=== PATIENT | male | born 1935 | race Caucasian/White ===

== ENCOUNTER 2016-06-01 15:58 | Emergency (ER) | payer OTHER ==
[2016-06-01 16:25] VITALS: BMI 34.2
--- NOTE | 2016-06-01 16:49 | PDOC ---
History of Present Illness - History of Present Illness Initial Comments: 06/01/16 19:16 Patient is a 80 year old male with significant medical hx of CHF, CAD s/p CABG, renal insufficiency, HLD, and diabetes who is presenting to the ED with sudden left leg weakness from today. Today the patient was walking across the street when he had a sudden onset of severe weakness to his left leg and collapsed on the ground. The patient was picked back up by bystanders. He reports that he was able to regain some strength and was able to drive home. The patient states that hes afraid to bear weight on his leg because he feels that he will fall over. The patient denies chest pain, nausea, shortness of breath, or numbness prior to the onset of his symptoms. The patient denies head trauma and loss of consciousness. The patient reports receiving a vascular procedure this summer but is unable to recall what was performed. Procedure done by Dr. Joseph Wagner. Office Number: [phone] PCP: Camilo Sheth MD <Nhi Malcolm - Last Filed: 06/01/16 21:32> <Kelly Partida - Last Filed: 06/01/16 22:31> - General Chief Complaint: Weakness Stated Complaint: LEG WEAKNESS, UNABLE TO WALK Time Seen by Provider: 06/01/16 16:41 Past History <Nhi Malcolm - Last Filed: 06/01/16 21:32> - Past Medical History Anemia: No Asthma: No Cancer: No Cardiac Disorders: Yes (CAD,ASHD) CVA: No COPD: No CHF: Yes Dementia: No Diabetes: Yes GI Disorders: Yes (DIVERTICULOSIS) Disorders: Yes (RENAL INSUFFICIENCY) HTN: Yes Hypercholesterolemia: Yes Liver Disease: No Seizures: No Thyroid Disease: No - Surgical History Abdominal Surgery: No Appendectomy: No Cardiac Surgery: Yes (CABG, ANGIOGRAM,STENTS) Cholecystectomy: No Lung Surgery: No Neurologic Surgery: No Orthopedic Surgery: No - Psycho/Social/Smoking Cessation Hx Anxiety: No Suicidal Ideation: No Smoking Status: No Smoking History: Never smoked Have you smoked in the past 12 months: No Number of Cigarettes Smoked Daily: 0 Hx Alcohol Use: No Drug/Substance Use Hx: No Substance Use Type: None Hx Substance Use Treatment: No <Kelly Partida - Last Filed: 06/01/16 22:31> - Past Medical History Allergies/Adverse Reactions: Allergies Allergy/AdvReac Type Severity Reaction Status Date / Time No Known Allergies Allergy Verified 06/01/16 16:19 Home Medications: Ambulatory Orders Metformin HCl [Glucophage -] 500 mg PO BIDAC #0 tablet 10/18/14 Metoprolol Succinate [Toprol XL -] 50 mg PO DAILY #0 tab.sr.24h 10/18/14 Sitagliptin Phosphate [Januvia -] 100 mg PO DAILY@0700 #0 ud 10/18/14 Allopurinol [Zyloprim -] 300 mg PO DAILY 06/01/16 Clotrimazole/Betamethasone Dip [Clotrimazole-Betamethasone Lot] 30 ml TP DAILY 06/01/16 Furosemide [Lasix] 40 mg PO DAILY 06/01/16 Glipizide [Glucotrol Xl] 2.5 mg PO DAILY 06/01/16 Ibuprofen 800 mg PO QID 06/01/16 Simvastatin 40 mg PO HS 06/01/16 Review of Systems - Review of Systems Comments:: 06/01/16 19:18 CONSTITUTIONAL: Absent: fever, chills, diaphoresis, generalized weakness, malaise, loss of appetite HEENT: Absent: rhinorrhea, nasal congestion, throat pain, throat swelling, difficulty swallowing, mouth swelling, ear pain, eye pain, visual changes CARDIOVASCULAR: Absent: chest pain, syncope, palpitations, irregular heart rate, lightheadedness , peripheral edema RESPIRATORY: Absent: cough, shortness of breath, dyspnea with exertion, orthopnea, wheezing, stridor, hemoptysis GASTROINTESTINAL: Absent: abdominal pain, abdominal distension, nausea, vomiting, diarrhea, constipation, melena, hematochezia GENITOURINARY: Absent: dysuria, frequency, urgency, hesitancy, hematuria, flank pain, genital pain MUSCULOSKELETAL: Absent: myalgia, arthralgia, joint swelling SKIN: Absent: rash, itching, pallor HEMATOLOGIC/IMMUNOLOGIC: Absent: easy bleeding, easy bruising, lymphadenopathy, frequent infections ENDOCRINE: Absent: unexplained weight gain, unexplained weight loss, heat intolerance, cold intolerance NEUROLOGIC: Present: sudden left lower extremity weakness Absent: headache, dizziness, seizure, mental status changes, bladder or bowel incontinence. PSYCHIATRIC: Absent: anxiety, depression, suicidal or homicidal ideation, hallucinations <Yun,Nhi - Last Filed: 06/01/16 21:32> *Physical Exam - Vital Signs Last Vital Signs Temp Pulse Resp BP Pulse Ox 97.6 F 81 17 141/66 95 06/01/16 16:19 06/01/16 16:19 06/01/16 16:19 06/01/16 16:19 06/01/16 16:19 - Physical Exam Comments: 06/01/16 19:18 GENERAL: Well developed, well nourished. Awake and alert. No acute distress. HEENT: Normocephalic, atraumatic. PERRLA, EOMI. No conjunctival pallor. Sclera are non- icteric. Moist mucous membranes. Oropharynx is clear. NECK: Supple. Full ROM. No JVD. Carotid pulses 2+ and symmetric, without bruits. No thyromegaly. No lymphadenopathy. CARDIOVASCULAR: Regular rate and rhythm. No murmurs, rubs, or gallops. Distal pulses are 2+ and symmetric. PULMONARY: No evidence of respiratory distress. Lungs clear to auscultation bilaterally. No wheezing, rales or rhonchi. ABDOMINAL: Protuberant. Soft. Non-tender. Non-distended. No rebound or guarding. No organomegaly. Normoactive bowel sounds. MUSCULOSKELETAL: 4 cm ecchymosis to the left hip. Normal range of motion at all joints. No bony deformities or tenderness. No CVA tenderness. EXTREMITIES: Chronic venous stasis with chronic erythema, several fluid filled lesions and some ulcerations, one 6 cm fluid filled blister that broke open. No cellulitis. +1 lower extremity edema. No obvious deformity. SKIN: Warm and dry. Normal capillary refill. No rashes. No jaundice. NEUROLOGICAL: Awake, alert, fully oriented x 3. Cranial nerves 2-12 intact. Able to lift both legs independently off bed and with gravity. Normal speech. PSYCHIATRIC: Cooperative. Good eye contact. Appropriate mood and affect. <Nhi Malcolm - Last Filed: 06/01/16 21:32> - Vital Signs Last Vital Signs Temp Pulse Resp BP Pulse Ox 97.6 F 81 17 141/66 95 06/01/16 16:19 06/01/16 16:19 06/01/16 16:19 06/01/16 16:19 06/01/16 16:19 <Kelly Partida - Last Filed: 06/01/16 22:31> Heart Score/ECG Review #1 06/01/16 20:33 Sinus rhythm at 85 bpm with 1st AV block with premature atrial complexes Inferior infarct, age undetermined Cannot rule out Anterior infarct, age undetermined Abnormal ECG <Nhi Malcolm - Last Filed: 06/01/16 21:32> ED Treatment Course - LABORATORY CBC & Chemistry Diagram: 06/01/16 19:00 06/01/16 19:00 - ADDITIONAL ORDERS Additional order review: 06/01/16 19:00 RBC 4.93 D MCV 93.7 MCHC 32.5 RDW 16.0 H MPV 8.7 D Neutrophils % 79.6 Lymphocytes % 7.8 L D Monocytes % 9.9 Eosinophils % 1.8 Basophils % 0.9 - RADIOLOGY Radiograph Interpretation: 06/01/16 21:[address] Impression: No significant interval change or acute intracranial pathology is identified. 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 However, osteopenia limits this examination. Reported By: Melina Carlos MD <Nhi Malcolm - Last Filed: 06/01/16 21:32> - LABORATORY CBC & Chemistry Diagram: 06/01/16 19:00 06/01/16 19:00 <Kelly Partida - Last Filed: 06/01/16 22:31> *DC/Admit/Observation/Transfer - Attestations Scribe Attestion: 06/01/16 19:24 Documentation prepared by Nhi Malcolm, acting as medical videographer for Kelly Partida MD. <Nhi Malcolm - Last Filed: 06/01/16 21:32> <Kelly Partida - Last Filed: 06/01/16 22:31> Diagnosis at time of Disposition: Gait difficulty, Renal insufficiency Fall Qualifiers: Encounter type: initial encounter Qualified Code(s): W19.XXXA - Unspecified fall, initial encounter - Discharge Dispostion Disposition: HOME Condition at time of disposition: Stable - Referrals Referrals: Camilo Campo MD [Primary Care Provider] - - Patient Instructions Printed Discharge Instructions: How to Prevent Falls, DI for Leg Pain, DI for Edema Due to Venous Stasis Additional Instructions: please use your cane or walker to prevent falls please follow up with Dr Campo
[2016-06-01 19:12] LABS: BASOPHIL 0.9 % (0-2.0); EOSINOPHIL 1.8 % (0-4.5); MCH 30.4 pg (25.7-33.7); MCHC 32.5 g/dl (32.0-35.9); MEAN CELL VOLUME 93.7 fl (80-96); MEAN PLT VOLUME 8.7 fl (7.5-11.1); NEUTROPHILS 79.6 % (42.8-82.8); PLATELET COUNT 195 K/MM3 (134-434); WHITE BLOOD COUNT 10.8 K/mm3 (4.0-10.0)
[2016-06-01 19:34] LABS: ALBUMIN 3.2 g/dl (3.4-5.0); CALCIUM 9.4 mg/dL (8.5-10.1); CREATININE 1.8 mg/dL (0.7-1.3)
[2016-06-01 19:36] LABS: BILIRUBIN,TOTAL 0.3 mg/dL (0.2-1.0); TOT PROT 6.9 g/dl (6.4-8.2); TROPONIN I < 0.02 ng/ml (0.00-0.05)
[2016-06-01] MEDS ORDERED: ACETAMINOPHEN 325 MG TABLET (FP) PO ONE (19:46)
[2016-06-01] MEDS ORDERED: SODIUM CHLORIDE 500 ML IV STA (19:47)
[2016-06-01] MEDS ORDERED: ACETAMINOPHEN 325 MG TABLET (FP) ONE (20:05)
[2016-06-01] MEDS ORDERED: CYCLOBENZAPRINE HCL 10 MG TABLET (FP) ONE (20:08)
[2016-06-01 21:27] LABS: URINE APPEARANCE CLEAR; URINE BILIRUBIN NEGATIVE (NEGATIVE); URINE BLOOD NEGATIVE (NEGATIVE); URINE COLOR STRAW; URINE GLUCOSE (UA) NEGATIVE (NEGATIVE); URINE KETONE NEGATIVE (NEGATIVE); URINE LEUK ESTERASE NEGATIVE (NEGATIVE); URINE NITRITE NEGATIVE (NEGATIVE); URINE PROTEIN NEGATIVE (NEGATIVE); URINE UROBILINOGEN NEGATIVE E.U./dl (0.2-1.0)
[2016-06-01 23:12] VITALS: BP 138/68; PULSE 80; TEMP 97.7
--- NOTE | 2016-06-02 23:23 | EKG ---
Test Reason : Blood Pressure : / mmHG Vent. Rate : 085 BPM Atrial Rate : 085 BPM P-R Int : 240 ms QRS Dur : 112 ms QT Int : 384 ms P-R-T Axes : 021 025 -08 degrees QTc Int : 456 ms SINUS RHYTHM WITH 1ST DEGREE A-V BLOCK WITH PREMATURE ATRIAL COMPLEXES INFERIOR INFARCT (CITED ON OR BEFORE 23-OCT-2006) CANNOT RULE OUT ANTERIOR INFARCT (CITED ON OR BEFORE 23-OCT-2006) ABNORMAL ECG WHEN COMPARED WITH ECG OF 14-OCT-2014 15:42, PREMATURE ATRIAL COMPLEXES ARE NOW PRESENT Confirmed by MARISSA HINDS MD ([id number]) on 06/02/2016 11:22:48 PM Referred By: Confirmed By:MARISSA HINDS MD
--- NOTE | 2016-06-09 17:51 | EKG ---
Test Reason : Blood Pressure : / mmHG Vent. Rate : 091 BPM Atrial Rate : 087 BPM P-R Int : 244 ms QRS Dur : 082 ms QT Int : 398 ms P-R-T Axes : 073 019 -09 degrees QTc Int : 489 ms PROBABLE SINUS RHYTHM WITH BASELINE ARTIFACTS AND PREMATURE ATRIAL COMPLEXES INFERIOR INFARCT (CITED ON OR BEFORE 23-OCT-2006) POSSIBLE ANTERIOR INFARCT (CITED ON OR BEFORE 23-OCT-2006) ABNORMAL ECG WHEN COMPARED WITH ECG OF 01-JUN-2016 18:10, LIKELY NO SIGNIFICANT CHANGES Confirmed by MARISSA HINDS MD ([id number]) on 06/09/2016 5:51:08 PM Referred By: Confirmed By:MARISSA HINDS MD
== END 2016-06-01 23:10 | disposition home or self-care (01) ==
LOC: JER 15:58
PROC: 3E0337Z Introduction of Electrolytic and Water Balance Substance into Peripheral Vein, Percutaneous Approach (ICD-10-PCS; principal; 2016-06-01)
DX: M62.81 Muscle weakness (generalized) (principal); N28.9 Disorder of kidney and ureter, unspecified; I25.10 Atherosclerotic heart disease of native coronary artery without angina pectoris; I13.0 Hypertensive heart and chronic kidney disease with heart failure and stage 1 through stage 4 chronic kidney disease, or unspecified chronic kidney disease; N18.9 Chronic kidney disease, unspecified; I50.9 Heart failure, unspecified; Z95.1 Presence of aortocoronary bypass graft; Z95.5 Presence of coronary angioplasty implant and graft; E11.9 Type 2 diabetes mellitus without complications; Z79.84 Long term (current) use of oral hypoglycemic drugs; I10 Essential (primary) hypertension
CPT/HCPCS: 36415; 70450-TC; 73523-TC; 80053; 81003; 82550; 84484; 85025; 93005; 93010; 96360; 99283-25

== ENCOUNTER 2017-05-09 14:43 | Inpatient (IN) | payer OTHER ==
--- NOTE | 2017-05-09 15:57 | PDOC ---
Attending Attestation - HPI HPI: 05/09/17 16:42 The patient is a 81 year old male with a past medical history of non insulin dependent diabetes, coronary artery disease s/p coronary bypass graft, congestive heart failure, hypertension, hyperlipidemia, renal insufficiency and diverticulosis who presents to the emergency department complaining of 2 months of progressively worsening bilateral lower extremity weakness. He reports chronic wounds on bilateral lower extremities. He denies any urinary symptoms but his clothes are stained with urine. Denies chest pain, back pain. - Physicial Exam PE: 05/09/17 16:50 Vitals: Triage Vital signs reviewed General Appearance: no acute distress, well nourished well developed, Head: Atraumatic, normocephalic Eyes: Pupils equal reactive round, extraocular movement intact Ears: TM's normal bilaterally; Nose: Nares patent bilaterally;no nasal congestion Throat: Posterior oropharynx without erythema, mucous membranes moist, Neck: Supple;No Nuchal rigidity Chest Wall: Nontender Cardiac: Regular rate and rhythm, no murmurs, no rubs, no gallops, Lungs: Clear to auscultation bilateral, good air movement bilaterally, Abdomen: Soft, nondistended, normal bowel sounds, nontender to palpation Rectal: Exam deferred Extremities:marked bilateral lower extremity swelling and edema. Skin: Bilateral lower extremity Stasis dermatitis from ankle to knee with various wounds with small amount of drainage. Foul swelling. Neuro: AOX3; Cranial Nerves 2-12 grossly c intact, Strength intact to all extremities, Sensation intact to all extremities. Psych: normal mood, normal affect - Medical Decision Making 05/09/17 16:41 Documentation prepared by Tiki Lau, acting as medical record assistant for López Mar MD. <Tiki Lau - Last Filed: 05/09/17 16:59> - Resident Resident Name: Jaquan Patel - ED Attending Attestation I have performed the following: I have examined & evaluated the patient, The case was reviewed & discussed with the resident, I agree w/resident's findings & plan, Exceptions are as noted - Medical Decision Making 81 year old male with a past medical history of non insulin dependent diabetes, coronary artery disease s/p coronary bypass graft, congestive heart failure, hypertension, hyperlipidemia, renal insufficiency and diverticulosis, to the emergency department with greater than one month history of bilateral lower extremity swelling generalized weakness difficulty ambulating. On examination patient with markedly swollen bilateral lower extremity superinfected. Given diabetes we'll cover with pharynx Zosyn. We'll workup for CHF exacerbation, perform Dopplers of lower extremities, and abx for cellultis. Pt. will need to be admitted to medicine for further management Dr. Partida to follow-up results and disposition. <López Mar - Last Filed: 05/09/17 17:05>
--- NOTE | 2017-05-09 16:35 | PDOC ---
History of Present Illness - General Chief Complaint: Weakness Stated Complaint: UNABLE TO AMBULATE Time Seen by Provider: 05/09/17 15:27 History Source: Patient - History of Present Illness Initial Comments: 05/09/17 16:24 Patient is a 81M with history of NIDDM, CAD s/p CABG, CHF, HTN, HLD, renal insufficiency and diverticulosis here today complaining of 2 months of leg weakness. Patient is a poor historian who is unsure of many details of his care. He states that he's been feeling more and more weak lately with associated shortness of breath. He says he's had chronic wounds on his legs, but is unsure of what he's doing for them now. He denies any issues with urination, but his clothes are stained with urine. Denies chest pain, back pain. He is also complaining of pain in his right hand, which has been swollen for over a week. Denies trauma to the hand. He states that he was told it was due to his arthritis. Past History - Past Medical History Allergies/Adverse Reactions: Allergies Allergy/AdvReac Type Severity Reaction Status Date / Time No Known Allergies Allergy Verified 05/09/17 17:28 Home Medications: Ambulatory Orders Furosemide [Lasix -] 40 mg PO ASDIR 05/09/17 Glipizide [Glipizide ER] 5 mg PO ASDIR 05/09/17 Ibuprofen 800 mg PO ASDIR 05/09/17 Metoprolol Succinate [Toprol Xl -] 50 mg PO ASDIR 05/09/17 Simvastatin [Zocor -] 40 mg PO ASDIR 05/09/17 Sitagliptin Phos/Metformin HCl [Janumet 50-500 mg Tablet] 1 each PO ASDIR Triamcinolone 0.1% Lotion [Kenalog 0.1% Top Lotion] 60 ml TP ASDIR 05/09/17 Anemia: No Asthma: No Cancer: No Cardiac Disorders: Yes (CAD,ASHD) CVA: No COPD: No CHF: Yes Dementia: No Diabetes: Yes GI Disorders: Yes (DIVERTICULOSIS) Disorders: Yes (RENAL INSUFFICIENCY) HTN: Yes Hypercholesterolemia: Yes Liver Disease: No Seizures: No Thyroid Disease: No - Surgical History Abdominal Surgery: No Appendectomy: No Cardiac Surgery: Yes (CABG, ANGIOGRAM,STENTS) Cholecystectomy: No Lung Surgery: No Neurologic Surgery: No Orthopedic Surgery: No - Suicide/Smoking/Psychosocial Hx Smoking Status: No Smoking History: Never smoked Have you smoked in the past 12 months: No Number of Cigarettes Smoked Daily: 0 Hx Alcohol Use: No Drug/Substance Use Hx: No Substance Use Type: None Hx Substance Use Treatment: No Review of Systems - Review of Systems Comments:: 05/09/17 16:36 GENERAL/CONSTITUTIONAL: No fever or chills. Positive for weakness. HEAD, EYES, EARS, NOSE AND THROAT: No change in vision. No sore throat. CARDIOVASCULAR: No chest pain. Positive for shortness of breath. RESPIRATORY: No cough, wheezing, or hemoptysis. GASTROINTESTINAL: No nausea, vomiting, diarrhea or constipation. GENITOURINARY: No dysuria. Positive for urinary frequency. MUSCULOSKELETAL: Positive for right wrist pain. No neck or back pain. SKIN: No rash NEUROLOGIC: No headache, vertigo, loss of consciousness, or change in strength/ sensation. ALLERGIC/IMMUNOLOGIC: No hives or skin allergy. *Physical Exam - Physical Exam Comments: 05/09/17 16:37 GENERAL: Awake, alert, and fully oriented, smells of urine with staining HEAD: No signs of trauma, normocephalic, atraumatic EYES: PERRLA, EOMI, sclera anicteric, conjunctiva clear ENT: Auricles normal inspection, hearing grossly normal, nares patent, oropharynx clear without exudates. Moist mucosa NECK: Normal ROM, supple, no lymphadenopathy, JVD, or masses LUNGS: No distress, crackles in lower lung bhatia bilaterally HEART: Regular rate and rhythm, normal S1 and S2, no murmurs, rubs or gallops, peripheral pulses normal and equal bilaterally. ABDOMEN: Soft, nontender, normoactive bowel sounds. No guarding, no rebound. No masses EXTREMITIES: Bilateral chronic wounds to lower extremities. Pitting edema to above knee. No clubbing or cyanosis. NEUROLOGICAL: Cranial nerves II through XII grossly intact. Normal speech, no focal sensorimotor deficits SKIN: Stasis dermatitis from ankles to knees with many ulcers in various stages of healing with moderate amount of discharge ED Treatment Course - LABORATORY CBC & Chemistry Diagram: 05/09/17 16:45 05/09/17 16:45 - RADIOLOGY Radiology Studies Ordered: Category Date Time Status CHEST X-RAY PORTABLE* [RAD] Stat Radiology 05/09/17 15:56 Ordered Medical Decision Making - Medical Decision Making 05/09/17 16:38 81M with history of DM, CAD s/p cabg, arthritis, CHF, HTN, HLD, renal insufficiency, and diverticulosis here with weakness. Patient protecting airway. Patient was hypoxic to 83% during my evaluation, placed on 4L of O2. HR 93, BP stable. Moving all extremities, able to move up in bed. Patient completely disrobed, no wounds other than described in PE on legs. Right hand swollen, tender. Patient's spo2 maame to 92% on oxygen. Differential diagnosis includes, but is not limited to: chf exacerbation, uti, pneumonia, cellulitis. Patient lives alone, and is unable to take care of himself. Will treat with vanc /zosyn after cultures obtained. 05/09/17 17:30 EKG shows sinus rhythm with 1st degree av block. Q waves prominent in III and aVF, consistent with EKG done in 05/19. No st elevations/depressions. Uneven baseline makes t-wave analysis difficult, no significant t-wave abnormalities appreciated. 05/09/17 17:44 Laboratory Tests 06/01/16 05/09/17 05/09/17 19:00 16:45 16:45 WBC 13.7 H Hgb 13.4 D Hct 40.4 Plt Count 220 POC VBG pCO2 58.5 H POC VBG pO2 24.3 L BUN Creatinine 1.8 H D Troponin I B-Natriuretic Peptide 05/09/17 16:45 WBC Hgb Hct Plt Count POC VBG pCO2 POC VBG pO2 BUN 28 H D Creatinine 1.5 H Troponin I < 0.02 B-Natriuretic Peptide 1961.08 H CBC shows leukocytosis. VBG shows increased pCO2. Cr below prior baseline. BNP 1. Glucose 43, given amp of d50. 05/09/17 17:49 Patient has been unable to provide urine sample, antibiotics started before UC collected. 05/09/17 19:43 Dr Patterson accepted admission to [facility] inpatient. Given lasix. *DC/Admit/Observation/Transfer Diagnosis at time of Disposition: CHF exacerbation, Cellulitis - Discharge Dispostion Condition at time of disposition: Stable Admit: Yes - Referrals Referrals: Camilo Campo MD [Primary Care Provider] - - Patient Instructions - Post Discharge Activity
[2017-05-09 17:02] LABS: BASO % 0.6 % (0-2.0); EOS % 0.1 % (0-4.5); HEMATOCRIT 40.4 % (35.4-49); HEMOGLOBIN 13.4 GM/dL (11.7-16.9); LYMPH % 4.3 % (8-40); MCH 30.5 pg (25.7-33.7); MCHC 33.2 g/dl (32.0-35.9); MEAN CELL VOLUME 92.1 fl (80-96); MEAN PLT VOLUME 8.3 fl (7.5-11.1); MONO % 11.7 % (3.8-10.2); NEUT % 83.3 % (42.8-82.8); PLATELET COUNT 220 K/MM3 (134-434); RBC 4.39 M/mm3 (4.00-5.60); RDW 13.6 % (11.9-15.9); WHITE BLOOD COUNT 13.7 K/mm3 (4.0-10.0)
[2017-05-09] MEDS ORDERED: PIPERACILLIN/TAZOB 4.5 GM/100 ML PRE-DOCKED IVPB ONE (17:02)
[2017-05-09] MEDS ORDERED: VANCOMYCIN 1,000 MG in DEXTROSE 5%-WATER - 250 ML IVPB ONE (17:02)
[2017-05-09 17:06] LABS: VENOUS PC02 58.5 mmHg (38-52); VENOUS PH 7.38 (7.32-7.42); VENOUS PO2 24.3 mmHg (28-48)
[2017-05-09 17:16] LABS: INR 1.39 (0.82-1.09); PROTHROMBIN TIME (PATIENT) 15.7 SEC (9.98-11.88)
[2017-05-09] MEDS ORDERED: VANCOMYCIN 1 GRAM (PRE-DOCKED) 1,000 MG/250 ML BAG IVPB ONE (17:17)
[2017-05-09] MEDS ORDERED: PIPERACILLIN/TAZOB 4.5 GM 4.5 GM/100 ML BAG IVPB ONE (17:17)
[2017-05-09 17:19] LABS: ACTIVATED PTT 30.9 SECONDS (26.9-34.4)
[2017-05-09 17:30] LABS: ALBUMIN 2.9 g/dl (3.4-5.0); ANION GAP 10 (8-16); BLOOD UREA NITROGEN 28 mg/dL (7-18); CALCIUM 8.5 mg/dL (8.5-10.1); CHLORIDE 101 mmol/L (98-107); CO2 34 mmol/L (21-32); SODIUM 145 mmol/L (136-145)
[2017-05-09 17:36] LABS: ALK PHOS 123 U/L (45-117); CREATININE 1.5 mg/dL (0.7-1.3); N-TERMINAL BNP 1961.08 pg/ml (5-450); SGPT/ALT 11 U/L (12-78); TOT PROT 6.5 g/dl (6.4-8.2)
[2017-05-09 17:40] LABS: POTASSIUM 3.4 mmol/L (3.5-5.1); SGOT/AST 15 U/L (15-37)
[2017-05-09 17:41] LABS: GLUCOSE,RANDOM 43 mg/dL (74-106)
[2017-05-09] MEDS ORDERED: DEXTROSE 50%-WATER - 25 GM/50 ML VIAL IVPUSH ONE (17:41)
[2017-05-09] MEDS ORDERED: DEXTROSE 50%-WATER 25 GM/50 ML DISP.SYRIN ONE (17:45)
[2017-05-09] MEDS ORDERED: FUROSEMIDE 40 MG/4 ML INJECTABLE VIAL IVPUSH ONE (19:43)
--- NOTE | 2017-05-09 19:51 | HP ---
CHIEF COMPLAINT:B?l lower ext weakness and swelling with cellulites PCP:Dr.Shoen steen HISTORY OF PRESENT ILLNESS: 81 year old male with PMHX of NIDDM, CHF, CAD s/p bypass, HTN, HLD, renal insufficiency,diverticulosis who presented to ED with 2 days history of LE weakness, swelling and erythema was found to have sepsis secondary to cellulites and was admitted to [facility] for further evaluation foe the past months patient complained of leg weakness. Patient is a poor historian who is unsure of many details of his care. He states that he's been feeling more and more weak lately with associated shortness of breath. He says he's had chronic wounds on his legs, but is unsure of what he's doing for them now. He denies any issues with urination, but his clothes are stained with urine. Denies chest pain, back pain. He is also complaining of pain in his right hand, which has been swollen for over a week. Denies trauma to the hand. He states that he was told it was due to his arthritis. ROS : Constipation, SOB, vertigo ER course was notable for: (1)CBC 13.7, K 3.4 , BUN/Cr 28/1.5. GLU 43 (2) CXR right side opacity (my reading) (3) Zosyn/vanco Recent Travel:Denies PAST MEDICAL HISTORY: NIDDM, CHF, CAD s/p bypass, HTN, HLD, renal insufficiency,diverticulosis PAST SURGICAL HISTORY: Bypass 1994 Social History: Smoking:denies Alcohol:denies Drugs: denies Family History: Father deid at 59 with heart disease Mother @ 72 she had DM Allergies No Known Allergies Allergy (Verified 05/09/17 17:28) HOME MEDICATIONS: Home Medications Medication Instructions Recorded Furosemide [Lasix -] 40 mg PO ASDIR 05/09/17 Glipizide [Glipizide ER] 5 mg PO ASDIR 05/09/17 Ibuprofen 800 mg PO ASDIR 05/09/17 Metoprolol Succinate [Toprol Xl -] 50 mg PO ASDIR 05/09/17 Simvastatin [Zocor -] 40 mg PO ASDIR 05/09/17 Sitagliptin Phos/Metformin HCl 1 each PO ASDIR 05/09/17 [Janumet 50-500 mg Tablet] Triamcinolone 0.1% Lotion [Kenalog 60 ml TP ASDIR 05/09/17 0.1% Top Lotion] REVIEW OF SYSTEMS CONSTITUTIONAL: Absent: fever, chills, diaphoresis, generalized weakness, malaise, loss of appetite, weight change HEENT: Absent: rhinorrhea, nasal congestion, throat pain, throat swelling, difficulty swallowing, mouth swelling, ear pain, eye pain, visual changes CARDIOVASCULAR: Absent: chest pain, syncope, palpitations, irregular heart rate, lightheadedness , peripheral edema RESPIRATORY: Absent: cough, shortness of breath, dyspnea with exertion, orthopnea, wheezing, stridor, hemoptysis GASTROINTESTINAL: Absent: abdominal pain, abdominal distension, nausea, vomiting, diarrhea, constipation, melena, hematochezia GENITOURINARY: Absent: dysuria, frequency, urgency, hesitancy, hematuria, flank pain, genital pain MUSCULOSKELETAL: Absent: myalgia, arthralgia, joint swelling, back pain, neck pain SKIN: Absent: rash, itching, pallor HEMATOLOGIC/IMMUNOLOGIC: Absent: easy bleeding, easy bruising, lymphadenopathy, frequent infections ENDOCRINE: Absent: unexplained weight gain, unexplained weight loss, heat intolerance, cold intolerance NEUROLOGIC: Absent: headache, focal weakness or paresthesias, dizziness, unsteady gait, seizure, mental status changes, bladder or bowel incontinence PSYCHIATRIC: Absent: anxiety, depression, suicidal or homicidal ideation, hallucinations. PHYSICAL EXAMINATION Vital Signs - 24 hr 05/09/17 05/09/17 15:40 19:36 Temperature 99.3 F Pulse Rate 94 H Respiratory 16 Rate Blood Pressure 117/53 O2 Sat by Pulse 95 98 Oximetry (%) GENERAL: Awake, alert, and fully oriented, in no acute distress. HEAD: Normal with no signs of trauma. EYES:sclera anicteric, conjunctiva clear. EARS, NOSE, THROAT: Moist mucous membranes. NECK: Normal range of motion, supple LUNGS: Breath sounds equal, clear to auscultation bilaterally. No wheezes, and no crackles. No accessory muscle use. HEART: Regular rate and rhythm, normal S1 and S2 without murmur, rub or gallop. ABDOMEN: Soft, nontender, not distended, normoactive bowel sounds, no guarding, no rebound, MUSCULOSKELETAL: Normal range of motion at all joints. No bony deformities or tenderness. No CVA tenderness. UPPER EXTREMITIES: 2+ pulses, warm, well-perfused. No cyanosis. No clubbing. right hand edema. LOWER EXTREMITIES: 2+ pulses, warm, well-perfused. No calf tenderness. +2 peripheral edema. erythema, chronic stasis, warm R>L NEUROLOGICAL: No focal deficit Normal speech. PSYCHIATRIC: Cooperative. Good eye contact. Appropriate mood and affect. SKIN: Warm, dry, no rashes or lesions noted, Laboratory Results - last 24 hr 05/09/17 05/09/17 05/09/17 16:45 16:45 16:45 WBC 13.7 H RBC 4.39 Hgb 13.4 D Hct 40.4 MCV 92.1 MCH 30.5 MCHC 33.2 RDW 13.6 D Plt Count 220 MPV 8.3 Neutrophils % 83.3 H Lymphocytes % 4.3 L D Monocytes % 11.7 H Eosinophils % 0.1 D Basophils % 0.6 PT with INR 15.70 H INR 1.39 H D PTT (Actin FS) 30.9 VBG pH 7.38 POC VBG pCO2 58.5 H POC VBG pO2 24.3 L Mixed VBG HCO3 34.0 H Sodium Potassium Chloride Carbon Dioxide Anion Gap BUN Creatinine Creat Clearance w eGFR Random Glucose Lactic Acid Calcium Total Bilirubin AST ALT Alkaline Phosphatase Creatine Kinase Troponin I B-Natriuretic Peptide Total Protein Albumin Blood Type Antibody Screen 05/09/17 05/09/17 05/09/17 16:45 16:45 16:45 WBC RBC Hgb Hct MCV MCH MCHC RDW Plt Count MPV Neutrophils % Lymphocytes % Monocytes % Eosinophils % Basophils % PT with INR INR PTT (Actin FS) VBG pH POC VBG pCO2 POC VBG pO2 Mixed VBG HCO3 Sodium 145 Potassium 3.4 L Chloride 101 Carbon Dioxide 34 H Anion Gap 10 BUN 28 H D Creatinine 1.5 H Creat Clearance w eGFR 45.14 Random Glucose 43 L* D Lactic Acid 1.5 Calcium 8.5 Total Bilirubin 1.0 D AST 15 D ALT 11 L D Alkaline Phosphatase 123 H Creatine Kinase 69 Troponin I < 0.02 B-Natriuretic Peptide 1961.08 H Total Protein 6.5 Albumin 2.9 L Blood Type B POSITIVE Antibody Screen Negative 05/09/17 16:45 WBC RBC Hgb Hct MCV MCH MCHC RDW Plt Count MPV Neutrophils % Lymphocytes % Monocytes % Eosinophils % Basophils % PT with INR INR PTT (Actin FS) VBG pH POC VBG pCO2 POC VBG pO2 Mixed VBG HCO3 Sodium Potassium Chloride Carbon Dioxide Anion Gap BUN Creatinine Creat Clearance w eGFR Random Glucose Lactic Acid Calcium Total Bilirubin AST ALT Alkaline Phosphatase Creatine Kinase Troponin I B-Natriuretic Peptide Cancelled Total Protein Albumin Blood Type Antibody Screen CBC, BMP 05/09/17 16:45 05/09/17 16:45 ASSESSMENT/PLAN: 81 year old male with PMHX of NIDDM, CHF, CAD s/p bypass, HTN, HLD, renal insufficiency,diverticulosis who presented to ED with 2 days history of LE weakness, swelling and erythema was found to have sepsis secondary to cellulites and was admitted to tele for further evaluation #Sepsis 2/2 Cellulites * WBC 13.7/ tachy cardic , afebrile , source of infection * Start ABx vanco/zosyn in ED * hay cx (urine, blood) * CXR * LE Douplex negative for DVT * hand xray shows chronic osteoarthritis * ID consult * continue with zosyn renal dose 2.25 Q 8hr * Repeat LA * repeat CBC, CMP * ESR, CRP # Hypoglycemia /NIDDM * Glu 43 on admission * 1 amb dextrose * hold home meds * ISS * BGM ACHS * diabetic diet * HgbA1c 6.3 # Hypokalemia * KCL 3.4 * replenich KCL 40 IV * monitor #Acute on chronic diastolic CHF * continue home meds * IV lasix 40 in ED * ECHO in AM * Strict I& O * daily weight # CKD * Cr on base line 1.4 dueing last year * Monitor * Avoid nephrotoxic agenets ' * urine lytes , urine Urea * Adjust abx for renal doses * # HTN * controlled * continue home meds * monitor # HLD * continue home meds simvastatin 40 mg PO daily # CAD S/P bypass graft * continue home meds * # Obesity * BMI 34.8 * counselled about modified diet, losing weight and change life style. * # FEN * F: on no fluids * E: Hypokalemia , monitor * N: Low sodium, diabetic diet # Proph * DVT Hep 5000 Q8hr * GI : No need # Dispo * Admit to tele * day team please verify home meds Visit type - Emergency Visit Emergency Visit: Yes ED Registration Date: 05/09/17 Care time: The patient presented to the Emergency Department on the above date and was hospitalized for further evaluation of their emergent condition. - New Patient This patient is new to me today: Yes Date on this admission: 05/10/17 - Critical Care Critical Care patient: No
[2017-05-09] MEDS ORDERED: FUROSEMIDE 40 MG/4 ML INJECTABLE VIAL ONE (19:55)
--- NOTE | 2017-05-09 20:37 | PN ---
Teaching Attending Note Name of Resident: Deandre Smith ATTENDING PHYSICIAN STATEMENT I saw and evaluated the patient. I reviewed the resident's note and discussed the case with the resident. I agree with the resident's findings and plan as documented. SUBJECTIVE: 81 M with pmhx of NIDDM, CAD s/p CABG, CHF, HTN, HLD, CKD, and diverticulosis who presents with bilateral LE weakness with wounds on bilateral LE. Pt. states his LE wounds have been there for the past 15 years and he has increasing edema and erythema, denies any chest pain or pressure, but does note he has shortness of breath. No fevers or chills. No Nausea, vomiting or diarrhea OBJECTIVE: Physical: VS: Vital Signs Period Temp Pulse Resp BP Sys/Eckert Pulse Ox Last 24 Hr 99.3 F 94 16 117/53 95-98 GEN: NAD, resting in bed, able to speak full sentences HEENT: NCAT, PERRL, throat without erythema or exudates CARD: RRR S1, S2 RESP: Decreased BS at bases ABD: BSX4, ntd to palpation EXT: LE excoriations, with bilateral erythema and edema and warmth. CBCD WBC 13.7 K/mm3 (4.0-10.0) H 05/09/17 16:45 RBC 4.39 M/mm3 (4.00-5.60) 05/09/17 16:45 Hgb 13.4 GM/dL (11.7-16.9) D 05/09/17 16:45 Hct 40.4 % (35.4-49) 05/09/17 16:45 MCV 92.1 fl (80-96) 05/09/17 16:45 MCHC 33.2 g/dl (32.0-35.9) 05/09/17 16:45 RDW 13.6 % (11.9-15.9) D 05/09/17 16:45 Plt Count 220 K/MM3 (134-434) 05/09/17 16:45 MPV 8.3 fl (7.5-11.1) 05/09/17 16:45 CMP Sodium 145 mmol/L (136-145) 05/09/17 16:45 Potassium 3.4 mmol/L (3.5-5.1) L 05/09/17 16:45 Chloride 101 mmol/L (98-107) 05/09/17 16:45 Carbon Dioxide 34 mmol/L (21-32) H 05/09/17 16:45 Anion Gap 10 (8-16) 05/09/17 16:45 BUN 28 mg/dL (7-18) H D 05/09/17 16:45 Creatinine 1.5 mg/dL (0.7-1.3) H 05/09/17 16:45 Creat Clearance w eGFR 45.14 (>60) 05/09/17 16:45 Random Glucose 43 mg/dL (74-106) L* D 05/09/17 16:45 Calcium 8.5 mg/dL (8.5-10.1) 05/09/17 16:45 Total Bilirubin 1.0 mg/dL (0.2-1.0) D 05/09/17 16:45 AST 15 U/L (15-37) D 05/09/17 16:45 ALT 11 U/L (12-78) L D 05/09/17 16:45 Alkaline Phosphatase 123 U/L (45-117) H 05/09/17 16:45 Total Protein 6.5 g/dl (6.4-8.2) 05/09/17 16:45 Albumin 2.9 g/dl (3.4-5.0) L 05/09/17 16:45 CARDIAC ENZYMES Creatine Kinase 69 IU/L (39-308) 05/09/17 16:45 Troponin I < 0.02 ng/ml (0.00-0.05) 05/09/17 16:45 EKG: NSR with 1st deg. AV blockm q waves in III/AVF. NO BOWEN/Depressions CXR- Vasxcular congestion ECHO: 10/15- EF 59.2%, Mild , RVSP Ambulatory Orders Furosemide [Lasix -] 40 mg PO ASDIR 05/09/17 Glipizide [Glipizide ER] 5 mg PO ASDIR 05/09/17 Ibuprofen 800 mg PO ASDIR 05/09/17 Metoprolol Succinate [Toprol Xl -] 50 mg PO ASDIR 05/09/17 Simvastatin [Zocor -] 40 mg PO ASDIR 05/09/17 Sitagliptin Phos/Metformin HCl [Janumet 50-500 mg Tablet] 1 each PO ASDIR Triamcinolone 0.1% Lotion [Kenalog 0.1% Top Lotion] 60 ml TP ASDIR 05/09/17 ASSESSMENT AND PLAN: 81 M with pmhx of NIDDM, CAD s/p CABG, CHF, HTN, HLD, CKD, and diverticulosis who presents with bilateral LE weakness with wounds on bilateral LE, being admitted for sepsis due to cellulitis and chf exacerbation 1.) Sepsis due to Cellulitis - Bilateral LE - Vanco/Zosyn given in ED - ID consult - Can continue - [place] Cx- Chk UA - Repeat LA 2.) Acute on Chronic Diastolic HF - Recheck Echo - Trend Trop/Ekg - NA/Fluid restict - Daily weights - Strict I/O - Lasix 40 IV 3.) Hypoglycemia/NIDDM - D50 given - Hold PO meds, including Glipizine - FS - RIASS 3.) CAD S/P CABG - ASA - Pt. needs John/ARB, when renal function stabilizes 4.) DAVID on CKD -Base Cr 1.4 - U lytes - Trend Cr - HOLD Janumet- Would D/C Metformin for home 5.) HLD - C/W Statin 6.) DVt Ppx - Heparin [address] in Med- Tele
[2017-05-09] MEDS ORDERED: POTASSIUM CHLORIDE ORAL LIQUID 20 MEQ/15 ML PO ONE (21:24)
[2017-05-09 21:36] LABS: URINE APPEARANCE CLEAR; URINE BILIRUBIN NEGATIVE (NEGATIVE); URINE BLOOD NEGATIVE (NEGATIVE); URINE COLOR LTYELLOW; URINE GLUCOSE (UA) NEGATIVE (NEGATIVE); URINE KETONE NEGATIVE (NEGATIVE); URINE LEUK ESTERASE NEGATIVE (NEGATIVE); URINE NITRITE NEGATIVE (NEGATIVE); URINE PROTEIN NEGATIVE (NEGATIVE); URINE UROBILINOGEN NEGATIVE mg/dL (0.2-1.0)
[2017-05-09] MEDS ORDERED: IBUPROFEN 400 MG TABLET (FP) PO PRN (21:45)
[2017-05-09] MEDS ORDERED: IBUPROFEN 400 MG TABLET (FP) PO ONE (21:52)
[2017-05-09] MEDS: POTASSIUM CHLORIDE 20 MEQ PREMIX IVPB 100 ML IVPB ONE ×2 (22:00→23:17)
[2017-05-09] MEDS ORDERED: PIPERACILLIN/TAZOBACTAM 2.25 GM VIAL IVPB ONE (22:32)
[2017-05-09] MEDS: INSULIN SLIDING SCALE (NOVOLOG) 1 VIAL SQ SCH (23:16)
[2017-05-09] MEDS ORDERED: PIPERACILLIN/TAZOB 2.25 GM/50 ML PREMIX BAG IVPB ONE (23:55)
[2017-05-10 00:19] LABS: ARTERIAL BLD GAS O2 SATURATION 95.2 % (90-98.9); ARTERIAL BLOOD GAS BASE EXCESS 6.2 meq/l (-2-2); ARTERIAL BLOOD GAS PCO2 45.5 mmHg (35-45); ARTERIAL BLOOD GAS PO2 76.8 mmHg (70-100); ARTERIAL BLOOD GAS pH 7.45 (7.35-7.45)
[2017-05-10 01:22] VITALS: BMI 34.2
[2017-05-10] MEDS: HEPARIN NA (PORCINE) 5,000 UNITS/ML 1ML VIAL SQ SCH ×3 (06:27→21:34)
[2017-05-10] MEDS: INSULIN SLIDING SCALE (NOVOLOG) 1 VIAL SQ SCH ×4 (06:28→22:03)
[2017-05-10 07:01] LABS: BASO % 0.2 % (0-2.0); HEMATOCRIT 39.5 % (35.4-49); HEMOGLOBIN 12.6 GM/dL (11.7-16.9); LYMPH % 3.5 % (8-40); MCH 29.7 pg (25.7-33.7); MCHC 31.9 g/dl (32.0-35.9); MEAN CELL VOLUME 92.9 fl (80-96); MEAN PLT VOLUME 9.1 fl (7.5-11.1); MONO % 9.2 % (3.8-10.2); NEUT % 87.1 % (42.8-82.8); PLATELET COUNT 191 K/MM3 (134-434); RBC 4.25 M/mm3 (4.00-5.60); RDW 13.6 % (11.9-15.9); WHITE BLOOD COUNT 14.4 K/mm3 (4.0-10.0)
[2017-05-10 07:12] LABS: ALBUMIN 2.4 g/dl (3.4-5.0); ANION GAP 9 (8-16); BILIRUBIN,TOTAL 0.7 mg/dL (0.2-1.0); BLOOD UREA NITROGEN 29 mg/dL (7-18); CHLORIDE 104 mmol/L (98-107); CO2 31 mmol/L (21-32); CREATININE 1.6 mg/dL (0.7-1.3); GLUCOSE,RANDOM 166 mg/dL (74-106); SGOT/AST 10 U/L (15-37); SGPT/ALT 11 U/L (12-78); SODIUM 144 mmol/L (136-145); TOT PROT 5.6 g/dl (6.4-8.2)
[2017-05-10 07:13] LABS: ALK PHOS 114 U/L (45-117)
[2017-05-10 07:18] LABS: MAGNESIUM 1.3 mg/dL (1.8-2.4); PHOSPHOROUS 2.8 mg/dL (2.5-4.9)
[2017-05-10 07:20] LABS: ACTIVATED PTT 29.4 SECONDS (26.9-34.4)
[2017-05-10 07:22] LABS: INR 1.42 (0.82-1.09)
[2017-05-10] MEDS ORDERED: POTASSIUM CHLORIDE TABS 20 MEQ TABLET.ER (FP) PO ONE ×2 (07:52→12:00)
[2017-05-10] MEDS ORDERED: MAGNESIUM OXIDE 400 MG TABLET (FP) PO ONE (07:53)
[2017-05-10] MEDS ORDERED: KCL 10 MEQ IVPB 10 MEQ/100 ML INFUS.BAG IVPB SCH (08:00)
[2017-05-10] MEDS ORDERED: POTASSIUM CHLORIDE 20 MEQ PREMIX IVPB 100 ML IVPB ONE (08:57)
[2017-05-10] MEDS: ASPIRIN COATED 81 MG TABLET.EC PO SCH (09:03)
[2017-05-10] MEDS: METOPROLOL SUCCINATE 50 MG TAB.SR.24H (FP) PO SCH (09:04)
[2017-05-10] MEDS ORDERED: FUROSEMIDE 40 MG TABLET (FP) PO SCH (10:00)
[2017-05-10] MEDS ORDERED: TRIAMCINOLONE ACET 0.1% 60 ML LOTION TP PRN (10:00)
--- NOTE | 2017-05-10 12:37 | EKG ---
Test Reason : Blood Pressure : / mmHG Vent. Rate : 094 BPM Atrial Rate : 094 BPM P-R Int : 232 ms QRS Dur : 100 ms QT Int : 356 ms P-R-T Axes : 013 009 -22 degrees QTc Int : 445 ms SINUS RHYTHM WITH 1ST DEGREE A-V BLOCK POSSIBLE LEFT ATRIAL ENLARGEMENT ABNORMAL ECG WHEN COMPARED WITH ECG OF 01-JUN-2016 21:14, PREMATURE ATRIAL COMPLEX IS NO LONGER SEEN Confirmed by GUZMAN BERNSTEIN, MARISSA ([id number]) on 05/10/2017 12:36:48 PM Referred By: Confirmed By:MARISSA HINDS MD
--- NOTE | 2017-05-10 14:01 | PN ---
Progress Note, Physician - Current Medication List Current Medications: Active Medications Aspirin (Ecotrin -) 81 mg PO DAILY [facility] Last Admin: 05/10/17 09:03 Dose: 81 mg Atorvastatin Calcium (Lipitor -) 20 mg PO HS DOMINIK Furosemide (Lasix -) 40 mg PO DAILY [facility] Last Admin: 05/10/17 09:04 Dose: 40 mg Heparin Sodium (Porcine) (Heparin -) 5,000 unit SQ TID [facility] Last Admin: 05/10/17 13:06 Dose: 5,000 unit Insulin Aspart (Novolog Vial Sliding Scale -) 1 vial SQ ACHS [facility] PRN Reason: Protocol Last Admin: 05/10/17 12:41 Dose: Not Given Metoprolol Succinate (Toprol Xl -) 50 mg PO DAILY [facility] Last Admin: 05/10/17 09:04 Dose: 50 mg Tramadol HCl (Ultram -) 25 mg PO BID [facility] Triamcinolone Acetonide (Aristocort 0.1% Lotion -) 1 applic TP BID PRN PRN Reason: FOR ITCHING/RASH - Objective Vital Signs: Vital Signs Temperature 98.2 F 05/10/17 06:00 Pulse Rate 115 H 05/10/17 06:00 Respiratory Rate 20 05/10/17 06:00 Blood Pressure 113/50 05/10/17 06:00 O2 Sat by Pulse Oximetry (%) 96 05/10/17 01:27 Labs: CBC, BMP 05/10/17 05:10 05/10/17 05:10 INR, PTT INR 1.42 (0.82-1.09) H 05/10/17 05:10
[2017-05-10] MEDS ORDERED: traMADol HCL 50 MG TABLET PO ONE (15:43)
--- NOTE | 2017-05-10 16:01 | PN ---
Physical Exam: SUBJECTIVE: Patient seen and examined. Pt denies LE pain, but endorses right hand pain. He denies SOB, cough, and chest pain. He has no other subjective complaints. OBJECTIVE: Vital Signs Period Temp Pulse Resp BP Sys/Eckert Pulse Ox Last 24 Hr 97.5 F-98.8 F 94-115 18-20 104-135/50-64 96-98 GENERAL: The patient is awake, alert, and fully oriented, in no acute distress. HEENT: NC, AT, EOMI NECK: Trachea midline, full range of motion, supple. LUNGS: decreased breath sounds, scattered rales HEART: Regular rate and rhythm, S1, S2 without murmur, rub or gallop. ABDOMEN: obese, soft, nontender, nondistended, normoactive bowel sounds, no guarding, no rebound, no hepatosplenomegaly, no masses. 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 Normal speech, gait not observed. Laboratory Results - last 24 hr 05/09/17 05/09/17 05/09/17 16:45 16:45 16:45 WBC 13.7 H RBC 4.39 Hgb 13.4 D Hct 40.4 MCV 92.1 MCH 30.5 MCHC 33.2 RDW 13.6 D Plt Count 220 MPV 8.3 Neutrophils % 83.3 H Lymphocytes % 4.3 L D Monocytes % 11.7 H Eosinophils % 0.1 D Basophils % 0.6 ESR PT with INR 15.70 H INR 1.39 H D PTT (Actin FS) 30.9 Puncture Site ABG pH ABG pCO2 at Pt Temp ABG pO2 at Pt Temp ABG HCO3 ABG O2 Sat (Measured) ABG O2 Content ABG Base Excess Dax Test VBG pH 7.38 POC VBG pCO2 58.5 H POC VBG pO2 24.3 L Mixed VBG HCO3 34.0 H O2 Delivery Device Oxygen Flow Rate Sodium Potassium Chloride Carbon Dioxide Anion Gap BUN Creatinine Creat Clearance w eGFR POC Glucometer Random Glucose Hemoglobin A1c % Lactic Acid Calcium Phosphorus Magnesium Total Bilirubin AST ALT Alkaline Phosphatase Creatine Kinase Troponin I C-Reactive Protein B-Natriuretic Peptide Total Protein Albumin Urine Color Urine Appearance Urine pH Ur Specific [place] Urine Protein Urine Glucose (UA) Urine Ketones Urine Blood Urine Nitrite Urine Bilirubin Urine Urobilinogen Ur Leukocyte Esterase Blood Type Antibody Screen 05/09/17 05/09/17 05/09/17 16:45 16:45 16:45 WBC RBC Hgb Hct MCV MCH MCHC RDW Plt Count MPV Neutrophils % Lymphocytes % Monocytes % Eosinophils % Basophils % ESR PT with INR INR PTT (Actin FS) Puncture Site ABG pH ABG pCO2 at Pt Temp ABG pO2 at Pt Temp ABG HCO3 ABG O2 Sat (Measured) ABG O2 Content ABG Base Excess Dax Test VBG pH POC VBG pCO2 POC VBG pO2 Mixed VBG HCO3 O2 Delivery Device Oxygen Flow Rate Sodium 145 Potassium 3.4 L Chloride 101 Carbon Dioxide 34 H Anion Gap 10 BUN 28 H D Creatinine 1.5 H Creat Clearance w eGFR 45.14 POC Glucometer Random Glucose 43 L* D Hemoglobin A1c % Lactic Acid 1.5 Calcium 8.5 Phosphorus Magnesium Total Bilirubin 1.0 D AST 15 D ALT 11 L D Alkaline Phosphatase 123 H Creatine Kinase 69 Troponin I < 0.02 C-Reactive Protein B-Natriuretic Peptide 1961.08 H Total Protein 6.5 Albumin 2.9 L Urine Color Urine Appearance Urine pH Ur Specific [place] Urine Protein Urine Glucose (UA) Urine Ketones Urine Blood Urine Nitrite Urine Bilirubin Urine Urobilinogen Ur Leukocyte Esterase Blood Type B POSITIVE Antibody Screen Negative 05/09/17 05/09/17 05/09/17 16:45 19:30 20:40 WBC RBC Hgb Hct MCV MCH MCHC RDW Plt Count MPV Neutrophils % Lymphocytes % Monocytes % Eosinophils % Basophils % ESR PT with INR INR PTT (Actin FS) Puncture Site ABG pH ABG pCO2 at Pt Temp ABG pO2 at Pt Temp ABG HCO3 ABG O2 Sat (Measured) ABG O2 Content ABG Base Excess Dax Test VBG pH POC VBG pCO2 POC VBG pO2 Mixed VBG HCO3 O2 Delivery Device Oxygen Flow Rate Sodium Potassium Chloride Carbon Dioxide Anion Gap BUN Creatinine Creat Clearance w eGFR POC Glucometer [phone] Random Glucose Hemoglobin A1c % Lactic Acid Calcium Phosphorus Magnesium Total Bilirubin AST ALT Alkaline Phosphatase Creatine Kinase Troponin I C-Reactive Protein B-Natriuretic Peptide Cancelled Total Protein Albumin Urine Color Ltyellow Urine Appearance Clear Urine pH 5.0 Ur Specific [place] 1.009 Urine Protein Negative Urine Glucose (UA) Negative Urine Ketones Negative Urine Blood Negative Urine Nitrite Negative Urine Bilirubin Negative Urine Urobilinogen Negative Ur Leukocyte Esterase Negative Blood Type Antibody Screen 05/09/17 05/09/17 05/09/17 21:30 21:30 21:30 WBC RBC Hgb Hct MCV MCH MCHC RDW Plt Count MPV Neutrophils % Lymphocytes % Monocytes % Eosinophils % Basophils % ESR PT with INR INR PTT (Actin FS) Puncture Site ABG pH ABG pCO2 at Pt Temp ABG pO2 at Pt Temp ABG HCO3 ABG O2 Sat (Measured) ABG O2 Content ABG Base Excess Dax Test VBG pH POC VBG pCO2 POC VBG pO2 Mixed VBG HCO3 O2 Delivery Device Oxygen Flow Rate Sodium Potassium Chloride Carbon Dioxide Anion Gap BUN Creatinine Creat Clearance w eGFR POC Glucometer Random Glucose Hemoglobin A1c % Lactic Acid 1.7 Calcium Phosphorus Magnesium Total Bilirubin AST ALT Alkaline Phosphatase Creatine Kinase Troponin I < 0.02 C-Reactive Protein 23.8 H B-Natriuretic Peptide Total Protein Albumin Urine Color Urine Appearance Urine pH Ur Specific [place] Urine Protein Urine Glucose (UA) Urine Ketones Urine Blood Urine Nitrite Urine Bilirubin Urine Urobilinogen Ur Leukocyte Esterase Blood Type Antibody Screen 05/09/17 05/09/17 05/10/17 21:30 22:56 00:01 WBC RBC Hgb Hct MCV MCH MCHC RDW Plt Count MPV Neutrophils % Lymphocytes % Monocytes % Eosinophils % Basophils % ESR PT with INR INR PTT (Actin FS) Puncture Site Right radial ABG pH 7.45 ABG pCO2 at Pt Temp 45.5 H D ABG pO2 at Pt Temp 76.8 ABG HCO3 30.8 H ABG O2 Sat (Measured) 95.2 ABG O2 Content 18.6 ABG Base Excess 6.2 H Dax Test No Result Required. VBG pH POC VBG pCO2 POC VBG pO2 Mixed VBG HCO3 O2 Delivery Device Nasal o2 Oxygen Flow Rate No Result Required. Sodium Potassium Chloride Carbon Dioxide Anion Gap BUN Creatinine Creat Clearance w eGFR POC Glucometer 176.78487 Random Glucose Hemoglobin A1c % 6.3 H D Lactic Acid Calcium Phosphorus Magnesium Total Bilirubin AST ALT Alkaline Phosphatase Creatine Kinase Troponin I C-Reactive Protein B-Natriuretic Peptide Total Protein Albumin Urine Color Urine Appearance Urine pH Ur Specific [place] Urine Protein Urine Glucose (UA) Urine Ketones Urine Blood Urine Nitrite Urine Bilirubin Urine Urobilinogen Ur Leukocyte Esterase Blood Type Antibody Screen 05/10/17 05/10/17 05/10/17 05:10 05:10 05:10 WBC RBC Hgb Hct MCV MCH MCHC RDW Plt Count MPV Neutrophils % Lymphocytes % Monocytes % Eosinophils % Basophils % ESR 75 H PT with INR 16.00 H INR 1.42 H PTT (Actin FS) 29.4 Puncture Site ABG pH ABG pCO2 at Pt Temp ABG pO2 at Pt Temp ABG HCO3 ABG O2 Sat (Measured) ABG O2 Content ABG Base Excess Dax Test VBG pH POC VBG pCO2 POC VBG pO2 Mixed VBG HCO3 O2 Delivery Device Oxygen Flow Rate Sodium Potassium Chloride Carbon Dioxide Anion Gap BUN Creatinine Creat Clearance w eGFR POC Glucometer Random Glucose Hemoglobin A1c % Lactic Acid Calcium Phosphorus 2.8 Magnesium 1.3 L Total Bilirubin AST ALT Alkaline Phosphatase Creatine Kinase Troponin I C-Reactive Protein B-Natriuretic Peptide Total Protein Albumin Urine Color Urine Appearance Urine pH Ur Specific [place] Urine Protein Urine Glucose (UA) Urine Ketones Urine Blood Urine Nitrite Urine Bilirubin Urine Urobilinogen Ur Leukocyte Esterase Blood Type Antibody Screen 05/10/17 05/10/17 05/10/17 05:10 05:10 05:10 WBC 14.4 H RBC 4.25 Hgb 12.6 Hct 39.5 MCV 92.9 MCH 29.7 MCHC 31.9 L RDW 13.6 Plt Count 191 MPV 9.1 Neutrophils % 87.1 H Lymphocytes % 3.5 L Monocytes % 9.2 Eosinophils % 0.0 D Basophils % 0.2 ESR PT with INR INR PTT (Actin FS) Puncture Site ABG pH ABG pCO2 at Pt Temp ABG pO2 at Pt Temp ABG HCO3 ABG O2 Sat (Measured) ABG O2 Content ABG Base Excess Dax Test VBG pH POC VBG pCO2 POC VBG pO2 Mixed VBG HCO3 O2 Delivery Device Oxygen Flow Rate Sodium 144 Potassium 3.0 L Chloride 104 Carbon Dioxide 31 Anion Gap 9 BUN 29 H Creatinine 1.6 H Creat Clearance w eGFR 41.90 POC Glucometer Random Glucose 166 H D Hemoglobin A1c % Lactic Acid Calcium 8.0 L Phosphorus Magnesium Total Bilirubin 0.7 D AST 10 L D ALT 11 L Alkaline Phosphatase 114 Creatine Kinase Troponin I < 0.02 C-Reactive Protein B-Natriuretic Peptide Total Protein 5.6 L Albumin 2.4 L Urine Color Urine Appearance Urine pH Ur Specific [place] Urine Protein Urine Glucose (UA) Urine Ketones Urine Blood Urine Nitrite Urine Bilirubin Urine Urobilinogen Ur Leukocyte Esterase Blood Type Antibody Screen Active Medications Generic Name Dose Route Start Last Admin Trade Name Freq PRN Reason Stop Dose Admin Aspirin 81 mg 05/10/17 10:00 05/10/17 09:03 Ecotrin - PO 81 mg DAILY [facility] Administration Atorvastatin Calcium 20 mg 05/10/17 22:00 Lipitor - PO HS DOMINIK Docusate Sodium 100 mg 05/11/17 10:00 Colace - PO DAILY DOMINIK Furosemide 40 mg 05/10/17 10:00 05/10/17 09:04 Lasix - PO 40 mg DAILY DOMINIK Administration Heparin Sodium (Porcine) 5,000 unit 05/10/17 06:00 05/10/17 13:06 Heparin - SQ 5,000 unit TID DOMINIK Administration Piperacillin/Tazobactam/Dextrose 2.25 gm in 50 mls @ 100 mls/hr 05/10/17 18: 00 Zosyn 2.25gm Ivpb (Premix) IVPB Q8H-IV [facility] Protocol Insulin Aspart 1 vial 05/09/17 22:00 05/10/17 12:41 Novolog Vial Sliding Scale - SQ Not Given ACHS [facility] Protocol Metoprolol Succinate 50 mg 05/10/17 10:00 05/10/17 09:04 Toprol Xl - PO 50 mg DAILY DOMINIK Administration Tramadol HCl 25 mg 05/10/17 22:00 Ultram - PO BID [facility] Triamcinolone Acetonide 1 applic 05/10/17 10:00 Aristocort 0.1% Lotion - TP BID PRN FOR ITCHING/RASH ASSESSMENT/PLAN: 81M w/ hx of NIDDM, CHF, CAD s/p bypass, HTN, HLD, renal insufficiency, and diverticulosis who presented with acute LE weakness, swelling and erythema, was found to have sepsis, admitted for sepsis 2/2 cellulits. #Sepsis: possibly 2/2 cellulitis * leukocytosis and tachycardia * abx per ID, Dr. Reed * f/u Bcx * f/u Ucx * CXR: congestive changes * LE Duplex: negative for DVT #fractures * transverse fracture of scaphoid and fracture of triquetrum * ortho on board, f/u recs * pain control with tramadol 25mg BID # Hypoglycemia/pre-diabetes * ISS * BGM ACHS * diabetic diet * HgbA1c 6.3 #Acute on chronic diastolic CHF * continue lasix and toprol * ECHO: new cor pulmonale * Strict I&O * daily weight #Elevated INR * INR of 1.42 * possibly 2/2 liver injury from right sided HF * monitor for now # CKD * Cr at base line 1.4 * Monitor * Avoid nephrotoxic agents. motrin D/C'd * Adjust abx for renal doses # HTN * controlled * continue lasix and toprol * monitor # HLD * continue home simvastatin # CAD S/P bypass graft * continue ASA # Obesity * BMI 34.8 * counselled about modified diet, losing weight and change life style. # FEN/ppx * F: po fluids * E: replete K and Mg * N: Low sodium, diabetic diet * DVT: Hep 5000 Q8hr * GI : No need Case discussed with attending, Dr. Wray. -Elver العلي MD PGY1 Visit type - Emergency Visit Emergency Visit: Yes ED Registration Date: 05/09/17 Care time: The patient presented to the Emergency Department on the above date and was hospitalized for further evaluation of their emergent condition. - New Patient This patient is new to me today: Yes Date on this admission: 05/10/17 - Critical Care Critical Care patient: No
[2017-05-10] MEDS: PIPERACILLIN/TAZOB 2.25 GM 2.25 GM/50 ML BAG IVPB SCH (17:31)
[2017-05-10] MEDS ORDERED: morphine CARPU-JECT 10 MG/1 ML DISP.SYRIN IVPUSH ONE (17:45)
[2017-05-10] MEDS ORDERED: morphine CARPU-JECT 2 MG/1 ML DISP.SYRIN IVPUSH ONE (17:50)
[2017-05-10] MEDS ORDERED: FUROSEMIDE 40 MG/4 ML INJECTABLE VIAL IVPUSH ONE (18:00)
--- NOTE | 2017-05-10 18:19 | PN ---
Teaching Attending Note Name of Resident: Elver العلي ATTENDING PHYSICIAN STATEMENT I saw and evaluated the patient. I reviewed the resident's note and discussed the case with the resident. I agree with the resident's findings and plan as documented. SUBJECTIVE: Patient is on Bipap on Telemetry unit. No fever or chills. OBJECTIVE: Vital Signs Temperature 98.8 F 05/10/17 14:00 Pulse Rate 95 H 05/10/17 14:00 Respiratory Rate 20 05/10/17 14:00 Blood Pressure 109/64 05/10/17 14:00 O2 Sat by Pulse Oximetry (%) 97 05/10/17 09:00 CBCD WBC 14.4 K/mm3 (4.0-10.0) H 05/10/17 05:10 RBC 4.25 M/mm3 (4.00-5.60) 05/10/17 05:10 Hgb 12.6 GM/dL (11.7-16.9) 05/10/17 05:10 Hct 39.5 % (35.4-49) 05/10/17 05:10 MCV 92.9 fl (80-96) 05/10/17 05:10 MCHC 31.9 g/dl (32.0-35.9) L 05/10/17 05:10 RDW 13.6 % (11.9-15.9) 05/10/17 05:10 Plt Count 191 K/MM3 (134-434) 05/10/17 05:10 MPV 9.1 fl (7.5-11.1) 05/10/17 05:10 CMP Sodium 144 mmol/L (136-145) 05/10/17 05:10 Potassium 3.0 mmol/L (3.5-5.1) L 05/10/17 05:10 Chloride 104 mmol/L (98-107) 05/10/17 05:10 Carbon Dioxide 31 mmol/L (21-32) 05/10/17 05:10 Anion Gap 9 (8-16) 05/10/17 05:10 BUN 29 mg/dL (7-18) H 05/10/17 05:10 Creatinine 1.6 mg/dL (0.7-1.3) H 05/10/17 05:10 Creat Clearance w eGFR 41.90 (>60) 01/08/18 05:10 Random Glucose 166 mg/dL (74-106) H D 05/10/17 05:10 Calcium 8.0 mg/dL (8.5-10.1) L 05/10/17 05:10 Total Bilirubin 0.7 mg/dL (0.2-1.0) D 05/10/17 05:10 AST 10 U/L (15-37) L D 05/10/17 05:10 ALT 11 U/L (12-78) L 05/10/17 05:10 Alkaline Phosphatase 114 U/L (45-117) 05/10/17 05:10 Total Protein 5.6 g/dl (6.4-8.2) L 05/10/17 05:10 Albumin 2.4 g/dl (3.4-5.0) L 05/10/17 05:10 CARDIAC ENZYMES Creatine Kinase 69 IU/L (39-308) 05/09/17 16:45 Troponin I < 0.02 ng/ml (0.00-0.05) 05/10/17 05:10 Current Medications Generic Name Dose Route Start Last Admin Trade Name Qasimq PRN Reason Stop Dose Admin Aspirin 81 mg 05/10/17 10:00 05/10/17 09:03 Ecotrin - PO 81 mg DAILY DOMINIK Administration Atorvastatin Calcium 20 mg 05/10/17 22:00 Lipitor - PO HS DOMINIK Docusate Sodium 100 mg 05/11/17 10:00 Colace - PO DAILY DOMINIK Furosemide 40 mg 05/10/17 10:00 05/10/17 09:04 Lasix - PO 40 mg DAILY [facility] Administration Heparin Sodium (Porcine) 5,000 unit 05/10/17 06:00 05/10/17 13:06 Heparin - SQ 5,000 unit TID DOMINIK Administration Piperacillin/Tazobactam/Dextrose 2.25 gm in 50 mls @ 100 mls/hr 05/10/17 18: 00 05/10/17 17:31 Zosyn 2.25gm Ivpb (Premix) IVPB 100 mls/hr Q8H-IV [facility] Administration Protocol Insulin Aspart 1 vial 05/09/17 22:00 05/10/17 17:34 Novolog Vial Sliding Scale - SQ 2 units ACHS DOMINIK Administration Protocol Magnesium Sulfate 2 gm 05/10/17 18:18 Magnesium Sulfate IVPB 05/10/17 18:19 ONCE ONE Metoprolol Succinate 50 mg 05/10/17 10:00 05/10/17 09:04 Toprol Xl - PO 50 mg DAILY [facility] Administration Tramadol HCl 25 mg 05/10/17 22:00 Ultram - PO BID DOMINIK Triamcinolone Acetonide 1 applic 05/10/17 10:00 Aristocort 0.1% Lotion - TP BID PRN FOR ITCHING/RASH Home Medications Medication Instructions Recorded Furosemide [Lasix -] 40 mg PO BID 05/09/17 Glipizide [Glipizide ER] 5 mg PO BID 05/09/17 Ibuprofen 800 mg PO PRN 05/09/17 Metoprolol Succinate [Toprol Xl -] 50 mg PO DAILY 05/09/17 Simvastatin [Zocor -] 40 mg PO DAILY 05/09/17 Sitagliptin Phos/Metformin HCl 1 each PO BID 05/09/17 [Janumet 50-500 mg Tablet] Triamcinolone 0.1% Lotion [Kenalog 60 ml TP PRN 05/09/17 0.1% Top Lotion] Docusate Sodium [Colace] 100 mg PO DAILY 05/10/17 PE: per resident's note patient is on Bipap CXR: decreased air entry bl. Extremities: Bl lower extremity lymphedema, fouly smell bl, wheeping lower extremities with open lesions. rest of PE per resident's note ASSESSMENT AND PLAN: 81M w/ hx of NIDDM, CHF, CAD s/p bypass, HTN, HLD, renal insufficiency, and diverticulosis who presented with acute LE weakness, swelling and erythema, was found to have sepsis, admitted for sepsis 2/2 cellulits. #Acute Sepsis:due to bl celluitis on IV antibiotic ;LE Duplex: negative for DVT # Acute Cellulitis of LE BL on IV antibx Zosyn continue , ID is on the case. # Acute diastolic CHF exacerbation on IV lasix 60mg bid, will place the patient on bipap, lisinopril ; Strict I&O ;daily weight, cardio consult #Hand fx: Transverse fracture of scaphoid and fracture of triquetrum ; ortho on board, f/u recs; pain control with tramadol 25mg BID # Hypoglycemia/pre-diabetes; ISS; diabetic diet ;HgbA1c 6.3 # Acute on chronic CKD baseline 1.4 will monitor # HTN controlled on IV lasix, toprol and added lisinopril # HLD continue home simvastatin ; lipitor is formulary in the hospital # CAD s/p bypass graft continue ASA , on lipitor , lipid panel is pending # Obesity BMI 34.8 ; counselled about modified diet, losing weight and change life style. dvt px: Heparin
[2017-05-10] MEDS ORDERED: MAGNESIUM SULF 50% (8.12 MEQ/2 ML-1 GM VIAL) IVPB ONE (18:30)
--- NOTE | 2017-05-10 18:56 | CON.CARD ---
Consult Consult Specialty:: Cardiology Referred by:: Hospitalist Medicine Reason for Consultation:: Cor pulmonale - History of Present Illness Chief Complaint: Abd distension, dyspnea, lower extremity edema History of Present Illness: The patient is a 81 year old man with a past medical history of CHF, CAD s/p CABG, hypertension, hypercholesterolemia, type 2 DM, pulmonary hypertension and diverticulosis presented to the emergency department with bilateral LE weakness with wounds on bilateral LE. Pt. states his LE wounds are chronic yet has increasing edema and erythema, denies any chest pain or pressure, but does note he has increased shortness of breath. Patient of Dr. Sesar Arnold. - History Source History Provided By: Medical Record Limitations to Obtaining History: Clinical Condition - Past Medical History CUPOL[place] MAN: Yes: Vertigo Cardio/Vascular: Yes: CAD, HTN, Hyperlipdemia - Alcohol/Substance Use Hx Alcohol Use: No - Smoking History Smoking history: Never smoked Have you smoked in the past 12 months: No Aproximately how many cigarettes per day: 0 Home Medications - Allergies Allergies/Adverse Reactions: Allergies Allergy/AdvReac Type Severity Reaction Status Date / Time No Known Allergies Allergy Verified 05/09/17 17:28 - Home Medications Home Medications: Ambulatory Orders Furosemide [Lasix -] 40 mg PO BID 05/09/17 Glipizide [Glipizide ER] 5 mg PO BID 05/09/17 Ibuprofen 800 mg PO PRN 05/09/17 Metoprolol Succinate [Toprol Xl -] 50 mg PO DAILY 05/09/17 Simvastatin [Zocor -] 40 mg PO DAILY 05/09/17 Sitagliptin Phos/Metformin HCl [Janumet 50-500 mg Tablet] 1 each PO BID Triamcinolone 0.1% Lotion [Kenalog 0.1% Top Lotion] 60 ml TP PRN 05/09/17 Docusate Sodium [Colace] 100 mg PO DAILY 05/10/17 Vital Signs: Vital Signs Temperature 98.8 F 05/10/17 14:00 Pulse Rate 95 H 05/10/17 14:00 Respiratory Rate 20 05/10/17 14:00 Blood Pressure 109/64 05/10/17 14:00 O2 Sat by Pulse Oximetry (%) 97 05/10/17 09:00 Constitutional: Yes: No Distress, Calm Neck: Yes: Supple Respiratory: Yes: Regular, Diminished Gastrointestinal: Yes: Soft, Abdomen, Obese, Distention, Hypoactive Bowel Sounds Cardiovascular: Yes: Regular Rate and Rhythm JVD: No Carotid Bruit: No Heart Sounds: Yes: S1, S2 Edema: Yes Edema: LLE: 2+, RLE: 2+ Integumentary: Yes: Erythema, Venous Stasis Changes - Other Data Labs, Other Data: CBC, BMP 05/10/17 05:10 05/10/17 05:10 INR, PTT INR 1.42 (0.82-1.09) H 05/10/17 05:10 Troponin, BNP 05/09/17 05/10/17 21:30 05:10 Troponin I < 0.02 < 0.02 Troponin, BNP 05/09/17 05/10/17 21:30 05:10 Troponin I < 0.02 < 0.02 NSR @ 94 LAE 1st deg AVB Echo: Report Reviewed Ejection Fraction %: LVEF > or = 40 % Problem List - Problems (1) Cor pulmonale (chronic) Code(s): I27.81 - COR PULMONALE (CHRONIC) (2) S/P CABG (coronary artery bypass graft) Code(s): Z95.1 - PRESENCE OF AORTOCORONARY BYPASS GRAFT (3) Coronary artery disease Code(s): I25.10 - ATHSCL HEART DISEASE OF [place] CORONARY ARTERY W/O ANG PCTRS Qualifiers: Coronary Disease-Associated Artery/Lesion type: [place] artery [place] vs. transplanted heart: [place] heart Associated angina: without angina Qualified Code(s): I25.10 - Atherosclerotic heart disease of [place] coronary artery without angina pectoris (4) Hyperlipidemia associated with type 2 diabetes mellitus Code(s): E11.69 - TYPE 2 DIABETES MELLITUS WITH OTHER SPECIFIED COMPLICATION; E78.5 - HYPERLIPIDEMIA, UNSPECIFIED (5) Chronic kidney disease Code(s): N18.9 - CHRONIC KIDNEY DISEASE, UNSPECIFIED Qualifiers: Chronic kidney disease stage: stage 2 (mild) Qualified Code(s): N18.2 - Chronic kidney disease, stage 2 (mild) (6) Diastolic dysfunction with chronic heart failure Code(s): I50.32 - CHRONIC DIASTOLIC (CONGESTIVE) HEART FAILURE (7) Cellulitis Code(s): L03.90 - CELLULITIS, UNSPECIFIED Qualifiers: Site of cellulitis of extremity: lower extremity (8) Type 2 diabetes mellitus Code(s): E11.9 - TYPE 2 DIABETES MELLITUS WITHOUT COMPLICATIONS Qualifiers: Diabetes mellitus complication status: without complication Diabetes mellitus alf insulin use: without ferry terminal agent use Qualified Code(s): E11.9 - Type 2 diabetes mellitus without complications (9) Hypertensive cardiomegaly with heart failure Code(s): I11.0 - HYPERTENSIVE HEART DISEASE WITH HEART FAILURE (10) Hypokalemia Code(s): E87.6 - HYPOKALEMIA Assessment/Plan Echo: 05/10/2017 D-shaped, hyperdynamic LV with cor pulmonale w/o sig valve abnl 1. Cor pulmonale, pulmonary hypertension 2. CAD s/p CABG, angina pectoris 3. HTN/HCVD 4. NIDDM 5. Diastolic dysfunction 6. Hyperlipidemia 7. Type 2 DM 8. LE cellulitis PLAN: 1. IV diuresis and add Aldactone 25 qd with monitor diuretic response, renal function and electrolytes, avoid NSAIDs, replete K 2. Bipap as tolerated to facilitate diuresis 3. Abx course per ID and C&S 4. ASA 81 qd, Toprol XL 50 qd, Lipitor 20 qd and lisinopril 5 qd 5. DVT prophylaxis 6. Outpatient w/u of pulmonary hypertension 7. Thank you for consultative opportunity
[2017-05-10] MEDS: SPIRONOLACTONE 25 MG TABLET (FP) PO SCH (20:00)
[2017-05-10] MEDS: ATORVASTATIN CA 20 MG TABLET (FP) PO SCH (21:37)
[2017-05-10] MEDS: traMADol HCL 50 MG TABLET PO SCH (21:37)
[2017-05-11] MEDS: PIPERACILLIN/TAZOB 2.25 GM 2.25 GM/50 ML BAG IVPB SCH ×3 (02:30→17:19)
[2017-05-11] MEDS: HEPARIN NA (PORCINE) 5,000 UNITS/ML 1ML VIAL SQ SCH ×3 (05:20→22:09)
[2017-05-11] MEDS ORDERED: FUROSEMIDE 100 MG/10 ML INJECTABLE VIAL IVPB SCH ×2 (06:00→08:54)
[2017-05-11] MEDS: INSULIN SLIDING SCALE (NOVOLOG) 1 VIAL SQ SCH ×4 (06:17→22:19)
[2017-05-11 06:46] LABS: BASO % 0.2 % (0-2.0); EOS % 0.3 % (0-4.5); HEMATOCRIT 41.3 % (35.4-49); HEMOGLOBIN 13.4 GM/dL (11.7-16.9); LYMPH % 7.5 % (8-40); MCH 30.6 pg (25.7-33.7); MCHC 32.5 g/dl (32.0-35.9); MEAN CELL VOLUME 94.1 fl (80-96); MEAN PLT VOLUME 9.3 fl (7.5-11.1); PLATELET COUNT 220 K/MM3 (134-434); RBC 4.39 M/mm3 (4.00-5.60); RDW 13.9 % (11.9-15.9); WHITE BLOOD COUNT 15.2 K/mm3 (4.0-10.0)
[2017-05-11 07:05] LABS: ALBUMIN 2.5 g/dl (3.4-5.0); ALK PHOS 127 U/L (45-117); ANION GAP 12 (8-16); BILIRUBIN,TOTAL 0.6 mg/dL (0.2-1.0); BLOOD UREA NITROGEN 41 mg/dL (7-18); CHLORIDE 103 mmol/L (98-107); CO2 30 mmol/L (21-32); GLUCOSE,RANDOM 129 mg/dL (74-106); POTASSIUM 4.2 mmol/L (3.5-5.1); SGOT/AST 19 U/L (15-37); SGPT/ALT 12 U/L (12-78); SODIUM 145 mmol/L (136-145); TOT PROT 6.5 g/dl (6.4-8.2)
--- NOTE | 2017-05-11 07:26 | PN ---
Progress Note (short form) - Note Progress Note: Chief Complaint: Events noted, notes reviewed, denies any chest pain, dyspnea persists, peripheral edema with chronic venous ulcers noted History of Present Illness: Seen and examined on telemetry. Events noted, notes reviewed, denies any chest pain, dyspnea persists, peripheral edema with chronic venous ulcers noted Echocardiography revealed normal LV size, hyperdynamic LV, AV sclerosis, RV dilated and hypokinetic, bi-atrial dilatation, trace MR and TR with no RVSP measurement Medications: Current Medications Aspirin (Ecotrin -) 81 mg PO DAILY [facility] Last Admin: 05/10/17 09:03 Dose: 81 mg Atorvastatin Calcium (Lipitor -) 20 mg PO HS [facility] Last Admin: 05/10/17 21:37 Dose: 20 mg Docusate Sodium (Colace -) 100 mg PO DAILY [facility] Furosemide (Lasix Injection -) 60 mg IVPB BID@0600,1400 [facility] Last Admin: 05/11/17 05:20 Dose: 60 mg Heparin Sodium (Porcine) (Heparin -) 5,000 unit SQ TID [facility] Last Admin: 05/11/17 05:20 Dose: 5,000 unit Piperacillin/Tazobactam/Dextrose (Zosyn 2.25gm Ivpb (Premix)) 2.25 gm in 50 mls @ 100 mls/hr IVPB Q8H-IV [facility] PRN Reason: Protocol Last Admin: 05/11/17 02:30 Dose: 100 mls/hr Insulin Aspart (Novolog Vial Sliding Scale -) 1 vial SQ ACHS [facility] PRN Reason: Protocol Last Admin: 05/11/17 06:17 Dose: Not Given Lisinopril (Prinivil) 5 mg PO DAILY [facility] Metoprolol Succinate (Toprol Xl -) 50 mg PO DAILY [facility] Last Admin: 05/10/17 09:04 Dose: 50 mg Spironolactone (Aldactone -) 25 mg PO DAILY [facility] Last Admin: 05/10/17 20:00 Dose: 25 mg Tramadol HCl (Ultram -) 25 mg PO BID [facility] Last Admin: 05/10/17 21:37 Dose: 25 mg Triamcinolone Acetonide (Aristocort 0.1% Lotion -) 1 applic TP BID PRN PRN Reason: FOR ITCHING/RASH Review of Systems Constitutional: Denies: Chills or Fever Cardiovascular: As noted above Respiratory: denies: Cough or Sputum Production Gastrointestinal: Denies: Nausea, Vomiting, Diarrhea, Constipation or Abdominal Pain Genitourinary: No symptoms reported Neurology: No seizures or syncope Vital Signs: Last Vital Signs Temp Pulse Resp BP Pulse Ox 98.9 F 105 H 25 H 140/70 96 05/11/17 06:00 05/11/17 06:00 05/11/17 06:00 05/11/17 06:00 05/10/17 20:53 Intake & Output 05/08/17 05/09/17 05/10/17 05/11/17 23:59 23:59 23:59 23:59 Intake Total 1540 450 Output Total 1000 500 Balance 540 -50 Weight 250 lb 245 lb 9 oz 247 lb 1 oz Constitutional: No Distress, Calm Neck: Supple Respiratory: Diminished Breath Sounds at the Bases Cardiovascular: S1 S2 Regular Rate and Rhythm Gastrointestinal: Soft Benign Normal Bowel Sounds Ext: 2+ Bilateral Edema with Venous Stasis Changes and Ulcers Labs: CBC, BMP 05/11/17 05:10 05/11/17 05:10 Assessment/Plan ASSESSMENT: 1. Cor pulmonale, pulmonary hypertension (No RVSP measurement on the above noted echocardiography) 2. CAD post CABG, angina pectoris 3. Diastolic LV dysfunction with chronic class 0-I NYHA classification LV failure 4. HTN/HCVD 5. NIDDM 6. Hyperlipidemia 7. Lower extremity cellulitis PLAN: 1. Continue Lasix and Aldactone with caution and close monitoring of renal function 2. Continue Toprol XL 3. Continue Lisinopril 4. Continue ASA 5. Continue Lipitor 6. Bipap as tolerated 7. Antibiotics as per the primary team 8. Outpatient evaluation of pulmonary hypertension Venus Soares MD
[2017-05-11] MEDS: DOCUSATE SODIUM 100 MG CAPSULE (FP) PO SCH (10:41)
--- NOTE | 2017-05-11 10:50 | PN ---
Teaching Attending Note Name of Resident: Elver العلي ATTENDING PHYSICIAN STATEMENT I saw and evaluated the patient. I reviewed the resident's note and discussed the case with the resident. I agree with the resident's findings and plan as documented. SUBJECTIVE: Diony coley was called since patient was having difficulty with his speech and was not able to find the words. OBJECTIVE: Vital Signs Temperature 98.9 F 05/11/17 06:00 Pulse Rate 105 H 05/11/17 06:00 Respiratory Rate 25 H 05/11/17 06:00 Blood Pressure 140/70 05/11/17 06:00 O2 Sat by Pulse Oximetry (%) 96 05/10/17 20:53 CBCD WBC 15.2 K/mm3 (4.0-10.0) H 05/11/17 05:10 RBC 4.39 M/mm3 (4.00-5.60) 05/11/17 05:10 Hgb 13.4 GM/dL (11.7-16.9) 05/11/17 05:10 Hct 41.3 % (35.4-49) 05/11/17 05:10 MCV 94.1 fl (80-96) 05/11/17 05:10 MCHC 32.5 g/dl (32.0-35.9) 05/11/17 05:10 RDW 13.9 % (11.9-15.9) 05/11/17 05:10 Plt Count 220 K/MM3 (134-434) 05/11/17 05:10 MPV 9.3 fl (7.5-11.1) 05/11/17 05:10 CMP Sodium 145 mmol/L (136-145) 05/11/17 05:10 Potassium 4.2 mmol/L (3.5-5.1) D 05/11/17 05:10 Chloride 103 mmol/L (98-107) 05/11/17 05:10 Carbon Dioxide 30 mmol/L (21-32) 05/11/17 05:10 Anion Gap 12 (8-16) 05/11/17 05:10 BUN 41 mg/dL (7-18) H D 05/11/17 05:10 Creatinine 2.0 mg/dL (0.7-1.3) H D 05/11/17 05:10 Creat Clearance w eGFR 32.39 (>60) 05/11/17 05:10 Random Glucose 129 mg/dL (74-106) H D 05/11/17 05:10 Calcium 9.0 mg/dL (8.5-10.1) 05/11/17 05:10 Total Bilirubin 0.6 mg/dL (0.2-1.0) 05/11/17 05:10 AST 19 U/L (15-37) D 05/11/17 05:10 ALT 12 U/L (12-78) 05/11/17 05:10 Alkaline Phosphatase 127 U/L (45-117) H 05/11/17 05:10 Total Protein 6.5 g/dl (6.4-8.2) 05/11/17 05:10 Albumin 2.5 g/dl (3.4-5.0) L 05/11/17 05:10 CARDIAC ENZYMES Creatine Kinase 69 IU/L (39-308) 05/09/17 16:45 Troponin I < 0.02 ng/ml (0.00-0.05) 05/10/17 05:10 Current Medications Generic Name Dose Route Start Last Admin Trade Name Bashir PRN Reason Stop Dose Admin Aspirin 81 mg 05/10/17 10:00 05/10/17 09:03 Ecotrin - PO 81 mg DAILY DOMINIK Administration Atorvastatin Calcium 20 mg 05/10/17 22:00 05/10/17 21:37 Lipitor - PO 20 mg HS DOMINIK Administration Docusate Sodium 100 mg 05/11/17 10:00 Colace - PO DAILY [facility] Furosemide 40 mg 05/11/17 10:00 Lasix Injection - IVPB DAILY [facility] Heparin Sodium (Porcine) 5,000 unit 05/10/17 06:00 05/11/17 05:20 Heparin - SQ 5,000 unit TID DOMINIK Administration Piperacillin/Tazobactam/Dextrose 2.25 gm in 50 mls @ 100 mls/hr 05/10/17 18: 00 05/11/17 02:30 Zosyn 2.25gm Ivpb (Premix) IVPB 100 mls/hr Q8H-IV [facility]INIK Administration Protocol Insulin Aspart 1 vial 05/09/17 22:00 05/11/17 06:17 Novolog Vial Sliding Scale - SQ Not Given ACHS [facility] Protocol Lisinopril 5 mg 05/11/17 10:00 Prinivil PO DAILY DOMINIK Metoprolol Succinate 50 mg 05/10/17 10:00 05/10/17 09:04 Toprol Xl - PO 50 mg DAILY [facility] Administration Spironolactone 25 mg 05/10/17 19:15 05/10/17 20:00 Aldactone - PO 25 mg DAILY [facility] Administration Tramadol HCl 25 mg 05/10/17 22:00 05/10/17 21:37 Ultram - PO 25 mg BID [facility]IN[facility] Administration Triamcinolone Acetonide 1 applic 05/10/17 10:00 Aristocort 0.1% Lotion - TP BID PRN FOR ITCHING/RASH Home Medications Medication Instructions Recorded Furosemide [Lasix -] 40 mg PO BID 05/09/17 Glipizide [Glipizide ER] 5 mg PO BID 05/09/17 Ibuprofen 800 mg PO PRN 05/09/17 Metoprolol Succinate [Toprol Xl -] 50 mg PO DAILY 05/09/17 Simvastatin [Zocor -] 40 mg PO DAILY 05/09/17 Sitagliptin Phos/Metformin HCl 1 each PO BID 05/09/17 [Janumet 50-500 mg Tablet] Triamcinolone 0.1% Lotion [Kenalog 60 ml TP PRN 05/09/17 0.1% Top Lotion] Docusate Sodium [Colace] 100 mg PO DAILY 05/10/17 PE: HEENT : mouth was completely dry. receiving Lasix and was on Bipap ASSESSMENT AND PLAN: 81M w/ hx of NIDDM, CHF, CAD s/p bypass, HTN, HLD, renal insufficiency, and diverticulosis who presented with acute LE weakness, swelling and erythema, was found to have sepsis, admitted for sepsis 2/2 cellulitis. 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 #Acute Sepsis: On IV zosyn continue ;LE Duplex: negative for DVT # Acute Cellulitis of LE BL continue IV Zosyn # Acute diastolic CHF exacerbation on IV lasix 40mg IV daily , will place the patient on bipap, lisinopril ; Strict I&O ;daily weight #fractures; transverse fracture of scaphoid and fracture of triquetrum ; ortho on board, f/u recs; pain control with tramadol 25mg BID # Hypoglycemia/pre-diabetes; ISS; diabetic diet ;HgbA1c 6.3 # Acute on chronic CKD baseline 1.4 # HTN controlled on IV lasix, toprol and added lisinopril # HLD continue home simvastatin # CAD S/P bypass graft continue ASA , on lipitor , pending # Obesity BMI 34.8 ; counselled about modified diet, losing weight and change life style. dvt px: Heparin
--- NOTE | 2017-05-11 10:53 | RAPID ---
Physical Examination Vital Signs: Vital Signs Temperature 98.9 F 05/11/17 06:00 Pulse Rate 105 H 05/11/17 06:00 Respiratory Rate 25 H 05/11/17 06:00 Blood Pressure 140/70 05/11/17 06:00 O2 Sat by Pulse Oximetry (%) 96 05/10/17 20:53 Labs: CBC, BMP 05/11/17 05:10 05/11/17 05:10 Suspected CVA - Suspected CVA MD Exam Time (Code Chavez Time): 08:33 CT Stroke ordered: Yes Stat "Code Chavez" Consult to Neurology called: Yes Last Known Well (Date): 05/10/17 Last Known Well (Time): 19:00 Symptom Discovery (Date): 05/11/17 Symptom Discovery (Time): 08:35 NIH Stroke Scale - Last Known Well Date/Time & Onset Date Last Known Well: 05/10/17 Time Last Known Well: 19:00 - Initial Evaluation Level of consciousness: Alert Ask patient the month and their age: Answers both correctly Ask patient to open & close eyes; make fist and let go: Obeys both correctly Best gaze (horizontal eye movement): Normal Visual field testing: No visual field loss Facial paresis (Show teeth/raise eyebrows/close eyes tight): Normal symmetrical movement Motor Function: Left Arm: Normal Motor Function: Right Arm: Untestable (Joint fused or limb amputated), explain : (fracture hand was not able to test) Motor Function: Left Leg: Normal (extends leg 30 degrees for 5 seconds without drift) Motor Function: Right Leg: Normal (extends leg 30 degrees for 5 seconds without drift) Limb Ataxia: Untestable (Joint fused or limb amputated), explain: (b/l lower extremity infection with lymphedema that was not able to test) Sensory(Use pinprick test arms,legs,trunk,face/side to side): Normal Best language (Describe picture, name items, read sentences): No Aphasia Dysarthria (read several words): Intubated or other physical barrierr, explain: (severe dehydration with very dry mouth s/p Bipap over night, felt his tongue like a cotton wall) Extinction and Inattention: No abnormality - Total Score NIH Stroke Scale Score: 0
[2017-05-11] MEDS: SPIRONOLACTONE 25 MG TABLET (FP) PO SCH (10:57)
[2017-05-11] MEDS: LISINOPRIL 5 MG TABLET (FP) PO SCH (10:58)
[2017-05-11] MEDS: traMADol HCL 50 MG TABLET PO SCH ×2 (10:58→22:10)
[2017-05-11] MEDS: ASPIRIN COATED 81 MG TABLET.EC PO SCH (10:58)
[2017-05-11 11:02] LABS: ARTERIAL BLD GAS O2 SATURATION 92.3 % (90-98.9); ARTERIAL BLOOD GAS PCO2 55.1 mmHg (35-45); ARTERIAL BLOOD GAS PO2 68.1 mmHg (70-100); ARTERIAL BLOOD GAS pH 7.35 (7.35-7.45)
[2017-05-11 11:06] LABS: ALLENS TEST POSITIVE
[2017-05-11] MEDS: METOPROLOL SUCCINATE 50 MG TAB.SR.24H (FP) PO SCH (11:06)
[2017-05-11] MEDS: FUROSEMIDE 40 MG/4 ML INJECTABLE VIAL IVPB SCH (11:06)
--- NOTE | 2017-05-11 12:56 | PN ---
Physical Exam: SUBJECTIVE: Patient seen and examined Rapid response called for change in behavior in pt. Pt found with very dry mucous membranes, with difficulty completing sentences. He denies SOB, chest pain, abdominal pain, n/v/d/c, and dysuria. OBJECTIVE: Vital Signs Period Temp Pulse Resp BP Sys/Eckert Pulse Ox Last 24 Hr 98.5 F-99.6 F 79-105 18-25 103-140/51-70 90-96 GENERAL: The patient is awake, alert, and fully oriented, in no acute distress. HEENT: dry mucous membranes NECK: Trachea midline, full range of motion, supple. LUNGS: decreased breath sounds, scattered rales HEART: Regular rate and rhythm, S1, S2 without murmur, rub or gallop. ABDOMEN: obese, soft, nontender, nondistended, normoactive bowel sounds, no guarding, no rebound, no hepatosplenomegaly, no masses. 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 sensory function is intact b/l, strength in b/l LEs is 2/5, and 3/5 in both UEs. Pt able to follow simple commands, demonstrated difficulty repeating sentences. AAOx1 (name) Laboratory Results - last 24 hr 05/10/17 05/10/17 05/11/17 04:18 12:40 05:10 WBC 15.2 H RBC 4.39 Hgb 13.4 Hct 41.3 MCV 94.1 MCH 30.6 MCHC 32.5 RDW 13.9 Plt Count 220 MPV 9.3 Neutrophils % 81.0 Lymphocytes % 7.5 L D Monocytes % 11.0 H Eosinophils % 0.3 D Basophils % 0.2 Puncture Site ABG pH ABG pCO2 at Pt Temp ABG pO2 at Pt Temp ABG HCO3 ABG O2 Sat (Measured) ABG O2 Content ABG Base Excess Dax Test O2 Delivery Device Oxygen Flow Rate Mechanical Rate PEEP Sodium Potassium Chloride Carbon Dioxide Anion Gap BUN Creatinine Creat Clearance w eGFR POC Glucometer 205.90607 145.61010 Random Glucose Calcium Total Bilirubin AST ALT Alkaline Phosphatase Total Protein Albumin Ur Random Urea Nitrogn 05/11/17 05/11/17 05/11/17 05:10 06:00 10:20 WBC RBC Hgb Hct MCV MCH MCHC RDW Plt Count MPV Neutrophils % Lymphocytes % Monocytes % Eosinophils % Basophils % Puncture Site Right radial ABG pH 7.35 ABG pCO2 at Pt Temp 55.1 H D ABG pO2 at Pt Temp 68.1 L ABG HCO3 29.3 H ABG O2 Sat (Measured) 92.3 ABG O2 Content 15.6 ABG Base Excess 3.0 H Dax Test Positive O2 Delivery Device Venti mask Oxygen Flow Rate 40 Mechanical Rate Yes PEEP 0.0 Sodium 145 Potassium 4.2 D Chloride 103 Carbon Dioxide 30 Anion Gap 12 BUN 41 H D Creatinine 2.0 H D Creat Clearance w eGFR 32.39 POC Glucometer Random Glucose 129 H D Calcium 9.0 Total Bilirubin 0.6 AST 19 D ALT 12 Alkaline Phosphatase 127 H Total Protein 6.5 Albumin 2.5 L Ur Random Urea Nitrogn 406 Active Medications Generic Name Dose Route Start Last Admin Trade Name Freq PRN Reason Stop Dose Admin Aspirin 81 mg 05/10/17 10:00 05/11/17 10:58 Ecotrin - PO 81 mg DAILY DOMINIK Administration Atorvastatin Calcium 20 mg 05/10/17 22:00 05/10/17 21:37 Lipitor - PO 20 mg HS [facility]INIK Administration Docusate Sodium 100 mg 05/11/17 10:00 05/11/17 10:41 Colace - PO 100 mg DAILY [facility] Administration Furosemide 40 mg 05/11/17 10:00 05/11/17 11:06 Lasix Injection - IVPB 40 mg DAILY [facility] Administration Heparin Sodium (Porcine) 5,000 unit 05/10/17 06:00 05/11/17 05:20 Heparin - SQ 5,000 unit TID [facility] Administration Piperacillin/Tazobactam/Dextrose 2.25 gm in 50 mls @ 100 mls/hr 05/10/17 18: 00 05/11/17 11:06 Zosyn 2.25gm Ivpb (Premix) IVPB 100 mls/hr Q8H-IV [facility] Administration Protocol Insulin Aspart 1 vial 05/09/17 22:00 05/11/17 12:41 Novolog Vial Sliding Scale - SQ 2 units ACHS DOMINIK Administration Protocol Lisinopril 5 mg 05/11/17 10:00 05/11/17 10:58 Prinivil PO 5 mg DAILY [facility] Administration Metoprolol Succinate 50 mg 05/10/17 10:00 05/11/17 11:06 Toprol Xl - PO 50 mg DAILY [facility] Administration Spironolactone 25 mg 05/10/17 19:15 05/11/17 10:57 Aldactone - PO 25 mg DAILY [facility] Administration Tramadol HCl 25 mg 05/10/17 22:00 05/11/17 10:58 Ultram - PO 25 mg BID [facility] Administration Triamcinolone Acetonide 1 applic 05/10/17 10:00 Aristocort 0.1% Lotion - TP BID PRN FOR ITCHING/RASH CT Head: no acute pathology ASSESSMENT/PLAN: 81M w/ hx of NIDDM, CHF, CAD s/p bypass, HTN, HLD, renal insufficiency, and diverticulosis who presented with acute LE weakness, swelling and erythema, was found to have sepsis, admitted for sepsis 2/2 cellulitis. #Sepsis: possibly 2/2 cellulitis * leukocytosis: 13.7 --> 14.4--> 15.2 * HR of 80-105 * continue zosyn as per ID, Dr. Reed * Bcx: nothing to date x 24 hours * Ucx: negative-final * CXR: congestive changes * LE Duplex: negative for DVT #AMS * possibly 2/2 morphine given yesterday for pain * Head CT negative for acute pathology * pt already on ASA, lipitor, toprol, lisinopril * serial neuro exams #fractures * transverse fracture of scaphoid and fracture of triquetrum * ortho on board, f/u recs * pain control with tramadol 25mg BID * do not give opiates as it possibly caused AMS # Hypoglycemia/pre-diabetes * ISS * BGM ACHS * diabetic diet * HgbA1c 6.3 #Acute on chronic diastolic CHF- pt appears dry today * lasix decreased from IV 60mg BID to IV 40mg BID * continue toprol * ECHO: new cor pulmonale * per cards, pt to get outpt workup for pulmonary HTN * Strict I&O, currently not being accurately recorded * daily weight, currently not being accurately recorded #Elevated INR * INR of 1.42 * possibly 2/2 liver injury from right sided HF * monitor for now # CKD * Cr bumped to 2 possibly 2/2 overdiuresis, baseline of 1.4 * Monitor * Avoid nephrotoxic agents * Adjust abx for renal doses # HTN * controlled * continue lasix and toprol * monitor # HLD * continue home simvastatin # CAD S/P bypass graft * continue ASA # Obesity * BMI 34.8 * counselled about modified diet, losing weight and change life style. # FEN/ppx * F: po fluids * E: wnl * N: Low sodium, diabetic diet * DVT: Hep 5000 Q8hr * GI : No need Case discussed with attending, Dr. Wray. -Elver العلي MD PGY1 Visit type - Emergency Visit Emergency Visit: Yes ED Registration Date: 05/09/17 Care time: The patient presented to the Emergency Department on the above date and was hospitalized for further evaluation of their emergent condition. - New Patient This patient is new to me today: No - Critical Care Critical Care patient: No
--- NOTE | 2017-05-11 14:50 | RAPID ---
Physical Examination Vital Signs: Vital Signs Temperature 98.9 F 05/11/17 06:00 Pulse Rate 105 H 05/11/17 06:00 Respiratory Rate 25 H 05/11/17 06:00 Blood Pressure 140/70 05/11/17 06:00 O2 Sat by Pulse Oximetry (%) 90 L 05/11/17 10:30 Labs: CBC, BMP 05/11/17 05:10 05/11/17 05:10 Rapid Response - Rapid Response Assessment: Rapid response called for pt by nurse because pt was found to have altered mental status. MD went to see pt. Pt demonstrating difficulty completing sentences, but denies any pain or other subjective complaints. Vitals: Temperature 98.9 F 05/11/17 06:00 Pulse Rate 105 H 05/11/17 06:00 Respiratory Rate 25 H 05/11/17 06:00 Blood Pressure 140/70 05/11/17 06:00 O2 Sat by Pulse Oximetry (%) 90 L 05/11/17 10:30 GENERAL: The patient is awake, alert, and fully oriented, in no acute distress. HEENT: dry mucous membranes NECK: Trachea midline, full range of motion, supple. LUNGS: decreased breath sounds, scattered rales HEART: Regular rate and rhythm, S1, S2 without murmur, rub or gallop. ABDOMEN: obese, soft, nontender, nondistended, normoactive bowel sounds, no guarding, no rebound, no hepatosplenomegaly, no masses. 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 sensory function is intact b/l, strength in b/l LEs is 2/5, and 3/5 in both UEs. Pt able to follow simple commands, demonstrated difficulty repeating sentences. AAOx1 (name) BGM: wnl A&P: AMS likely 2/2 side effect of morphine given last night for pain, r/o acute stroke. -CT head -lasix decreased -ABG -bipap -neuro consult CT head was negative for any acute pathology. Suspected CVA - Suspected CVA MD Exam Time (Code Chavez Time): 10:30 CT Stroke ordered: Yes Stat "Code Chavez" Consult to Neurology called: Yes Last Known Well (Date): 05/10/17 Last Known Well (Time): 22:00 Symptom Discovery (Date): 05/11/17 Symptom Discovery (Time): 10:00
--- NOTE | 2017-05-11 15:19 | CON.ID ---
Consult Consult Specialty:: infectiosu diseases Reason for Consultation:: bilateral leg cellulitits and non healing wound of the legs - History of Present Illness Chief Complaint: pain and swelling of both lower legs History of Present Illness: 81 year old male with a past medical history of non insulin dependent diabetes, coronary artery disease s/p coronary bypass graft, congestive heart failure, hypertension, hyperlipidemia, renal insufficiency and diverticulosis wadmitted because of 2 months of progressively worsening bilateral lower extremity weakness. He reports chronic wounds on bilateral lower extremities. according to the patient the wound hae not been healing well and also started having pain in the legs currently he feels comfortable patient was given vanco and zosyn - History Source History Provided By: Patient - Past Medical History CHUTE MAN: Yes: Vertigo Cardio/Vascular: Yes: CAD, HTN, Hyperlipdemia - Alcohol/Substance Use Hx Alcohol Use: No - Smoking History Smoking history: Never smoked Have you smoked in the past 12 months: No Aproximately how many cigarettes per day: 0 Home Medications - Allergies Allergies/Adverse Reactions: Allergies Allergy/AdvReac Type Severity Reaction Status Date / Time No Known Allergies Allergy Verified 05/09/17 17:28 - Home Medications Home Medications: Ambulatory Orders Furosemide [Lasix -] 40 mg PO BID 05/09/17 Glipizide [Glipizide ER] 5 mg PO BID 05/09/17 Ibuprofen 800 mg PO PRN 05/09/17 Metoprolol Succinate [Toprol Xl -] 50 mg PO DAILY 05/09/17 Simvastatin [Zocor -] 40 mg PO DAILY 05/09/17 Sitagliptin Phos/Metformin HCl [Janumet 50-500 mg Tablet] 1 each PO BID Triamcinolone 0.1% Lotion [Kenalog 0.1% Top Lotion] 60 ml TP PRN 05/09/17 Docusate Sodium [Colace] 100 mg PO DAILY 05/10/17 Review of Systems - Review of Systems Constitutional: reports: No Symptoms Eyes: reports: No Symptoms HENT: reports: No Symptoms Neck: reports: No Symptoms Cardiovascular: reports: No Symptoms Respiratory: reports: No Symptoms Gastrointestinal: reports: No Symptoms Genitourinary: reports: No Symptoms Musculoskeletal: reports: Other Integumentary: reports: Erythema, Lesions Neurological: reports: No Symptoms Endocrine: reports: No Symptoms Hematology/Lymphatic: reports: No Symptoms Psychiatric: reports: No Symptoms Physical Exam Vital Signs: Vital Signs Temperature 98.9 F 05/11/17 06:00 Pulse Rate 105 H 05/11/17 06:00 Respiratory Rate 25 H 05/11/17 06:00 Blood Pressure 140/70 05/11/17 06:00 O2 Sat by Pulse Oximetry (%) 90 L 05/11/17 10:30 Constitutional: Yes: Well Nourished, Obese Eyes: Yes: Conjunctiva Clear Neck: Yes: Supple, Trachea Midline Cardiovascular: Yes: Regular Rate and Rhythm, S1, S2 Respiratory: Yes: Regular, On Nasal O2, Other (pooer entry at bases) Gastrointestinal: Yes: Normal Bowel Sounds, Soft Musculoskeletal: Yes: Other Extremities: Yes: Other (bilateral venous stasis ulcer,erythema of the legs, cellulitis) Integumentary: Yes: Erythema, Other Wound/Incision: Yes: Draining, Other Neurological: Yes: Alert, Oriented Psychiatric: Yes: Alert, Oriented Labs: CBC, BMP 05/11/17 05:10 05/11/17 05:10 Imaging - Results Chest X-ray: Report Reviewed, Image Reviewed X-ray: Report Reviewed, Image Reviewed Assessment/Plan Cor pulmonale, pulmonary hypertension . CAD p . HTN NIDDM Hyperlipidemia Lower extremity cellulitis plan will stop vanco continue zosyn cx send wound cx elevation of legs wound care rest as per primary team
--- NOTE | 2017-05-11 18:43 | CON.NEURO ---
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 Cardio/Vascular: Yes: CAD, HTN, Hyperlipdemia - Alcohol/Substance Use Hx Alcohol Use: No - Smoking History Smoking history: Never smoked Have you smoked in the past 12 months: No Aproximately how many cigarettes per day: 0 Home Medications - Allergies Allergies/Adverse Reactions: Allergies Allergy/AdvReac Type Severity Reaction Status Date / Time No Known Allergies Allergy Verified 05/09/17 17:28 - Home Medications Home Medications: Ambulatory Orders Furosemide [Lasix -] 40 mg PO BID 05/09/17 Glipizide [Glipizide ER] 5 mg PO BID 05/09/17 Ibuprofen 800 mg PO PRN 05/09/17 Metoprolol Succinate [Toprol Xl -] 50 mg PO DAILY 05/09/17 Simvastatin [Zocor -] 40 mg PO DAILY 05/09/17 Sitagliptin Phos/Metformin HCl [Janumet 50-500 mg Tablet] 1 each PO BID Triamcinolone 0.1% Lotion [Kenalog 0.1% Top Lotion] 60 ml TP PRN 05/09/17 Docusate Sodium [Colace] 100 mg PO DAILY 05/10/17 Physical Exam-Neuro Vital Signs: Vital Signs Temperature 98.9 F 05/11/17 18:00 Pulse Rate 102 H 05/11/17 18:00 Respiratory Rate 20 05/11/17 18:00 Blood Pressure 118/44 05/11/17 18:00 O2 Sat by Pulse Oximetry (%) 90 L 05/11/17 10:30 Labs: CBC, BMP 05/11/17 05:10 05/11/17 05:10 INR, PTT INR 1.42 (0.82-1.09) H 05/10/17 05:10 Assessment/Plan cc Patient became confused and suspected to have stroke HPI 81 year old male history of DM, CHF, CAD, HTN, HLD, admitted for sepsis and patient had cellulitis. Patinet became confused and had word findings difficulty and not moving right uppere extremity, though it is not clear if it is new . Patient had ct scan done and it was normal. He also complaining of right upper extremity pain and dififuclty moving, it is not clear if there is added weakness. Past Medical History as above HISTORY OF CABG. SH, ROS, FH reviewed in chart HOME MEDICATIONS: Home Medications Medication Instructions Recorded Furosemide [Lasix -] 40 mg PO ASDIR 05/09/17 Glipizide [Glipizide ER] 5 mg PO ASDIR 05/09/17 Ibuprofen 800 mg PO ASDIR 05/09/17 Metoprolol Succinate [Toprol Xl -] 50 mg PO ASDIR 05/09/17 Simvastatin [Zocor -] 40 mg PO ASDIR 05/09/17 Sitagliptin Phos/Metformin HCl 1 each PO ASDIR 05/09/17 [Janumet 50-500 mg Tablet] Triamcinolone 0.1% Lotion [Kenalog 60 ml TP ASDIR 05/09/17 0.1% Top Lotion] Neurological Examination Alert able to follow command, oriented x 1, speech is normal, able to swallow EOMI, and no face asymmetry there is pain in right arm on passive movement and there is weakness and he is not able to lift righ tarm left arm he is able to lift lower extremity able to move but that is his baseline sensation is normal detail neuro exam is not possible due to mental condition ct head is normal Assessment- Given that his speech has word fidnings difficulty and ? right arm weakness, possibility of stroke cant be rule out. CT scan was normal, his right arm weakness could be secondary to arthritis and old pain, Most likley confusion could have been due to morphine he got last night but as per nursing he is not back to baseline. Plan-- suggest to do mri of brain once stable. continue statin and anithypertensive medication and statin for now - once stroke is confirmed further testing can be done, Thank you so much Shahid Kang MD
[2017-05-11] MEDS: ATORVASTATIN CA 20 MG TABLET (FP) PO SCH (22:09)
--- NOTE | 2017-05-11 22:52 | CONSULT ---
Consult Consult Specialty:: orthopedics Reason for Consultation:: right wrist - History of Present Illness History of Present Illness: 81y/o male c/o right wrist pain for approximately one week. Pt denies any trauma. Pt has a hx of NIDDM, CHF, CAD, HTN, HLD, renal insufficiency, diverticulosis. Currently admitted for sepsis and on bipap. 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 Cardio/Vascular: Yes: CAD, HTN, Hyperlipdemia - Alcohol/Substance Use Hx Alcohol Use: No - Smoking History Smoking history: Never smoked Have you smoked in the past 12 months: No Aproximately how many cigarettes per day: 0 Home Medications - Allergies Allergies/Adverse Reactions: Allergies Allergy/AdvReac Type Severity Reaction Status Date / Time No Known Allergies Allergy Verified 05/09/17 17:28 - Home Medications Home Medications: Ambulatory Orders Furosemide [Lasix -] 40 mg PO BID 05/09/17 Glipizide [Glipizide ER] 5 mg PO BID 05/09/17 Ibuprofen 800 mg PO PRN 05/09/17 Metoprolol Succinate [Toprol Xl -] 50 mg PO DAILY 05/09/17 Simvastatin [Zocor -] 40 mg PO DAILY 05/09/17 Sitagliptin Phos/Metformin HCl [Janumet 50-500 mg Tablet] 1 each PO BID Triamcinolone 0.1% Lotion [Kenalog 0.1% Top Lotion] 60 ml TP PRN 05/09/17 Docusate Sodium [Colace] 100 mg PO DAILY 05/10/17 Review of Systems - Review of Systems Constitutional: reports: No Symptoms Eyes: reports: No Symptoms HENT: reports: No Symptoms Neck: reports: No Symptoms Cardiovascular: reports: No Symptoms Respiratory: reports: No Symptoms Gastrointestinal: reports: No Symptoms Genitourinary: reports: No Symptoms Breasts: reports: No Symptoms Reported Musculoskeletal: reports: Extremity Pain Integumentary: reports: Wound Neurological: reports: No Symptoms, Weakness Endocrine: reports: No Symptoms Hematology/Lymphatic: reports: No Symptoms Psychiatric: reports: No Symptoms Physical Exam Vital Signs: Vital Signs Temperature 98.6 F 05/11/17 20:45 Pulse Rate 98 H 05/11/17 20:45 Respiratory Rate 20 05/11/17 20:45 Blood Pressure 122/62 05/11/17 20:45 O2 Sat by Pulse Oximetry (%) 94 L 05/11/17 20:45 HENT: Yes: Atraumatic, Normocephalic Musculoskeletal: Yes: Other (Right wrist: mild ecchymosis of the hand. Mild edema of the wrist. There is diffuse tenderness over the radiocarpal joint and index and long finger MCP joints. Pain with ROM of the wrist. he is only able to move his fingers approx 30% of full. Sensation intact, well perfused.) Labs: CBC, BMP 05/11/17 05:10 05/11/17 05:10 Imaging - Results X-ray: Report Reviewed, Image Reviewed (Osteoarthritis of the wrist and hand. Possible acute scaphoid waist fracture and triquetrum fracture) Assessment/Plan #1 Right wrist scaphoid fracture and triquetrum fracture -Recommend wrist splint manager clinical services -pain control -F/u as outpatient -Please reconsult if needed
[2017-05-12] MEDS: PIPERACILLIN/TAZOB 2.25 GM 2.25 GM/50 ML BAG IVPB SCH ×3 (01:27→17:49)
[2017-05-12] MEDS: HEPARIN NA (PORCINE) 5,000 UNITS/ML 1ML VIAL SQ SCH ×3 (06:32→21:57)
[2017-05-12] MEDS: INSULIN SLIDING SCALE (NOVOLOG) 1 VIAL SQ SCH ×4 (06:32→22:01)
[2017-05-12 06:45] LABS: BASO % 0.3 % (0-2.0); HEMATOCRIT 37.7 % (35.4-49); LYMPH % 4.2 % (8-40); MCH 29.9 pg (25.7-33.7); MCHC 31.8 g/dl (32.0-35.9); MEAN PLT VOLUME 9.5 fl (7.5-11.1); MONO % 10.3 % (3.8-10.2); NEUT % 84.2 % (42.8-82.8); PLATELET COUNT 201 K/MM3 (134-434); RBC 4.01 M/mm3 (4.00-5.60); RDW 14.2 % (11.9-15.9); WHITE BLOOD COUNT 14.7 K/mm3 (4.0-10.0)
[2017-05-12 07:24] LABS: ANION GAP 10 (8-16); BLOOD UREA NITROGEN 50 mg/dL (7-18); CALCIUM 8.6 mg/dL (8.5-10.1); CHLORIDE 102 mmol/L (98-107); CO2 29 mmol/L (21-32); CREATININE 2.4 mg/dL (0.7-1.3); GLUCOSE,RANDOM 153 mg/dL (74-106); POTASSIUM 3.8 mmol/L (3.5-5.1); SGOT/AST 11 U/L (15-37); SGPT/ALT 13 U/L (12-78); SODIUM 141 mmol/L (136-145)
[2017-05-12 07:26] LABS: ALK PHOS 127 U/L (45-117); BILIRUBIN,TOTAL 0.4 mg/dL (0.2-1.0); TOT PROT 5.5 g/dl (6.4-8.2)
[2017-05-12] MEDS: SPIRONOLACTONE 25 MG TABLET (FP) PO SCH (09:20)
[2017-05-12] MEDS: traMADol HCL 50 MG TABLET PO SCH ×3 (09:21→22:03)
[2017-05-12] MEDS: ASPIRIN COATED 81 MG TABLET.EC PO SCH (09:21)
[2017-05-12] MEDS: DOCUSATE SODIUM 100 MG CAPSULE (FP) PO SCH (09:21)
[2017-05-12] MEDS: METOPROLOL SUCCINATE 50 MG TAB.SR.24H (FP) PO SCH (09:21)
[2017-05-12] MEDS: LISINOPRIL 5 MG TABLET (FP) PO SCH (09:22)
[2017-05-12] MEDS: FUROSEMIDE 40 MG/4 ML INJECTABLE VIAL IVPB SCH (09:22)
--- NOTE | 2017-05-12 10:27 | PN ---
Progress Note (short form) - Note Progress Note: Vascular Surgery - Adolfo Lowe Called to evaluate 81yo male with PMHx CAD, HTN, Hyperlipdemia, chronic LE wounds admitted with SOB now on BiPAP, sepsis. Last Vital Signs Temp Pulse Resp BP Pulse Ox 97.8 F 84 26 H 103/49 98 05/12/17 08:50 05/12/17 09:51 05/12/17 08:50 05/12/17 08:50 05/12/17 09:51 CBC, BMP 05/12/17 06:25 05/12/17 06:25 INR, PTT INR 1.42 (0.82-1.09) H 05/10/17 05:10 Gen: nad LE: + edema, hard to assess pulses due to body habitus. Both extremities are warm. Chronic skin changes from mid-shins bilat extending distally to toes. Erythema. Not weeping. Problem List - Problems (1) Cellulitis Assessment/Plan: Wash lower extremities with warm soapy water daily. Dry, wrap with kerlix and light fiorella compression. No surgical intervention. Cont medical management Above discussed with Dr. Lowe and agrees On behalf of Dr. Lowe, thank you for the opportunity to participate in your patient's care. Code(s): L03.90 - CELLULITIS, UNSPECIFIED Qualifiers: Site of cellulitis of extremity: lower extremity
[2017-05-12] MEDS ORDERED: SODIUM CHLORIDE 1,000 ML IV SCH (10:45)
--- NOTE | 2017-05-12 10:48 | CONSULT ---
Admitting History and Physical - Primary Care Physician PCP: Argelia Montoya - Admission History of Present Illness: 81M w/ hx of NIDDM, CHF, CAD s/p bypass, HTN, HLD, renal insufficiency, and diverticulosis who presented with acute LE weakness, swelling and erythema, was found to have sepsis, admitted for sepsis 2/2 cellulits. Rapid response called for change in behavior and with difficulty completing sentences. CT head (-). 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 Difficulty to assess right ue strength but moving a little. Grimaces with UE elevation and squeezing hand.) Head/Neck Control: WFL - Hearing Hearing: Functional Hearing Aide: No With Patient: No Speech Evaluation - Communication Primary Language: TUNISIAN Communication: Yes: Aphasia Oral Expression Ability: Yes: Moderate Impairment, Severe Impairment - Speech Production Apraxia: Yes Able to Make Needs Known: Yes: Moderately Impaired, Severely Impaired Intelligibility: Yes: WNL - Speech Characteristics Voice Loudness: Normal Voice Pitch: Yes: Normal Voice Phonatory-based Quality: Yes: Normal Speech Pattern: Impaired Speech Clarity: < 100% Nasal Resonance: Normal Articulation: Yes: Precise - Language/Auditory Comprehension Follows: Yes: 1 Stage Simple Commands Observation: Able to respond to yes/no queries: Yes (consistently accurate), Yes /No Confusion: No, Comprehends Conversational Speech: Yes (simple, may be difficult if speaking faster and with complex lang), Benefits from Slow Speech: Yes, Benefits from Repetiton: Yes, Benefits from Increased Volume of Speech: Yes - Language/Verbal Expression Aphasia: Yes: Nonfluent, Anomia, Impaired Repetition, Apraxia, Sound Errors Able to Respond to Simple Queries: Yes: Moderately Impaired, Severely Impaired Able to Communicate Wants and Needs: Yes: Moderately Impaired, Severely Impaired Functional Communication Status: Yes: Moderately Impaired, Severely Impaired Aware of Errors: Yes Attempts to Correct Errors: Yes Attention: Yes: Intact - 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/Perception computer terminal 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 Memory: Yes: WNL Short Term Memory: Yes: WNL Hemaniopsia: Yes: Right (suspected) - Swallow Evaluation/Bedside Assessment Current Nutritional Intake: Regular, Thin Liquids Oral Secretions: Yes: WFL Dentition: Yes: Missing Teeth Facial Symmetry at Rest: Symmetrical Facial Symmetry on Retraction: Symmetrical Facial Movement: Controlled Against Resistance Opening: Normal Against Resistance Closing: Normal Pucker Lips: Normal Smile: Normal Lingual Movement: Normal, Symmetric Lingual Speed of Movement: Normal Lingual Movement Strgth Against Opposition: Normal Lingual Movement Characteristics: Normal Velopharyngeal Movement: Normal Laryngeal Elevation: WFL Laryngeal Movement: Able to Palpate Rate of Intake: WFL Labial Seal: WFL Chewing: WFL Oral Prep Time: WFL A-P Transit: WFL Pocketing: None Timing of Swallow: WFL Coughing/Throat Clear: No Change in Voice: No Recommendations - Speech Evaluation, Impression/Plan Impression: 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 No Dysarthria. Occasional fluent phrases produced eg "I know it" "I cant say it" "Why cant I..." Fully oriented and aware with frustration. Communication board given but suspected left neglect and difficult to point due to painful UES's bilaterally. Fair (-) ability to use. Yes/No responses are accurate and best way to facilitate communication at this time and determine pt's wants and needs. - Disposition [facility] to: [facility] - Dysphagia Impressions/Plan Swallowing Skills: WFL Dysphagia Impressions: No Impairment *Silent aspiration: cannot be R/O at bedside Recommendations: Neuro Consult (f/u.) - Recommendations Diet Consistency: Regular, Other (feed pt.) Medication Administration: Whole with water Liquids: Thin Liquids
--- NOTE | 2017-05-12 12:31 | PN ---
Progress Note, Physician History of Present Illness: Altered sensorium, remains on bipap. - Current Medication List Current Medications: Active Medications Aspirin (Ecotrin -) 81 mg PO DAILY [facility] Last Admin: 05/12/17 09:21 Dose: 81 mg Atorvastatin Calcium (Lipitor -) 20 mg PO HS [facility] Last Admin: 05/11/17 22:09 Dose: 20 mg Docusate Sodium (Colace -) 100 mg PO DAILY [facility] Last Admin: 05/12/17 09:21 Dose: 100 mg Heparin Sodium (Porcine) (Heparin -) 5,000 unit SQ TID [facility] Last Admin: 05/12/17 06:32 Dose: 5,000 unit Piperacillin/Tazobactam/Dextrose (Zosyn 2.25gm Ivpb (Premix)) 2.25 gm in 50 mls @ 100 mls/hr IVPB Q8H-IV [facility] PRN Reason: Protocol Last Admin: 05/12/17 09:23 Dose: 100 mls/hr Sodium Chloride (Normal Saline -) 1,000 mls @ 50 mls/hr IV ASDIR [facility] Stop: 05/13/17 10:32 Last Admin: 05/12/17 10:55 Dose: 50 mls/hr Insulin Aspart (Novolog Vial Sliding Scale -) 1 vial SQ ACHS [facility] PRN Reason: Protocol Last Admin: 05/12/17 06:32 Dose: 2 units Metoprolol Succinate (Toprol Xl -) 50 mg PO DAILY [facility] Last Admin: 05/12/17 09:21 Dose: 50 mg Spironolactone (Aldactone -) 25 mg PO DAILY [facility] Last Admin: 05/12/17 09:20 Dose: 25 mg Tramadol HCl (Ultram -) 25 mg PO BID [facility] Last Admin: 05/12/17 09:21 Dose: 25 mg Triamcinolone Acetonide (Aristocort 0.1% Lotion -) 1 applic TP BID PRN PRN Reason: FOR ITCHING/RASH - Objective Vital Signs: Vital Signs Temperature 97.8 F 05/12/17 08:50 Pulse Rate 84 05/12/17 09:51 Respiratory Rate 26 H 05/12/17 08:50 Blood Pressure 103/49 05/12/17 08:50 O2 Sat by Pulse Oximetry (%) 96 05/12/17 12:23 Constitutional: Yes: No Distress, Calm Neck: Yes: Supple Cardiovascular: Yes: Regular Rate and Rhythm Respiratory: Yes: Regular, Diminished, On BiPap Gastrointestinal: Yes: Normal Bowel Sounds, Soft, Abdomen, Obese Edema: Yes Edema: LLE: Trace, RLE: Trace Integumentary: Yes: Venous Stasis Changes Labs: CBC, BMP 05/12/17 06:25 05/12/17 06:25 INR, PTT INR 1.42 (0.82-1.09) H 05/10/17 05:10 - ....Imaging Chest X-ray: Report Reviewed (NAD, stable) Cat Scan: Report Reviewed (HCT: Old stroke) EKG: Report Reviewed (Tele: NSR) Problem List - Problems (1) Cor pulmonale (chronic) Code(s): I27.81 - COR PULMONALE (CHRONIC) (2) S/P CABG (coronary artery bypass graft) Code(s): Z95.1 - PRESENCE OF AORTOCORONARY BYPASS GRAFT (3) Coronary artery disease Code(s): I25.10 - ATHSCL HEART DISEASE OF [place] CORONARY ARTERY W/O ANG PCTRS Qualifiers: Coronary Disease-Associated Artery/Lesion type: habematolel artery [place] vs. transplanted heart: habematolel heart Associated angina: without angina Qualified Code(s): I25.10 - Atherosclerotic heart disease of [place] coronary artery without angina pectoris (4) Hyperlipidemia associated with type 2 diabetes mellitus Code(s): E11.69 - TYPE 2 DIABETES MELLITUS WITH OTHER SPECIFIED COMPLICATION; E78.5 - HYPERLIPIDEMIA, UNSPECIFIED (5) Diastolic dysfunction with chronic heart failure Code(s): I50.32 - CHRONIC DIASTOLIC (CONGESTIVE) HEART FAILURE (6) Cellulitis Code(s): L03.90 - CELLULITIS, UNSPECIFIED Qualifiers: Site of cellulitis of extremity: lower extremity (7) Type 2 diabetes mellitus Code(s): E11.9 - TYPE 2 DIABETES MELLITUS WITHOUT COMPLICATIONS Qualifiers: Diabetes mellitus complication status: without complication Diabetes mellitus manager terminal insulin use: without senior living use Qualified Code(s): E11.9 - Type 2 diabetes mellitus without complications (8) Hypertensive cardiomegaly with heart failure Code(s): I11.0 - HYPERTENSIVE HEART DISEASE WITH HEART FAILURE (9) Bgdjg-zm-uhhnlde kidney injury Code(s): N17.9 - ACUTE KIDNEY FAILURE, UNSPECIFIED; N18.9 - CHRONIC KIDNEY DISEASE, UNSPECIFIED Qualifiers: Chronic kidney disease stage: stage 2 (mild) (10) Cerebrovascular disease Code(s): I67.9 - CEREBROVASCULAR DISEASE, UNSPECIFIED Assessment/Plan 1. Cor pulmonale, pulmonary hypertension (No RVSP measurement on the above noted echocardiography) 2. CAD post CABG, angina pectoris 3. Diastolic LV dysfunction with chronic class 0-I NYHA classification LV failure 4. HTN/HCVD 5. NIDDM 6. Hyperlipidemia 7. Lower extremity cellulitis 8. Right wrist scaphoid fracture and triquetrum fracture 9. Acute on CKD 10. 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 Monitor renal recovery with judicious hydration and off diuretics and NIYAH-I 2. Continue Toprol XL 50 qd 4. Continue ASA 81 qd 5. Continue Lipitor 20 qhs 6. Bipap as tolerated 7. Complete antibiotic course as per the primary team 8. Outpatient evaluation of pulmonary hypertension 9. Plan for brain MRI when possible 10. DVT prophylaxis
--- NOTE | 2017-05-12 17:41 | PN ---
Physical Exam: SUBJECTIVE: Patient seen and examined No acute events overnight. Pt still with difficulty formulating sentences. Denies pain anywhere. OBJECTIVE: Vital Signs Period Temp Pulse Resp BP Sys/Eckert Pulse Ox Last 24 Hr 97.6 F-99.0 F 78-102 20-26 103-143/44-64 93-99 GENERAL: The patient is AAOx0 in mild distress HEENT: slightly dry mucous membranes NECK: Trachea midline, full range of motion, supple. LUNGS: CTAB HEART: Regular rate and rhythm, S1, S2 without murmur, rub or gallop. ABDOMEN: obese, soft, nontender, nondistended, normoactive bowel sounds, no guarding, no rebound, no hepatosplenomegaly, no masses. EXTREMITIES: chronic venous statis dermatitis in LE, foul-smelling, decreased weeping, decreased erythema, 2+ edema NEUROLOGICAL: no facial droop, EOMI, tongue at mid line and uvula at mid line. absent facial sensation to light touch in R face and R sided body. Strength minimal cooperation; R shoulder abduction 1/5 , biceps and triceps 1-2 /5 . L shoulder abduction 3/5. L biceps and triceps 4/5 . R hip flexion 1/5 , knee flexion 2/5 , L hip flexion 3/5 , Knee flexion 3/5 . L ankle dorsiflexion and plantar flexion 4/5 Laboratory Results - last 24 hr 05/12/17 05/12/17 06:25 06:25 WBC 14.7 H RBC 4.01 Hgb 12.0 D Hct 37.7 MCV 94.0 MCH 29.9 MCHC 31.8 L RDW 14.2 Plt Count 201 MPV 9.5 Neutrophils % 84.2 H Lymphocytes % 4.2 L D Monocytes % 10.3 H Eosinophils % 1.0 D Basophils % 0.3 Sodium 141 Potassium 3.8 Chloride 102 Carbon Dioxide 29 Anion Gap 10 BUN 50 H D Creatinine 2.4 H Creat Clearance w eGFR 26.25 Random Glucose 153 H Calcium 8.6 Total Bilirubin 0.4 D AST 11 L D ALT 13 Alkaline Phosphatase 127 H Total Protein 5.5 L Albumin 2.0 L Active Medications Generic Name Dose Route Start Last Admin Trade Name Freq PRN Reason Stop Dose Admin Aspirin 81 mg 05/10/17 10:00 05/12/17 09:21 Ecotrin - PO 81 mg DAILY DOMINIK Administration Atorvastatin Calcium 20 mg 05/10/17 22:00 05/11/17 22:09 Lipitor - PO 20 mg HS DOMINIK Administration Docusate Sodium 100 mg 05/11/17 10:00 05/12/17 09:21 Colace - PO 100 mg DAILY DOMINIK Administration Heparin Sodium (Porcine) 5,000 unit 05/10/17 06:00 05/12/17 13:01 Heparin - SQ 5,000 unit TID DOMINIK Administration Piperacillin/Tazobactam/Dextrose 2.25 gm in 50 mls @ 100 mls/hr 05/10/17 18: 00 05/12/17 09:23 Zosyn 2.25gm Ivpb (Premix) IVPB 100 mls/hr Q8H-IV DOMINIK Administration Protocol Sodium Chloride 1,000 mls @ 50 mls/hr 05/12/17 10:45 05/12/17 10:55 Normal Saline - IV 05/13/17 10:32 50 mls/hr ASDIR DOMINIK Administration Insulin Aspart 1 vial 05/09/17 22:00 05/12/17 13:00 Novolog Vial Sliding Scale - SQ 2 units ACHS DOMINIK Administration Protocol Metoprolol Succinate 50 mg 05/10/17 10:00 05/12/17 09:21 Toprol Xl - PO 50 mg DAILY DOMINIK Administration Tramadol HCl 25 mg 05/10/17 22:00 05/12/17 09:21 Ultram - PO 25 mg BID DOMINIK Administration Triamcinolone Acetonide 1 applic 05/10/17 10:00 Aristocort 0.1% Lotion - TP BID PRN FOR ITCHING/RASH ASSESSMENT/PLAN: 81M w/ hx of NIDDM, CHF, CAD s/p bypass, HTN, HLD, renal insufficiency, and diverticulosis who presented with acute LE weakness, swelling and erythema, was found to have sepsis, admitted for sepsis 2/2 cellulitis. #Sepsis: possibly 2/2 cellulitis * leukocytosis: 13.7 --> 14.4--> 15.2 --> 14.7 * HR of 80-100 * continue zosyn as per COLBY, Dr. Reed * Bcx: nothing to date x 48 hours * Ucx: negative-final * CXR: no interval changes #AMS/aphasia/right-sided weakness and decreased sensory function * likely 2/2 acute stroke * Head CT negative for acute pathology * f/u brain MRI * neuro on board, recs appreciated * pt already on ASA, lipitor, toprol, lisinopril * serial neuro exams * permissive HTN * S&S * PT * f/u urine lytes * renal US: small L kidney, b/l renal simple cysts, no hydro or stones #fractures * transverse fracture of scaphoid and fracture of triquetrum * ortho on board, recs appreciated. wrist splint multimedia producer, pain control, f/u outpt * pain control with tramadol 25mg BID * do not give opiates as it possibly caused AMS #LE chronic changes of venous stasis -vascular consulted, recs appreciated: dry wrap w/ kerlix and light NIYAH compression, no surgical intervention indicated # Hypoglycemia/pre-diabetes * ISS * BGM ACHS * diabetic diet * HgbA1c 6.3 #Acute on chronic diastolic CHF- pt appears dry * creatinine increased from 2 to 2.4, lasix and aldactone stopped * lisinopril discontinued * ECHO: new cor pulmonale * per cards, pt to get outpt workup for pulmonary HTN * Strict I&O, currently not being accurately recorded * daily weight, currently not being accurately recorded #Elevated INR * last INR of 1.42 * possibly 2/2 liver injury from right sided HF * monitor for now # CKD * Cr 1.5 (baseline) --> 2 --> 2.4 * possibly due to overdiuresis, NS @ 50cc/hr started * lasix and aldactone discontinued, lisinopril discontinued * Avoid nephrotoxic agents * Adjust abx for renal doses * monitor creatinine # HTN * permissive HTN for now * monitor # HLD * continue home simvastatin # CAD S/P bypass graft * continue ASA # Obesity * BMI 34.8 * counselled about modified diet, losing weight and change life style. # FEN/ppx * F: NS @ 50 * E: wnl * N: Low sodium, diabetic diet * DVT: Hep 5000 Q8hr * GI : No need Case discussed with attending, Dr. Montoya. -Elver العلي MD PGY1 Visit type - Emergency Visit Emergency Visit: Yes ED Registration Date: 05/09/17 Care time: The patient presented to the Emergency Department on the above date and was hospitalized for further evaluation of their emergent condition. - New Patient This patient is new to me today: No - Critical Care Critical Care patient: No
--- NOTE | 2017-05-12 18:26 | PN ---
Progress Note, Physician History of Present Illness: events noted from yesterday currently patient comfortable on face mask patient with rt sided weakness,aphasic - Current Medication List Current Medications: Active Medications Aspirin (Ecotrin -) 81 mg PO DAILY [facility] Last Admin: 05/12/17 09:21 Dose: 81 mg Atorvastatin Calcium (Lipitor -) 20 mg PO HS [facility] Last Admin: 05/11/17 22:09 Dose: 20 mg Docusate Sodium (Colace -) 100 mg PO DAILY [facility] Last Admin: 05/12/17 09:21 Dose: 100 mg Heparin Sodium (Porcine) (Heparin -) 5,000 unit SQ TID [facility] Last Admin: 05/12/17 13:01 Dose: 5,000 unit Piperacillin/Tazobactam/Dextrose (Zosyn 2.25gm Ivpb (Premix)) 2.25 gm in 50 mls @ 100 mls/hr IVPB Q8H-IV [facility] PRN Reason: Protocol Last Admin: 05/12/17 17:49 Dose: 100 mls/hr Sodium Chloride (Normal Saline -) 1,000 mls @ 50 mls/hr IV ASDIR [facility] Stop: 05/13/17 10:32 Last Admin: 05/12/17 10:55 Dose: 50 mls/hr Insulin Aspart (Novolog Vial Sliding Scale -) 1 vial SQ ACHS [facility] PRN Reason: Protocol Last Admin: 05/12/17 17:49 Dose: 6 units Metoprolol Succinate (Toprol Xl -) 50 mg PO DAILY [facility] Last Admin: 05/12/17 09:21 Dose: 50 mg Tramadol HCl (Ultram -) 25 mg PO BID [facility] Last Admin: 05/12/17 09:21 Dose: 25 mg Triamcinolone Acetonide (Aristocort 0.1% Lotion -) 1 applic TP BID PRN PRN Reason: FOR ITCHING/RASH - Objective Vital Signs: Vital Signs Temperature 97.8 F 05/12/17 08:50 Pulse Rate 84 05/12/17 09:51 Respiratory Rate 23 05/12/17 09:00 Blood Pressure 103/49 05/12/17 08:50 O2 Sat by Pulse Oximetry (%) 97 05/12/17 18:21 Constitutional: Yes: Calm Cardiovascular: Yes: Regular Rate and Rhythm Respiratory: Yes: Regular, CTA Bilaterally Extremities: Yes: Other Edema: LLE: 1+, RLE: 1+ Wound/Incision: Yes: Other Neurological: Yes: Alert, Weakness, Other (aphasia) Labs: CBC, BMP 05/12/17 06:25 05/12/17 06:25 INR, PTT INR 1.42 (0.82-1.09) H 05/10/17 05:10 - ....Imaging Cat Scan: Report Reviewed, Image Reviewed Assessment/Plan Cor pulmonale, pulmonary hypertension . CAD p . HTN NIDDM Hyperlipidemia Lower extremity cellulitis cva plan continue zosyn' pls get wound/vascular to see the patient elevation of the legs further workup as required
--- NOTE | 2017-05-12 19:34 | PN ---
Teaching Attending Note Name of Resident: Elver العلي ATTENDING PHYSICIAN STATEMENT I saw and evaluated the patient. I reviewed the resident's note and discussed the case with the resident. I agree with the resident's findings and plan as documented. SUBJECTIVE: unable to talk, denies any pain. events noted for code reeves yesterday OBJECTIVE: NAD , Awake , aphasic , difficulty finding words. dry MM CV: RRR, NO JVD Lungs : CTAB Ext: LE edems , erythema , and serosanguinus discharge with few bullae Neuro : no facial droop, EOMI, tongue at mid line and uvula at mid line . absent facial sensation to light touch in R face and R sided body . Strength minimal cooperation . R shoulder abduction 1/5 , biceps and triceps 1-2 /5 . L shoulder abduction 3/ 5. L biceps and triceps 4/5 . R hip flexion 1/5 , knee flexion 2/5 , L hip flexion 3/5 , Knee flexion 3/5 . L ankle dorsiflexion and plantar flexion 4/5 ASSESSMENT AND PLAN: 81 y/o man with h/o HTN, CAD, DM , diastolic Dysfunction , core pulmonale , and other medical problems who presented with LE edema and erythema and was found to have cellulitis , hospital course was complicated by aphasia and R sided weakness 1- Acute aphasia, and R sided weakness: likley due to acute CVA - MRI of brain can't be done as pt has a venous umbrella , will check with vascular about that - cardiac stent are MRI compatible , d/w Dr. Wesley . - already received his HTN meds. monitor and avoid hypotension - speech and PT - asa and statin - check Lipid panel - tele 2- DAVID: likely prerenal due to volume depletion, worse with diuresis - hold diuresis - hold ARB - Fe Urea - start gentle hydration 3- Acute D CHF : s/p diuresis . Now volume depleted - hold diuresis as abov e 4- cellulitis of LE : cont zosyn 5- DVT PX
[2017-05-12] MEDS: ATORVASTATIN CA 20 MG TABLET (FP) PO SCH (21:57)
[2017-05-13] MEDS: PIPERACILLIN/TAZOB 2.25 GM 2.25 GM/50 ML BAG IVPB SCH ×3 (01:10→17:29)
[2017-05-13] MEDS: INSULIN SLIDING SCALE (NOVOLOG) 1 VIAL SQ SCH ×4 (06:14→22:50)
[2017-05-13] MEDS: HEPARIN NA (PORCINE) 5,000 UNITS/ML 1ML VIAL SQ SCH ×3 (06:14→22:49)
[2017-05-13 06:21] LABS: BASO % 0.3 % (0-2.0); EOS % 0.7 % (0-4.5); HEMATOCRIT 36.1 % (35.4-49); HEMOGLOBIN 11.8 GM/dL (11.7-16.9); LYMPH % 4.9 % (8-40); MCH 30.3 pg (25.7-33.7); MCHC 32.5 g/dl (32.0-35.9); MEAN CELL VOLUME 93.2 fl (80-96); MEAN PLT VOLUME 9.3 fl (7.5-11.1); MONO % 12.6 % (3.8-10.2); NEUT % 81.5 % (42.8-82.8); PLATELET COUNT 214 K/MM3 (134-434); RBC 3.88 M/mm3 (4.00-5.60); RDW 13.7 % (11.9-15.9); WHITE BLOOD COUNT 11.9 K/mm3 (4.0-10.0)
[2017-05-13 06:45] LABS: CHOLESTEROL 101 mg/dL (50-200); TRIGLYCERIDES 103 mg/dL (35-160)
[2017-05-13 06:46] LABS: HDL CHOLESTEROL 22 mg/dL (40-60); LDL CHOLESTEROL (ONLY SJRH) 66 mg/dL (5-100)
[2017-05-13 06:47] LABS: ALBUMIN 1.8 g/dl (3.4-5.0); ANION GAP 8 (8-16); BLOOD UREA NITROGEN 72 mg/dL (7-18); CHLORIDE 102 mmol/L (98-107); CO2 29 mmol/L (21-32); GLUCOSE,RANDOM 180 mg/dL (74-106); SODIUM 139 mmol/L (136-145)
[2017-05-13 06:50] LABS: ALK PHOS 138 U/L (45-117); BILIRUBIN,TOTAL 0.6 mg/dL (0.2-1.0); CREATININE 2.5 mg/dL (0.7-1.3); SGOT/AST 11 U/L (15-37); SGPT/ALT 12 U/L (12-78); TOT PROT 5.3 g/dl (6.4-8.2)
[2017-05-13] MEDS ORDERED: SODIUM CHLORIDE 1,000 ML IV SCH (09:51)
[2017-05-13] MEDS: traMADol HCL 50 MG TABLET PO SCH ×2 (10:14→22:47)
[2017-05-13] MEDS: DOCUSATE SODIUM 100 MG CAPSULE (FP) PO SCH (10:14)
[2017-05-13] MEDS: METOPROLOL SUCCINATE 50 MG TAB.SR.24H (FP) PO SCH (10:24)
[2017-05-13] MEDS: ASPIRIN COATED 81 MG TABLET.EC PO SCH (10:24)
--- NOTE | 2017-05-13 10:59 | PN ---
Progress Note, WATCH DIAL MAKER - Note Progress Note: O2 to 84% while eating with Nasal o2. O2 increased by nursing and [employer] encouraged to feed pt slowly to allow improved oxygenation. Mildly improved spontaneous speech production "I know it but I can't say it." Still unable to respond to simple questions eg name, confrontation naming and unable to repeat, unable to read aloud. Apraxia. Expressive Aphasia. Pt communicates best when asked yes/no questions. This should be used to help pt compesate, enale him to communicate wants and needs and minimize frustration as pt's spontaneous speech improves. Pt is cognitively intact. Overtly tolerating PO diet. Pt will need continued speech tx here and upon d/c (Acute rehab vs STR)
--- NOTE | 2017-05-13 13:49 | PN ---
Progress Note, Physician History of Present Illness: events noted patient on bipap,aphasic rt sided weakness awaiting mri - Current Medication List Current Medications: Active Medications Aspirin (Ecotrin -) 81 mg PO DAILY [facility] Last Admin: 05/13/17 10:24 Dose: 81 mg Atorvastatin Calcium (Lipitor -) 20 mg PO HS [facility] Last Admin: 05/12/17 21:57 Dose: 20 mg Docusate Sodium (Colace -) 100 mg PO DAILY [facility] Last Admin: 05/13/17 10:14 Dose: 100 mg Heparin Sodium (Porcine) (Heparin -) 5,000 unit SQ TID [facility] Last Admin: 05/13/17 06:14 Dose: 5,000 unit Piperacillin/Tazobactam/Dextrose (Zosyn 2.25gm Ivpb (Premix)) 2.25 gm in 50 mls @ 100 mls/hr IVPB Q8H-IV [facility] PRN Reason: Protocol Last Admin: 05/13/17 10:13 Dose: 100 mls/hr Insulin Aspart (Novolog Vial Sliding Scale -) 1 vial SQ ACHS [facility] PRN Reason: Protocol Last Admin: 05/13/17 11:34 Dose: Not Given Metoprolol Succinate (Toprol Xl -) 50 mg PO DAILY [facility] Last Admin: 05/13/17 10:24 Dose: 50 mg Tramadol HCl (Ultram -) 25 mg PO BID [facility] Last Admin: 05/13/17 10:14 Dose: 50 mg Triamcinolone Acetonide (Aristocort 0.1% Lotion -) 1 applic TP BID PRN PRN Reason: FOR ITCHING/RASH - Objective Vital Signs: Vital Signs Temperature 97.9 F 05/13/17 10:00 Pulse Rate 101 H 05/13/17 10:00 Respiratory Rate 18 05/13/17 10:00 Blood Pressure 124/92 05/13/17 10:00 O2 Sat by Pulse Oximetry (%) 97 05/13/17 11:30 Constitutional: Yes: No Distress, Calm HENT: Yes: Atraumatic Cardiovascular: Yes: Regular Rate and Rhythm Respiratory: Yes: On BiPap, Poor Air Entry Gastrointestinal: Yes: Normal Bowel Sounds, Soft Musculoskeletal: Yes: Other (cellulittis,venous stasis changes) Extremities: Yes: Other (cellulitis,venous stasis changes) Integumentary: Yes: Erythema Neurological: Yes: Other Labs: CBC, BMP 05/13/17 05:15 05/13/17 05:15 INR, PTT INR 1.42 (0.82-1.09) H 05/10/17 05:10 Assessment/Plan Cor pulmonale, pulmonary hypertension . CAD p . HTN NIDDM Hyperlipidemia Lower extremity cellulitis cva aphasia plan awaiting mri continue abx elevation of the legs rest as per primary team
--- NOTE | 2017-05-13 15:48 | HOSP ---
Subjective - Review of Symptoms Events since last encounter: This note is to confirm that as per Dr. Lowe(Vascular Surgeon) Mr. Hawkins IVC filter is MRI compatible. Physical Examination Vital Signs: Vital Signs Temperature 98.0 F 05/13/17 14:00 Pulse Rate 72 05/13/17 14:00 Respiratory Rate 18 05/13/17 14:00 Blood Pressure 103/55 05/13/17 14:00 O2 Sat by Pulse Oximetry (%) 99 05/13/17 13:47 Constitutional: Yes: No Distress Eyes: Yes: WNL HENT: Yes: Atraumatic Neck: Yes: Supple Cardiovascular: Yes: Regular Rate and Rhythm Respiratory: Yes: CTA Bilaterally Gastrointestinal: Yes: Normal Bowel Sounds Neurological: Yes: Alert, Aphasia, Weakness Labs: CBC, BMP 05/13/17 05:15 05/13/17 05:15 Hospitalist Encounter Assessment: It is ok to proceed with MRI of brain to r/o acute CVA. Visit type - Emergency Visit Emergency Visit: Yes ED Registration Date: 05/09/17 Care time: The patient presented to the Emergency Department on the above date and was hospitalized for further evaluation of their emergent condition. - New Patient This patient is new to me today: Yes Date on this admission: 05/13/17 - Critical Care Critical Care patient: Yes Total Critical Care Time (in minutes): 20
--- NOTE | 2017-05-13 17:20 | PN ---
Progress Note, Physician History of Present Illness: Remains on bipap, aphasic and R sided weakness, await brain MRI. - Current Medication List Current Medications: Active Medications Aspirin (Ecotrin -) 81 mg PO DAILY [facility] Last Admin: 05/13/17 10:24 Dose: 81 mg Atorvastatin Calcium (Lipitor -) 20 mg PO HS [facility] Last Admin: 05/12/17 21:57 Dose: 20 mg Docusate Sodium (Colace -) 100 mg PO DAILY [facility] Last Admin: 05/13/17 10:14 Dose: 100 mg Heparin Sodium (Porcine) (Heparin -) 5,000 unit SQ TID [facility] Last Admin: 05/13/17 14:19 Dose: 5,000 unit Piperacillin/Tazobactam/Dextrose (Zosyn 2.25gm Ivpb (Premix)) 2.25 gm in 50 mls @ 100 mls/hr IVPB Q8H-IV [facility] PRN Reason: Protocol Last Admin: 05/13/17 10:13 Dose: 100 mls/hr Insulin Aspart (Novolog Vial Sliding Scale -) 1 vial SQ ACHS [facility] PRN Reason: Protocol Last Admin: 05/13/17 16:52 Dose: Not Given Metoprolol Succinate (Toprol Xl -) 50 mg PO DAILY [facility] Last Admin: 05/13/17 10:24 Dose: 50 mg Tramadol HCl (Ultram -) 25 mg PO BID [facility] Last Admin: 05/13/17 10:14 Dose: 50 mg Triamcinolone Acetonide (Aristocort 0.1% Lotion -) 1 applic TP BID PRN PRN Reason: FOR ITCHING/RASH - Objective Vital Signs: Vital Signs Temperature 98.0 F 05/13/17 14:00 Pulse Rate 72 05/13/17 14:00 Respiratory Rate 18 05/13/17 14:00 Blood Pressure 103/55 05/13/17 14:00 O2 Sat by Pulse Oximetry (%) 99 05/13/17 13:47 Constitutional: Yes: No Distress, Calm Neck: Yes: Supple Cardiovascular: Yes: Regular Rate and Rhythm Respiratory: Yes: Regular, Diminished, On BiPap Gastrointestinal: Yes: Normal Bowel Sounds, Soft Edema: Yes Edema: LLE: Trace, RLE: Trace Integumentary: Yes: Venous Stasis Changes Neurological: Yes: Weakness Labs: CBC, BMP 05/13/17 05:15 05/13/17 05:15 INR, PTT INR 1.42 (0.82-1.09) H 05/10/17 05:10 - ....Imaging EKG: Report Reviewed (Tele: SR, no PAF) Problem List - Problems (1) Cor pulmonale (chronic) Code(s): I27.81 - COR PULMONALE (CHRONIC) (2) S/P CABG (coronary artery bypass graft) Code(s): Z95.1 - PRESENCE OF AORTOCORONARY BYPASS GRAFT (3) Coronary artery disease Code(s): I25.10 - ATHSCL HEART DISEASE OF [place] CORONARY ARTERY W/O ANG PCTRS Qualifiers: Coronary Disease-Associated Artery/Lesion type: [place] artery [place] vs. transplanted heart: [place] heart Associated angina: without angina Qualified Code(s): I25.10 - Atherosclerotic heart disease of [place] coronary artery without angina pectoris (4) Hyperlipidemia associated with type 2 diabetes mellitus Code(s): E11.69 - TYPE 2 DIABETES MELLITUS WITH OTHER SPECIFIED COMPLICATION; E78.5 - HYPERLIPIDEMIA, UNSPECIFIED (5) Diastolic dysfunction with chronic heart failure Code(s): I50.32 - CHRONIC DIASTOLIC (CONGESTIVE) HEART FAILURE (6) Cellulitis Code(s): L03.90 - CELLULITIS, UNSPECIFIED Qualifiers: Site of cellulitis of extremity: lower extremity (7) Type 2 diabetes mellitus Code(s): E11.9 - TYPE 2 DIABETES MELLITUS WITHOUT COMPLICATIONS Qualifiers: Diabetes mellitus complication status: without complication Diabetes mellitus buttermaker insulin use: without buttermaker use Qualified Code(s): E11.9 - Type 2 diabetes mellitus without complications (8) Hypertensive cardiomegaly with heart failure Code(s): I11.0 - HYPERTENSIVE HEART DISEASE WITH HEART FAILURE (9) [id number] kidney injury Code(s): N17.9 - ACUTE KIDNEY FAILURE, UNSPECIFIED; N18.9 - CHRONIC KIDNEY DISEASE, UNSPECIFIED Qualifiers: Chronic kidney disease stage: stage 2 (mild) (10) Cerebrovascular disease Code(s): I67.9 - CEREBROVASCULAR DISEASE, UNSPECIFIED Assessment/Plan 1. Cor pulmonale, pulmonary hypertension (No RVSP measurement on the above noted echocardiography) 2. CAD post CABG, angina pectoris 3. Diastolic LV dysfunction with chronic class 0-I NYHA classification LV failure 4. HTN/HCVD 5. NIDDM 6. Hyperlipidemia 7. Lower extremity cellulitis 8. Right wrist scaphoid fracture and triquetrum fracture 9. Acute on CKD 10. 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 Monitor renal recovery with judicious hydration and off diuretics and NIYAH-I 2. Continue Toprol XL 50 qd 4. Continue ASA 81 qd 5. Continue Lipitor 20 qhs 6. Bipap as tolerated 7. Complete antibiotic course as per the primary team 8. Outpatient evaluation of pulmonary hypertension 9. Plan for brain MRI when possible, tele monitor r/o PAF 10. DVT prophylaxis
--- NOTE | 2017-05-13 17:32 | PN ---
Physical Exam: SUBJECTIVE: Patient seen and examined No acute events overnight. Pt still with difficulty formulating sentences. Denies pain anywhere. OBJECTIVE: Vital Signs Period Temp Pulse Resp BP Sys/Eckert Pulse Ox Last 24 Hr 97.9 F-99.3 F 72-101 17-24 103-129/55-66 95-99 GENERAL: The patient is AAOx0 in NAD HEENT: slightly dry mucous membranes NECK: Trachea midline, full range of motion, supple. LUNGS: CTAB HEART: Regular rate and rhythm, S1, S2 without murmur, rub or gallop. ABDOMEN: obese, soft, nontender, nondistended, normoactive bowel sounds, no guarding, no rebound, no hepatosplenomegaly, no masses. EXTREMITIES: chronic venous statis dermatitis in LE, foul-smelling, no obvious weeping, decreased erythema, 2+ edema NEUROLOGICAL: no facial droop, EOMI, tongue at mid line and uvula at mid line. NL facial sensation. Strength minimal cooperation. R shoulder abduction 4/5, biceps and triceps 4 /5. L upper ext was not able to evaluate, R hip flexion 2/ 5, knee flexion 2/5, L hip flexion 2/5 , Knee flexion 2/5. L ankle dorsiflexion and plantar not able to evaluate, nl sensation to light touch Laboratory Results - last 24 hr 05/10/17 05/10/17 05/11/17 17:31 21:55 06:12 WBC RBC Hgb Hct MCV MCH MCHC RDW Plt Count MPV Neutrophils % Lymphocytes % Monocytes % Eosinophils % Basophils % Sodium Potassium Chloride Carbon Dioxide Anion Gap BUN Creatinine Creat Clearance w eGFR POC Glucometer 173.41287 147.77530 [phone] Random Glucose Calcium Total Bilirubin AST ALT Alkaline Phosphatase Total Protein Albumin Triglycerides Cholesterol Total LDL Cholesterol HDL Cholesterol 05/11/17 05/11/17 05/11/17 12:40 17:04 22:17 WBC RBC Hgb Hct MCV MCH MCHC RDW Plt Count MPV Neutrophils % Lymphocytes % Monocytes % Eosinophils % Basophils % Sodium Potassium Chloride Carbon Dioxide Anion Gap BUN Creatinine Creat Clearance w eGFR POC Glucometer 188.49288 230.42344 [phone] Random Glucose Calcium Total Bilirubin AST ALT Alkaline Phosphatase Total Protein Albumin Triglycerides Cholesterol Total LDL Cholesterol HDL Cholesterol 05/12/17 05/12/17 05/12/17 05:17 11:54 16:46 WBC RBC Hgb Hct MCV MCH MCHC RDW Plt Count MPV Neutrophils % Lymphocytes % Monocytes % Eosinophils % Basophils % Sodium Potassium Chloride Carbon Dioxide Anion Gap BUN Creatinine Creat Clearance w eGFR POC Glucometer 180.05737 162.30248 [phone] Random Glucose Calcium Total Bilirubin AST ALT Alkaline Phosphatase Total Protein Albumin Triglycerides Cholesterol Total LDL Cholesterol HDL Cholesterol 05/12/17 05/13/17 05/13/17 20:52 05:15 05:15 WBC 11.9 H RBC 3.88 L Hgb 11.8 Hct 36.1 MCV 93.2 MCH 30.3 MCHC 32.5 RDW 13.7 Plt Count 214 MPV 9.3 Neutrophils % 81.5 Lymphocytes % 4.9 L Monocytes % 12.6 H Eosinophils % 0.7 Basophils % 0.3 Sodium 139 Potassium 4.0 Chloride 102 Carbon Dioxide 29 Anion Gap 8 BUN 72 H D Creatinine 2.5 H Creat Clearance w eGFR 25.04 POC Glucometer [phone] Random Glucose 180 H Calcium 8.0 L Total Bilirubin 0.6 D AST 11 L ALT 12 Alkaline Phosphatase 138 H Total Protein 5.3 L Albumin 1.8 L Triglycerides Cholesterol Total LDL Cholesterol HDL Cholesterol 05/13/17 05/13/17 05/13/17 05:15 06:14 11:26 WBC RBC Hgb Hct MCV MCH MCHC RDW Plt Count MPV Neutrophils % Lymphocytes % Monocytes % Eosinophils % Basophils % Sodium Potassium Chloride Carbon Dioxide Anion Gap BUN Creatinine Creat Clearance w eGFR POC Glucometer 195.83334 246.34032 Random Glucose Calcium Total Bilirubin AST ALT Alkaline Phosphatase Total Protein Albumin Triglycerides 103 Cholesterol 101 D Total LDL Cholesterol 66 D HDL Cholesterol 22 L D Active Medications Generic Name Dose Route Start Last Admin Trade Name Freq PRN Reason Stop Dose Admin Aspirin 81 mg 05/10/17 10:00 05/13/17 10:24 Ecotrin - PO 81 mg DAILY [facility] Administration Atorvastatin Calcium 20 mg 05/10/17 22:00 05/12/17 21:57 Lipitor - PO 20 mg HS [facility] Administration Docusate Sodium 100 mg 05/11/17 10:00 05/13/17 10:14 Colace - PO 100 mg DAILY [facility] Administration Heparin Sodium (Porcine) 5,000 unit 05/10/17 06:00 05/13/17 14:19 Heparin - SQ 5,000 unit TID [facility] Administration Piperacillin/Tazobactam/Dextrose 2.25 gm in 50 mls @ 100 mls/hr 05/10/17 18: 00 05/13/17 17:29 Zosyn 2.25gm Ivpb (Premix) IVPB 100 mls/hr Q8H-IV [facility] Administration Protocol Insulin Aspart 1 vial 05/09/17 22:00 05/13/17 16:52 Novolog Vial Sliding Scale - SQ Not Given ACHS [facility] Protocol Metoprolol Succinate 50 mg 05/10/17 10:00 05/13/17 10:24 Toprol Xl - PO 50 mg DAILY [facility] Administration Tramadol HCl 25 mg 05/10/17 22:00 05/13/17 10:14 Ultram - PO 50 mg BID [facility] Administration Triamcinolone Acetonide 1 applic 05/10/17 10:00 Aristocort 0.1% Lotion - TP BID PRN FOR ITCHING/RASH ASSESSMENT/PLAN: 81M w/ hx of NIDDM, CHF, CAD s/p bypass, HTN, HLD, renal insufficiency, and diverticulosis who presented with acute LE weakness, swelling and erythema, was found to have sepsis, admitted for sepsis 2/2 cellulitis. #Sepsis: possibly 2/2 cellulitis- improving * leukocytosis: 13.7 --> 14.4--> 15.2 --> 14.7 --> 11.9 * HR of 95-100 * continue zosyn as per ID, Dr. Reed (day 5 of abx) * Bcx: nothing to date x 72 hours * Ucx: negative-final * CXR: no interval changes #Aphasia/right-sided weakness and decreased sensory function * likely 2/2 acute stroke * Head CT negative for acute pathology * f/u brain MRI, pt's IVC filter and stents compatible with MRI * neuro on board, recs appreciated * continue ASA, lipitor, toprol, lisinopril * serial neuro exams * S&S: rec regular diet * PT #fractures * transverse fracture of scaphoid and fracture of triquetrum * ortho on board, recs appreciated. wrist splint inspector timers, pain control, f/u outpt * pain control with tramadol 25mg BID #LE chronic changes of venous stasis -vascular consulted, recs appreciated: dry wrap w/ kerlix and light NIYAH compression, no surgical intervention indicated # Hypoglycemia/pre-diabetes * ISS * BGM ACHS * diabetic diet * HgbA1c 6.3 #Acute on chronic diastolic CHF- resolved * continue to hold lasix, aldactone, and lisinopril * continue NS * ECHO: new cor pulmonale * per cards, pt to get outpt workup for pulmonary HTN * Strict I&O, currently not being accurately recorded * daily weight, currently not being accurately recorded #Elevated INR * last INR of 1.42 * possibly 2/2 liver injury from right sided HF * monitor for now # CKD * Cr 1.5 (baseline) --> 2 --> 2.4--> 2.5 * continue to hold lasix, aldactone, and lisinopril * continue NS * Avoid nephrotoxic agents * Adjust abx for renal doses * monitor creatinine * f/u urine lytes # HTN * continue toprol * monitor # HLD * continue home simvastatin # CAD S/P bypass graft * continue ASA # Obesity * BMI 34.8 * counselled about modified diet, losing weight and change life style. # FEN/ppx * F: NS @ 67 * E: wnl * N: Low sodium, diabetic diet * DVT: Hep 5000 Q8hr * GI : No need Case discussed with attending, Dr. Montoya. -Elver العلي MD PGY1 Visit type - Emergency Visit Emergency Visit: Yes ED Registration Date: 05/09/17 Care time: The patient presented to the Emergency Department on the above date and was hospitalized for further evaluation of their emergent condition. - New Patient This patient is new to me today: No - Critical Care Critical Care patient: No
--- NOTE | 2017-05-13 19:57 | PN ---
Teaching Attending Note Name of Resident: Elver العلي ATTENDING PHYSICIAN STATEMENT I saw and evaluated the patient. I reviewed the resident's note and discussed the case with the resident. I agree with the resident's findings and plan as documented. SUBJECTIVE: no pain, frustrated with his speech OBJECTIVE: NAD, Awake, aphasic , difficulty finding words but improved speech . dry MM CV: RRR, NO JVD Lungs : CTAB Ext: LE edemema , erythema , and serosanguinus discharge with few bullae ( improved ) Neuro : no facial droop, EOMI, tongue at mid line and uvula at mid line . NL facial sensation . Strength minimal cooperation. R shoulder abduction 4/5 , biceps and triceps 4 /5 . L upper ext was not able to evaluate R hip flexion 2/5 , knee flexion 2/5 , L hip flexion 2/5 , Knee flexion 2/5 . L ankle dorsiflexion and plantar not able to evaluate nl sensation to light touch ASSESSMENT AND PLAN: 81 y/o man with h/o HTN, CAD, DM , diastolic Dysfunction , core pulmonale , and other medical problems who presented with LE edema and erythema and was found to have cellulitis , hospital course was complicated by aphasia and R sided weakness 1- Acute aphasia, and R sided weakness: possible acute CVA , neuro exam with - MRI of brain ( IVC and cardiac stent OK to for MRI ). - speech and PT - asa and statin - LDL 66 - tele 2- DAVID: likely prerenal due to volume depletion, - cont to hold diuresis - hold ARB - increase IVF 3- Acute D CHF : s/p diuresis . Now volume depleted - hold diuresis as above 4-Cellulitis of LE : cont zosyn 5- DVT PX
[2017-05-13] MEDS: SODIUM CHLORIDE 1,000 ML IV SCH (20:00)
[2017-05-13] MEDS ORDERED: INSULIN (NOVOLOG) ASPART 100 UNITS/ML 10ML VIAL ONE (22:41)
[2017-05-13] MEDS: ATORVASTATIN CA 20 MG TABLET (FP) PO SCH (22:49)
[2017-05-14] MEDS: PIPERACILLIN/TAZOB 2.25 GM 2.25 GM/50 ML BAG IVPB SCH ×3 (02:00→16:59)
[2017-05-14] MEDS: SODIUM CHLORIDE 1,000 ML IV SCH ×3 (04:26→17:55)
[2017-05-14] MEDS: HEPARIN NA (PORCINE) 5,000 UNITS/ML 1ML VIAL SQ SCH ×3 (06:06→22:24)
[2017-05-14 06:18] LABS: BASO % 0.5 % (0-2.0); EOS % 2.2 % (0-4.5); HEMOGLOBIN 11.4 GM/dL (11.7-16.9); LYMPH % 7.1 % (8-40); MCH 30.5 pg (25.7-33.7); MCHC 32.6 g/dl (32.0-35.9); MEAN CELL VOLUME 93.6 fl (80-96); MEAN PLT VOLUME 9.3 fl (7.5-11.1); MONO % 14.3 % (3.8-10.2); NEUT % 75.9 % (42.8-82.8); PLATELET COUNT 222 K/MM3 (134-434); RBC 3.74 M/mm3 (4.00-5.60); RDW 13.9 % (11.9-15.9); WHITE BLOOD COUNT 9.7 K/mm3 (4.0-10.0)
[2017-05-14 07:19] LABS: ANION GAP 9 (8-16); BLOOD UREA NITROGEN 84 mg/dL (7-18); CALCIUM 7.9 mg/dL (8.5-10.1); CHLORIDE 103 mmol/L (98-107); CO2 27 mmol/L (21-32); CREATININE 2.5 mg/dL (0.7-1.3); GLUCOSE,RANDOM 169 mg/dL (74-106); SODIUM 139 mmol/L (136-145)
[2017-05-14] MEDS: ASPIRIN COATED 81 MG TABLET.EC PO SCH (09:06)
[2017-05-14] MEDS: METOPROLOL SUCCINATE 50 MG TAB.SR.24H (FP) PO SCH (09:06)
[2017-05-14] MEDS: traMADol HCL 50 MG TABLET PO SCH ×2 (09:08→22:25)
[2017-05-14] MEDS ORDERED: COLCHICINE 0.6 MG TABLET (FP) PO ONE (09:52)
--- NOTE | 2017-05-14 10:09 | EKG ---
Test Reason : Blood Pressure : / mmHG Vent. Rate : 085 BPM Atrial Rate : 085 BPM P-R Int : 186 ms QRS Dur : 102 ms QT Int : 350 ms P-R-T Axes : 041 028 -37 degrees QTc Int : 416 ms NORMAL SINUS RHYTHM POSSIBLE LEFT ATRIAL ENLARGEMENT INFERIOR INFARCT , AGE UNDETERMINED ABNORMAL ECG WHEN COMPARED WITH ECG OF 09-MAY-2017 15:10, [place] INTERVAL HAS DECREASED T WAVE INVERSION NOW EVIDENT IN ANTERIOR LEADS Confirmed by MD MYKE, YOLY ([id number]) on 05/14/2017 10:08:40 AM Referred By: Confirmed By:YOLY STRINGER MD
[2017-05-14] MEDS: DOCUSATE SODIUM 100 MG CAPSULE (FP) PO SCH (10:37)
[2017-05-14] MEDS ORDERED: COLCHICINE 0.6 MG TABLET (FP) ONE (10:47)
[2017-05-14] MEDS: INSULIN SLIDING SCALE (NOVOLOG) 1 VIAL SQ SCH ×5 (12:22→22:23)
--- NOTE | 2017-05-14 12:35 | PN ---
Progress Note, SR. OPERATIONS MANAGER - Note Progress Note: Pt was taken off BIPAP this am, did well with breakfast, per nursing. He fatiqued and needed to be put back on bipap. Language formulation is hesitant and unchanged as discussed with nursing. BIPAP in place. Pt communicates best when asked yes/no questions. This should be used to help pt compensate, enable him to communicate wants and needs and minimize frustration as pt's spontaneous speech improves. Additionally, communication board constructed for basic wants and needs, as needed. Pt is cognitively intact. Consider STR/Acute rehab for intensive vspeech/language tx upon d/c.
--- NOTE | 2017-05-14 15:00 | PN ---
Progress Note, Physician History of Present Illness: Remains on bipap, aphasic and R sided weakness, await brain MRI. - Current Medication List Current Medications: Active Medications Aspirin (Ecotrin -) 81 mg PO DAILY [facility] Last Admin: 05/14/17 09:06 Dose: 81 mg Atorvastatin Calcium (Lipitor -) 20 mg PO HS [facility] Last Admin: 05/13/17 22:49 Dose: 20 mg Docusate Sodium (Colace -) 100 mg PO DAILY [facility] Last Admin: 05/14/17 10:37 Dose: 100 mg Heparin Sodium (Porcine) (Heparin -) 5,000 unit SQ TID [facility] Last Admin: 05/14/17 13:11 Dose: 5,000 unit Piperacillin/Tazobactam/Dextrose (Zosyn 2.25gm Ivpb (Premix)) 2.25 gm in 50 mls @ 100 mls/hr IVPB Q8H-IV [facility] PRN Reason: Protocol Last Admin: 05/14/17 09:13 Dose: 100 mls/hr Sodium Chloride (Normal Saline -) 1,000 mls @ 85 mls/hr IV ASDIR [facility] Last Admin: 05/14/17 10:36 Dose: 85 mls/hr Insulin Aspart (Novolog Vial Sliding Scale -) 1 vial SQ ACHS [facility] PRN Reason: Protocol Last Admin: 05/14/17 12:26 Dose: 4 units Metoprolol Succinate (Toprol Xl -) 50 mg PO DAILY [facility] Last Admin: 05/14/17 09:06 Dose: 50 mg Tramadol HCl (Ultram -) 25 mg PO BID [facility] Last Admin: 05/14/17 09:08 Dose: 25 mg Triamcinolone Acetonide (Aristocort 0.1% Lotion -) 1 applic TP BID PRN PRN Reason: FOR ITCHING/RASH - Objective Vital Signs: Vital Signs Temperature 97.9 F 05/14/17 06:00 Pulse Rate 74 05/14/17 14:58 Respiratory Rate 21 05/14/17 14:58 Blood Pressure 103/60 05/14/17 14:58 O2 Sat by Pulse Oximetry (%) 97 05/14/17 10:59 Constitutional: Yes: No Distress, Calm Neck: Yes: Supple Cardiovascular: Yes: Regular Rate and Rhythm Respiratory: Yes: Regular, Diminished Gastrointestinal: Yes: Normal Bowel Sounds, Soft, Abdomen, Obese Edema: Yes Edema: LLE: Trace, RLE: Trace Labs: CBC, BMP 05/14/17 05:00 05/14/17 05:00 INR, PTT INR 1.42 (0.82-1.09) H 05/10/17 05:10 - ....Imaging Chest X-ray: Report Reviewed (Persistent left lung base consolidation) EKG: Report Reviewed (NSR @ 85 Tele: NSR PVC) Problem List - Problems (1) Cor pulmonale (chronic) Code(s): I27.81 - COR PULMONALE (CHRONIC) (2) S/P CABG (coronary artery bypass graft) Code(s): Z95.1 - PRESENCE OF AORTOCORONARY BYPASS GRAFT (3) Coronary artery disease Code(s): I25.10 - ATHSCL HEART DISEASE OF [place] CORONARY ARTERY W/O ANG PCTRS Qualifiers: Coronary Disease-Associated Artery/Lesion type: [place] artery [place] vs. transplanted heart: [place] heart Associated angina: without angina Qualified Code(s): I25.10 - Atherosclerotic heart disease of [place] coronary artery without angina pectoris (4) Hyperlipidemia associated with type 2 diabetes mellitus Code(s): E11.69 - TYPE 2 DIABETES MELLITUS WITH OTHER SPECIFIED COMPLICATION; E78.5 - HYPERLIPIDEMIA, UNSPECIFIED (5) Diastolic dysfunction with chronic heart failure Code(s): I50.32 - CHRONIC DIASTOLIC (CONGESTIVE) HEART FAILURE (6) Cellulitis Code(s): L03.90 - CELLULITIS, UNSPECIFIED Qualifiers: Site of cellulitis of extremity: lower extremity (7) Type 2 diabetes mellitus Code(s): E11.9 - TYPE 2 DIABETES MELLITUS WITHOUT COMPLICATIONS Qualifiers: Diabetes mellitus complication status: without complication Diabetes mellitus chcf insulin use: without chcf use Qualified Code(s): E11.9 - Type 2 diabetes mellitus without complications (8) Hypertensive cardiomegaly with heart failure Code(s): I11.0 - HYPERTENSIVE HEART DISEASE WITH HEART FAILURE (9) Xflae-tn-mjcxphm kidney injury Code(s): N17.9 - ACUTE KIDNEY FAILURE, UNSPECIFIED; N18.9 - CHRONIC KIDNEY DISEASE, UNSPECIFIED Qualifiers: Chronic kidney disease stage: stage 2 (mild) (10) Cerebrovascular disease Code(s): I67.9 - CEREBROVASCULAR DISEASE, UNSPECIFIED Assessment/Plan 1. Cor pulmonale, pulmonary hypertension (No RVSP measurement on the above noted echocardiography) 2. CAD post CABG, angina pectoris 3. Diastolic LV dysfunction with chronic class 0-I NYHA classification LV failure 4. HTN/HCVD 5. NIDDM 6. Hyperlipidemia 7. Lower extremity cellulitis 8. Right wrist scaphoid fracture and triquetrum fracture 9. Acute on CKD 10. 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 Monitor renal recovery with judicious hydration and off diuretics and NIYAH-I 2. Continue Toprol XL 50 qd 4. Continue ASA 81 qd 5. Continue Lipitor 20 qhs 6. Bipap as tolerated 7. Complete antibiotic course as per the primary team 8. Outpatient evaluation of pulmonary hypertension 9. Plan for brain MRI when possible, tele monitor r/o PAF 10. DVT prophylaxis
--- NOTE | 2017-05-14 16:15 | PN ---
Physical Exam: SUBJECTIVE: Patient seen and examined Bipap removed this am for breakfast, pt desatted to 70s, placed back on bipap. Pt still with difficulty formulating sentences. Denies pain anywhere. OBJECTIVE: Vital Signs Period Temp Pulse Resp BP Sys/Eckert Pulse Ox Last 24 Hr 97.8 F-98 F 64-85 16-22 102-138/51-91 97-98 GENERAL: elderly male, lying in bed, in NAD on bipap, more alert HEENT: slightly dry mucous membranes NECK: Trachea midline, full range of motion, supple. LUNGS: bibasilar rales HEART: Regular rate and rhythm, S1, S2 without murmur, rub or gallop. ABDOMEN: obese, soft, nontender, nondistended, normoactive bowel sounds, no guarding, no rebound, no hepatosplenomegaly, no masses. EXTREMITIES: chronic venous statis dermatitis in LE, decreased odor, no obvious weeping, decreased erythema, 2+ edema. right 2nd and 3rd fingers with swelling. NEUROLOGICAL: no facial droop, EOMI, tongue at mid line and uvula at mid line. NL facial sensation. Strength minimal cooperation. R shoulder abduction 4/5, biceps and triceps 4 /5. L upper ext was not able to evaluate, R hip flexion 2/ 5, knee flexion 2/5, L hip flexion 2/5 , Knee flexion 2/5. L ankle dorsiflexion and plantar not able to evaluate, nl sensation to light touch Laboratory Results - last 24 hr 05/13/17 05/13/17 05/14/17 16:27 21:44 05:00 WBC 9.7 RBC 3.74 L Hgb 11.4 L Hct 35.0 L MCV 93.6 MCH 30.5 MCHC 32.6 RDW 13.9 Plt Count 222 MPV 9.3 Neutrophils % 75.9 Lymphocytes % 7.1 L D Monocytes % 14.3 H Eosinophils % 2.2 D Basophils % 0.5 Sodium Potassium Chloride Carbon Dioxide Anion Gap BUN Creatinine POC Glucometer 284.23953 284.13682 Random Glucose Calcium 05/14/17 05/14/17 05/14/17 05:00 06:47 11:52 WBC RBC Hgb Hct MCV MCH MCHC RDW Plt Count MPV Neutrophils % Lymphocytes % Monocytes % Eosinophils % Basophils % Sodium 139 Potassium 4.0 Chloride 103 Carbon Dioxide 27 Anion Gap 9 BUN 84 H Creatinine 2.5 H POC Glucometer 104.93647 222.86148 Random Glucose 169 H Calcium 7.9 L Active Medications Generic Name Dose Route Start Last Admin Trade Name Qasimq PRN Reason Stop Dose Admin Aspirin 81 mg 05/10/17 10:00 05/14/17 09:06 Ecotrin - PO 81 mg DAILY [facility] Administration Atorvastatin Calcium 20 mg 05/10/17 22:00 05/13/17 22:49 Lipitor - PO 20 mg HS DOMINIK Administration Docusate Sodium 100 mg 05/11/17 10:00 05/14/17 10:37 Colace - PO 100 mg DAILY [facility] Administration Heparin Sodium (Porcine) 5,000 unit 05/10/17 06:00 05/14/17 13:11 Heparin - SQ 5,000 unit TID [facility] Administration Piperacillin/Tazobactam/Dextrose 2.25 gm in 50 mls @ 100 mls/hr 05/10/17 18: 00 05/14/17 09:13 Zosyn 2.25gm Ivpb (Premix) IVPB 100 mls/hr Q8H-IV DOM[facility] Administration Protocol Sodium Chloride 1,000 mls @ 85 mls/hr 05/14/17 09:37 05/14/17 10:36 Normal Saline - IV 85 mls/hr ASDIR [facility] Administration Insulin Aspart 1 vial 05/09/17 22:00 05/14/17 12:26 Novolog Vial Sliding Scale - SQ 4 units ACHS [facility] Administration Protocol Metoprolol Succinate 50 mg 05/10/17 10:00 05/14/17 09:06 Toprol Xl - PO 50 mg DAILY [facility] Administration Tramadol HCl 25 mg 05/10/17 22:00 05/14/17 09:08 Ultram - PO 25 mg BID [facility] Administration Triamcinolone Acetonide 1 applic 05/10/17 10:00 Aristocort 0.1% Lotion - TP BID PRN FOR ITCHING/RASH ASSESSMENT/PLAN: 81M w/ hx of NIDDM, CHF, CAD s/p bypass, HTN, HLD, renal insufficiency, and diverticulosis who presented with acute LE weakness, swelling and erythema, was found to have sepsis, admitted for sepsis 2/2 cellulitis. #Sepsis: possibly 2/2 cellulitis- improving * leukocytosis: 13.7 --> 14.4--> 15.2 --> 14.7 --> 11.9--> 9.7 * HR of 75-85 * continue zosyn as per ID, Dr. Reed (day 6 of abx) * Bcx: nothing to date x 96 hours * Ucx: negative-final * CXR: no interval changes #Aphasia/right-sided weakness and decreased sensory function * likely 2/2 acute stroke * Head CT negative for acute pathology * f/u brain MRI, pt's IVC filter and stents compatible with MRI * neuro on board, recs appreciated * continue ASA, lipitor, toprol, lisinopril * serial neuro exams * S&S: rec regular diet * PT #fractures * transverse fracture of scaphoid and fracture of triquetrum * ortho on board, recs appreciated. 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, pain control, f/u outpt * pain control with tramadol 25mg BID #LE chronic changes of venous stasis -vascular consulted, recs appreciated: dry wrap w/ kerlix and light NIYAH compression, no surgical intervention indicated # Hypoglycemia/pre-diabetes * ISS * BGM ACHS * diabetic diet * HgbA1c 6.3 #right finger swelling -possibly 2/2 acute gout -colchicine given -will monitor #Acute on chronic diastolic CHF- resolved * continue to hold lasix, aldactone, and lisinopril * NS * ECHO: new cor pulmonale * per cards, pt to get outpt workup for pulmonary HTN * Strict I&O, currently not being accurately recorded * daily weight, currently not being accurately recorded #hypoxia -desatting off of bipap -2/2 PNA? DVT? -f/u doppler LE -EKG: S1Q3T3, same as prior EKGs -f/u V/Q scan -pulm consulted, f/u recs -mucomyst, albuterol, chest physiotherapy, bipap standing at night started #Elevated INR * last INR of 1.42 * possibly 2/2 liver injury from right sided HF * monitor for now #DAVID on CKD * Cr 1.5 (baseline) --> 2 --> 2.4--> 2.5--> 2.5 * continue to hold lasix, aldactone, and lisinopril * increased NS to 85 cc/hr * Avoid nephrotoxic agents * Adjust abx for renal doses * monitor creatinine # HTN * continue toprol * monitor # HLD * continue home simvastatin # CAD S/P bypass graft * continue ASA # Obesity * BMI 34.8 * counselled about modified diet, losing weight and change life style. # FEN/ppx * F: NS @ 85 * E: wnl * N: Low sodium, diabetic diet * DVT: Hep 5000 Q8hr * GI : No need Case discussed with attending, Dr. Montoya. -Elver العلي MD PGY1 Visit type - Emergency Visit Emergency Visit: Yes ED Registration Date: 05/09/17 Care time: The patient presented to the Emergency Department on the above date and was hospitalized for further evaluation of their emergent condition. - New Patient This patient is new to me today: No - Critical Care Critical Care patient: No
[2017-05-14] MEDS ORDERED: HEMOQUE TEST 1 EACH EACH ONE (17:16)
--- NOTE | 2017-05-14 17:28 | PN ---
Teaching Attending Note Name of Resident: Elver العلي ATTENDING PHYSICIAN STATEMENT I saw and evaluated the patient. I reviewed the resident's note and discussed the case with the resident. I agree with the resident's findings and plan as documented. SUBJECTIVE: No fever or chills, has no abd apin or PC , denies SOB, but is on BIPAP OBJECTIVE: NAD, Awake, still has aphasia but speech has improved. dry MM CV: RRR, NO JVD Lungs : CTAB Ext: LE edema , erythema , and serosanguinus discharge with few bullae ( improved ) Neuro : no facial droop, EOMI, tongue at mid line and uvula at mid line . NL facial sensation . Strength minimal cooperation. R shoulder abduction 3/5 , biceps and triceps 5 /5 . L upper ext with 4/5 biceps and triceps. R hip flexion 2/5 , knee flexion 2/5 , L hip flexion 2/5 , Knee flexion 2/5 . L ankle dorsiflexion and plantar not able to evaluate nl sensation to light touch ASSESSMENT AND PLAN: 81 y/o man with h/o HTN, CAD, DM , diastolic Dysfunction , core pulmonale , and other medical problems who presented with LE edema and erythema and was found to have cellulitis , hospital course was complicated by aphasia and R sided weakness 1- Acute aphasia, and R sided weakness: possible acute CVA , neuro exam with some improvement , and speech has improved - MRI of brain still pending - asa and statin - tele 2- Hypoxia: not clear on etiology. possible JANEE with atelectasis , ? mucus plugging. ? aspiration . clinically does not look volume overloaded. PE is in DDx , but less likely . -EKG obtained , S1Q3T3 seen, but it is an old finding that was seen in 2014 and on admission when his Sat O2 was 95 % on RA. - check doppler US of LE . - Echo tis admission with increased R sided pressure, but he had same findings back in 2012. - can not obtain CTA due to renal function and VQ scan might be indeterminant du eot the base line cxray findings. - if US is neg, then will ask Pulm if VQ is appropriate . - in mean time , aggressive Chest PT. Nebs , Mucomyst , and routin Bipap at night - can not Anticoagulat empirically due to suspected stroke and no MRI results 2- DAVID: likely prerenal due to volume depletion, - cont to hold diuresis - hold ARB -IVF 4- Acute D CHF : s/p diuresis . Now volume depleted - hold diuresis as above 5-Cellulitis of LE : cont zosyn day 6 7- DVT PX
[2017-05-14] MEDS ORDERED: ALBUTEROL SO4 0.083% IH SOL 2.5 MG/3 ML VIAL.NEB. NEB PRN (18:43)
[2017-05-14] MEDS ORDERED: ACETYLCYSTEINE 20% 200MG/ML 4 ML VIAL *FOR ORAL / INH USE ONLY NEB ONE (18:45)
[2017-05-14] MEDS: ATORVASTATIN CA 20 MG TABLET (FP) PO SCH (22:24)
[2017-05-15] MEDS: PIPERACILLIN/TAZOB 2.25 GM 2.25 GM/50 ML BAG IVPB SCH ×3 (03:05→17:38)
[2017-05-15] MEDS: HEPARIN NA (PORCINE) 5,000 UNITS/ML 1ML VIAL SQ SCH ×3 (05:22→21:20)
[2017-05-15] MEDS: traMADol HCL 50 MG TABLET PO SCH ×3 (05:26→21:21)
[2017-05-15] MEDS: INSULIN SLIDING SCALE (NOVOLOG) 1 VIAL SQ SCH ×3 (06:16→23:00)
--- NOTE | 2017-05-15 07:43 | PN ---
Progress Note (short form) - Note Progress Note: Chief Complaint: Events noted, notes reviewed, restless on BiPAP, dyspnea persists History of Present Illness: Seen and examined on telemetry. Events noted, notes reviewed, restless on BiPAP , dyspnea persists Echocardiography revealed normal LV size, hyperdynamic LV, AV sclerosis, RV dilated and hypokinetic, bi-atrial dilatation, trace MR and TR with no RVSP measurement Medications: Current Medications Albuterol Sulfate (Ventolin 0.083% Nebulizer Soln -) 1 amp NEB Q4H PRN PRN Reason: SHORT OF BREATH/WHEEZING Aspirin (Ecotrin -) 81 mg PO DAILY [facility] Last Admin: 05/14/17 09:06 Dose: 81 mg Atorvastatin Calcium (Lipitor -) 20 mg PO HS [facility] Last Admin: 05/14/17 22:24 Dose: 20 mg Docusate Sodium (Colace -) 100 mg PO DAILY [facility] Last Admin: 05/14/17 10:37 Dose: 100 mg Heparin Sodium (Porcine) (Heparin -) 5,000 unit SQ TID [facility] Last Admin: 05/15/17 05:22 Dose: 5,000 unit Piperacillin/Tazobactam/Dextrose (Zosyn 2.25gm Ivpb (Premix)) 2.25 gm in 50 mls @ 100 mls/hr IVPB Q8H-IV [facility] PRN Reason: Protocol Last Admin: 05/15/17 03:05 Dose: 100 mls/hr Sodium Chloride (Normal Saline -) 1,000 mls @ 85 mls/hr IV ASDIR [facility] Last Admin: 05/14/17 17:55 Dose: 85 mls/hr Insulin Aspart (Novolog Vial Sliding Scale -) 1 vial SQ ACHS [facility] PRN Reason: Protocol Last Admin: 05/15/17 06:16 Dose: 2 units Metoprolol Succinate (Toprol Xl -) 50 mg PO DAILY [facility] Last Admin: 05/14/17 09:06 Dose: 50 mg Tramadol HCl (Ultram -) 25 mg PO BID [facility] Last Admin: 05/15/17 05:26 Dose: 25 mg Triamcinolone Acetonide (Aristocort 0.1% Lotion -) 1 applic TP BID PRN PRN Reason: FOR ITCHING/RASH Review of Systems Constitutional: Denies: Chills or Fever Cardiovascular: As noted above Respiratory: denies: Cough or Sputum Production Gastrointestinal: Denies: Nausea, Vomiting, Diarrhea, Constipation or Abdominal Pain Genitourinary: No symptoms reported Neurology: No seizures or syncope Vital Signs: Last Vital Signs Temp Pulse Resp BP Pulse Ox 99.1 F 71 22 123/57 97 05/15/17 02:00 05/15/17 06:00 05/15/17 06:00 05/15/17 06:00 05/14/17 21:30 Intake & Output 05/12/17 05/13/17 05/14/17 05/15/17 23:59 23:59 23:59 23:59 Intake Total 632 445 1633 650 Balance 180 593 2741 650 Weight 250 lb 4 oz 262 lb 8 oz 264 lb 2 oz 251 lb 9 oz Constitutional: Mild Respiratory Distress, Calm Neck: Supple Respiratory: Diminished Breath Sounds at the Bases Cardiovascular: S1 S2 Regular Rate and Rhythm Gastrointestinal: Soft Benign Normal Bowel Sounds Ext: 2+ Bilateral Edema with Venous Stasis Changes and Ulcers Labs: CBC, BMP 05/14/17 05:00 05/14/17 05:00 Hepatic Panel Total Bilirubin 0.6 mg/dL (0.2-1.0) D 05/13/17 05:15 AST 11 U/L (15-37) L 05/13/17 05:15 ALT 12 U/L (12-78) 05/13/17 05:15 Alkaline Phosphatase 138 U/L (45-117) H 05/13/17 05:15 Albumin 1.8 g/dl (3.4-5.0) L 05/13/17 05:15 INR, PTT INR 1.42 (0.82-1.09) H 05/10/17 05:10 Assessment/Plan ASSESSMENT: 1. Cor pulmonale, pulmonary hypertension (No RVSP measurement on the above noted echocardiography) 2. CAD post CABG, angina pectoris 3. Diastolic LV dysfunction with chronic class 0-I NYHA classification LV failure 4. 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 HTN/HCVD 6. NIDDM 7. Hyperlipidemia 8. Acute on CKD 9. Lower extremity cellulitis 10. Right wrist scaphoid fracture and triquetrum fracture PLAN: 1. Continue to hold Lasix and Aldactone pending renal function recovery 2. Continue to hold Lisinopril pending renal function recovery 3. Continue Toprol XL 4. Continue ASA 5. Continue Lipitor 6. BiPAP as tolerated 7. Antibiotics as per the primary team 8. MRI as planned by primary team 9. Outpatient evaluation of pulmonary hypertension Venus Soares MD
[2017-05-15] MEDS ORDERED: PT OWN MED DRAWER 7, Y5N ONE (08:55)
[2017-05-15] MEDS: DOCUSATE SODIUM 100 MG CAPSULE (FP) PO SCH (10:33)
[2017-05-15] MEDS: METOPROLOL SUCCINATE 50 MG TAB.SR.24H (FP) PO SCH (10:33)
[2017-05-15] MEDS: ASPIRIN COATED 81 MG TABLET.EC PO SCH (10:34)
[2017-05-15] MEDS: SODIUM CHLORIDE 1,000 ML IV SCH (10:37)
[2017-05-15 11:53] LABS: HEMATOCRIT 35.8 % (35.4-49); HEMOGLOBIN 11.6 GM/dL (11.7-16.9); MCH 29.9 pg (25.7-33.7); MCHC 32.3 g/dl (32.0-35.9); MEAN CELL VOLUME 92.6 fl (80-96); MEAN PLT VOLUME 8.7 fl (7.5-11.1); PLATELET COUNT 231 K/MM3 (134-434); RBC 3.86 M/mm3 (4.00-5.60); RDW 13.5 % (11.9-15.9); WHITE BLOOD COUNT 8.5 K/mm3 (4.0-10.0)
[2017-05-15 12:12] LABS: ANION GAP 6 (8-16); BLOOD UREA NITROGEN 81 mg/dL (7-18); CALCIUM 7.7 mg/dL (8.5-10.1); CHLORIDE 107 mmol/L (98-107); CO2 29 mmol/L (21-32); GLUCOSE,RANDOM 182 mg/dL (74-106); SODIUM 142 mmol/L (136-145)
[2017-05-15] MEDS ORDERED: FUROSEMIDE 40 MG/4 ML INJECTABLE VIAL IVPUSH ONE (13:11)
--- NOTE | 2017-05-15 13:13 | PN ---
Teaching Attending Note Name of Resident: Erika Koroma ATTENDING PHYSICIAN STATEMENT I saw and evaluated the patient. I reviewed the resident's note and discussed the case with the resident. I agree with the resident's findings and plan as documented. SUBJECTIVE: no fever or chills, denies SOB. was switched to venti form BIPAP this am OBJECTIVE: NAD, Awake, still has aphasia but speech has improved, can say some sentences . MMM CV: RRR, NO JVD Lungs: L sided basal crackles Ext: LE edema, erythema , and no discharge today. Neuro: no facial droop, EOMI, tongue at mid line and uvula at mid line . NL facial sensation . Strength no cooperation with strength exam today, but he can brass pickler his R arm , and limited R shoulder abduction ASSESSMENT AND PLAN: 81 y/o man with h/o HTN, CAD, DM , diastolic Dysfunction , core pulmonale , and other medical problems who presented with LE edema and erythema and was found to have cellulitis , hospital course was complicated by aphasia and R sided weakness 1- Acute aphasia, and R sided weakness: possible acute CVA, aphasia cont to improve - MRI of brain still pending , hopefully today as he is of BIPAP - asa and statin - tele 2- Hypoxia: cxray this am , shows more congestion . likely hypoxia is due to CHf rather than PE. unlikely PNA , and he is already on zosyn - stop IVF - give 40 of IV lasix - follow cxrays in am 3- R superficial vein thrombosis in greater saphenous vein , - due to increased risk for extension and for progression into DVT in this gentleman, he will be a candidate for AC. - he denies any IVC filter , or any VTE in past - he denies any bleed inpast. - can not start AC now , as size of stroke is not known yet. awaiting MRI 4- DAVID: improved on IVF, but now vascularly congested. - monitor on diuresis 5- cellulitis : day 7 of zosyn. will dw ID duration 7- DVT PX
[2017-05-15] MEDS ORDERED: ACETAMINOPHEN 325 MG TABLET (FP) ONE (13:32)
--- NOTE | 2017-05-15 13:35 | CON.PULM ---
Consult Consult Specialty:: PULMONARY Referred by:: Dr. Montoya Reason for Consultation:: hypoxia - History of Present Illness Chief Complaint: shortness of breath History of Present Illness: 81yo male with h/o HTN, DM, hyperlipidemia, CAD s/p CABG, CKD, LV diastolic dysfunction, pulmonary HTN who was admitted initially for LE swelling and erythema. Treated for cellulitis and sepsis with antibiotics. Hospital course significant for episode of altered mental status, currently being worked up for possible stroke, MRI pending. Hospital course also significant for persistent hypoxia, was previously on BiPAP but now on ventimask 50% saturating low to mid 90s. He denies shortness of breath although visibly tachypneic. Denies cough or wheezing. No fevers, chills or sweats. He is a never smoker, does not use any inhalers or oxygen at home. Echocardiogram did show hypokinetic and dilated RV but upon further review, echocardiograms from 2014 and 2012 showing severe pulmonary HTN with RVSP >60. Unclear if any outpt work up done. 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 Cardio/Vascular: Yes: CAD, HTN, Hyperlipdemia - Alcohol/Substance Use Hx Alcohol Use: No - Smoking History Smoking history: Never smoked Have you smoked in the past 12 months: No Aproximately how many cigarettes per day: 0 Home Medications - Allergies Allergies/Adverse Reactions: Allergies Allergy/AdvReac Type Severity Reaction Status Date / Time No Known Allergies Allergy Verified 05/09/17 17:28 - Home Medications Home Medications: Ambulatory Orders Furosemide [Lasix -] 40 mg PO BID 05/09/17 Glipizide [Glipizide ER] 5 mg PO BID 05/09/17 Ibuprofen 800 mg PO PRN 05/09/17 Metoprolol Succinate [Toprol Xl -] 50 mg PO DAILY 05/09/17 Simvastatin [Zocor -] 40 mg PO DAILY 05/09/17 Sitagliptin Phos/Metformin HCl [Janumet 50-500 mg Tablet] 1 each PO BID Triamcinolone 0.1% Lotion [Kenalog 0.1% Top Lotion] 60 ml TP PRN 05/09/17 Docusate Sodium [Colace] 100 mg PO DAILY 05/10/17 Review of Systems - Review of Systems Constitutional: reports: Weakness. denies: Chills, Fever Eyes: denies: Blurred Vision HENT: denies: Nasal Congestion, Throat Pain Neck: denies: Stiffness, Tenderness Cardiovascular: denies: Chest Pain, Edema, Palpitations, Shortness of Breath Respiratory: denies: Cough, Hemoptysis, Wheezing Gastrointestinal: denies: Abdominal Pain, Nausea, Vomiting Genitourinary: denies: Dysuria, Hematuria Neurological: denies: Dizziness, Headache Physical Exam Vital Sings: Vital Signs Temperature 99.1 F 05/15/17 02:00 Pulse Rate 85 05/15/17 09:00 Respiratory Rate 22 05/15/17 06:00 Blood Pressure 123/57 05/15/17 06:00 O2 Sat by Pulse Oximetry (%) 91 L 05/15/17 11:30 Constitutional: Yes: Mild Distress (tachypneic) Eyes: Yes: Conjunctiva Clear, EOM Intact HENT: Yes: Atraumatic, Normocephalic Neck: Yes: Supple, Trachea Midline Cardiovascular: Yes: Regular Rate and Rhythm Respiratory: Yes: Diminished (decreased breath sounds at the bases), Rhonchi ( scattered) ...Clubbing: No Gastrointestinal: Yes: Normal Bowel Sounds, Soft. No: Tenderness Edema: Yes Labs: CBC, BMP 05/15/17 11:35 05/15/17 11:35 ABG Results ABG pH 7.35 (7.35-7.45) 05/11/17 10:20 ABG pCO2 at Pt Temp 55.1 mmHg (35-45) H D 05/11/17 10:20 ABG pO2 at Pt Temp 68.1 mmHg (70-100) L 05/11/17 10:20 ABG HCO3 29.3 meq/L (22-26) H 05/11/17 10:20 ABG O2 Sat (Measured) 92.3 % (90-98.9) 05/11/17 10:20 ABG O2 Content 15.6 % vol (15-22) 05/11/17 10:20 ABG Base Excess 3.0 meq/l (-2-2) H 05/11/17 10:20 Imaging - Results Chest X-ray: Report Reviewed, Image Reviewed (low lung volumes, pulmonary vascular congestion) Problem List - Problems (1) Acute respiratory failure with hypoxia Code(s): J96.01 - ACUTE RESPIRATORY FAILURE WITH HYPOXIA (2) Cellulitis Code(s): L03.90 - CELLULITIS, UNSPECIFIED Qualifiers: Site of cellulitis of extremity: lower extremity (3) Cor pulmonale (chronic) Code(s): I27.81 - COR PULMONALE (CHRONIC) (4) Coronary artery disease Code(s): I25.10 - ATHSCL HEART DISEASE OF [place] CORONARY ARTERY W/O ANG PCTRS Qualifiers: Coronary Disease-Associated Artery/Lesion type: [place] artery [place] vs. transplanted heart: [place] heart Associated angina: without angina Qualified Code(s): I25.10 - Atherosclerotic heart disease of [place] coronary artery without angina pectoris (5) Diastolic dysfunction with chronic heart failure Code(s): I50.32 - CHRONIC DIASTOLIC (CONGESTIVE) HEART FAILURE (6) S/P CABG (coronary artery bypass graft) Code(s): Z95.1 - PRESENCE OF AORTOCORONARY BYPASS GRAFT (7) Pulmonary hypertension Code(s): I27.20 - PULMONARY HYPERTENSION, UNSPECIFIED (8) Atelectasis Code(s): J98.11 - ATELECTASIS Assessment/Plan Acute Hypoxic Respiratory Failure LV Diastolic Dysfunction Pulmonary HTN/Right Heart Failure Acute on Chronic Renal Failure Atelectasis CAD s/p CABG HTN DM - hypoxia likely multifactorial, CXR showing congestive changes and low lung volumes likely attributable to right heart failure and atelectasis - pt also with long standing pulmonary HTN so likely has dysfunction in diffusing capacity and subsequent decrease in pulmonary reserve - daily assessment of lasix, would try to keep net negative - monitor urine output, creatinine - daily weights, I/Os - incentive spirometry - O2 to keep SpO2 >90% - BiPAP as needed to assist in work of breathing - agree with empiric anticoagulation although he only has a superficial clot as he is at high risk - can reassess need for anticoagulation once acute issues resolved and can get definitive studies - no history of COPD or smoking, will need outpt work up of pulmonary HTN including PFTs, sleep study and possible right heart cath when euvolemic - will follow Thank you for this consult Hernandez Edward MD
--- NOTE | 2017-05-15 15:12 | PN ---
Progress Note, Physician History of Present Illness: patient slowly improving no complaints speech better on face mask rt sided movement present - Current Medication List Current Medications: Active Medications Albuterol Sulfate (Ventolin 0.083% Nebulizer Soln -) 1 amp NEB Q4H PRN PRN Reason: SHORT OF BREATH/WHEEZING Aspirin (Ecotrin -) 81 mg PO DAILY [facility] Last Admin: 05/15/17 10:34 Dose: 81 mg Atorvastatin Calcium (Lipitor -) 20 mg PO HS [facility] Last Admin: 05/14/17 22:24 Dose: 20 mg Docusate Sodium (Colace -) 100 mg PO DAILY [facility] Last Admin: 05/15/17 10:33 Dose: 100 mg Heparin Sodium (Porcine) (Heparin -) 5,000 unit SQ TID [facility] Last Admin: 05/15/17 13:51 Dose: 5,000 unit Piperacillin/Tazobactam/Dextrose (Zosyn 2.25gm Ivpb (Premix)) 2.25 gm in 50 mls @ 100 mls/hr IVPB Q8H-IV [facility] PRN Reason: Protocol Last Admin: 05/15/17 10:03 Dose: 100 mls/hr Insulin Aspart (Novolog Vial Sliding Scale -) 1 vial SQ ACHS [facility] PRN Reason: Protocol Last Admin: 05/15/17 12:30 Dose: 4 units Metoprolol Succinate (Toprol Xl -) 50 mg PO DAILY [facility] Last Admin: 05/15/17 10:33 Dose: 50 mg Tramadol HCl (Ultram -) 25 mg PO BID [facility] Last Admin: 05/15/17 10:34 Dose: 25 mg Triamcinolone Acetonide (Aristocort 0.1% Lotion -) 1 applic TP BID PRN PRN Reason: FOR ITCHING/RASH - Objective Vital Signs: Vital Signs Temperature 99.0 F 05/15/17 14:00 Pulse Rate 92 H 05/15/17 14:00 Respiratory Rate 23 05/15/17 14:00 Blood Pressure 148/70 05/15/17 14:00 O2 Sat by Pulse Oximetry (%) 92 L 05/15/17 14:41 Constitutional: Yes: No Distress, Calm Cardiovascular: Yes: Regular Rate and Rhythm Respiratory: Yes: Poor Air Entry, Other Gastrointestinal: Yes: Normal Bowel Sounds, Soft Musculoskeletal: Yes: Other Extremities: Yes: Other Wound/Incision: Yes: Dressing Dry and Intact Neurological: Yes: Alert Psychiatric: Yes: Alert, Oriented Labs: CBC, BMP 05/15/17 11:35 05/15/17 11:35 INR, PTT INR 1.42 (0.82-1.09) H 05/10/17 05:10 Assessment/Plan Cor pulmonale, pulmonary hypertension . CAD p . HTN NIDDM Hyperlipidemia Lower extremity cellulitis cva plan continue zosyn' continue current mgmt resp support rest as per primary team
--- NOTE | 2017-05-15 15:23 | PN ---
Progress Note, Physician History of Present Illness: patient stable speaking strength better on the rt side pul evaluated the patient xray shows some congestive changes wbc now normal - Current Medication List Current Medications: Active Medications Albuterol Sulfate (Ventolin 0.083% Nebulizer Soln -) 1 amp NEB Q4H PRN PRN Reason: SHORT OF BREATH/WHEEZING Aspirin (Ecotrin -) 81 mg PO DAILY [facility] Last Admin: 05/15/17 10:34 Dose: 81 mg Atorvastatin Calcium (Lipitor -) 20 mg PO HS [facility] Last Admin: 05/14/17 22:24 Dose: 20 mg Docusate Sodium (Colace -) 100 mg PO DAILY [facility] Last Admin: 05/15/17 10:33 Dose: 100 mg Heparin Sodium (Porcine) (Heparin -) 5,000 unit SQ TID [facility] Last Admin: 05/15/17 13:51 Dose: 5,000 unit Piperacillin/Tazobactam/Dextrose (Zosyn 2.25gm Ivpb (Premix)) 2.25 gm in 50 mls @ 100 mls/hr IVPB Q8H-IV [facility] PRN Reason: Protocol Last Admin: 05/15/17 10:03 Dose: 100 mls/hr Insulin Aspart (Novolog Vial Sliding Scale -) 1 vial SQ ACHS [facility] PRN Reason: Protocol Last Admin: 05/15/17 12:30 Dose: 4 units Metoprolol Succinate (Toprol Xl -) 50 mg PO DAILY [facility] Last Admin: 05/15/17 10:33 Dose: 50 mg Tramadol HCl (Ultram -) 25 mg PO BID [facility] Last Admin: 05/15/17 10:34 Dose: 25 mg Triamcinolone Acetonide (Aristocort 0.1% Lotion -) 1 applic TP BID PRN PRN Reason: FOR ITCHING/RASH - Objective Vital Signs: Vital Signs Temperature 99.0 F 05/15/17 14:00 Pulse Rate 92 H 05/15/17 14:00 Respiratory Rate 23 05/15/17 14:00 Blood Pressure 148/70 05/15/17 14:00 O2 Sat by Pulse Oximetry (%) 92 L 05/15/17 14:41 Constitutional: Yes: No Distress, Calm HENT: Yes: Atraumatic, Normocephalic Cardiovascular: Yes: Regular Rate and Rhythm Respiratory: Yes: Regular, Poor Air Entry, Other (on face mask) Gastrointestinal: Yes: Normal Bowel Sounds, Soft Musculoskeletal: Yes: Other Extremities: Yes: Erythema, Other Integumentary: Yes: Erythema Neurological: Yes: Alert, Oriented Psychiatric: Yes: Alert Labs: CBC, BMP 05/15/17 11:35 05/15/17 11:35 INR, PTT INR 1.42 (0.82-1.09) H 05/10/17 05:10 Assessment/Plan Cor pulmonale, pulmonary hypertension . CAD p . HTN NIDDM Hyperlipidemia Lower extremity cellulitis cva patient dressing removed and looked at the wound --the legs are looking much better---THOUGH they are still warm and have erythema Patient has got a total of 15 doses of zosyn i.e 5 days I have looked at the xray plan we will continue zosyn--although if patient shows any signs of congestion as i see that was one of thought process then we might switch to unasyn but for now we will continue zosyn and depending on his legs probably in a couple of days i think we should be able to switch to oral rest continue current mgmt
--- NOTE | 2017-05-15 16:15 | PN ---
Physical Exam: SUBJECTIVE: Patient seen and examined at bed side this morning. Moved his bowel this morning. Ate his breakfast, feels good. No complaints. Denies chest pain, sob, cough, palpitation, abdominal pain, nausea or vomiting. No acute overnight events as per RN. Was able to start him on Venti mask 50 %. At 4:15 pm, nurse mentions he is tachycardic to 100 bpm, saturation is 90 %. Will closely monitor. OBJECTIVE: Vital Signs Period Temp Pulse Resp BP Sys/Eckert Pulse Ox Last 24 Hr 98.7 F-99.8 F 71-92 21-24 119-148/57-76 91-97 GENERAL: Elderly male, lying in bed, awake, alert, oriented but was able to speak only one word at a time, Venti mask @ 50 %. HEENT: Normal. Moist mucous membranes NECK: Supple, no JVD. LUNGS: B/L equal air entry, minimal bibasilar rales. HEART: Regular rate and rhythm, S1, S2 with soft systolic murmur. ABDOMEN: Soft, nontender, nondistended, normoactive bowel sounds, no guarding, no rebound, no hepatosplenomegaly, no masses. EXTREMITIES: Chronic venous statis dermatitis in lower extremities, no weeping, slight erythema, dressing dry, 2+ edema. RIGHT UPPER EXTREMITY: Right 2nd and 3rd fingers with swelling, non tender, slight erythema. NEUROLOGICAL: No facial droop, Right shoulder abduction 4/5, biceps and triceps 4 /5. Left upper ext was not able to evaluate, Right hip flexion 2/5, knee flexion 2/5, L hip flexion 2/5 , Knee flexion 2/5. normal sensation to light touch Laboratory Results - last 24 hr 05/14/17 05/15/17 05/15/17 17:20 11:35 11:35 WBC 8.5 RBC 3.86 L Hgb 11.6 L Hct 35.8 MCV 92.6 MCH 29.9 MCHC 32.3 RDW 13.5 Plt Count 231 MPV 8.7 Sodium 142 Potassium 4.0 Chloride 107 Carbon Dioxide 29 Anion Gap 6 L BUN 81 H Creatinine 2.0 H POC Glucometer [phone] Random Glucose 182 H Calcium 7.7 L Active Medications Generic Name Dose Route Start Last Admin Trade Name Freq PRN Reason Stop Dose Admin Albuterol Sulfate 1 amp 05/14/17 18:43 Ventolin 0.083% Nebulizer Soln - NEB Q4H PRN SHORT OF BREATH/WHEEZING Aspirin 81 mg 05/10/17 10:00 05/15/17 10:34 Ecotrin - PO 81 mg DAILY [facility] Administration Atorvastatin Calcium 20 mg 05/10/17 22:00 05/14/17 22:24 Lipitor - PO 20 mg HS [facility] Administration Docusate Sodium 100 mg 05/11/17 10:00 05/15/17 10:33 Colace - PO 100 mg DAILY [facility] Administration Heparin Sodium (Porcine) 5,000 unit 05/10/17 06:00 05/15/17 13:51 Heparin - SQ 5,000 unit TID [facility] Administration Piperacillin/Tazobactam/Dextrose 2.25 gm in 50 mls @ 100 mls/hr 05/10/17 18: 00 05/15/17 10:03 Zosyn 2.25gm Ivpb (Premix) IVPB 100 mls/hr Q8H-IV [facility] Administration Protocol Insulin Aspart 1 vial 05/09/17 22:00 05/15/17 12:30 Novolog Vial Sliding Scale - SQ 4 units ACHS [facility] Administration Protocol Metoprolol Succinate 50 mg 05/10/17 10:00 05/15/17 10:33 Toprol Xl - PO 50 mg DAILY [facility] Administration Tramadol HCl 25 mg 05/10/17 22:00 05/15/17 10:34 Ultram - PO 25 mg BID [facility] Administration Triamcinolone Acetonide 1 applic 05/10/17 10:00 Aristocort 0.1% Lotion - TP BID PRN FOR ITCHING/RASH ASSESSMENT/PLAN: Patient is a 81 year old M with significant past medical history of NIDDM, CHF, CAD s/p bypass, HTN, HLD, renal insufficiency, and diverticulosis who presented with acute LE weakness, swelling and erythema, was found to have sepsis, admitted for sepsis secondary to cellulitis. # Sepsis likey secondary to cellulitis- improving No leukocytosis, Afebrile. As per Dr. Reed, will continue Zosyn (Day 7), if no improvement to switch to Unasyn. Repeat CXR today shows slight congestive changes, atelectasis vs infiltrate. # Hypoxia-multifactorial- due to atelectasis vs infiltrate vs pul HTN: improving with Venti mask Bipap during the night EKG: S1Q3T3, same as prior EKGs f/u V/Q scan Mucomyst, albuterol, chest physiotherapy, bipap standing at night # Aphasia with right sided weakness and decreased sensory function likely due to acute stroke MRI of brain ordered without contrast (pt's IVC filter and stents compatible with MRI) Continue ASA 81 mg PO Daily; Lipitor 20mg PO daily, Metoprolol 50mg PO daily Hold lisinopril due to worsening renal function PT #Acute on chronic diastolic CHF- resolved continue to hold lasix, aldactone, lisinopril due to renal function Echo: Pul HTN (Old), f/up with [facility] director as outpatient. I's and O's Daily weight # Thrombus in the greater saph vein seen in Vascular study. Candidate of Anticoagulation. However, cannot start at this time due to unknown size of the stroke. Pending MRI of brain. # Fractures transverse fracture of scaphoid and fracture of triquetrum pain control with Tramadol 25mg BID # LE chronic changes of venous stasis No surgical intervention indicated; dry dressing Vascular consult appreciated # Pre-diabetic A1c-6.3 ISS, finger stick glucose monitoring, watch for hypoglycemia Diabetic diet # Right finger swelling could be due to acute flare of gout Colchicine was given # DAVID on CKD Cr 1.5 (baseline) creatinine improving, today- 2. Hold lasix, aldactone, and lisinopril Stop IV fluids due to congestion. Avoid nephrotoxic agents # Hypertension-controlled Continue toprol 50mg PO Daily. # HLD continue statin 20mg # CAD S/P bypass graft Continue ASA # FEN IV fluids stopped because of congestion. Patient tolerating PO well. Electrolytes to be repeated in AM Diabetic diet # Prophylaxis For DVT: on Heparin 5000 IU sq TID For GI: Not indicated # Code Status: Full Code # Dispo: Duration of stay unknown. Illness, Investigation and Plan of care explained to the patient. He verbalized understanding. Case discussed with Dr. Montoya. Visit type - Emergency Visit Emergency Visit: Yes ED Registration Date: 05/09/17 Care time: The patient presented to the Emergency Department on the above date and was hospitalized for further evaluation of their emergent condition. - New Patient This patient is new to me today: Yes Date on this admission: 05/15/17 - Critical Care Critical Care patient: No
[2017-05-15] MEDS: ATORVASTATIN CA 20 MG TABLET (FP) PO SCH (21:23)
[2017-05-16] MEDS: PIPERACILLIN/TAZOB 2.25 GM 2.25 GM/50 ML BAG IVPB SCH ×3 (04:19→17:59)
[2017-05-16] MEDS: HEPARIN NA (PORCINE) 5,000 UNITS/ML 1ML VIAL SQ SCH ×3 (05:32→21:37)
[2017-05-16] MEDS: INSULIN SLIDING SCALE (NOVOLOG) 1 VIAL SQ SCH ×4 (06:16→21:36)
[2017-05-16 06:20] LABS: BASO % 0.3 % (0-2.0); EOS % 1.4 % (0-4.5); HEMATOCRIT 37.4 % (35.4-49); HEMOGLOBIN 12.3 GM/dL (11.7-16.9); LYMPH % 5.8 % (8-40); MCH 30.5 pg (25.7-33.7); MCHC 32.8 g/dl (32.0-35.9); MEAN CELL VOLUME 93.2 fl (80-96); MEAN PLT VOLUME 9.2 fl (7.5-11.1); MONO % 14.6 % (3.8-10.2); NEUT % 77.9 % (42.8-82.8); PLATELET COUNT 264 K/MM3 (134-434); RBC 4.01 M/mm3 (4.00-5.60); RDW 13.7 % (11.9-15.9); WHITE BLOOD COUNT 10.1 K/mm3 (4.0-10.0)
[2017-05-16 07:07] LABS: ANION GAP 10 (8-16); BLOOD UREA NITROGEN 75 mg/dL (7-18); CHLORIDE 110 mmol/L (98-107); CO2 27 mmol/L (21-32); CREATININE 1.7 mg/dL (0.7-1.3); GLUCOSE,RANDOM 137 mg/dL (74-106); POTASSIUM 4.2 mmol/L (3.5-5.1); SODIUM 147 mmol/L (136-145)
[2017-05-16 07:08] LABS: MAGNESIUM 2.2 mg/dL (1.8-2.4); PHOSPHOROUS 3.1 mg/dL (2.5-4.9)
--- NOTE | 2017-05-16 08:23 | PN ---
Progress Note (short form) - Note Progress Note: Chief Complaint: Events noted, notes reviewed, restless remains on BiPAP, dyspnea persists, right sided weakness persists, denies any chest pain History of Present Illness: Seen and examined on telemetry. Events noted, notes reviewed, restless remains on BiPAP, dyspnea persists, right sided weakness persists, denies any chest pain Chest x-ray from yesterday noted, probably third spacing most likely related to low Albumin but intravascularly probably euvolemic to hypovolemic with Hypernatremia Echocardiography revealed normal LV size, hyperdynamic LV, AV sclerosis, RV dilated and hypokinetic, bi-atrial dilatation, trace MR and TR with no RVSP measurement Medications: Current Medications Albuterol Sulfate (Ventolin 0.083% Nebulizer Soln -) 1 amp NEB Q4H PRN PRN Reason: SHORT OF BREATH/WHEEZING Aspirin (Ecotrin -) 81 mg PO DAILY [facility] Last Admin: 05/15/17 10:34 Dose: 81 mg Atorvastatin Calcium (Lipitor -) 20 mg PO HS [facility] Last Admin: 05/15/17 21:23 Dose: 20 mg Docusate Sodium (Colace -) 100 mg PO DAILY [facility] Last Admin: 05/15/17 10:33 Dose: 100 mg Heparin Sodium (Porcine) (Heparin -) 5,000 unit SQ TID [facility] Last Admin: 05/16/17 05:32 Dose: 5,000 unit Piperacillin/Tazobactam/Dextrose (Zosyn 2.25gm Ivpb (Premix)) 2.25 gm in 50 mls @ 100 mls/hr IVPB Q8H-IV [facility] PRN Reason: Protocol Last Admin: 05/16/17 04:19 Dose: 100 mls/hr Insulin Aspart (Novolog Vial Sliding Scale -) 1 vial SQ ACHS [facility] PRN Reason: Protocol Last Admin: 05/16/17 06:16 Dose: Not Given Metoprolol Succinate (Toprol Xl -) 50 mg PO DAILY [facility] Last Admin: 05/15/17 10:33 Dose: 50 mg Tramadol HCl (Ultram -) 25 mg PO BID [facility] Last Admin: 05/15/17 21:21 Dose: 25 mg Triamcinolone Acetonide (Aristocort 0.1% Lotion -) 1 applic TP BID PRN PRN Reason: FOR ITCHING/RASH Review of Systems Constitutional: Denies: Chills or Fever Cardiovascular: As noted above Respiratory: denies: Cough or Sputum Production Gastrointestinal: Denies: Nausea, Vomiting, Diarrhea, Constipation or Abdominal Pain Genitourinary: No symptoms reported Neurology: No seizures or syncope Vital Signs: Last Vital Signs Temp Pulse Resp BP Pulse Ox 98.9 F 77 17 145/70 95 05/16/17 06:00 05/16/17 02:00 05/16/17 02:00 05/16/17 02:00 05/16/17 05:34 Intake & Output 05/13/17 05/14/17 05/15/17 05/16/17 23:59 23:59 23:59 23:59 Intake Total 745 2150 1070 Balance 745 2150 1070 Weight 262 lb 8 oz 264 lb 2 oz 251 lb 9 oz 262 lb Constitutional: Mild Respiratory Distress, Calm Neck: Supple Respiratory: Diminished Breath Sounds at the Bases Cardiovascular: S1 S2 Regular Rate and Rhythm Gastrointestinal: Soft Benign Normal Bowel Sounds Ext: 2+ Bilateral Edema with Venous Stasis Changes and Ulcers Labs: CBC, BMP 05/16/17 06:00 05/16/17 06:00 Hepatic Panel Total Bilirubin 0.6 mg/dL (0.2-1.0) D 05/13/17 05:15 AST 11 U/L (15-37) L 05/13/17 05:15 ALT 12 U/L (12-78) 05/13/17 05:15 Alkaline Phosphatase 138 U/L (45-117) H 05/13/17 05:15 Albumin 1.8 g/dl (3.4-5.0) L 05/13/17 05:15 Assessment/Plan ASSESSMENT: 1. Cor pulmonale, pulmonary hypertension (No RVSP measurement on the above noted echocardiography) 2. CAD post CABG, angina pectoris 3. Diastolic LV dysfunction with chronic class 0-I NYHA classification LV failure, probably euvolemic to hypovolemic with Hypernatremia 4. 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 HTN/HCVD 6. NIDDM 7. Hyperlipidemia 8. Acute on CKD 9. Lower extremity cellulitis 10. Right wrist scaphoid fracture and triquetrum fracture 11. Hypernatremia PLAN: 1. Continue to hold Lasix and Aldactone pending renal function recovery, and attempt to correct the above noted Hypernatremia with caution 2. Continue to hold Lisinopril pending renal function recovery 3. Continue Toprol XL 4. Continue ASA 5. Continue Lipitor 6. BiPAP as tolerated 7. Antibiotics as per the primary team 8. MRI as planned by primary team 9. As outlined in prior notes outpatient evaluation of pulmonary hypertension Venus Soares MD
[2017-05-16] MEDS ORDERED: PT OWN MED DRAWER 7, Y5N ONE (08:48)
[2017-05-16] MEDS: traMADol HCL 50 MG TABLET PO SCH ×2 (09:08→21:35)
[2017-05-16] MEDS: METOPROLOL SUCCINATE 50 MG TAB.SR.24H (FP) PO SCH (09:08)
[2017-05-16] MEDS: DOCUSATE SODIUM 100 MG CAPSULE (FP) PO SCH (09:09)
[2017-05-16] MEDS: ASPIRIN COATED 81 MG TABLET.EC PO SCH (09:10)
[2017-05-16] MEDS: DEXTROSE 5%-0.45% SALINE 1,000 ML IV SCH (10:00)
--- NOTE | 2017-05-16 10:57 | PN ---
Progress Note, Physician History of Present Illness: patient stable no new events - Current Medication List Current Medications: Active Medications Albuterol Sulfate (Ventolin 0.083% Nebulizer Soln -) 1 amp NEB Q4H PRN PRN Reason: SHORT OF BREATH/WHEEZING Aspirin (Ecotrin -) 81 mg PO DAILY [facility] Last Admin: 05/16/17 09:10 Dose: 81 mg Atorvastatin Calcium (Lipitor -) 20 mg PO HS [facility] Last Admin: 05/15/17 21:23 Dose: 20 mg Docusate Sodium (Colace -) 100 mg PO DAILY [facility] Last Admin: 05/16/17 09:09 Dose: 100 mg Heparin Sodium (Porcine) (Heparin -) 5,000 unit SQ TID [facility] Last Admin: 05/16/17 05:32 Dose: 5,000 unit Piperacillin/Tazobactam/Dextrose (Zosyn 2.25gm Ivpb (Premix)) 2.25 gm in 50 mls @ 100 mls/hr IVPB Q8H-IV [facility] PRN Reason: Protocol Last Admin: 05/16/17 09:10 Dose: 100 mls/hr Dextrose/Sodium Chloride (D5-1/2ns -) 1,000 mls @ 75 mls/hr IV ASDIR [facility] Last Admin: 05/16/17 10:00 Dose: 75 mls/hr Insulin Aspart (Novolog Vial Sliding Scale -) 1 vial SQ ACHS [facility] PRN Reason: Protocol Last Admin: 05/16/17 06:16 Dose: Not Given Metoprolol Succinate (Toprol Xl -) 50 mg PO DAILY [facility] Last Admin: 05/16/17 09:08 Dose: 50 mg Tramadol HCl (Ultram -) 25 mg PO BID [facility] Last Admin: 05/16/17 09:08 Dose: 25 mg Triamcinolone Acetonide (Aristocort 0.1% Lotion -) 1 applic TP BID PRN PRN Reason: FOR ITCHING/RASH - Objective Vital Signs: Vital Signs Temperature 99.4 F 05/16/17 10:00 Pulse Rate 93 H 05/16/17 10:00 Respiratory Rate 25 H 05/16/17 10:00 Blood Pressure 143/88 05/16/17 10:00 O2 Sat by Pulse Oximetry (%) 93 L 05/16/17 09:30 Constitutional: Yes: No Distress, Calm Cardiovascular: Yes: Regular Rate and Rhythm Respiratory: Yes: Regular, On Venti-Mask, Poor Air Entry Gastrointestinal: Yes: Normal Bowel Sounds, Soft Extremities: Yes: Other Wound/Incision: Yes: Dressing Dry and Intact Neurological: Yes: Alert Psychiatric: Yes: Alert Labs: CBC, BMP 05/16/17 06:00 05/16/17 06:00 INR, PTT INR 1.42 (0.82-1.09) H 05/10/17 05:10 Assessment/Plan Cor pulmonale, pulmonary hypertension . CAD p . HTN NIDDM Hyperlipidemia Lower extremity cellulitis cva plan continue abx rest continue current mgmt wound care legs improving
--- NOTE | 2017-05-16 11:10 | PN ---
Progress Note (short form) - Note Progress Note: PULMONARY Saturating well on BiPAP with 50% FiO2. States breathing slightly improved today. Occasional cough. Last Vital Signs Temp Pulse Resp BP Pulse Ox 99.4 F 93 H 25 H 143/88 93 L 05/16/17 10:00 05/16/17 10:00 05/16/17 10:00 05/16/17 10:00 05/16/17 09:30 Intake & Output 05/13/17 05/14/17 05/15/17 05/16/17 23:59 23:59 23:59 23:59 Intake Total 745 2150 1070 Balance 745 2150 1070 Weight 119.068 kg 119.805 kg 114.107 kg 118.841 kg Gen: less tachypneic Heart: RRR Lung: scattered rhonchi Abd: soft, nontender Ext: + edema CBC, BMP 05/16/17 06:00 05/16/17 06:00 Active Medications Albuterol Sulfate (Ventolin 0.083% Nebulizer Soln -) 1 amp NEB Q4H PRN PRN Reason: SHORT OF BREATH/WHEEZING Aspirin (Ecotrin -) 81 mg PO DAILY [facility] Last Admin: 05/16/17 09:10 Dose: 81 mg Atorvastatin Calcium (Lipitor -) 20 mg PO HS [facility] Last Admin: 05/15/17 21:23 Dose: 20 mg Docusate Sodium (Colace -) 100 mg PO DAILY [facility] Last Admin: 05/16/17 09:09 Dose: 100 mg Heparin Sodium (Porcine) (Heparin -) 5,000 unit SQ TID [facility] Last Admin: 05/16/17 05:32 Dose: 5,000 unit Piperacillin/Tazobactam/Dextrose (Zosyn 2.25gm Ivpb (Premix)) 2.25 gm in 50 mls @ 100 mls/hr IVPB Q8H-IV [facility] PRN Reason: Protocol Last Admin: 05/16/17 09:10 Dose: 100 mls/hr Dextrose/Sodium Chloride (D5-1/2ns -) 1,000 mls @ 75 mls/hr IV ASDIR [facility] Last Admin: 05/16/17 10:00 Dose: 75 mls/hr Insulin Aspart (Novolog Vial Sliding Scale -) 1 vial SQ ACHS [facility] PRN Reason: Protocol Last Admin: 05/16/17 06:16 Dose: Not Given Metoprolol Succinate (Toprol Xl -) 50 mg PO DAILY [facility] Last Admin: 05/16/17 09:08 Dose: 50 mg Tramadol HCl (Ultram -) 25 mg PO BID [facility] Last Admin: 05/16/17 09:08 Dose: 25 mg Triamcinolone Acetonide (Aristocort 0.1% Lotion -) 1 applic TP BID PRN PRN Reason: FOR ITCHING/RASH A/P Acute Hypoxic Respiratory Failure LV Diastolic Dysfunction Pulmonary HTN Acute on Chronic Renal Failure Atelectasis CAD s/p CABG HTN DM - daily assessment of lasix - monitor urine output, creatinine - agree that pt likely intravascularly depleted but increased total body water , would allow to re-equilibrate - O2 to keep SpO2 >90% - trial back on ventimask - BiPAP as needed - empiric anticoagulation if MRI brain negative - increase PO intake, will add protein supplement - outpt PFTs, sleep study and possible RHC - DVT prophylaxis Problem List - Problems (1) Acute respiratory failure with hypoxia Code(s): J96.01 - ACUTE RESPIRATORY FAILURE WITH HYPOXIA (2) Cellulitis Code(s): L03.90 - CELLULITIS, UNSPECIFIED Qualifiers: Site of cellulitis of extremity: lower extremity (3) Cor pulmonale (chronic) Code(s): I27.81 - COR PULMONALE (CHRONIC) (4) Coronary artery disease Code(s): I25.10 - ATHSCL HEART DISEASE OF [place] CORONARY ARTERY W/O ANG PCTRS Qualifiers: Coronary Disease-Associated Artery/Lesion type: [place] artery [place] vs. transplanted heart: [place] heart Associated angina: without angina Qualified Code(s): I25.10 - Atherosclerotic heart disease of [place] coronary artery without angina pectoris (5) Diastolic dysfunction with chronic heart failure Code(s): I50.32 - CHRONIC DIASTOLIC (CONGESTIVE) HEART FAILURE (6) S/P CABG (coronary artery bypass graft) Code(s): Z95.1 - PRESENCE OF AORTOCORONARY BYPASS GRAFT (7) Pulmonary hypertension Code(s): I27.20 - PULMONARY HYPERTENSION, UNSPECIFIED (8) Atelectasis Code(s): J98.11 - ATELECTASIS
--- NOTE | 2017-05-16 13:46 | PN ---
Progress Note (short form) - Note Progress Note: Subjective: no fever or chills, breathing has improved . No abd pain . still frustrated with aphasia Objective: Vital Signs: Last Vital Signs Temp Pulse Resp BP Pulse Ox 99.4 F 93 H 25 H 143/88 93 L 05/16/17 10:00 05/16/17 10:00 05/16/17 10:00 05/16/17 10:00 05/16/17 09:30 I&O: Intake & Output 05/13/17 05/14/17 05/15/17 05/16/17 23:59 23:59 23:59 23:59 Intake Total 745 2150 1070 Balance 745 2150 1070 Weight 262 lb 8 oz 264 lb 2 oz 251 lb 9 oz 262 lb Laboratory Results - last 24 hr 05/16/17 05/16/17 06:00 06:00 WBC 10.1 H RBC 4.01 Hgb 12.3 Hct 37.4 MCV 93.2 MCH 30.5 MCHC 32.8 RDW 13.7 Plt Count 264 MPV 9.2 Neutrophils % 77.9 Lymphocytes % 5.8 L Monocytes % 14.6 H Eosinophils % 1.4 Basophils % 0.3 Sodium 147 H Potassium 4.2 Chloride 110 H Carbon Dioxide 27 Anion Gap 10 BUN 75 H Creatinine 1.7 H Random Glucose 137 H D Calcium 8.0 L Phosphorus 3.1 Magnesium 2.2 D Physical Exam: NAD, Awake, still has aphasia with difficulty finding words . MMM CV: RRR, NO JVD Lungs: L sided basal crackles Ext: LE edema, erythema , and no discharge today. Neuro: no facial droop, EOMI, tongue at mid line and uvula at mid line .decreased R facial sensation strength 2/5 in R shoulder abduction , 4/5 in biceps and tricpes , R hip flexion 1/5 today, L shulder abduction 3/5, L biceps and tricpes 5/5 . L hip flexion 2/5 decreased sensation to light touch in R sided body ASSESSMENT AND PLAN: 81 y/o man with h/o HTN, CAD, DM , diastolic Dysfunction , core pulmonale , and other medical problems who presented with LE edema and erythema and was found to have cellulitis , hospital course was complicated by aphasia and R sided weakness 1- Acute aphasia, and R sided weakness: possible acute CVA - MRI of brain still pending , will do when able to tolerate off BIPAP - asa and statin - tele 2- Hypoxia: likely due to interstitial lung edema as third spacing. PE is less likely received ;asix yesterday - hold lasix today. appreciate Pulm help - repeat cxray 3- R superficial vein thrombosis in greater saphenous vein , - due to increased risk for extension and for progression into DVT in this gentleman, he will be a candidate for AC. - can not start AC now, as size of stroke is not known yet. awaiting MRI 4- DAVID: improved - monitor - d5w due to hypernatremia 5- cellulitis : lat day of zosyn tomorrow 7- DVT PX Visit type - Emergency Visit Emergency Visit: Yes ED Registration Date: 05/09/17 Care time: The patient presented to the Emergency Department on the above date and was hospitalized for further evaluation of their emergent condition. - New Patient This patient is new to me today: No - Critical Care Critical Care patient: No
[2017-05-16] MEDS: AMINO ACIDS/PROTEIN HYDROLYS 30 ML LIQUID.PKT PO SCH (17:59)
[2017-05-16] MEDS: ATORVASTATIN CA 20 MG TABLET (FP) PO SCH (21:37)
[2017-05-17] MEDS: PIPERACILLIN/TAZOB 2.25 GM 2.25 GM/50 ML BAG IVPB SCH ×3 (01:23→17:01)
[2017-05-17] MEDS: INSULIN SLIDING SCALE (NOVOLOG) 1 VIAL SQ SCH ×5 (06:30→21:45)
--- NOTE | 2017-05-17 06:56 | PN ---
Progress Note (short form) - Note Progress Note: Chief Complaint: Events noted, notes reviewed, resting comfortably remains on BiPAP, dyspnea persists but improving, right sided weakness persists, denies any chest pain History of Present Illness: Seen and examined on telemetry. Events noted, notes reviewed, resting comfortably remains on BiPAP, dyspnea persists but improving, right sided weakness persists, denies any chest pain Chest x-ray from yesterday noted vascular congestion persists, as outlined probably third spacing most likely related to low Albumin but intravascularly probably euvolemic to hypovolemic with Hypernatremia (blood test from this AM pending) Echocardiography revealed normal LV size, hyperdynamic LV, AV sclerosis, RV dilated and hypokinetic, bi-atrial dilatation, trace MR and TR with no RVSP measurement Medications: Current Medications Albuterol Sulfate (Ventolin 0.083% Nebulizer Soln -) 1 amp NEB Q4H PRN PRN Reason: SHORT OF BREATH/WHEEZING Amino Acids (Prosource No Carb Liquid Pkt) 30 ml PO BID@0800,1730 [facility] Last Admin: 05/16/17 17:59 Dose: 30 ml Aspirin (Ecotrin -) 81 mg PO DAILY [facility] Last Admin: 05/16/17 09:10 Dose: 81 mg Atorvastatin Calcium (Lipitor -) 20 mg PO HS [facility] Last Admin: 05/16/17 21:37 Dose: 20 mg Docusate Sodium (Colace -) 100 mg PO DAILY [facility] Last Admin: 05/16/17 09:09 Dose: 100 mg Piperacillin/Tazobactam/Dextrose (Zosyn 2.25gm Ivpb (Premix)) 2.25 gm in 50 mls @ 100 mls/hr IVPB Q8H-IV [facility] PRN Reason: Protocol Last Admin: 05/17/17 01:23 Dose: 100 mls/hr Dextrose/Sodium Chloride (D5-1/2ns -) 1,000 mls @ 75 mls/hr IV ASDIR [facility] Last Admin: 05/16/17 10:00 Dose: 75 mls/hr Insulin Aspart (Novolog Vial Sliding Scale -) 1 vial SQ ACHS [facility] PRN Reason: Protocol Last Admin: 05/17/17 06:30 Dose: 4 units Metoprolol Succinate (Toprol Xl -) 50 mg PO DAILY [facility] Last Admin: 05/16/17 09:08 Dose: 50 mg Tramadol HCl (Ultram -) 25 mg PO BID [facility] Last Admin: 05/16/17 21:35 Dose: 25 mg Triamcinolone Acetonide (Aristocort 0.1% Lotion -) 1 applic TP BID PRN PRN Reason: FOR ITCHING/RASH Review of Systems Constitutional: Denies: Chills or Fever Cardiovascular: As noted above Respiratory: denies: Cough or Sputum Production Gastrointestinal: Denies: Nausea, Vomiting, Diarrhea, Constipation or Abdominal Pain Genitourinary: No symptoms reported Neurology: No seizures or syncope Vital Signs: Last Vital Signs Temp Pulse Resp BP Pulse Ox 98.9 F 97 H 20 158/67 96 05/17/17 06:00 05/17/17 06:00 05/17/17 06:00 05/17/17 06:00 05/17/17 02:51 Intake & Output 05/14/17 05/15/17 05/16/17 05/17/17 23:59 23:59 23:59 23:59 Intake Total 2150 1070 90 950 Balance 2150 1070 90 950 Weight 264 lb 2 oz 251 lb 9 oz 262 lb Constitutional: Mild Respiratory Distress, Calm Neck: Supple Respiratory: Diminished Breath Sounds at the Bases Cardiovascular: S1 S2 Regular Rate and Rhythm Gastrointestinal: Soft Benign Normal Bowel Sounds Ext: 2+ Bilateral Edema with Venous Stasis Changes and Ulcers Labs: Blood test from this AM pending CBC, BMP 05/16/17 06:00 05/16/17 06:00 Assessment/Plan ASSESSMENT: 1. Cor pulmonale, pulmonary hypertension (No RVSP measurement on the above noted echocardiography) 2. CAD post CABG, angina pectoris 3. Diastolic LV dysfunction with chronic class 0-I NYHA classification LV failure, probably euvolemic to hypovolemic with Hypernatremia 4. 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 HTN/HCVD 6. NIDDM 7. Hyperlipidemia 8. Acute on CKD 9. Lower extremity cellulitis 10. Right wrist scaphoid fracture and triquetrum fracture 11. Hypernatremia PLAN: 1. Continue to hold Lasix and Aldactone pending renal function recovery, and attempt to correct the above noted Hypernatremia with caution, continue IV fluids 2. Continue to hold Lisinopril pending renal function recovery 3. Continue Toprol XL and titrate dosage as tolerated 4. Continue ASA 5. Continue Lipitor 6. BiPAP as tolerated 7. Antibiotics as per the primary team 8. MRI as planned by primary team, has not been performed as of yet 9. As outlined in prior notes outpatient evaluation of pulmonary hypertension Venus Soares MD
[2017-05-17] MEDS ORDERED: METOPROLOL SUCCINATE 50 MG TAB.SR.24H (FP) PO SCH (07:01)
[2017-05-17 07:24] LABS: ALBUMIN 1.7 g/dl (3.4-5.0); ANION GAP 5 (8-16); BLOOD UREA NITROGEN 53 mg/dL (7-18); CALCIUM 8.3 mg/dL (8.5-10.1); CHLORIDE 113 mmol/L (98-107); CO2 30 mmol/L (21-32); CREATININE 1.3 mg/dL (0.7-1.3); GLUCOSE,RANDOM 209 mg/dL (74-106); MAGNESIUM 2.1 mg/dL (1.8-2.4); PHOSPHOROUS 2.6 mg/dL (2.5-4.9); POTASSIUM 4.1 mmol/L (3.5-5.1); SGOT/AST 26 U/L (15-37); SGPT/ALT 29 U/L (12-78); SODIUM 148 mmol/L (136-145); TOT PROT 5.2 g/dl (6.4-8.2)
[2017-05-17 07:25] LABS: BASO % 0.7 % (0-2.0); EOS % 1.3 % (0-4.5); HEMATOCRIT 36.5 % (35.4-49); HEMOGLOBIN 11.6 GM/dL (11.7-16.9); LYMPH % 5.8 % (8-40); MCH 29.8 pg (25.7-33.7); MCHC 31.9 g/dl (32.0-35.9); MEAN CELL VOLUME 93.4 fl (80-96); MEAN PLT VOLUME 9.2 fl (7.5-11.1); MONO % 13.8 % (3.8-10.2); NEUT % 78.4 % (42.8-82.8); PLATELET COUNT 255 K/MM3 (134-434); RBC 3.91 M/mm3 (4.00-5.60); RDW 13.7 % (11.9-15.9); WHITE BLOOD COUNT 9.4 K/mm3 (4.0-10.0)
[2017-05-17 07:30] LABS: ALK PHOS 195 U/L (45-117); BILIRUBIN,TOTAL 0.4 mg/dL (0.2-1.0)
[2017-05-17] MEDS ORDERED: METOPROLOL SUCCINATE 50 MG, METOPROLOL SUCCINATE 25 MG PO SCH (08:00)
[2017-05-17] MEDS ORDERED: METOPROLOL SUCCINATE 50 MG TAB.SR.24H (FP) ONE (08:56)
[2017-05-17] MEDS ORDERED: METOPROLOL SUCCINATE 25 MG TAB.SR.24H (FP) ONE (08:57)
[2017-05-17] MEDS: traMADol HCL 50 MG TABLET PO SCH (09:54)
[2017-05-17] MEDS: DOCUSATE SODIUM 100 MG CAPSULE (FP) PO SCH (09:55)
[2017-05-17] MEDS: AMINO ACIDS/PROTEIN HYDROLYS 30 ML LIQUID.PKT PO SCH ×2 (09:56→16:58)
[2017-05-17] MEDS: ASPIRIN COATED 81 MG TABLET.EC PO SCH (09:56)
--- NOTE | 2017-05-17 12:06 | PN ---
Progress Note, [employer] - Note Progress Note: Very limited spontaneous recovery of expressive language function. Some spontaneous social speech and phrases. 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 Auditory comprehension is quite functional. No dysarthria. Pt communicates best when asked yes/no questions. This should be used to help pt compensate, enable him to communicate wants and needs and minimize frustration as pt's spontaneous speech improves. Additionally, communication board constructed for basic wants and needs, as needed. Pt is cognitively intact. Consider STR/Acute rehab for intensive speech/language tx upon d/c.
--- NOTE | 2017-05-17 13:28 | PN ---
Progress Note (short form) - Note Progress Note: PULMONARY Remains on BiPAP with 50% FiO2. Last Vital Signs Temp Pulse Resp BP Pulse Ox 98.8 F 74 20 132/60 92 L 05/17/17 08:12 05/17/17 09:25 05/17/17 08:12 05/17/17 08:12 05/17/17 12:31 Gen: less tachypneic Heart: RRR Lung: scattered rhonchi Abd: soft, nontender Ext: + edema CBC, BMP 05/17/17 05:20 05/17/17 05:20 Active Medications Albuterol Sulfate (Ventolin 0.083% Nebulizer Soln -) 1 amp NEB Q4H PRN PRN Reason: SHORT OF BREATH/WHEEZING Amino Acids (Prosource No Carb Liquid Pkt) 30 ml PO BID@0800,1730 [facility] Last Admin: 05/17/17 09:56 Dose: 30 ml Aspirin (Ecotrin -) 81 mg PO DAILY [facility] Last Admin: 05/17/17 09:56 Dose: 81 mg Atorvastatin Calcium (Lipitor -) 20 mg PO HS [facility] Last Admin: 05/16/17 21:37 Dose: 20 mg Docusate Sodium (Colace -) 100 mg PO DAILY [facility] Last Admin: 05/17/17 09:55 Dose: 100 mg Piperacillin/Tazobactam/Dextrose (Zosyn 2.25gm Ivpb (Premix)) 2.25 gm in 50 mls @ 100 mls/hr IVPB Q8H-IV [facility] PRN Reason: Protocol Last Admin: 05/17/17 10:02 Dose: 100 mls/hr Dextrose/Sodium Chloride (D5-1/2ns -) 1,000 mls @ 75 mls/hr IV ASDIR [facility] Last Admin: 05/16/17 10:00 Dose: 75 mls/hr Insulin Aspart (Novolog Vial Sliding Scale -) 1 vial SQ ACHS [facility] PRN Reason: Protocol Last Admin: 05/17/17 06:30 Dose: 4 units Metoprolol Succinate 50 mg/ (Metoprolol Succinate 25 mg) 75 mg PO DAILY [facility] Last Admin: 05/17/17 09:55 Dose: 75 mg Tramadol HCl (Ultram -) 25 mg PO BID [facility] Last Admin: 05/17/17 09:54 Dose: 25 mg Triamcinolone Acetonide (Aristocort 0.1% Lotion -) 1 applic TP BID PRN PRN Reason: FOR ITCHING/RASH A/P Acute Hypoxic Respiratory Failure LV Diastolic Dysfunction Pulmonary HTN Acute on Chronic Renal Failure improving Atelectasis CAD s/p CABG HTN DM - continue to hold lasix - monitor urine output, creatinine - O2 to keep SpO2 >90% - trial back on ventimask - BiPAP as needed - CXR in AM - empiric anticoagulation if MRI brain negative - increase PO intake, protein supplement - outpt PFTs, sleep study and possible RHC - DVT prophylaxis Problem List - Problems (1) Acute respiratory failure with hypoxia Code(s): J96.01 - ACUTE RESPIRATORY FAILURE WITH HYPOXIA (2) Cellulitis Code(s): L03.90 - CELLULITIS, UNSPECIFIED Qualifiers: Site of cellulitis of extremity: lower extremity (3) Cor pulmonale (chronic) Code(s): I27.81 - COR PULMONALE (CHRONIC) (4) Coronary artery disease Code(s): I25.10 - ATHSCL HEART DISEASE OF [place] CORONARY ARTERY W/O ANG PCTRS Qualifiers: Coronary Disease-Associated Artery/Lesion type: [place] artery [place] vs. transplanted heart: [place] heart Associated angina: without angina Qualified Code(s): I25.10 - Atherosclerotic heart disease of [place] coronary artery without angina pectoris (5) Diastolic dysfunction with chronic heart failure Code(s): I50.32 - CHRONIC DIASTOLIC (CONGESTIVE) HEART FAILURE (6) S/P CABG (coronary artery bypass graft) Code(s): Z95.1 - PRESENCE OF AORTOCORONARY BYPASS GRAFT (7) Pulmonary hypertension Code(s): I27.20 - PULMONARY HYPERTENSION, UNSPECIFIED (8) Atelectasis Code(s): J98.11 - ATELECTASIS
[2017-05-17] MEDS: DEXTROSE 5%-0.45% SALINE 1,000 ML IV SCH (17:01)
--- NOTE | 2017-05-17 17:14 | PN ---
Teaching Attending Note Name of Resident: Jose David Christianson ATTENDING PHYSICIAN STATEMENT I saw and evaluated the patient. I reviewed the resident's note and discussed the case with the resident. I agree with the resident's findings and plan as documented. SUBJECTIVE: No fever or chills . has no pain , OBJECTIVE: NAD, Awake, still has aphasia with difficulty finding words . MMM CV: RRR, NO JVD Lungs: L sided basal crackles Ext: LE edema, erythema , and no discharge today. Neuro: no facial droop, EOMI, tongue at mid line and uvula at mid line .decreased R facial sensation strength 2/5 in R shoulder abduction , 4/5 in biceps and tricpes , R hip flexion 1/5 today, L shulder abduction 3/5, L biceps and tricpes 5/5 . L hip flexion 2/5 decreased sensation to light touch in R sided body ASSESSMENT AND PLAN: 81 y/o man with h/o HTN, CAD, DM , diastolic Dysfunction , core pulmonale , and other medical problems who presented with LE edema and erythema and was found to have cellulitis , hospital course was complicated by aphasia and R sided weakness 1- Acute aphasia, and R sided weakness: possible acute CVA - MRI of brain still pending , will do when able to - asa and statin - tele 2- Hypoxia: likely due to interstitial lung edema as third spacing. PE is less likely -cont to hold lasix . appreciate Pulm help - xray in am 3- R superficial vein thrombosis in greater saphenous vein. - due to increased risk for extension and for progression into DVT , he will be a candidate for AC. - can not start AC now awaiting MRI 4- DAVID: improved - monitor - d5w due to hypernatremia 5- Cellulitis :dc zosyn today after evening dose 7- DVT PX
--- NOTE | 2017-05-17 19:03 | PN ---
Physical Exam: SUBJECTIVE: Remain on BiPAP and afrebile overnight. No acute event noted. OBJECTIVE: Vital Signs Period Temp Pulse Resp BP Sys/Eckert Pulse Ox Last 24 Hr 98.2 F-99.3 F 65-97 20-28 125-158/55-67 92-98 GENERAL: On BiPAP in moderate pulmonary distress, still aphasic, at baseline mental status. LUNGS: Coarse breath sounds, B/l rhonchi and crackles HEART: RRR, S1, S2 without murmur, rub or gallop. ABDOMEN: Soft, nontender, nondistended, normoactive bowel sounds, no guarding, no rebound, no hepatosplenomegaly, no masses. EXTREMITIES: b/l peripheral edema, LE erythema, no discharge. NEUROLOGICAL: UE strength 4/5 b/l, LE strength 2/5 b/l. sensation intact, no facial droop CBCD WBC 9.4 K/mm3 (4.0-10.0) 05/17/17 05:20 RBC 3.91 M/mm3 (4.00-5.60) L 05/17/17 05:20 Hgb 11.6 GM/dL (11.7-16.9) L 05/17/17 05:20 Hct 36.5 % (35.4-49) 05/17/17 05:20 MCV 93.4 fl (80-96) 05/17/17 05:20 MCHC 31.9 g/dl (32.0-35.9) L 05/17/17 05:20 RDW 13.7 % (11.9-15.9) 05/17/17 05:20 Plt Count 255 K/MM3 (134-434) 05/17/17 05:20 MPV 9.2 fl (7.5-11.1) 05/17/17 05:20 CMP Sodium 148 mmol/L (136-145) H 05/17/17 05:20 Potassium 4.1 mmol/L (3.5-5.1) 05/17/17 05:20 Chloride 113 mmol/L (98-107) H 05/17/17 05:20 Carbon Dioxide 30 mmol/L (21-32) 05/17/17 05:20 Anion Gap 5 (8-16) L 05/17/17 05:20 BUN 53 mg/dL (7-18) H D 05/17/17 05:20 Creatinine 1.3 mg/dL (0.7-1.3) D 05/17/17 05:20 Creat Clearance w eGFR 53.25 (>60) 05/17/17 05:20 Calcium 8.3 mg/dL (8.5-10.1) L 05/17/17 05:20 Total Bilirubin 0.4 mg/dL (0.2-1.0) D 05/17/17 05:20 AST 26 U/L (15-37) D 05/17/17 05:20 ALT 29 U/L (12-78) D 05/17/17 05:20 Alkaline Phosphatase 195 U/L (45-117) H D 05/17/17 05:20 Total Protein 5.2 g/dl (6.4-8.2) L 05/17/17 05:20 Albumin 1.7 g/dl (3.4-5.0) L 05/17/17 05:20 Active Medications Generic Name Dose Route Start Last Admin Trade Name Freq PRN Reason Stop Dose Admin Albuterol Sulfate 1 amp 05/14/17 18:43 Ventolin 0.083% Nebulizer Soln - NEB Q4H PRN SHORT OF BREATH/WHEEZING Amino Acids 30 ml 05/16/17 17:30 05/17/17 16:58 Prosource No Carb Liquid Pkt PO 30 ml BID@0800,1730 [facility] Administration Aspirin 81 mg 05/10/17 10:00 05/17/17 09:56 Ecotrin - PO 81 mg DAILY [facility] Administration Atorvastatin Calcium 20 mg 05/10/17 22:00 05/16/17 21:37 Lipitor - PO 20 mg HS [facility] Administration Docusate Sodium 100 mg 05/11/17 10:00 05/17/17 09:55 Colace - PO 100 mg DAILY [facility] Administration Piperacillin/Tazobactam/Dextrose 2.25 gm in 50 mls @ 100 mls/hr 05/10/17 18: 00 05/17/17 17:01 Zosyn 2.25gm Ivpb (Premix) IVPB 05/17/17 20:00 100 mls/hr Q8H-IV [facility] Administration Protocol Dextrose/Sodium Chloride 1,000 mls @ 75 mls/hr 05/16/17 08:30 05/17/17 17:01 D5-1/2ns - IV 75 mls/hr ASDIR [facility] Administration Insulin Aspart 1 vial 05/09/17 22:00 05/17/17 17:14 Novolog Vial Sliding Scale - SQ 4 units ACHS [facility] Administration Protocol Metoprolol Succinate 50 mg/ 75 mg 05/17/17 08:00 05/17/17 09:55 Metoprolol Succinate 25 mg PO 75 mg DAILY [facility] Administration Tramadol HCl 25 mg 05/10/17 22:00 05/17/17 09:54 Ultram - PO 25 mg BID [facility] Administration Triamcinolone Acetonide 1 applic 05/10/17 10:00 Aristocort 0.1% Lotion - TP BID PRN FOR ITCHING/RASH ASSESSMENT/PLAN: 81 yo M admitted initially for cellulitis and later found to have acute aphasia likely 2/2 CVA and acute respiratory failure. Acute hypoxic respiratory failure - Ventimask trials - BiPAP PRN - Maintain O2 > 90% - Repeat CXR in AM - outpt f/u with pulmonary for PFT and sleep study Aphasia - Likely CVA - Cont. asa, lipitor - PT and MRI when stable Cellulitis, L lower leg - Improved - d/c zosyn today HFpEF - Class 0-I, stable - Lasix and aldactone on hold due to DAVID CAD S/P bypass graft - Continue ASA R superficial vein thrombosis in GSV - Candidate for AC but awaiting MRI DAVID on CKD - Returned to baseline Cr 1.5 - Cont. to hold lasix, aldactone, and lisinopril - Avoid nephrotoxic agents DM - pre-diabetic - BGM and SSI HTN - Controlled - Continue toprol HLD - continue statin FEN - Cont. D5 1/2 NS - Monitor Na+ - DM diet Prophylaxis - DVT: Heparin 5000 IU sq TID Dispo: - Cont. to observe respiratory status while pending MRI Visit type - Emergency Visit Emergency Visit: No - New Patient This patient is new to me today: Yes Date on this admission: 05/17/17 - Critical Care Critical Care patient: No
[2017-05-17] MEDS: ATORVASTATIN CA 20 MG TABLET (FP) PO SCH (21:45)
[2017-05-17] MEDS ORDERED: traMADol HCL 50 MG TABLET PO ONE (22:00)
--- NOTE | 2017-05-18 03:23 | PN ---
Physical Exam: SUBJECTIVE: Patient seen and examined at bed side. patient with aphasia , difficulty breathing with accessory muscle use. tachypnec and tachycardic. legs cellultis is improving OBJECTIVE: Vital Signs Period Temp Pulse Resp BP Sys/Eckert Pulse Ox Last 24 Hr 98.5 F-98.9 F 65-97 20-25 125-158/55-76 92-98 GENERAL: The patient is awake, alert, and fully oriented, in moderate risperatory distress, aphasic HEAD: Normal with no signs of trauma. with BIPAP mask EYES: sclera anicteric, conjunctiva clear. ENT: dry mucous membranes. NECK:supple. LUNGS: B/L base ronchi with accessory muscle use. HEART: Regular rate and rhythm, S1, S2 without murmur, rub or gallop. ABDOMEN: Soft, nontender, nondistended, normoactive bowel sounds, no guarding, no rebound, EXTREMITIES: 2+ pulses, warm, well-perfused, no edema. B/L LE cellulitis NEUROLOGICAL: not done due to respiratory distress, right side weakness .aphasic ,gait not observed. PSYCH: Normal mood, normal affect. SKIN: Warm, dry, no rashes or lesions noted Laboratory Results - last 24 hr 05/14/17 05/15/17 05/15/17 22:01 06:07 12:47 WBC RBC Hgb Hct MCV MCH MCHC RDW Plt Count MPV Neutrophils % Lymphocytes % Monocytes % Eosinophils % Basophils % Sodium Potassium Chloride Carbon Dioxide Anion Gap BUN Creatinine Creat Clearance w eGFR POC Glucometer [phone] Random Glucose Calcium Phosphorus Magnesium Total Bilirubin AST ALT Alkaline Phosphatase Total Protein Albumin 05/16/17 05/16/17 05/17/17 12:40 17:27 05:20 WBC 9.4 RBC 3.91 L Hgb 11.6 L Hct 36.5 MCV 93.4 MCH 29.8 MCHC 31.9 L RDW 13.7 Plt Count 255 MPV 9.2 Neutrophils % 78.4 Lymphocytes % 5.8 L Monocytes % 13.8 H Eosinophils % 1.3 Basophils % 0.7 Sodium Potassium Chloride Carbon Dioxide Anion Gap BUN Creatinine Creat Clearance w eGFR POC Glucometer [phone] Random Glucose Calcium Phosphorus Magnesium Total Bilirubin AST ALT Alkaline Phosphatase Total Protein Albumin 05/17/17 05/17/17 05/17/17 05:20 05:35 12:55 WBC RBC Hgb Hct MCV MCH MCHC RDW Plt Count MPV Neutrophils % Lymphocytes % Monocytes % Eosinophils % Basophils % Sodium 148 H Potassium 4.1 Chloride 113 H Carbon Dioxide 30 Anion Gap 5 L BUN 53 H D Creatinine 1.3 D Creat Clearance w eGFR 53.25 POC Glucometer [phone] Random Glucose 209 H D Calcium 8.3 L Phosphorus 2.6 Magnesium 2.1 Total Bilirubin 0.4 D AST 26 D ALT 29 D Alkaline Phosphatase 195 H D Total Protein 5.2 L Albumin 1.7 L 05/17/17 16:56 WBC RBC Hgb Hct MCV MCH MCHC RDW Plt Count MPV Neutrophils % Lymphocytes % Monocytes % Eosinophils % Basophils % Sodium Potassium Chloride Carbon Dioxide Anion Gap BUN Creatinine Creat Clearance w eGFR POC Glucometer [phone] Random Glucose Calcium Phosphorus Magnesium Total Bilirubin AST ALT Alkaline Phosphatase Total Protein Albumin Active Medications Generic Name Dose Route Start Last Admin Trade Name Freq PRN Reason Stop Dose Admin Albuterol Sulfate 1 amp 05/14/17 18:43 Ventolin 0.083% Nebulizer Soln - NEB Q4H PRN SHORT OF BREATH/WHEEZING Amino Acids 30 ml 05/16/17 17:30 05/17/17 16:58 Prosource No Carb Liquid Pkt PO 30 ml BID@0800,1730 DOMINIK Administration Aspirin 81 mg 05/10/17 10:00 05/17/17 09:56 Ecotrin - PO 81 mg DAILY DOMINIK Administration Atorvastatin Calcium 20 mg 05/10/17 22:00 05/17/17 21:45 Lipitor - PO 20 mg HS DOMINIK Administration Docusate Sodium 100 mg 05/11/17 10:00 05/17/17 09:55 Colace - PO 100 mg DAILY DOMINIK Administration Dextrose/Sodium Chloride 1,000 mls @ 75 mls/hr 05/16/17 08:30 05/17/17 17:01 D5-1/2ns - IV 75 mls/hr ASDIR DOMINIK Administration Insulin Aspart 1 vial 05/09/17 22:00 05/17/17 21:45 Novolog Vial Sliding Scale - SQ 4 units ACHS DOMINIK Administration Protocol Metoprolol Succinate 50 mg/ 75 mg 05/17/17 08:00 05/17/17 09:55 Metoprolol Succinate 25 mg PO 75 mg DAILY DOMINIK Administration Triamcinolone Acetonide 1 applic 05/10/17 10:00 Aristocort 0.1% Lotion - TP BID PRN FOR ITCHING/RASH ASSESSMENT/PLAN: 81 yo M admitted initially for cellulitis and later found to have acute aphasia likely 2/2 CVA and acute respiratory failure. Acute Aphasia with right side weakness - Likely CVA - Cont. asa, lipitor - PT and MRI when stable Acute hypoxic respiratory failure likley due to pulmonary edema can not R/O PE - Ventimask trials - continue BiPAP PRN - Maintain O2 > 90% - CXR in AM shows worsening congestion - outpt f/u with pulmonary for PFT and sleep study - give albumin and lasix IV 40 mg -will evaluate daily and diurese, -dc IVF . -monitor urine output, creatinine - place king Cellulitis, L lower leg - Improved - d/c zosyn today HFpEF - Class 0-I, stable - Lasix and aldactone on hold due to DAVID CAD S/P bypass graft - Continue ASA R superficial vein thrombosis in GSV - Candidate for AC but awaiting MRI - started on Hep 5000 SQ TID DAVID on CKD - Returned to baseline Cr 1.5 - Cont. to hold lasix, aldactone, and lisinopril - Avoid nephrotoxic agents -monitor urine output, creatinine - place king DM - pre-diabetic - BGM and SSI HTN - Controlled - Continue toprol HLD - continue statin FEN -Dc fluids - Monitor Na+ - DM diet, thick lequid due to aspiration precaution Prophylaxis - DVT: Heparin 5000 IU sq TID Dispo: - Cont. to observe respiratory status while pending MRI Visit type - Emergency Visit Emergency Visit: Yes ED Registration Date: 05/09/17 Care time: The patient presented to the Emergency Department on the above date and was hospitalized for further evaluation of their emergent condition. - New Patient This patient is new to me today: Yes Date on this admission: 05/18/17 - Critical Care Critical Care patient: Yes Total Critical Care Time (in minutes): 40 Critical Care Statement: The care of this patient involved high complexity decision making to prevent further life threatening deterioration of the patient 's condition and/or to evaluate & treat vital organ system(s) failure or risk of failure. - Discharge Referral Referred to [facility] No
[2017-05-18] MEDS: INSULIN SLIDING SCALE (NOVOLOG) 1 VIAL SQ SCH ×4 (06:29→21:48)
[2017-05-18 06:31] LABS: BASO % 0.5 % (0-2.0); EOS % 1.9 % (0-4.5); HEMATOCRIT 37.2 % (35.4-49); HEMOGLOBIN 12.3 GM/dL (11.7-16.9); LYMPH % 6.1 % (8-40); MCHC 33.1 g/dl (32.0-35.9); MEAN CELL VOLUME 93.7 fl (80-96); MEAN PLT VOLUME 9.4 fl (7.5-11.1); MONO % 11.9 % (3.8-10.2); NEUT % 79.6 % (42.8-82.8); PLATELET COUNT 292 K/MM3 (134-434); RBC 3.97 M/mm3 (4.00-5.60); RDW 13.7 % (11.9-15.9); WHITE BLOOD COUNT 9.7 K/mm3 (4.0-10.0)
--- NOTE | 2017-05-18 06:45 | PN ---
Progress Note, Physician History of Present Illness: continues to require resp support currently on bipap - Current Medication List Current Medications: Active Medications Albuterol Sulfate (Ventolin 0.083% Nebulizer Soln -) 1 amp NEB Q4H PRN PRN Reason: SHORT OF BREATH/WHEEZING Amino Acids (Prosource No Carb Liquid Pkt) 30 ml PO BID@0800,1730 [facility] Last Admin: 05/17/17 16:58 Dose: 30 ml Aspirin (Ecotrin -) 81 mg PO DAILY [facility] Last Admin: 05/17/17 09:56 Dose: 81 mg Atorvastatin Calcium (Lipitor -) 20 mg PO HS [facility] Last Admin: 05/17/17 21:45 Dose: 20 mg Docusate Sodium (Colace -) 100 mg PO DAILY [facility] Last Admin: 05/17/17 09:55 Dose: 100 mg Dextrose/Sodium Chloride (D5-1/2ns -) 1,000 mls @ 75 mls/hr IV ASDIR [facility] Last Admin: 05/17/17 17:01 Dose: 75 mls/hr Insulin Aspart (Novolog Vial Sliding Scale -) 1 vial SQ ACHS [facility] PRN Reason: Protocol Last Admin: 05/18/17 06:29 Dose: 6 units Metoprolol Succinate 50 mg/ (Metoprolol Succinate 25 mg) 75 mg PO DAILY [facility] Last Admin: 05/17/17 09:55 Dose: 75 mg Triamcinolone Acetonide (Aristocort 0.1% Lotion -) 1 applic TP BID PRN PRN Reason: FOR ITCHING/RASH - Objective Vital Signs: Vital Signs Temperature 98.1 F 05/18/17 06:00 Pulse Rate 87 05/18/17 06:00 Respiratory Rate 25 H 05/18/17 06:00 Blood Pressure 148/76 05/18/17 06:00 O2 Sat by Pulse Oximetry (%) 98 05/17/17 21:29 Constitutional: Yes: No Distress, Calm Cardiovascular: Yes: Regular Rate and Rhythm Gastrointestinal: Yes: Normal Bowel Sounds, Soft Musculoskeletal: Yes: Other Extremities: Yes: Other Edema: LLE: 1+, RLE: 1+ Integumentary: Yes: Erythema Wound/Incision: Yes: Dressing Dry and Intact Neurological: Yes: Alert Psychiatric: Yes: Alert Labs: CBC, BMP 05/18/17 05:00 INR, PTT INR 1.42 (0.82-1.09) H 05/10/17 05:10 Assessment/Plan Cor pulmonale, pulmonary hypertension . CAD p . HTN NIDDM Hyperlipidemia Lower extremity cellulitis cva plan continue abx switch to oral tomorrow if leg starts looking worse then reswitch to iv rest continue current abx
[2017-05-18 06:55] LABS: ALBUMIN 1.8 g/dl (3.4-5.0); ANION GAP 9 (8-16); BLOOD UREA NITROGEN 41 mg/dL (7-18); CALCIUM 8.2 mg/dL (8.5-10.1); CHLORIDE 112 mmol/L (98-107); CO2 28 mmol/L (21-32); CREATININE 1.1 mg/dL (0.7-1.3); GLUCOSE,RANDOM 240 mg/dL (74-106); MAGNESIUM 1.9 mg/dL (1.8-2.4); POTASSIUM 4.3 mmol/L (3.5-5.1); SGOT/AST 18 U/L (15-37); SGPT/ALT 30 U/L (12-78); SODIUM 149 mmol/L (136-145)
--- NOTE | 2017-05-18 06:55 | PN ---
Progress Note (short form) - Note Progress Note: Chief Complaint: Events noted, notes reviewed, resting comfortably remains on BiPAP, dyspnea persists continues to improve, right sided weakness persists, denies any chest pain History of Present Illness: Seen and examined on telemetry. Events noted, notes reviewed, resting comfortably remains on BiPAP, dyspnea persists continues to improve, right sided weakness persists, denies any chest pain Sodium level improving pending morning blood test Chest x-ray from this AM noted vascular congestion persists (slightly worse), as outlined probably third spacing most likely related to low Albumin but intravascularly probably euvolemic to hypovolemic with Hypernatremia (blood test from this AM pending) Echocardiography revealed normal LV size, hyperdynamic LV, AV sclerosis, RV dilated and hypokinetic, bi-atrial dilatation, trace MR and TR with no RVSP measurement Medications: Current Medications Albuterol Sulfate (Ventolin 0.083% Nebulizer Soln -) 1 amp NEB Q4H PRN PRN Reason: SHORT OF BREATH/WHEEZING Amino Acids (Prosource No Carb Liquid Pkt) 30 ml PO BID@0800,1730 [facility] Last Admin: 05/17/17 16:58 Dose: 30 ml Aspirin (Ecotrin -) 81 mg PO DAILY [facility] Last Admin: 05/17/17 09:56 Dose: 81 mg Atorvastatin Calcium (Lipitor -) 20 mg PO HS [facility] Last Admin: 05/17/17 21:45 Dose: 20 mg Docusate Sodium (Colace -) 100 mg PO DAILY [facility] Last Admin: 05/17/17 09:55 Dose: 100 mg Dextrose/Sodium Chloride (D5-1/2ns -) 1,000 mls @ 75 mls/hr IV ASDIR [facility] Last Admin: 05/17/17 17:01 Dose: 75 mls/hr Insulin Aspart (Novolog Vial Sliding Scale -) 1 vial SQ ACHS [facility] PRN Reason: Protocol Last Admin: 05/18/17 06:29 Dose: 6 units Metoprolol Succinate 50 mg/ (Metoprolol Succinate 25 mg) 75 mg PO DAILY [facility] Last Admin: 05/17/17 09:55 Dose: 75 mg Triamcinolone Acetonide (Aristocort 0.1% Lotion -) 1 applic TP BID PRN PRN Reason: FOR ITCHING/RASH Review of Systems Constitutional: Denies: Chills or Fever Cardiovascular: As noted above Respiratory: denies: Cough or Sputum Production Gastrointestinal: Denies: Nausea, Vomiting, Diarrhea, Constipation or Abdominal Pain Genitourinary: No symptoms reported Neurology: No seizures or syncope Vital Signs: Last Vital Signs Temp Pulse Resp BP Pulse Ox 98.1 F 87 25 H 148/76 98 05/18/17 06:00 05/18/17 06:00 05/18/17 06:00 05/18/17 06:00 05/17/17 21:29 Intake & Output 05/15/17 05/16/17 05/17/17 05/18/17 23:59 23:59 23:59 23:59 Intake Total 1070 90 1675 900 Balance 1070 90 1675 900 Weight 251 lb 9 oz 262 lb 258 lb 9.6 oz 156 lb 4 oz Constitutional: Mild Respiratory Distress, Calm Neck: Supple Negative JVD Respiratory: Diminished Breath Sounds at the Bases Cardiovascular: S1 S2 Regular Rate and Rhythm Gastrointestinal: Soft Benign Normal Bowel Sounds Ext: 2+ Bilateral Edema with Venous Stasis Changes and Ulcers Labs: BMP from this AM pending CBC, BMP CBC, BMP 05/18/17 05:00 Assessment/Plan ASSESSMENT: 1. Diastolic LV dysfunction with chronic class 0-I NYHA classification LV failure, probably euvolemic with Hypernatremia (resolving Hyponatremia), worsening chest x-ray 2. Cor pulmonale, pulmonary hypertension (No RVSP measurement on the above noted echocardiography) 3. CAD post CABG, angina pectoris 4. 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 HTN/HCVD 6. NIDDM 7. Hyperlipidemia 8. Acute on CKD 9. Lower extremity cellulitis 10. Right wrist scaphoid fracture and triquetrum fracture 11. Hypernatremia, resolving PLAN: 1. Continue to hold Lasix and Aldactone pending renal function recovery and Hypernatremia correction, continue IV fluids for now and Lasix therapy may need to be resumed with caution 2. Continue to hold Lisinopril pending renal function recovery 3. Continue Toprol XL and titrate dosage as tolerated, incrfease to 100 mg 4. Continue ASA 5. Continue Lipitor 6. BiPAP as tolerated 7. Antibiotics as per the primary team 8. MRI as planned by primary team, respiratory status permitting 9. As outlined in prior notes outpatient evaluation of pulmonary hypertension Venus Soares MD
[2017-05-18 06:57] LABS: ALK PHOS 181 U/L (45-117); BILIRUBIN,TOTAL 0.5 mg/dL (0.2-1.0); TOT PROT 5.4 g/dl (6.4-8.2)
[2017-05-18] MEDS: DEXTROSE 5%-0.45% SALINE 1,000 ML IV SCH (08:00)
[2017-05-18] MEDS ORDERED: FUROSEMIDE 40 MG/4 ML INJECTABLE VIAL IVPUSH ONE (10:45)
[2017-05-18] MEDS ORDERED: ALBUMIN HUMAN 25% 12.5 GM/50 ML VIAL IVPB ONE (11:00)
[2017-05-18] MEDS: METOPROLOL SUCCINATE 100 MG TAB.SR.24H (FP) PO SCH (11:28)
[2017-05-18] MEDS: ASPIRIN COATED 81 MG TABLET.EC PO SCH (11:28)
[2017-05-18] MEDS: AMINO ACIDS/PROTEIN HYDROLYS 30 ML LIQUID.PKT PO SCH ×2 (11:29→17:54)
[2017-05-18] MEDS: DOCUSATE SODIUM 100 MG CAPSULE (FP) PO SCH (11:29)
--- NOTE | 2017-05-18 14:25 | PN ---
Progress Note (short form) - Note Progress Note: PULMONARY Remains on BiPAP with 50% FiO2. CXR more congested this AM and increased work of breathing. Last Vital Signs Temp Pulse Resp BP Pulse Ox 98.3 F 84 24 137/69 98 05/18/17 13:13 05/18/17 13:13 05/18/17 13:13 05/18/17 13:13 05/18/17 11:45 Intake & Output 05/15/17 05/16/17 05/17/17 05/18/17 23:59 23:59 23:59 23:59 Intake Total 1070 90 1675 900 Output Total 750 Balance 1070 90 1675 150 Weight 114.107 kg 118.841 kg 117.299 kg 70.874 kg Gen: mildly tachypneic on BiPAP Heart: RRR Lung: bilateral rhonchi Abd: soft, nontender Ext: + edema CBC, BMP 05/18/17 05:00 05/18/17 05:00 Active Medications Albuterol Sulfate (Ventolin 0.083% Nebulizer Soln -) 1 amp NEB Q4H PRN PRN Reason: SHORT OF BREATH/WHEEZING Amino Acids (Prosource No Carb Liquid Pkt) 30 ml PO BID@0800,1730 [facility] Last Admin: 05/18/17 11:29 Dose: 30 ml Aspirin (Ecotrin -) 81 mg PO DAILY [facility] Last Admin: 05/18/17 11:28 Dose: 81 mg Atorvastatin Calcium (Lipitor -) 20 mg PO HS [facility] Last Admin: 05/17/17 21:45 Dose: 20 mg Docusate Sodium (Colace -) 100 mg PO DAILY [facility] Last Admin: 05/18/17 11:29 Dose: 100 mg Heparin Sodium (Porcine) (Heparin -) 5,000 unit SQ TID [facility] Dextrose/Sodium Chloride (D5-1/2ns -) 1,000 mls @ 75 mls/hr IV ASDIR [facility] Last Admin: 05/18/17 08:00 Dose: Not Given Insulin Aspart (Novolog Vial Sliding Scale -) 1 vial SQ ACHS [facility] PRN Reason: Protocol Last Admin: 05/18/17 11:32 Dose: Not Given Metoprolol Succinate (Toprol Xl -) 100 mg PO DAILY [facility] Last Admin: 05/18/17 11:28 Dose: 100 mg Triamcinolone Acetonide (Aristocort 0.1% Lotion -) 1 applic TP BID PRN PRN Reason: FOR ITCHING/RASH A/P Acute Hypoxic Respiratory Failure LV Diastolic Dysfunction Pulmonary HTN Acute on Chronic Renal Failure improving Atelectasis CAD s/p CABG HTN DM - would give trial of albumin followed by lasix - monitor urine output, creatinine - place king - O2 to keep SpO2 >90% - BiPAP as needed - monitor CXR - empiric anticoagulation if MRI brain negative - increase PO intake, protein supplement - outpt PFTs, sleep study and possible RHC - DVT prophylaxis Problem List - Problems (1) Acute respiratory failure with hypoxia Code(s): J96.01 - ACUTE RESPIRATORY FAILURE WITH HYPOXIA (2) Cellulitis Code(s): L03.90 - CELLULITIS, UNSPECIFIED Qualifiers: Site of cellulitis of extremity: lower extremity (3) Cor pulmonale (chronic) Code(s): I27.81 - COR PULMONALE (CHRONIC) (4) Coronary artery disease Code(s): I25.10 - ATHSCL HEART DISEASE OF [place] CORONARY ARTERY W/O ANG PCTRS Qualifiers: Coronary Disease-Associated Artery/Lesion type: [place] artery [place] vs. transplanted heart: [place] heart Associated angina: without angina Qualified Code(s): I25.10 - Atherosclerotic heart disease of [place] coronary artery without angina pectoris (5) Diastolic dysfunction with chronic heart failure Code(s): I50.32 - CHRONIC DIASTOLIC (CONGESTIVE) HEART FAILURE (6) S/P CABG (coronary artery bypass graft) Code(s): Z95.1 - PRESENCE OF AORTOCORONARY BYPASS GRAFT (7) Pulmonary hypertension Code(s): I27.20 - PULMONARY HYPERTENSION, UNSPECIFIED (8) Atelectasis Code(s): J98.11 - ATELECTASIS
[2017-05-18] MEDS: HEPARIN NA (PORCINE) 5,000 UNITS/ML 1ML VIAL SQ SCH ×2 (14:26→21:44)
--- NOTE | 2017-05-18 14:58 | PN ---
Teaching Attending Note Name of Resident: Deandre Smith ATTENDING PHYSICIAN STATEMENT I saw and evaluated the patient. I reviewed the resident's note and discussed the case with the resident. I agree with the resident's findings and plan as documented. SUBJECTIVE: denies SOB but tachypnic and dose not feel well OBJECTIVE: NAD, Awake, in mod distress . aphasic CV: RRR, NO JVD Lungs: L sided basal crackles Ext: LE edema, erythema , and no discharge today. Neuro: Not done today due to his resp distress but no facial droop, aphasic . unable to assess strenght and sensation ASSESSMENT AND PLAN: 81 y/o man with h/o HTN, CAD, DM , diastolic Dysfunction , core pulmonale , and other medical problems who presented with LE edema and erythema and was found to have cellulitis , hospital course was complicated by aphasia and R sided weakness 1- Acute aphasia, and R sided weakness: possible acute CVA - MRI of brain still pending , can't do yet as on BIPAP - asa and statin - tele 2-Acute hypoxic resp failure : likely due to interstitial lung edema as third spacing. PE is less likely today pt is in more distress on IVF, and tachypnic to 30s. Cxray with worsening congestion. give albumin and lasix IV 40 mg will evaluate daily and diurese, dc IVF . cont BIPAP 3- R superficial vein thrombosis in greater saphenous vein. - due to increased risk for extension and for progression into DVT , he will be a candidate for AC. - can not start AC now awaiting MRI ( size of stroke ) 4- DAVID: improved - monitor 5- Cellulitis :finished a course of zosyn yesterday 7- DVT PX , hepa rin sq
--- NOTE | 2017-05-18 15:11 | PN ---
Progress Note, BUILDING [employer]CTION [employer] - Note Progress Note: On BiPAP with 50% FiO2. CXR more congested this AM and increased work of breathing. May have increased difficulty chewing and risk of aspiration with tachypnea. Selected Entries 05/12/17 05/12/17 05/12/17 00:10 02:00 06:00 Breakfast Lunch Supper Temperature 97.6 F 98.8 F 99.0 F 05/12/17 05/12/17 05/13/17 08:50 21:00 01:00 Breakfast Lunch Supper Temperature 97.8 F 98.0 F 99.3 F 05/13/17 05/13/17 05/15/17 05:00 10:00 10:35 Breakfast 100% Lunch Supper Temperature 98.0 F 97.9 F 05/15/17 05/16/17 05/16/17 14:00 02:00 06:00 Breakfast Lunch 75% Supper Temperature 99.1 F 98.9 F 05/16/17 05/16/17 05/16/17 10:00 19:09 22:00 Breakfast Lunch Supper 75% Temperature 99.4 F 99.3 F 05/17/17 05/17/17 05/17/17 02:00 06:00 08:12 Breakfast Lunch Supper Temperature 98.2 F 98.9 F 98.8 F 05/17/17 05/17/17 05/18/17 14:00 22:00 06:00 Breakfast Lunch Supper Temperature 98.8 F 98.5 F 98.1 F 05/18/17 05/18/17 05/18/17 08:00 09:34 13:13 Breakfast 25% Lunch Supper Temperature 98.2 F 98.3 F Laboratory Tests 05/16/17 05/17/17 05/18/17 06:00 05:20 05:00 WBC 10.1 H 9.4 9.7 May consider downgrading diet to chopped and nectar thick liquid. Ensure Compact./Magic cup.
[2017-05-18 15:12] LABS: URINE APPEARANCE CLEAR; URINE BILIRUBIN NEGATIVE (NEGATIVE); URINE BLOOD NEGATIVE (NEGATIVE); URINE COLOR LTYELLOW; URINE GLUCOSE (UA) 1+ (NEGATIVE); URINE KETONE NEGATIVE (NEGATIVE); URINE LEUK ESTERASE NEGATIVE (NEGATIVE); URINE NITRITE NEGATIVE (NEGATIVE); URINE PROTEIN NEGATIVE (NEGATIVE)
[2017-05-18 15:24] LABS: URINE CREATININE 34.3 mg/dL (20-370)
--- NOTE | 2017-05-18 16:09 | PN ---
Progress Note, Physician History of Present Illness: stable no new issues off of abx legs looking better speech with stuttering - Current Medication List Current Medications: Active Medications Albuterol Sulfate (Ventolin 0.083% Nebulizer Soln -) 1 amp NEB Q4H PRN PRN Reason: SHORT OF BREATH/WHEEZING Amino Acids (Prosource No Carb Liquid Pkt) 30 ml PO BID@0800,1730 [facility] Last Admin: 05/18/17 11:29 Dose: 30 ml Aspirin (Ecotrin -) 81 mg PO DAILY [facility] Last Admin: 05/18/17 11:28 Dose: 81 mg Atorvastatin Calcium (Lipitor -) 20 mg PO HS [facility] Last Admin: 05/17/17 21:45 Dose: 20 mg Docusate Sodium (Colace -) 100 mg PO DAILY [facility] Last Admin: 05/18/17 11:29 Dose: 100 mg Heparin Sodium (Porcine) (Heparin -) 5,000 unit SQ TID [facility] Last Admin: 05/18/17 14:26 Dose: 5,000 unit Insulin Aspart (Novolog Vial Sliding Scale -) 1 vial SQ ACHS [facility] PRN Reason: Protocol Last Admin: 05/18/17 11:32 Dose: Not Given Metoprolol Succinate (Toprol Xl -) 100 mg PO DAILY [facility] Last Admin: 05/18/17 11:28 Dose: 100 mg Triamcinolone Acetonide (Aristocort 0.1% Lotion -) 1 applic TP BID PRN PRN Reason: FOR ITCHING/RASH - Objective Vital Signs: Vital Signs Temperature 98.3 F 05/18/17 14:00 Pulse Rate 84 05/18/17 14:00 Respiratory Rate 24 05/18/17 14:00 Blood Pressure 137/69 05/18/17 14:00 O2 Sat by Pulse Oximetry (%) 97 05/18/17 16:05 Constitutional: Yes: No Distress, Calm Cardiovascular: Yes: S1, S2 Respiratory: Yes: Regular, On BiPap Gastrointestinal: Yes: Normal Bowel Sounds, Soft Musculoskeletal: Yes: Other Extremities: Yes: Other Integumentary: Yes: Erythema (improved of the legs) Neurological: Yes: Alert Psychiatric: Yes: Alert Labs: CBC, BMP 05/18/17 05:00 05/18/17 05:00 INR, PTT INR 1.42 (0.82-1.09) H 05/10/17 05:10 Assessment/Plan Cor pulmonale, pulmonary hypertension . CAD p . HTN NIDDM Hyperlipidemia Lower extremity cellulitis cva aphasia plan continue to monitor apahasia physio resp support close monitoring of the legs
[2017-05-18] MEDS: ATORVASTATIN CA 20 MG TABLET (FP) PO SCH (21:44)
[2017-05-19] MEDS: HEPARIN NA (PORCINE) 5,000 UNITS/ML 1ML VIAL SQ SCH ×3 (05:33→22:22)
--- NOTE | 2017-05-19 05:38 | PN ---
Physical Exam: SUBJECTIVE: Patient seen and examined at bedside. breathing is better today, denies cough, chest pin , no fever, chills , N/V/D/C. legs cellulities looks better today. OBJECTIVE: Vital Signs Period Temp Pulse Resp BP Sys/Eckert Pulse Ox Last 24 Hr 98.1 F-98.8 F 70-90 22-25 127-148/66-79 96-98 GENERAL: The patient is awake, alert, and fully oriented, in moderate risperatory distress, aphasic HEAD: Normal with no signs of trauma. with BIPAP mask EYES: sclera anicteric, conjunctiva clear. ENT: dry mucous membranes. NECK:supple. LUNGS:mild tachypnech on BIPAP, B/L base rhonchi with no accessory muscle use. HEART: Regular rate and rhythm, S1, S2 without murmur, rub or gallop. ABDOMEN: Soft, nontender, nondistended, normoactive bowel sounds, no guarding, no rebound, EXTREMITIES: 2+ pulses, warm, well-perfused, +1 edema. B/L LE cellulitis NEUROLOGICAL: not done due to respiratory distress, right side weakness .aphasic ,gait not observed. PSYCH: Normal mood, normal affect. SKIN: Warm, dry, no rashes or lesions noted Laboratory Results - last 24 hr 05/18/17 05/18/17 05/18/17 05:00 05:00 10:40 WBC 9.7 RBC 3.97 L Hgb 12.3 Hct 37.2 MCV 93.7 MCH 31.0 MCHC 33.1 RDW 13.7 Plt Count 292 MPV 9.4 Neutrophils % 79.6 Lymphocytes % 6.1 L Monocytes % 11.9 H Eosinophils % 1.9 Basophils % 0.5 Sodium 149 H Potassium 4.3 Chloride 112 H Carbon Dioxide 28 Anion Gap 9 BUN 41 H D Creatinine 1.1 Creat Clearance w eGFR > 60 Random Glucose 240 H Calcium 8.2 L Phosphorus 3.0 Magnesium 1.9 Total Bilirubin 0.5 D AST 18 D ALT 30 Alkaline Phosphatase 181 H Total Protein 5.4 L Albumin 1.8 L Urine Color Ltyellow Urine Appearance Clear Urine pH 6.0 Ur Specific [place] 1.012 Urine Protein Negative Urine Glucose (UA) 1+ H Urine Ketones Negative Urine Blood Negative Urine Nitrite Negative Urine Bilirubin Negative Urine Urobilinogen 2.0 Ur Leukocyte Esterase Negative Ur Random Urea Nitrogn Urine Creatinine 05/18/17 05/18/17 10:40 10:40 WBC RBC Hgb Hct MCV MCH MCHC RDW Plt Count MPV Neutrophils % Lymphocytes % Monocytes % Eosinophils % Basophils % Sodium Potassium Chloride Carbon Dioxide Anion Gap BUN Creatinine Creat Clearance w eGFR Random Glucose Calcium Phosphorus Magnesium Total Bilirubin AST ALT Alkaline Phosphatase Total Protein Albumin Urine Color Urine Appearance Urine pH Ur Specific [place] Urine Protein Urine Glucose (UA) Urine Ketones Urine Blood Urine Nitrite Urine Bilirubin Urine Urobilinogen Ur Leukocyte Esterase Ur Random Urea Nitrogn Cancelled 728 Urine Creatinine 34.3 Active Medications Generic Name Dose Route Start Last Admin Trade Name Freq PRN Reason Stop Dose Admin Albuterol Sulfate 1 amp 05/14/17 18:43 05/19/17 02:00 Ventolin 0.083% Nebulizer Soln - NEB 1 amp Q4H PRN Administration SHORT OF BREATH/WHEEZING Amino Acids 30 ml 05/16/17 17:30 05/18/17 17:54 Prosource No Carb Liquid Pkt PO 30 ml BID@0800,1730 DOMINIK Administration Aspirin 81 mg 05/10/17 10:00 05/18/17 11:28 Ecotrin - PO 81 mg DAILY DOMINIK Administration Atorvastatin Calcium 20 mg 05/10/17 22:00 05/18/17 21:44 Lipitor - PO 20 mg HS DOMINIK Administration Docusate Sodium 100 mg 05/11/17 10:00 05/18/17 11:29 Colace - PO 100 mg DAILY DOMINIK Administration Heparin Sodium (Porcine) 5,000 unit 05/18/17 14:00 05/18/17 21:44 Heparin - SQ 5,000 unit TID DOMINIK Administration Insulin Aspart 1 vial 05/09/17 22:00 05/18/17 21:48 Novolog Vial Sliding Scale - SQ 8 units ACHS DOMINIK Administration Protocol Metoprolol Succinate 100 mg 05/18/17 10:00 05/18/17 11:28 Toprol Xl - PO 100 mg DAILY DOMINIK Administration Triamcinolone Acetonide 1 applic 05/10/17 10:00 Aristocort 0.1% Lotion - TP BID PRN FOR ITCHING/RASH ASSESSMENT/PLAN: 81 yo M admitted initially for cellulitis and later found to have acute aphasia likely 2/2 CVA and acute respiratory failure. Acute Aphasia with right side weakness - Likely CVA - Cont. asa, lipitor - PT and MRI when stable Acute hypoxic respiratory failure likley due to pulmonary edema can not R/O PE, improved today - Ventimask trials - continue BiPAP PRN - Maintain O2 > 90% - CXR yesterday shows worsening congestion , repeat tomorrow AM - outpt f/u with pulmonary for PFT and sleep study - give albumin and lasix IV 40 mg -will evaluate daily and diurese, -dc IVF . -monitor urine output, creatinine - place king Cellulitis, B/L lower leg - Improved - d/c zosyn diastolic chronic HF - Class 0-I, stable - ASA 81 mg daily - I&O - daily weight CAD S/P bypass graft - Continue ASA R superficial vein thrombosis in GSV - Candidate for AC but awaiting MRI - started on Hep 5000 SQ TID DAVID on CKD, improved - Returned to baseline Cr 1.5 , today 1.0 - Cont. to hold aldactone, -Start Licinopril 5 mg QD per cardiology - Avoid nephrotoxic agents -monitor urine output, creatinine - place king - Monitor BUN/Cr - IV lasix 40 once yesterday, will give another 40 today proceeded with albumin 25% DM - pre-diabetic - BGM and SSI HTN - Controlled - Continue toprol xl 100 po daily HLD - continue Lipitor 20 mg po HS Right wrist scaphoid fracture and triquetrum fracture * continue to monitor * avoid IV and work on the right hand FEN -Dc fluids - Monitor Na+ - DM diet, thick lequid due to aspiration precaution(May consider downgrading diet to chopped and nectar thick liquid. Ensure Compact./Magic cup) per [employer] Prophylaxis - DVT: Heparin 5000 IU sq TID Dispo: - Cont. to observe respiratory status while pending MRI Visit type - Emergency Visit Emergency Visit: Yes ED Registration Date: 05/09/17 Care time: The patient presented to the Emergency Department on the above date and was hospitalized for further evaluation of their emergent condition. - New Patient This patient is new to me today: No - Critical Care Critical Care patient: Yes Total Critical Care Time (in minutes): 40 Critical Care Statement: The care of this patient involved high complexity decision making to prevent further life threatening deterioration of the patient 's condition and/or to evaluate & treat vital organ system(s) failure or risk of failure.
[2017-05-19 06:27] LABS: BASO % 0.2 % (0-2.0); EOS % 1.4 % (0-4.5); HEMATOCRIT 37.7 % (35.4-49); HEMOGLOBIN 12.2 GM/dL (11.7-16.9); LYMPH % 8.2 % (8-40); MCH 30.5 pg (25.7-33.7); MCHC 32.4 g/dl (32.0-35.9); MEAN PLT VOLUME 9.4 fl (7.5-11.1); MONO % 9.8 % (3.8-10.2); NEUT % 80.4 % (42.8-82.8); PLATELET COUNT 292 K/MM3 (134-434); RBC 4.01 M/mm3 (4.00-5.60); RDW 13.8 % (11.9-15.9); WHITE BLOOD COUNT 10.5 K/mm3 (4.0-10.0)
[2017-05-19] MEDS: INSULIN SLIDING SCALE (NOVOLOG) 1 VIAL SQ SCH ×3 (06:49→16:30)
[2017-05-19 07:15] LABS: ANION GAP 7 (8-16); BLOOD UREA NITROGEN 33 mg/dL (7-18); CALCIUM 8.8 mg/dL (8.5-10.1); CHLORIDE 111 mmol/L (98-107); CO2 32 mmol/L (21-32); GLUCOSE,RANDOM 165 mg/dL (74-106); MAGNESIUM 1.8 mg/dL (1.8-2.4); POTASSIUM 3.9 mmol/L (3.5-5.1); SODIUM 150 mmol/L (136-145)
[2017-05-19] MEDS: AMINO ACIDS/PROTEIN HYDROLYS 30 ML LIQUID.PKT PO SCH ×2 (08:27→16:30)
[2017-05-19] MEDS: DOCUSATE SODIUM 100 MG CAPSULE (FP) PO SCH (09:07)
[2017-05-19] MEDS: ASPIRIN COATED 81 MG TABLET.EC PO SCH (09:08)
[2017-05-19] MEDS: METOPROLOL SUCCINATE 100 MG TAB.SR.24H (FP) PO SCH (09:08)
[2017-05-19] MEDS ORDERED: ALBUMIN HUMAN 25% 12.5 GM/50 ML VIAL IVPB ONE (13:33)
--- NOTE | 2017-05-19 13:33 | PN ---
Progress Note (short form) - Note Progress Note: PULMONARY Remains on BiPAP with 50% FiO2. Diuresed well with lasix yesterday. Remains aphasic. Last Vital Signs Temp Pulse Resp BP Pulse Ox 98.8 F 112 H 22 130/74 90 L 05/19/17 07:45 05/19/17 10:35 05/19/17 07:49 05/19/17 07:45 05/19/17 10:35 Intake & Output 05/16/17 05/17/17 05/18/17 05/19/17 23:59 23:59 23:59 23:59 Intake Total 90 1675 910 50 Output Total 3950 600 Balance 90 1675 -3040 -550 Weight 118.841 kg 117.299 kg 116.233 kg 114.39 kg Gen: mildly tachypneic on BiPAP Heart: RRR Lung: bilateral rhonchi Abd: soft, nontender Ext: + edema CBC, BMP 05/19/17 05:10 05/19/17 05:10 Active Medications Albuterol Sulfate (Ventolin 0.083% Nebulizer Soln -) 1 amp NEB Q4H PRN PRN Reason: SHORT OF BREATH/WHEEZING Last Admin: 05/19/17 02:00 Dose: 1 amp Amino Acids (Prosource No Carb Liquid Pkt) 30 ml PO BID@0800,1730 [facility] Last Admin: 05/19/17 08:27 Dose: 30 ml Aspirin (Ecotrin -) 81 mg PO DAILY [facility] Last Admin: 05/19/17 09:08 Dose: 81 mg Atorvastatin Calcium (Lipitor -) 20 mg PO HS [facility] Last Admin: 05/18/17 21:44 Dose: 20 mg Docusate Sodium (Colace -) 100 mg PO DAILY [facility] Last Admin: 05/19/17 09:07 Dose: 100 mg Heparin Sodium (Porcine) (Heparin -) 5,000 unit SQ TID [facility] Last Admin: 05/19/17 05:33 Dose: 5,000 unit Insulin Aspart (Novolog Vial Sliding Scale -) 1 vial SQ ACHS [facility] PRN Reason: Protocol Last Admin: 05/19/17 11:13 Dose: 4 units Metoprolol Succinate (Toprol Xl -) 100 mg PO DAILY [facility] Last Admin: 05/19/17 09:08 Dose: 100 mg Triamcinolone Acetonide (Aristocort 0.1% Lotion -) 1 applic TP BID PRN PRN Reason: FOR ITCHING/RASH A/P Acute Hypoxic Respiratory Failure LV Diastolic Dysfunction Pulmonary HTN Acute on Chronic Renal Failure improving Atelectasis CAD s/p CABG HTN DM - would give another dose of albumin followed by lasix - monitor urine output, creatinine - O2 to keep SpO2 >90% - BiPAP as needed - monitor CXR - empiric anticoagulation if MRI brain negative - increase PO intake, protein supplement - outpt PFTs, sleep study and possible RHC - DVT prophylaxis Problem List - Problems (1) Acute respiratory failure with hypoxia Code(s): J96.01 - ACUTE RESPIRATORY FAILURE WITH HYPOXIA (2) Cellulitis Code(s): L03.90 - CELLULITIS, UNSPECIFIED Qualifiers: Site of cellulitis of extremity: lower extremity (3) Cor pulmonale (chronic) Code(s): I27.81 - COR PULMONALE (CHRONIC) (4) Coronary artery disease Code(s): I25.10 - ATHSCL HEART DISEASE OF [place] CORONARY ARTERY W/O ANG PCTRS Qualifiers: Coronary Disease-Associated Artery/Lesion type: [place] artery [place] vs. transplanted heart: [place] heart Associated angina: without angina Qualified Code(s): I25.10 - Atherosclerotic heart disease of [place] coronary artery without angina pectoris (5) Diastolic dysfunction with chronic heart failure Code(s): I50.32 - CHRONIC DIASTOLIC (CONGESTIVE) HEART FAILURE (6) S/P CABG (coronary artery bypass graft) Code(s): Z95.1 - PRESENCE OF AORTOCORONARY BYPASS GRAFT (7) Pulmonary hypertension Code(s): I27.20 - PULMONARY HYPERTENSION, UNSPECIFIED (8) Atelectasis Code(s): J98.11 - ATELECTASIS
[2017-05-19] MEDS ORDERED: FUROSEMIDE 40 MG/4 ML INJECTABLE VIAL IVPUSH ONE ×2 (13:34→15:00)
--- NOTE | 2017-05-19 15:04 | PN ---
Progress Note, Physician History of Present Illness: Comfortable on bipap, remains aphasic. - Current Medication List Current Medications: Active Medications Albuterol Sulfate (Ventolin 0.083% Nebulizer Soln -) 1 amp NEB Q4H PRN PRN Reason: SHORT OF BREATH/WHEEZING Last Admin: 05/19/17 02:00 Dose: 1 amp Amino Acids (Prosource No Carb Liquid Pkt) 30 ml PO BID@0800,1730 [facility] Last Admin: 05/19/17 08:27 Dose: 30 ml Aspirin (Ecotrin -) 81 mg PO DAILY [facility] Last Admin: 05/19/17 09:08 Dose: 81 mg Atorvastatin Calcium (Lipitor -) 20 mg PO HS [facility] Last Admin: 05/18/17 21:44 Dose: 20 mg Docusate Sodium (Colace -) 100 mg PO DAILY [facility] Last Admin: 05/19/17 09:07 Dose: 100 mg Heparin Sodium (Porcine) (Heparin -) 5,000 unit SQ TID [facility] Last Admin: 05/19/17 14:02 Dose: 5,000 unit Insulin Aspart (Novolog Vial Sliding Scale -) 1 vial SQ ACHS [facility] PRN Reason: Protocol Last Admin: 05/19/17 11:13 Dose: 4 units Metoprolol Succinate (Toprol Xl -) 100 mg PO DAILY [facility] Last Admin: 05/19/17 09:08 Dose: 100 mg Triamcinolone Acetonide (Aristocort 0.1% Lotion -) 1 applic TP BID PRN PRN Reason: FOR ITCHING/RASH - Objective Vital Signs: Vital Signs Temperature 99.7 F H 05/19/17 14:00 Pulse Rate 86 05/19/17 14:00 Respiratory Rate 22 05/19/17 14:00 Blood Pressure 111/93 05/19/17 14:00 O2 Sat by Pulse Oximetry (%) 90 L 05/19/17 10:35 Constitutional: Yes: No Distress, Calm Neck: Yes: Supple Cardiovascular: Yes: Regular Rate and Rhythm Respiratory: Yes: Regular, Diminished, On BiPap Gastrointestinal: Yes: Normal Bowel Sounds, Soft Edema: Yes Edema: LLE: Trace, RLE: Trace Labs: CBC, BMP 05/19/17 05:10 05/19/17 05:10 INR, PTT INR 1.42 (0.82-1.09) H 05/10/17 05:10 Problem List - Problems (1) Cor pulmonale (chronic) Code(s): I27.81 - COR PULMONALE (CHRONIC) (2) S/P CABG (coronary artery bypass graft) Code(s): Z95.1 - PRESENCE OF AORTOCORONARY BYPASS GRAFT (3) Coronary artery disease Code(s): I25.10 - ATHSCL HEART DISEASE OF [place] CORONARY ARTERY W/O ANG PCTRS Qualifiers: Coronary Disease-Associated Artery/Lesion type: [place] artery [place] vs. transplanted heart: [place] heart Associated angina: without angina Qualified Code(s): I25.10 - Atherosclerotic heart disease of [place] coronary artery without angina pectoris (4) Hyperlipidemia associated with type 2 diabetes mellitus Code(s): E11.69 - TYPE 2 DIABETES MELLITUS WITH OTHER SPECIFIED COMPLICATION; E78.5 - HYPERLIPIDEMIA, UNSPECIFIED (5) Diastolic dysfunction with chronic heart failure Code(s): I50.32 - CHRONIC DIASTOLIC (CONGESTIVE) HEART FAILURE (6) Cellulitis Code(s): L03.90 - CELLULITIS, UNSPECIFIED Qualifiers: Site of cellulitis of extremity: lower extremity (7) Type 2 diabetes mellitus Code(s): E11.9 - TYPE 2 DIABETES MELLITUS WITHOUT COMPLICATIONS Qualifiers: Diabetes mellitus complication status: without complication Diabetes mellitus exterminator helper insulin use: without exterminator helper use Qualified Code(s): E11.9 - Type 2 diabetes mellitus without complications (8) Hypertensive cardiomegaly with heart failure Code(s): I11.0 - HYPERTENSIVE HEART DISEASE WITH HEART FAILURE (9) Dmvon-nq-vecdewl kidney injury Code(s): N17.9 - ACUTE KIDNEY FAILURE, UNSPECIFIED; N18.9 - CHRONIC KIDNEY DISEASE, UNSPECIFIED Qualifiers: Chronic kidney disease stage: stage 2 (mild) (10) Cerebrovascular disease Code(s): I67.9 - CEREBROVASCULAR DISEASE, UNSPECIFIED Assessment/Plan Echocardiography revealed normal LV size, hyperdynamic LV, AV sclerosis, RV dilated and hypokinetic, bi-atrial dilatation, trace MR and TR with no RVSP measurement 1. Acute Hypoxic Respiratory Failure 2. Acute on chronic diastolic failure, pulm HTN with pleural effusion 3. Cor pulmonale, pulmonary hypertension (No RVSP measurement on the above noted echocardiography) 4. CAD post CABG, angina pectoris 5. 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 HTN/HCVD 6. NIDDM 7. Hyperlipidemia 8. Acute on CKD improving 9. Lower extremity cellulitis 10. Right wrist scaphoid fracture and triquetrum fracture 11. Hypernatremia PLAN: 1. Resume diuresis with albumin and free water repletion 2. Resume Lisinopril 5 qd given renal function recovery 3. Continue Toprol XL 100 qd and titrate dosage as tolerated 4. Continue ASA 81 qd 5. Continue Lipitor 20 qhs 6. BD, O2, BiPAP as tolerated, DVT prophylaxis 7. Antibiotics as per the primary team 8. MRI as planned by primary team, respiratory status permitting 9. As outlined in prior notes outpatient evaluation of pulmonary hypertension
[2017-05-19] MEDS ORDERED: INSULIN (NOVOLOG) ASPART 100 UNITS/ML 10ML VIAL ONE (16:25)
--- NOTE | 2017-05-19 16:51 | PN ---
Progress Note, Physician History of Present Illness: speech starting to improve still with rt sided weakness alternating between bipap and face mask - Current Medication List Current Medications: Active Medications Albuterol Sulfate (Ventolin 0.083% Nebulizer Soln -) 1 amp NEB Q4H PRN PRN Reason: SHORT OF BREATH/WHEEZING Last Admin: 05/19/17 02:00 Dose: 1 amp Amino Acids (Prosource No Carb Liquid Pkt) 30 ml PO BID@0800,1730 [facility] Last Admin: 05/19/17 16:30 Dose: 30 ml Aspirin (Ecotrin -) 81 mg PO DAILY [facility] Last Admin: 05/19/17 09:08 Dose: 81 mg Atorvastatin Calcium (Lipitor -) 20 mg PO HS [facility] Last Admin: 05/18/17 21:44 Dose: 20 mg Docusate Sodium (Colace -) 100 mg PO DAILY [facility] Last Admin: 05/19/17 09:07 Dose: 100 mg Heparin Sodium (Porcine) (Heparin -) 5,000 unit SQ TID [facility] Last Admin: 05/19/17 14:02 Dose: 5,000 unit Insulin Aspart (Novolog Vial Sliding Scale -) 1 vial SQ ACHS [facility] PRN Reason: Protocol Last Admin: 05/19/17 16:30 Dose: 2 units Lisinopril (Prinivil) 5 mg PO DAILY [facility] Metoprolol Succinate (Toprol Xl -) 100 mg PO DAILY [facility] Last Admin: 05/19/17 09:08 Dose: 100 mg Triamcinolone Acetonide (Aristocort 0.1% Lotion -) 1 applic TP BID PRN PRN Reason: FOR ITCHING/RASH - Objective Vital Signs: Vital Signs Temperature 99.7 F H 05/19/17 14:00 Pulse Rate 81 05/19/17 16:01 Respiratory Rate 22 05/19/17 14:00 Blood Pressure 111/93 05/19/17 14:00 O2 Sat by Pulse Oximetry (%) 99 05/19/17 16:01 Constitutional: Yes: No Distress, Calm Cardiovascular: Yes: S1, S2 Respiratory: Yes: Regular, CTA Bilaterally Gastrointestinal: Yes: Normal Bowel Sounds, Soft Musculoskeletal: Yes: Muscle Weakness (rt side), Other Integumentary: Yes: Erythema Neurological: Yes: Alert, Oriented Psychiatric: Yes: Alert Labs: CBC, BMP 05/19/17 05:10 05/19/17 05:10 INR, PTT INR 1.42 (0.82-1.09) H 05/10/17 05:10 Assessment/Plan Cor pulmonale, pulmonary hypertension . CAD p . HTN NIDDM Hyperlipidemia Lower extremity cellulitis cva aphasia plan continue to monitor apahasia rt sided weakness rest as per primary team monitor wounds closely
--- NOTE | 2017-05-19 18:49 | PN ---
Teaching Attending Note Name of Resident: Deandre Smith ATTENDING PHYSICIAN STATEMENT I saw and evaluated the patient. I reviewed the resident's note and discussed the case with the resident. I agree with the resident's findings and plan as documented. SUBJECTIVE: Patient in Telemetry . able to communicate , continues to be on Bipap. OBJECTIVE: Vital Signs Temperature 99.7 F H 05/19/17 14:00 Pulse Rate 81 05/19/17 16:01 Respiratory Rate 22 05/19/17 16:00 Blood Pressure 151/78 05/19/17 16:00 O2 Sat by Pulse Oximetry (%) 99 05/19/17 16:01 CBCD WBC 10.5 K/mm3 (4.0-10.0) H 05/19/17 05:10 RBC 4.01 M/mm3 (4.00-5.60) 05/19/17 05:10 Hgb 12.2 GM/dL (11.7-16.9) 05/19/17 05:10 Hct 37.7 % (35.4-49) 05/19/17 05:10 MCV 94.0 fl (80-96) 05/19/17 05:10 MCHC 32.4 g/dl (32.0-35.9) 05/19/17 05:10 RDW 13.8 % (11.9-15.9) 05/19/17 05:10 Plt Count 292 K/MM3 (134-434) 05/19/17 05:10 MPV 9.4 fl (7.5-11.1) 05/19/17 05:10 CMP Sodium 150 mmol/L (136-145) H 05/19/17 05:10 Potassium 3.9 mmol/L (3.5-5.1) 05/19/17 05:10 Chloride 111 mmol/L (98-107) H 05/19/17 05:10 Carbon Dioxide 32 mmol/L (21-32) 05/19/17 05:10 Anion Gap 7 (8-16) L 05/19/17 05:10 BUN 33 mg/dL (7-18) H 05/19/17 05:10 Creatinine 1.0 mg/dL (0.7-1.3) 05/19/17 05:10 Creat Clearance w eGFR > 60 (>60) 05/18/17 05:00 Random Glucose 165 mg/dL (74-106) H D 05/19/17 05:10 Calcium 8.8 mg/dL (8.5-10.1) 05/19/17 05:10 Total Bilirubin 0.5 mg/dL (0.2-1.0) D 05/18/17 05:00 AST 18 U/L (15-37) D 05/18/17 05:00 ALT 30 U/L (12-78) 05/18/17 05:00 Alkaline Phosphatase 181 U/L (45-117) H 05/18/17 05:00 Total Protein 5.4 g/dl (6.4-8.2) L 05/18/17 05:00 Albumin 1.8 g/dl (3.4-5.0) L 05/18/17 05:00 CARDIAC ENZYMES Creatine Kinase 69 IU/L (39-308) 05/09/17 16:45 Troponin I < 0.02 ng/ml (0.00-0.05) 05/10/17 05:10 Current Medications Generic Name Dose Route Start Last Admin Trade Name Freq PRN Reason Stop Dose Admin Amino Acids 30 ml 05/16/17 17:30 05/19/17 16:30 Prosource No Carb Liquid Pkt PO 30 ml BID@0800,1730 DOMINIK Administration Aspirin 81 mg 05/10/17 10:00 05/19/17 09:08 Ecotrin - PO 81 mg DAILY DOMINIK Administration Atorvastatin Calcium 20 mg 05/10/17 22:00 05/18/17 21:44 Lipitor - PO 20 mg HS DOMINIK Administration Docusate Sodium 100 mg 05/11/17 10:00 05/19/17 09:07 Colace - PO 100 mg DAILY DOMINIK Administration Heparin Sodium (Porcine) 5,000 unit 05/18/17 14:00 05/19/17 14:02 Heparin - SQ 5,000 unit TID DOMINIK Administration Insulin Aspart 1 vial 05/09/17 22:00 05/19/17 16:30 Novolog Vial Sliding Scale - SQ 2 units ACHS DOMINIK Administration Protocol Lisinopril 5 mg 05/20/17 10:00 Prinivil PO DAILY [facility] Metoprolol Succinate 100 mg 05/18/17 10:00 05/19/17 09:08 Toprol Xl - PO 100 mg DAILY DOMINIK Administration Triamcinolone Acetonide 1 applic 05/10/17 10:00 Aristocort 0.1% Lotion - TP BID PRN FOR ITCHING/RASH Home Medications Medication Instructions Recorded Furosemide [Lasix -] 40 mg PO BID 05/09/17 Glipizide [Glipizide ER] 5 mg PO BID 05/09/17 Ibuprofen 800 mg PO PRN 05/09/17 Metoprolol Succinate [Toprol Xl -] 50 mg PO DAILY 05/09/17 Simvastatin [Zocor -] 40 mg PO DAILY 05/09/17 Sitagliptin Phos/Metformin HCl 1 each PO BID 05/09/17 [Janumet 50-500 mg Tablet] Triamcinolone 0.1% Lotion [Kenalog 60 ml TP PRN 05/09/17 0.1% Top Lotion] Docusate Sodium [Colace] 100 mg PO DAILY 05/10/17 PE: as per resident's note on Bipap. ASSESSMENT AND PLAN: Patient is a 81 y/o man with h/o HTN, CAD, DM , diastolic Dysfunction , core pulmonale , who presented with LE edema and erythema and was found to have cellulitis , hospital course was complicated by aphasia and R sided weakness. # Acute aphasia with Right sided weakness: cannot r/o acute CVA; OLd ct of the head an old Infarct. MRI of brain is ordered but patient continues to be on Bipap. can't do yet as on BIPAP ; asa and statin ,continue tele #Acute hypoxic respiratory failure : likely due to interstitial lung edema as third spacing. s/p IV lasix and Albumin , patient is improving. PE is less likely as per , another txment with Lasix and Albumin today # R superficial vein thrombosis in greater saphenous vein. Due to increased risk for extension and for progression into DVT , he will be a candidate for AC. - can not start AC now awaiting MRI ( size of stroke ) , will check with regarding IVC filter # DAVID: improved # Cellulitis :finished a course of zosyn DVT PX , heparin sq
[2017-05-19] MEDS: ATORVASTATIN CA 20 MG TABLET (FP) PO SCH (22:22)
[2017-05-20] MEDS: INSULIN SLIDING SCALE (NOVOLOG) 1 VIAL SQ SCH ×5 (02:23→22:39)
--- NOTE | 2017-05-20 05:41 | PN ---
Physical Exam: SUBJECTIVE: Patient seen and examined at bedside. breathing is better today, denies cough, chest pain , no fever, chills , N/V/D/C. legs cellulites looks better today. OBJECTIVE: Vital Signs Period Temp Pulse Resp BP Sys/Eckert Pulse Ox Last 24 Hr 98.8 F-99.7 F 81-112 22-22 111-151/67-93 90-99 GENERAL: The patient is awake, alert, and fully oriented,aphasic, in moderate respiratory distress, HEAD: Normal with no signs of trauma. with BIPAP mask EYES: sclera anicteric, conjunctiva clear. ENT: moist mucous membranes. NECK:supple. LUNGS:mild tachypnech on BIPAP, B/L base rhonchi with no accessory muscle use. HEART: Regular rate and rhythm, S1, S2 without murmur, rub or gallop. ABDOMEN: Soft, nontender, nondistended, normoactive bowel sounds, no guarding, no rebound, EXTREMITIES: 2+ pulses, warm, well-perfused, +1 edema. B/L LE cellulitis , right hand swelling with erythema NEUROLOGICAL: not done due to respiratory distress, right side weakness .aphasic ,gait not observed. PSYCH: Normal mood, normal affect. SKIN: Warm, dry, no rashes or lesions noted Laboratory Results - last 24 hr 05/17/17 05/18/17 05/18/17 21:43 05:39 11:29 WBC RBC Hgb Hct MCV MCH MCHC RDW Plt Count MPV Neutrophils % Lymphocytes % Monocytes % Eosinophils % Basophils % Sodium Potassium Chloride Carbon Dioxide Anion Gap BUN Creatinine POC Glucometer 229.87138 264.11424 [phone] Random Glucose Calcium Phosphorus Magnesium 05/18/17 05/18/17 05/19/17 16:45 21:42 05:10 WBC 10.5 H RBC 4.01 Hgb 12.2 Hct 37.7 MCV 94.0 MCH 30.5 MCHC 32.4 RDW 13.8 Plt Count 292 MPV 9.4 Neutrophils % 80.4 Lymphocytes % 8.2 D Monocytes % 9.8 Eosinophils % 1.4 Basophils % 0.2 Sodium Potassium Chloride Carbon Dioxide Anion Gap BUN Creatinine POC Glucometer 103.97805 [phone] Random Glucose Calcium Phosphorus Magnesium 01/17/18 01/17/18 01/17/18 05:10 05:37 11:11 WBC RBC Hgb Hct MCV MCH MCHC RDW Plt Count MPV Neutrophils % Lymphocytes % Monocytes % Eosinophils % Basophils % Sodium 150 H Potassium 3.9 Chloride 111 H Carbon Dioxide 32 Anion Gap 7 L BUN 33 H Creatinine 1.0 POC Glucometer 193.97783 234.39504 Random Glucose 165 H D Calcium 8.8 Phosphorus 3.0 Magnesium 1.8 05/19/17 05/19/17 16:21 23:57 WBC RBC Hgb Hct MCV MCH MCHC RDW Plt Count MPV Neutrophils % Lymphocytes % Monocytes % Eosinophils % Basophils % Sodium Potassium Chloride Carbon Dioxide Anion Gap BUN Creatinine POC Glucometer 182.02105 [phone] Random Glucose Calcium Phosphorus Magnesium Active Medications Generic Name Dose Route Start Last Admin Trade Name Freq PRN Reason Stop Dose Admin Amino Acids 30 ml 05/16/17 17:30 05/19/17 16:30 Prosource No Carb Liquid Pkt PO 30 ml BID@0800,1730 DOMINIK Administration Aspirin 81 mg 05/10/17 10:00 05/19/17 09:08 Ecotrin - PO 81 mg DAILY DOMINIK Administration Atorvastatin Calcium 20 mg 05/10/17 22:00 05/19/17 22:22 Lipitor - PO 20 mg HS DOMINIK Administration Docusate Sodium 100 mg 05/11/17 10:00 05/19/17 09:07 Colace - PO 100 mg DAILY DOMINIK Administration Heparin Sodium (Porcine) 5,000 unit 05/18/17 14:00 05/19/17 22:22 Heparin - SQ 5,000 unit TID DOMINIK Administration Insulin Aspart 1 vial 05/09/17 22:00 05/20/17 02:23 Novolog Vial Sliding Scale - SQ Not Given ACHS [facility] Protocol Lisinopril 5 mg 05/20/17 10:00 Prinivil PO DAILY DOMINIK Metoprolol Succinate 100 mg 05/18/17 10:00 05/19/17 09:08 Toprol Xl - PO 100 mg DAILY DOMINIK Administration Triamcinolone Acetonide 1 applic 05/10/17 10:00 Aristocort 0.1% Lotion - TP BID PRN FOR ITCHING/RASH CBC, BMP 05/20/17 05:05 05/20/17 05:05 ASSESSMENT/PLAN: 81 yo M admitted initially for cellulitis and later found to have acute aphasia likely 2/2 CVA and acute respiratory failure. Acute hypoxic respiratory failure likley due to pulmonary edema can not R/O PE, improved today - Ventimask trials - continue BiPAP PRN - Maintain O2 > 90% - CXR yesterday shows worsening congestion ,looks better today , monitor - outpt f/u with pulmonary for PFT and sleep study - give albumin and lasix IV 40 mg yesterday , hold lasix today to allow equilibration as bicarb rising -will evaluate daily and diurese, -dc IVF . -monitor urine output, creatinine - Maintain king - Hypernatremia * Na still in 150 * Free water to improve NA , * Monitor BMP Acute Aphasia with right side weakness - Likely CVA - Cont. asa, lipitor - PT and MRI when stable Cellulitis, B/L lower leg - Improving - d/c zosyn Acute on chronic diastolic heart failure - pulm hypertension with pleural effusion - Class 0-I, stable - ASA 81 mg daily - I&O - daily weight CAD S/P bypass graft , Angina pectoris - Continue ASA R superficial vein thrombosis in GSV - Candidate for AC but awaiting MRI - started on Hep 5000 SQ TID DAVID on CKD, improved - Returned to baseline Cr 1.5 , today 0.9 - Cont. to hold aldactone, -Continue Lisinopril 5 mg QD per cardiology, monitor kidney function - Avoid nephrotoxic agents -monitor urine output, creatinine - maintain king - Monitor BUN/Cr - lasix 40 today proceeded with albumin 25% given yesterday , will held today due in increased Bicarbonate NIDDM - BGM and SSI Core pulmonale with pulmonary HTN * will follow up as out patient sleep study and possible RHC HTN - Controlled - Continue toprol xl 100 po daily HLD - continue Lipitor 20 mg po HS Right wrist scaphoid fracture and triquetrum fracture * continue to monitor * avoid IV and work on the right hand FEN -Dc fluids - Monitor Na+ - DM diet, thick liquid due to aspiration precaution(May consider downgrading diet to chopped and nectar thick liquid. Ensure Compact./Magic cup) per Dining Services Manager Prophylaxis - DVT: Heparin 5000 IU sq TID Dispo: * Cont. to observe respiratory status while pending MRI * Monitor NA, BUN/Cr , respiratory distress, volume status Visit type - Emergency Visit Emergency Visit: Yes ED Registration Date: 01/07/18 Care time: The patient presented to the Emergency Department on the above date and was hospitalized for further evaluation of their emergent condition. - New Patient This patient is new to me today: No - Critical Care Critical Care patient: Yes Total Critical Care Time (in minutes): 40 Critical Care Statement: The care of this patient involved high complexity decision making to prevent further life threatening deterioration of the patient 's condition and/or to evaluate & treat vital organ system(s) failure or risk of failure.
[2017-05-20] MEDS: HEPARIN NA (PORCINE) 5,000 UNITS/ML 1ML VIAL SQ SCH ×3 (06:24→22:38)
[2017-05-20 06:40] LABS: BASO % 0.4 % (0-2.0); EOS % 1.3 % (0-4.5); HEMATOCRIT 36.1 % (35.4-49); HEMOGLOBIN 11.8 GM/dL (11.7-16.9); LYMPH % 9.3 % (8-40); MCH 30.3 pg (25.7-33.7); MCHC 32.6 g/dl (32.0-35.9); MEAN PLT VOLUME 9.2 fl (7.5-11.1); MONO % 10.6 % (3.8-10.2); NEUT % 78.4 % (42.8-82.8); PLATELET COUNT 302 K/MM3 (134-434); RBC 3.88 M/mm3 (4.00-5.60); RDW 13.7 % (11.9-15.9); WHITE BLOOD COUNT 8.2 K/mm3 (4.0-10.0)
[2017-05-20 07:07] LABS: ALBUMIN 2.1 g/dl (3.4-5.0); BLOOD UREA NITROGEN 28 mg/dL (7-18); CHLORIDE 111 mmol/L (98-107); GLUCOSE,RANDOM 156 mg/dL (74-106); POTASSIUM 3.9 mmol/L (3.5-5.1); SODIUM 150 mmol/L (136-145)
[2017-05-20 07:12] LABS: ALK PHOS 160 U/L (45-117); ANION GAP 6 (8-16); BILIRUBIN,TOTAL 0.8 mg/dL (0.2-1.0); CALCIUM 8.5 mg/dL (8.5-10.1); CO2 33 mmol/L (21-32); CREATININE 0.9 mg/dL (0.7-1.3); MAGNESIUM 1.6 mg/dL (1.8-2.4); SGOT/AST 11 U/L (15-37); SGPT/ALT 22 U/L (12-78); TOT PROT 5.3 g/dl (6.4-8.2)
[2017-05-20] MEDS ORDERED: MAGNESIUM SULF 50% (8.12 MEQ/2 ML-1 GM VIAL) IVPB ONE (08:19)
[2017-05-20] MEDS: MAGNESIUM 1GM/D5W - 1 GM/100 ML IVPB IVPB SCH ×2 (09:00→10:02)
[2017-05-20] MEDS: AMINO ACIDS/PROTEIN HYDROLYS 30 ML LIQUID.PKT PO SCH ×2 (09:36→17:56)
[2017-05-20] MEDS: ASPIRIN COATED 81 MG TABLET.EC PO SCH (09:37)
[2017-05-20] MEDS: METOPROLOL SUCCINATE 100 MG TAB.SR.24H (FP) PO SCH (09:37)
[2017-05-20] MEDS: DOCUSATE SODIUM 100 MG CAPSULE (FP) PO SCH (09:37)
[2017-05-20] MEDS: LISINOPRIL 5 MG TABLET (FP) PO SCH (09:37)
--- NOTE | 2017-05-20 11:09 | PN ---
Progress Note, Physician Chief Complaint: Events noted Seen in ICU Aphasia and difficult to understand on BIPAP History of Present Illness: Patient was seen and examined. Awake. Chart was reviewed Does not appear to be having any chest pain or palpitations. Right sided weakness - Current Medication List Current Medications: Active Medications Amino Acids (Prosource No Carb Liquid Pkt) 30 ml PO BID@0800,1730 [facility] Last Admin: 05/20/17 09:36 Dose: 30 ml Aspirin (Ecotrin -) 81 mg PO DAILY [facility] Last Admin: 05/20/17 09:37 Dose: 81 mg Atorvastatin Calcium (Lipitor -) 20 mg PO HS [facility] Last Admin: 05/19/17 22:22 Dose: 20 mg Docusate Sodium (Colace -) 100 mg PO DAILY [facility] Last Admin: 05/20/17 09:37 Dose: 100 mg Heparin Sodium (Porcine) (Heparin -) 5,000 unit SQ TID [facility] Last Admin: 05/20/17 06:24 Dose: 5,000 unit Insulin Aspart (Novolog Vial Sliding Scale -) 1 vial SQ ACHS [facility] PRN Reason: Protocol Last Admin: 05/20/17 06:09 Dose: Not Given Lisinopril (Prinivil) 5 mg PO DAILY [facility] Last Admin: 05/20/17 09:37 Dose: 5 mg Metoprolol Succinate (Toprol Xl -) 100 mg PO DAILY [facility] Last Admin: 05/20/17 09:37 Dose: 100 mg Triamcinolone Acetonide (Aristocort 0.1% Lotion -) 1 applic TP BID PRN PRN Reason: FOR ITCHING/RASH - Objective Vital Signs: Vital Signs Temperature 97.5 F L 05/20/17 02:00 Pulse Rate 94 H 05/20/17 09:30 Respiratory Rate 24 05/20/17 09:10 Blood Pressure 130/67 05/20/17 09:10 O2 Sat by Pulse Oximetry (%) 92 L 05/20/17 09:30 Neck: Yes: Supple Cardiovascular: Yes: Regular Rate and Rhythm, S1, S2 Respiratory: Yes: Diminished Gastrointestinal: Yes: Normal Bowel Sounds, Soft. No: Tenderness Edema: Yes Edema: LLE: 1+, RLE: 1+ ...Motor Strength: RUE (Diminshed), RLE (Dimished strength) Additional Findings/Remarks: - Review of Systems Constitutional: denies: Chills, Fever Cardiovascular: (+) Shortness of Breath on BIPAP denies: Chest Pain, Palpitations Respiratory: reports: SOB. denies: Orthopnea, PND Gastrointestinal: denies: Abdominal Pain, Constipation, Diarrhea, Melena, Nausea , Rectal Bleeding, Vomiting Neurological: denies: Weakness. denies: Dizziness, Headache, Seizure, Syncope Labs: CBC, BMP 05/20/17 05:05 05/20/17 05:05 Laboratory Results - last 24 hr 05/20/17 05/20/17 05:05 05:05 WBC 8.2 RBC 3.88 L Hgb 11.8 Hct 36.1 MCV 93.0 MCH 30.3 MCHC 32.6 RDW 13.7 Plt Count 302 MPV 9.2 Neutrophils % 78.4 Lymphocytes % 9.3 Monocytes % 10.6 H Eosinophils % 1.3 Basophils % 0.4 Sodium 150 H Potassium 3.9 Chloride 111 H Carbon Dioxide 33 H Anion Gap 6 L BUN 28 H Creatinine 0.9 Creat Clearance w eGFR > 60 POC Glucometer Random Glucose 156 H Calcium 8.5 Phosphorus 3.0 Magnesium 1.6 L Total Bilirubin 0.8 D AST 11 L D ALT 22 D Alkaline Phosphatase 160 H Total Protein 5.3 L Albumin 2.1 L - ....Imaging Chest X-ray: Report Reviewed (Congestive changes improving) Problem List - Problems (1) Hypercholesterolemia Code(s): E78.00 - PURE HYPERCHOLESTEROLEMIA, UNSPECIFIED (2) Acute respiratory failure with hypoxia Code(s): J96.01 - ACUTE RESPIRATORY FAILURE WITH HYPOXIA (3) [id number] kidney injury Code(s): N17.9 - ACUTE KIDNEY FAILURE, UNSPECIFIED; N18.9 - CHRONIC KIDNEY DISEASE, UNSPECIFIED Qualifiers: Chronic kidney disease stage: stage 2 (mild) (4) Cellulitis Code(s): L03.90 - CELLULITIS, UNSPECIFIED Qualifiers: Site of cellulitis of extremity: lower extremity (5) Cerebrovascular disease Code(s): I67.9 - CEREBROVASCULAR DISEASE, UNSPECIFIED (6) Cor pulmonale (chronic) Code(s): I27.81 - COR PULMONALE (CHRONIC) (7) Coronary artery disease Code(s): I25.10 - ATHSCL HEART DISEASE OF [place] CORONARY ARTERY W/O ANG PCTRS Qualifiers: Coronary Disease-Associated Artery/Lesion type: [place] artery [place] vs. transplanted heart: [place] heart Associated angina: without angina Qualified Code(s): I25.10 - Atherosclerotic heart disease of [place] coronary artery without angina pectoris (8) Diastolic dysfunction with chronic heart failure Code(s): I50.32 - CHRONIC DIASTOLIC (CONGESTIVE) HEART FAILURE (9) Pulmonary hypertension Code(s): I27.20 - PULMONARY HYPERTENSION, UNSPECIFIED (10) S/P CABG (coronary artery bypass graft) Code(s): Z95.1 - PRESENCE OF AORTOCORONARY BYPASS GRAFT (11) Type 2 diabetes mellitus Code(s): E11.9 - TYPE 2 DIABETES MELLITUS WITHOUT COMPLICATIONS Qualifiers: Diabetes mellitus complication status: without complication Diabetes mellitus terminal press operator insulin use: without snf use Qualified Code(s): E11.9 - Type 2 diabetes mellitus without complications Assessment/Plan 1. Acute Hypoxic Respiratory Failure 2. Acute on chronic diastolic failure, pulm hypertension with pleural effusion 3. Cor pulmonale 4. CAD post CABG, angina pectoris 5. 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 HTN/HCVD 6. NIDDM 7. Hyperlipidemia 8. Acute on CKD improving 9. Lower extremity cellulitis 10. Right wrist scaphoid fracture and triquetrum fracture 11. Hypernatremia PLAN: 1. Free water repletion to correct Na, monitor fluid status and give diuretics as needed 2. Continue Lisinopril and closely monitor renal function 3. Continue Toprol XL and titrate dosage as tolerated 4. Continue ASA 5. Continue Lipitor 6. Bronchodilator, O2, BiPAP as tolerated and continue DVT prophylaxis 7. Antibiotics as per the primary team 8. MRI of the brain pending 9. As outlined in prior notes outpatient evaluation of pulmonary hypertension 10. Neurology follow up Further plans are to follow Oswaldo Sunshine MD
--- NOTE | 2017-05-20 12:17 | PN ---
Progress Note, Physician History of Present Illness: stable speech improving continues to have rt side weakness - Current Medication List Current Medications: Active Medications Amino Acids (Prosource No Carb Liquid Pkt) 30 ml PO BID@0800,1730 [facility] Last Admin: 05/20/17 09:36 Dose: 30 ml Aspirin (Ecotrin -) 81 mg PO DAILY [facility] Last Admin: 05/20/17 09:37 Dose: 81 mg Atorvastatin Calcium (Lipitor -) 20 mg PO HS [facility] Last Admin: 05/19/17 22:22 Dose: 20 mg Docusate Sodium (Colace -) 100 mg PO DAILY [facility] Last Admin: 05/20/17 09:37 Dose: 100 mg Heparin Sodium (Porcine) (Heparin -) 5,000 unit SQ TID [facility] Last Admin: 05/20/17 06:24 Dose: 5,000 unit Insulin Aspart (Novolog Vial Sliding Scale -) 1 vial SQ ACHS [facility] PRN Reason: Protocol Last Admin: 05/20/17 11:16 Dose: Not Given Lisinopril (Prinivil) 5 mg PO DAILY [facility] Last Admin: 05/20/17 09:37 Dose: 5 mg Metoprolol Succinate (Toprol Xl -) 100 mg PO DAILY [facility] Last Admin: 05/20/17 09:37 Dose: 100 mg Triamcinolone Acetonide (Aristocort 0.1% Lotion -) 1 applic TP BID PRN PRN Reason: FOR ITCHING/RASH - Objective Vital Signs: Vital Signs Temperature 97.5 F L 05/20/17 02:00 Pulse Rate 94 H 05/20/17 09:30 Respiratory Rate 24 05/20/17 09:10 Blood Pressure 130/67 05/20/17 09:10 O2 Sat by Pulse Oximetry (%) 92 L 05/20/17 09:30 Constitutional: Yes: No Distress, Calm Cardiovascular: Yes: S1, S2 Respiratory: Yes: Regular Gastrointestinal: Yes: Normal Bowel Sounds, Soft Musculoskeletal: Yes: WNL Extremities: Yes: Erythema, Other Neurological: Yes: Alert, Oriented Psychiatric: Yes: Alert, Oriented Labs: CBC, BMP 05/20/17 05:05 05/20/17 05:05 INR, PTT INR 1.42 (0.82-1.09) H 05/10/17 05:10 Assessment/Plan Cor pulmonale, pulmonary hypertension . CAD p . HTN NIDDM Hyperlipidemia Lower extremity cellulitis cva aphasia plan continue current mgmt rest as per primary team
--- NOTE | 2017-05-20 13:18 | PN ---
Progress Note (short form) - Note Progress Note: PULMONARY Remains on BiPAP with 50% FiO2. Continues to diurese well with lasix. Remains aphasic. Last Vital Signs Temp Pulse Resp BP Pulse Ox 97.5 F L 94 H 24 130/67 98 05/20/17 02:00 05/20/17 09:30 05/20/17 09:10 05/20/17 09:10 05/20/17 12:47 Intake & Output 05/17/17 05/18/17 05/19/17 05/20/17 23:59 23:59 23:59 23:59 Intake Total 1675 910 110 Output Total 3950 5900 200 Balance 1675 -3040 -5790 -200 Weight 117.299 kg 116.233 kg 114.39 kg 107.501 kg Gen: mildly tachypneic on BiPAP Heart: RRR Lung: bilateral rhonchi Abd: soft, nontender Ext: + edema improving CBC, BMP 05/20/17 05:05 05/20/17 05:05 Active Medications Amino Acids (Prosource No Carb Liquid Pkt) 30 ml PO BID@0800,1730 [facility] Last Admin: 05/20/17 09:36 Dose: 30 ml Aspirin (Ecotrin -) 81 mg PO DAILY [facility] Last Admin: 05/20/17 09:37 Dose: 81 mg Atorvastatin Calcium (Lipitor -) 20 mg PO HS [facility] Last Admin: 05/19/17 22:22 Dose: 20 mg Docusate Sodium (Colace -) 100 mg PO DAILY [facility] Last Admin: 05/20/17 09:37 Dose: 100 mg Heparin Sodium (Porcine) (Heparin -) 5,000 unit SQ TID [facility] Last Admin: 05/20/17 13:03 Dose: 5,000 unit Insulin Aspart (Novolog Vial Sliding Scale -) 1 vial SQ ACHS [facility] PRN Reason: Protocol Last Admin: 05/20/17 11:16 Dose: Not Given Lisinopril (Prinivil) 5 mg PO DAILY [facility] Last Admin: 05/20/17 09:37 Dose: 5 mg Metoprolol Succinate (Toprol Xl -) 100 mg PO DAILY [facility] Last Admin: 05/20/17 09:37 Dose: 100 mg Triamcinolone Acetonide (Aristocort 0.1% Lotion -) 1 applic TP BID PRN PRN Reason: FOR ITCHING/RASH A/P Acute Hypoxic Respiratory Failure LV Diastolic Dysfunction Pulmonary HTN Acute on Chronic Renal Failure improving Atelectasis CAD s/p CABG HTN DM - hold lasix today to allow equilibration as bicarb rising - monitor urine output, creatinine - O2 to keep SpO2 >90% - BiPAP as needed - monitor CXR - empiric anticoagulation if MRI brain negative - increase PO intake, protein supplement - outpt PFTs, sleep study and possible RHC - DVT prophylaxis Problem List - Problems (1) Acute respiratory failure with hypoxia Code(s): J96.01 - ACUTE RESPIRATORY FAILURE WITH HYPOXIA (2) Cellulitis Code(s): L03.90 - CELLULITIS, UNSPECIFIED Qualifiers: Site of cellulitis of extremity: lower extremity (3) Cor pulmonale (chronic) Code(s): I27.81 - COR PULMONALE (CHRONIC) (4) Coronary artery disease Code(s): I25.10 - ATHSCL HEART DISEASE OF [place] CORONARY ARTERY W/O ANG PCTRS Qualifiers: Coronary Disease-Associated Artery/Lesion type: [place] artery [place] vs. transplanted heart: [place] heart Associated angina: without angina Qualified Code(s): I25.10 - Atherosclerotic heart disease of [place] coronary artery without angina pectoris (5) Diastolic dysfunction with chronic heart failure Code(s): I50.32 - CHRONIC DIASTOLIC (CONGESTIVE) HEART FAILURE (6) S/P CABG (coronary artery bypass graft) Code(s): Z95.1 - PRESENCE OF AORTOCORONARY BYPASS GRAFT (7) Pulmonary hypertension Code(s): I27.20 - PULMONARY HYPERTENSION, UNSPECIFIED (8) Atelectasis Code(s): J98.11 - ATELECTASIS
--- NOTE | 2017-05-20 15:53 | PN ---
Teaching Attending Note Name of Resident: Deandre Smith ATTENDING PHYSICIAN STATEMENT I saw and evaluated the patient. I reviewed the resident's note and discussed the case with the resident. I agree with the resident's findings and plan as documented. SUBJECTIVE: Feels better but continues to desat. without Bipap, will continue for now. OBJECTIVE: Vital Signs Temperature 98.6 F 05/20/17 14:06 Pulse Rate 96 H 05/20/17 14:06 Respiratory Rate 24 05/20/17 14:06 Blood Pressure 134/59 05/20/17 14:06 O2 Sat by Pulse Oximetry (%) 93 L 05/20/17 14:15 CBCD WBC 8.2 K/mm3 (4.0-10.0) 05/20/17 05:05 RBC 3.88 M/mm3 (4.00-5.60) L 05/20/17 05:05 Hgb 11.8 GM/dL (11.7-16.9) 05/20/17 05:05 Hct 36.1 % (35.4-49) 05/20/17 05:05 MCV 93.0 fl (80-96) 05/20/17 05:05 MCHC 32.6 g/dl (32.0-35.9) 05/20/17 05:05 RDW 13.7 % (11.9-15.9) 05/20/17 05:05 Plt Count 302 K/MM3 (134-434) 05/20/17 05:05 MPV 9.2 fl (7.5-11.1) 05/20/17 05:05 CMP Sodium 150 mmol/L (136-145) H 05/20/17 05:05 Potassium 3.9 mmol/L (3.5-5.1) 05/20/17 05:05 Chloride 111 mmol/L (98-107) H 05/20/17 05:05 Carbon Dioxide 33 mmol/L (21-32) H 05/20/17 05:05 Anion Gap 6 (8-16) L 05/20/17 05:05 BUN 28 mg/dL (7-18) H 05/20/17 05:05 Creatinine 0.9 mg/dL (0.7-1.3) 05/20/17 05:05 Creat Clearance w eGFR > 60 (>60) 05/20/17 05:05 Random Glucose 156 mg/dL (74-106) H 05/20/17 05:05 Calcium 8.5 mg/dL (8.5-10.1) 05/20/17 05:05 Total Bilirubin 0.8 mg/dL (0.2-1.0) D 05/20/17 05:05 AST 11 U/L (15-37) L D 05/20/17 05:05 ALT 22 U/L (12-78) D 05/20/17 05:05 Alkaline Phosphatase 160 U/L (45-117) H 05/20/17 05:05 Total Protein 5.3 g/dl (6.4-8.2) L 05/20/17 05:05 Albumin 2.1 g/dl (3.4-5.0) L 05/20/17 05:05 CARDIAC ENZYMES Creatine Kinase 69 IU/L (39-308) 05/09/17 16:45 Troponin I < 0.02 ng/ml (0.00-0.05) 05/10/17 05:10 Current Medications Generic Name Dose Route Start Last Admin Trade Name Qasimq PRN Reason Stop Dose Admin Amino Acids 30 ml 05/16/17 17:30 05/20/17 09:36 Prosource No Carb Liquid Pkt PO 30 ml BID@0800,1730 DOMINIK Administration Aspirin 81 mg 05/10/17 10:00 05/20/17 09:37 Ecotrin - PO 81 mg DAILY DOMINIK Administration Atorvastatin Calcium 20 mg 05/10/17 22:00 05/19/17 22:22 Lipitor - PO 20 mg HS DOMINIK Administration Docusate Sodium 100 mg 05/11/17 10:00 05/20/17 09:37 Colace - PO 100 mg DAILY DOMINIK Administration Heparin Sodium (Porcine) 5,000 unit 05/18/17 14:00 05/20/17 13:03 Heparin - SQ 5,000 unit TID DOMINIK Administration Insulin Aspart 1 vial 05/09/17 22:00 05/20/17 11:16 Novolog Vial Sliding Scale - SQ Not Given ACHS [facility] Protocol Lisinopril 5 mg 05/20/17 10:00 05/20/17 09:37 Prinivil PO 5 mg DAILY DOMINIK Administration Metoprolol Succinate 100 mg 05/18/17 10:00 05/20/17 09:37 Toprol Xl - PO 100 mg DAILY DOMINIK Administration Triamcinolone Acetonide 1 applic 05/10/17 10:00 Aristocort 0.1% Lotion - TP BID PRN FOR ITCHING/RASH Home Medications Medication Instructions Recorded Furosemide [Lasix -] 40 mg PO BID 05/09/17 Glipizide [Glipizide ER] 5 mg PO BID 05/09/17 Ibuprofen 800 mg PO PRN 05/09/17 Metoprolol Succinate [Toprol Xl -] 50 mg PO DAILY 05/09/17 Simvastatin [Zocor -] 40 mg PO DAILY 05/09/17 Sitagliptin Phos/Metformin HCl 1 each PO BID 05/09/17 [Janumet 50-500 mg Tablet] Triamcinolone 0.1% Lotion [Kenalog 60 ml TP PRN 05/09/17 0.1% Top Lotion] Docusate Sodium [Colace] 100 mg PO DAILY 05/10/17 PE: as per resident's note on Bipap. continue ASSESSMENT AND PLAN: Patient is a 81 y/o man with h/o HTN, CAD, DM , diastolic Dysfunction , core pulmonale , who presented with LE edema and erythema and was found to have cellulitis , hospital course was complicated by aphasia and R sided weakness. # Acute aphasia with Right sided weakness: cannot r/o acute CVA; OLd ct of the head an old Infarct. CT ordered to r/o bleed once stable ,can go for CT of the head to r/o bleed, if neg. will start the patient on Anticoagulation. MRI of brain is ordered by neurologist but patient is can't go since needing bipap . continue asa and statin ,continue tele #Acute hypoxic respiratory failure : likely due to interstitial lung edema as third spacing. s/p IV lasix and Albumin x 2 , patient is improving. # R superficial vein thrombosis in greater saphenous vein. Due to increased risk for extension and for progression into DVT , he will be a candidate for AC. Ordered CT to evaluate head Bleed if possible to anticoagulate the patient. Ideally need MRI but since patient is not stable, can't go to MRI . Will check with regarding IVC filter # DAVID: improved # Cellulitis :finished a course of zosyn DVT PX , heparin sq
--- NOTE | 2017-05-20 17:02 | PN ---
Progress Note (short form) - Note Progress Note: Vascular surgery Venous study reviewed. Thrombosis of right gsv. No need for anticoagulation. Pt has a SVT. Adolfo amos DO
[2017-05-20] MEDS: ATORVASTATIN CA 20 MG TABLET (FP) PO SCH (22:38)
--- NOTE | 2017-05-21 04:28 | PN ---
Physical Exam: SUBJECTIVE: Patient seen and examined at bedside in ICU . breathing is better today, denies cough, chest pain , no fever, chills , N/V/D/C. legs cellulites looks better today. OBJECTIVE: Vital Signs Period Temp Pulse Resp BP Sys/Eckert Pulse Ox Last 24 Hr 98.6 F-99.5 F 67-110 24-36 130-158/59-72 92-99 GENERAL: The patient is awake, alert, and fully oriented,aphasic, in moderate respiratory distress, HEAD: Normal with no signs of trauma. with BIPAP mask EYES: sclera anicteric, conjunctiva clear. ENT: moist mucous membranes. NECK:supple. LUNGS:mild tachypnech on BIPAP, CTA B/L .with no accessory muscle use. HEART: Regular rate and rhythm, S1, S2 without murmur, rub or gallop. ABDOMEN: Soft, nontender, nondistended, normoactive bowel sounds, no guarding, no rebound, EXTREMITIES: 2+ pulses, warm, well-perfused, +1 edema. B/L LE cellulitis , right hand swelling with erythema NEUROLOGICAL: not done due to respiratory distress, right side weakness .aphasic ,gait not observed. PSYCH: Normal mood, normal affect. SKIN: Warm, dry, no rashes or lesions noted Laboratory Results - last 24 hr 05/20/17 05/20/17 05/20/17 05:05 05:05 16:50 WBC 8.2 RBC 3.88 L Hgb 11.8 Hct 36.1 MCV 93.0 MCH 30.3 MCHC 32.6 RDW 13.7 Plt Count 302 MPV 9.2 Neutrophils % 78.4 Lymphocytes % 9.3 Monocytes % 10.6 H Eosinophils % 1.3 Basophils % 0.4 Sodium 150 H Potassium 3.9 Chloride 111 H Carbon Dioxide 33 H Anion Gap 6 L BUN 28 H Creatinine 0.9 Creat Clearance w eGFR > 60 POC Glucometer [phone] Random Glucose 156 H Calcium 8.5 Phosphorus 3.0 Magnesium 1.6 L Total Bilirubin 0.8 D AST 11 L D ALT 22 D Alkaline Phosphatase 160 H Total Protein 5.3 L Albumin 2.1 L Active Medications Generic Name Dose Route Start Last Admin Trade Name Freq PRN Reason Stop Dose Admin Amino Acids 30 ml 05/16/17 17:30 05/20/17 17:56 Prosource No Carb Liquid Pkt PO 30 ml BID@0800,1730 DOMINIK Administration Aspirin 81 mg 05/10/17 10:00 05/20/17 09:37 Ecotrin - PO 81 mg DAILY DOMINIK Administration Atorvastatin Calcium 20 mg 05/10/17 22:00 05/20/17 22:38 Lipitor - PO 20 mg HS DOMINIK Administration Docusate Sodium 100 mg 05/11/17 10:00 05/20/17 09:37 Colace - PO 100 mg DAILY DOMINIK Administration Heparin Sodium (Porcine) 5,000 unit 05/18/17 14:00 05/20/17 22:38 Heparin - SQ 5,000 unit TID DOMINIK Administration Insulin Aspart 1 vial 05/09/17 22:00 05/20/17 22:39 Novolog Vial Sliding Scale - SQ 10 units ACHS DOMINIK Administration Protocol Lisinopril 5 mg 05/20/17 10:00 05/20/17 09:37 Prinivil PO 5 mg DAILY DOMINIK Administration Metoprolol Succinate 100 mg 05/18/17 10:00 05/20/17 09:37 Toprol Xl - PO 100 mg DAILY DOMINIK Administration Triamcinolone Acetonide 1 applic 05/10/17 10:00 Aristocort 0.1% Lotion - TP BID PRN FOR ITCHING/RASH CBC, BMP 05/20/17 05:05 05/22/17 05:43 CXR 05/20/2017 : Congestive and infiltrate slightly increased. ASSESSMENT/PLAN: 81 yo M admitted initially for cellulitis and later found to have acute aphasia likely 2/2 CVA and acute respiratory failure. Acute hypoxic respiratory failure likley due to pulmonary edema can not R/O PE, improved today - Ventimask trials - continue BiPAP PRN - Maintain O2 > 90% - CXR yesterday shows worsening congestion ,looks better today , monitor - outpt f/u with pulmonary for PFT and sleep study - give albumin and lasix IV 40 mg yesterday , hold lasix today to allow equilibration as bicarb rising -will evaluate daily and diurese, -dc IVF . -monitor urine output, creatinine - Maintain king - Hypernatremia * Na still in 149 * Monitor BMP * encourage free water intake by mouth, called and discussed with nursing staff * pt has a free water deficit of about 4.21 liters Acute Aphasia with right side weakness - Likely CVA - Cont. asa, lipitor - PT and MRI when stable Cellulitis, B/L lower leg - Improving - d/c zosyn Acute on chronic diastolic heart failure - pulm hypertension with pleural effusion - Class 0-I, stable - ASA 81 mg daily - I&O - daily weight CAD S/P bypass graft , Angina pectoris - Continue ASA R superficial vein thrombosis in GSV - no need for for AC per vascular - started on Hep 5000 SQ TID prophylaxis DAVID on CKD, improved - Returned to baseline Cr 1.5 , today 0.9 - Cont. to hold aldactone, -Continue Lisinopril 5 mg QD per cardiology, monitor kidney function - Avoid nephrotoxic agents -monitor urine output, creatinine - maintain king - Monitor BUN/Cr - lasix 40 today proceeded with albumin 25% given yesterday , will held today due in increased Bicarbonate NIDDM - BGM and SSI Core pulmonale with pulmonary HTN * will follow up as out patient sleep study and possible RHC HTN - Controlled - Continue toprol xl 100 po daily HLD - continue Lipitor 20 mg po HS Right wrist scaphoid fracture and triquetrum fracture * continue to monitor * avoid IV and work on the right hand FEN -Dc fluids - Monitor Na+ - DM diet, thick liquid due to aspiration precaution(May consider downgrading diet to chopped and nectar thick liquid. Ensure Compact./Magic cup) per Tar Worker Prophylaxis - DVT: Heparin 5000 IU sq TID Dispo: * Cont. to observe respiratory status while pending MRI * Monitor NA, BUN/Cr , respiratory distress, volume status Visit type - Emergency Visit Emergency Visit: Yes ED Registration Date: 05/09/17 Care time: The patient presented to the Emergency Department on the above date and was hospitalized for further evaluation of their emergent condition. - New Patient This patient is new to me today: No - Critical Care Critical Care patient: Yes Total Critical Care Time (in minutes): 40 Critical Care Statement: The care of this patient involved high complexity decision making to prevent further life threatening deterioration of the patient 's condition and/or to evaluate & treat vital organ system(s) failure or risk of failure. - Discharge Referral Referred to [facility] No
[2017-05-21] MEDS: HEPARIN NA (PORCINE) 5,000 UNITS/ML 1ML VIAL SQ SCH ×3 (06:20→21:26)
[2017-05-21] MEDS: INSULIN SLIDING SCALE (NOVOLOG) 1 VIAL SQ SCH ×4 (06:23→21:27)
[2017-05-21] MEDS: AMINO ACIDS/PROTEIN HYDROLYS 30 ML LIQUID.PKT PO SCH ×2 (08:13→17:54)
[2017-05-21 09:03] LABS: ANION GAP 6 (8-16); BLOOD UREA NITROGEN 26 mg/dL (7-18); CALCIUM 8.5 mg/dL (8.5-10.1); CHLORIDE 112 mmol/L (98-107); CO2 33 mmol/L (21-32); GLUCOSE,RANDOM 165 mg/dL (74-106); POTASSIUM 3.8 mmol/L (3.5-5.1); SODIUM 151 mmol/L (136-145)
[2017-05-21] MEDS: DOCUSATE SODIUM 100 MG CAPSULE (FP) PO SCH (09:36)
[2017-05-21] MEDS: LISINOPRIL 5 MG TABLET (FP) PO SCH (09:36)
[2017-05-21] MEDS: METOPROLOL SUCCINATE 100 MG TAB.SR.24H (FP) PO SCH (09:36)
[2017-05-21] MEDS: ASPIRIN COATED 81 MG TABLET.EC PO SCH (09:36)
--- NOTE | 2017-05-21 11:11 | PN ---
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 bREATHING IS COMFORTABLE. sWALLOWING REASSESSED. oVERTLY TOLERATING THIN WATER WITHOUT SIGNS OF ASPIRATION. sILENT ASPIRATION CAN NOT BE R/O AT BEDSIDE. cxr NOTED. Pt participated well in therapy session today, able to elicit some numbers in unison and oral reading task. A couple of days of week elicited, rare accuracy in word production in singing Happy BD. He is starting to produce simple sentences, rarely and with struggle and frustration. "Where am I?" "what happened?" He is reporting RUE weakness and pain in right hand/wrist. Left UE now moving without pain. He also reports reduced sensation in right side UE/LE. His comprehension is excellent and he seems oriented and appropriate. Educated again on using Communication board and speech drills provided for self practice. 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 REC: Give him time to elicit words to communicate. Use yes/no questions and pointing to communication board to supplement. PT Rehab placement
--- NOTE | 2017-05-21 12:39 | PN ---
Progress Note, Physician History of Present Illness: Weaned off bipap, comfortable on NC. - Current Medication List Current Medications: Active Medications Amino Acids (Prosource No Carb Liquid Pkt) 30 ml PO BID@0800,1730 [facility] Last Admin: 05/21/17 08:13 Dose: 30 ml Aspirin (Ecotrin -) 81 mg PO DAILY [facility] Last Admin: 05/21/17 09:36 Dose: 81 mg Atorvastatin Calcium (Lipitor -) 20 mg PO HS [facility] Last Admin: 05/20/17 22:38 Dose: 20 mg Docusate Sodium (Colace -) 100 mg PO DAILY [facility] Last Admin: 05/21/17 09:36 Dose: 100 mg Heparin Sodium (Porcine) (Heparin -) 5,000 unit SQ TID [facility] Last Admin: 05/21/17 06:20 Dose: 5,000 unit Insulin Aspart (Novolog Vial Sliding Scale -) 1 vial SQ ACHS [facility] PRN Reason: Protocol Last Admin: 05/21/17 12:11 Dose: 6 units Lisinopril (Prinivil) 5 mg PO DAILY [facility] Last Admin: 05/21/17 09:36 Dose: 5 mg Metoprolol Succinate (Toprol Xl -) 100 mg PO DAILY [facility] Last Admin: 05/21/17 09:36 Dose: 100 mg Triamcinolone Acetonide (Aristocort 0.1% Lotion -) 1 applic TP BID PRN PRN Reason: FOR ITCHING/RASH - Objective Vital Signs: Vital Signs Temperature 99.0 F 05/21/17 07:46 Pulse Rate 95 H 05/21/17 10:30 Respiratory Rate 24 05/21/17 07:46 Blood Pressure 145/60 05/21/17 07:46 O2 Sat by Pulse Oximetry (%) 95 05/21/17 10:30 Constitutional: Yes: No Distress, Calm Neck: Yes: Supple Cardiovascular: Yes: Regular Rate and Rhythm Respiratory: Yes: Regular, Diminished, On Nasal O2 Gastrointestinal: Yes: Normal Bowel Sounds, Soft Edema: Yes Edema: LLE: Trace, RLE: Trace Integumentary: Yes: Venous Stasis Changes Labs: CBC, BMP 05/20/17 05:05 05/21/17 08:15 INR, PTT INR 1.42 (0.82-1.09) H 05/10/17 05:10 - ....Imaging Chest X-ray: Report Reviewed (Slight increase in congestion) EKG: Report Reviewed (Tele: SR w/o PAF) Problem List - Problems (1) Cor pulmonale (chronic) Code(s): I27.81 - COR PULMONALE (CHRONIC) (2) S/P CABG (coronary artery bypass graft) Code(s): Z95.1 - PRESENCE OF AORTOCORONARY BYPASS GRAFT (3) Coronary artery disease Code(s): I25.10 - ATHSCL HEART DISEASE OF [place] CORONARY ARTERY W/O ANG PCTRS Qualifiers: Coronary Disease-Associated Artery/Lesion type: [place] artery [place] vs. transplanted heart: [place] heart Associated angina: without angina Qualified Code(s): I25.10 - Atherosclerotic heart disease of [place] coronary artery without angina pectoris (4) Hyperlipidemia associated with type 2 diabetes mellitus Code(s): E11.69 - TYPE 2 DIABETES MELLITUS WITH OTHER SPECIFIED COMPLICATION; E78.5 - HYPERLIPIDEMIA, UNSPECIFIED (5) Diastolic dysfunction with chronic heart failure Code(s): I50.32 - CHRONIC DIASTOLIC (CONGESTIVE) HEART FAILURE (6) Cellulitis Code(s): L03.90 - CELLULITIS, UNSPECIFIED Qualifiers: Site of cellulitis of extremity: lower extremity (7) Type 2 diabetes mellitus Code(s): E11.9 - TYPE 2 DIABETES MELLITUS WITHOUT COMPLICATIONS Qualifiers: Diabetes mellitus complication status: without complication Diabetes mellitus jail insulin use: without intermodal customer service use Qualified Code(s): E11.9 - Type 2 diabetes mellitus without complications (8) Hypertensive cardiomegaly with heart failure Code(s): I11.0 - HYPERTENSIVE HEART DISEASE WITH HEART FAILURE (9) Xpwou-ed-xdtuwgu kidney injury Code(s): N17.9 - ACUTE KIDNEY FAILURE, UNSPECIFIED; N18.9 - CHRONIC KIDNEY DISEASE, UNSPECIFIED Qualifiers: Chronic kidney disease stage: stage 2 (mild) (10) Cerebrovascular disease Code(s): I67.9 - CEREBROVASCULAR DISEASE, UNSPECIFIED (11) Hypernatremia Code(s): E87.0 - HYPEROSMOLALITY AND HYPERNATREMIA Assessment/Plan 1. Acute Hypoxic Respiratory Failure 2. Acute on chronic diastolic failure, pulm hypertension with pleural effusion 3. Cor pulmonale 4. CAD post CABG, angina pectoris 5. 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 HTN/HCVD 6. NIDDM 7. Hyperlipidemia 8. Acute on CKD improving 9. Lower extremity cellulitis post abx course 10. Right wrist scaphoid fracture and triquetrum fracture 11. Hypernatremia PLAN: 1. Free water repletion to correct Na, monitor fluid status and give diuretics as needed 2. Continue Lisinopril 5 qd and closely monitor renal function 3. Continue Toprol XL 100 qd and titrate dosage as tolerated 4. Continue ASA 81 qd 5. Continue Lipitor 20 qhs 6. Bronchodilator, O2 to keep SpO2 >90%, BiPAP as needed and continue DVT prophylaxis 7. Completed antibiotic course as per the primary team 8. MRI of the brain with neurology follow up pending 9. As outlined in prior notes outpatient evaluation of pulmonary hypertension including outpt PFTs, sleep study and possible RHC
--- NOTE | 2017-05-21 13:56 | PN ---
Progress Note (short form) - Note Progress Note: NIPPV overnight. Currently on 3 L NC O2. Aphasic. Intake & Output 05/18/17 05/19/17 05/20/17 05/21/17 23:59 23:59 23:59 23:59 Intake Total 910 110 280 Output Total 3950 5900 2000 400 Balance -3040 -5790 -1720 -400 Weight 256 lb 4 oz 252 lb 3 oz 237 lb 236 lb 14.4 oz Last Vital Signs Temp Pulse Resp BP Pulse Ox 99.0 F 95 H 24 145/60 95 05/21/17 07:46 05/21/17 10:30 05/21/17 07:46 05/21/17 07:46 05/21/17 10:30 Active Medications Amino Acids (Prosource No Carb Liquid Pkt) 30 ml PO BID@0800,1730 [facility] Last Admin: 05/21/17 08:13 Dose: 30 ml Aspirin (Ecotrin -) 81 mg PO DAILY [facility] Last Admin: 05/21/17 09:36 Dose: 81 mg Atorvastatin Calcium (Lipitor -) 20 mg PO HS [facility] Last Admin: 05/20/17 22:38 Dose: 20 mg Docusate Sodium (Colace -) 100 mg PO DAILY [facility] Last Admin: 05/21/17 09:36 Dose: 100 mg Heparin Sodium (Porcine) (Heparin -) 5,000 unit SQ TID [facility] Last Admin: 05/21/17 06:20 Dose: 5,000 unit Insulin Aspart (Novolog Vial Sliding Scale -) 1 vial SQ ACHS [facility] PRN Reason: Protocol Last Admin: 05/21/17 12:11 Dose: 6 units Lisinopril (Prinivil) 5 mg PO DAILY [facility] Last Admin: 05/21/17 09:36 Dose: 5 mg Metoprolol Succinate (Toprol Xl -) 100 mg PO DAILY [facility] Last Admin: 05/21/17 09:36 Dose: 100 mg Triamcinolone Acetonide (Aristocort 0.1% Lotion -) 1 applic TP BID PRN PRN Reason: FOR ITCHING/RASH Gen: Mildly tachypneic on 3 L NC O2 Heart: RRR Lung: bilateral rhonchi Abd: soft, nontender Ext: (+) edema improving Laboratory Results - last 24 hr 05/20/17 05/21/17 16:50 08:15 Sodium 151 H Potassium 3.8 Chloride 112 H Carbon Dioxide 33 H Anion Gap 6 L BUN 26 H Creatinine 1.0 POC Glucometer [phone] Random Glucose 165 H Calcium 8.5 Problem List - Problems (1) Acute respiratory failure with hypoxia Code(s): J96.01 - ACUTE RESPIRATORY FAILURE WITH HYPOXIA (2) Cellulitis Code(s): L03.90 - CELLULITIS, UNSPECIFIED Qualifiers: Site of cellulitis of extremity: lower extremity (3) Cor pulmonale (chronic) Code(s): I27.81 - COR PULMONALE (CHRONIC) (4) Coronary artery disease Code(s): I25.10 - ATHSCL HEART DISEASE OF [place] CORONARY ARTERY W/O ANG PCTRS Qualifiers: Coronary Disease-Associated Artery/Lesion type: [place] artery [place] vs. transplanted heart: [place] heart Associated angina: without angina Qualified Code(s): I25.10 - Atherosclerotic heart disease of [place] coronary artery without angina pectoris (5) Diastolic dysfunction with chronic heart failure Code(s): I50.32 - CHRONIC DIASTOLIC (CONGESTIVE) HEART FAILURE (6) S/P CABG (coronary artery bypass graft) Code(s): Z95.1 - PRESENCE OF AORTOCORONARY BYPASS GRAFT (7) Pulmonary hypertension Code(s): I27.20 - PULMONARY HYPERTENSION, UNSPECIFIED (8) Atelectasis Code(s): J98.11 - ATELECTASIS A/P Acute Hypoxic Respiratory Failure LV Diastolic Dysfunction Pulmonary HTN Acute on Chronic Renal Failure improving Atelectasis CAD s/p CABG HTN DM - Daily assessment for the need for Lasix : Hold today. - Monitor urine output, creatinine - O2 to keep SpO2 >90% - NIPPV as needed - Monitor CXR - Increase PO intake, protein supplement - Outpt PFTs, sleep study and possible RHC - DVT prophylaxis Dr Mariee
--- NOTE | 2017-05-21 16:00 | CONSULT ---
Consult Consult Specialty:: Nephrology Reason for Consultation:: hypernatremia - History of Present Illness Chief Complaint: initially presented with leg weakness History of Present Illness: Pt is a 81 year old male with pmhx of DM, CAD, CHF, HTN, CKD, and chol who initially presented with lower extremity weakness. Pt has had a prolonged hospital stay and is unable to give history. He denies history of kidney disease. He developed renal failure after admission which was treated with fluids. Pt improved but then developed congestion and required diuretics. I was called to assess his volume status and for his hypernatremia. He says that his breathing is comfortable today. Pt was on nsaids at home. Chart, labs and meds reviewed. Called and discussed with medical team. 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 Cardio/Vascular: Yes: CAD, HTN, Hyperlipdemia Renal/: Yes: Other (DAVID) - Alcohol/Substance Use Hx Alcohol Use: No - Smoking History Smoking history: Never smoked Have you smoked in the past 12 months: No Aproximately how many cigarettes per day: 0 Home Medications - Allergies Allergies/Adverse Reactions: Allergies Allergy/AdvReac Type Severity Reaction Status Date / Time No Known Allergies Allergy Verified 05/09/17 17:28 - Home Medications Home Medications: Ambulatory Orders Furosemide [Lasix -] 40 mg PO BID 05/09/17 Glipizide [Glipizide ER] 5 mg PO BID 05/09/17 Ibuprofen 800 mg PO PRN 05/09/17 Metoprolol Succinate [Toprol Xl -] 50 mg PO DAILY 05/09/17 Simvastatin [Zocor -] 40 mg PO DAILY 05/09/17 Sitagliptin Phos/Metformin HCl [Janumet 50-500 mg Tablet] 1 each PO BID Triamcinolone 0.1% Lotion [Kenalog 0.1% Top Lotion] 60 ml TP PRN 05/09/17 Docusate Sodium [Colace] 100 mg PO DAILY 05/10/17 Family Disease History - Family Disease History Family History: Denies Review of Systems - Review of Systems Constitutional: reports: Malaise Eyes: reports: No Symptoms HENT: reports: No Symptoms Neck: reports: No Symptoms Cardiovascular: reports: Edema, Shortness of Breath Respiratory: reports: SOB, SOB on Exertion Gastrointestinal: reports: No Symptoms Genitourinary: reports: No Symptoms Musculoskeletal: reports: No Symptoms Neurological: reports: Change in Speech Endocrine: reports: No Symptoms Hematology/Lymphatic: reports: No Symptoms Physical Exam Vital Signs: Vital Signs Temperature 99.4 F 05/21/17 15:44 Pulse Rate 96 H 05/21/17 15:44 Respiratory Rate 32 H 05/21/17 15:44 Blood Pressure 132/59 05/21/17 15:44 O2 Sat by Pulse Oximetry (%) 95 05/21/17 10:30 Constitutional: Yes: Calm Eyes: Yes: Conjunctiva Clear HENT: Yes: Atraumatic Cardiovascular: Yes: S1, S2 Respiratory: Yes: On Venti-Mask Gastrointestinal: Yes: Soft Renal/: Yes: [place]ado Present Edema: Yes Edema: LLE: Trace, RLE: Trace Neurological: Yes: Oriented Labs: CBC, BMP 05/20/17 05:05 05/21/17 08:15 Laboratory Tests 05/09/17 05/10/17 05/11/17 16:45 05:10 05:10 Creatinine 1.5 H 1.6 H 2.0 H D 05/12/17 05/14/17 05/15/17 06:25 05:00 11:35 Creatinine 2.4 H 2.5 H 2.0 H 05/16/17 06:00 Creatinine 1.7 H Imaging - Results Chest X-ray: Report Reviewed Ultrasound: Report Reviewed (bilateral renal cysts) Problem List - Problems (1) Hypernatremia Code(s): E87.0 - HYPEROSMOLALITY AND HYPERNATREMIA (2) Acute respiratory failure with hypoxia Code(s): J96.01 - ACUTE RESPIRATORY FAILURE WITH HYPOXIA (3) Fggan-tn-tctjdmf kidney injury Code(s): N17.9 - ACUTE KIDNEY FAILURE, UNSPECIFIED; N18.9 - CHRONIC KIDNEY DISEASE, UNSPECIFIED Qualifiers: Chronic kidney disease stage: stage 2 (mild) (4) Atelectasis Code(s): J98.11 - ATELECTASIS (5) Chronic kidney disease Code(s): N18.9 - CHRONIC KIDNEY DISEASE, UNSPECIFIED Qualifiers: Chronic kidney disease stage: stage 2 (mild) Qualified Code(s): N18.2 - Chronic kidney disease, stage 2 (mild) Assessment/Plan Current Medications Generic Name Dose Route Start Last Admin Trade Name Freq PRN Reason Stop Dose Admin Amino Acids 30 ml 05/16/17 17:30 05/21/17 08:13 Prosource No Carb Liquid Pkt PO 30 ml BID@0800,1730 DOMINIK Administration Aspirin 81 mg 05/10/17 10:00 05/21/17 09:36 Ecotrin - PO 81 mg DAILY DOMINIK Administration Atorvastatin Calcium 20 mg 05/10/17 22:00 05/20/17 22:38 Lipitor - PO 20 mg HS DOMINIK Administration Docusate Sodium 100 mg 05/11/17 10:00 05/21/17 09:36 Colace - PO 100 mg DAILY DOMINIK Administration Heparin Sodium (Porcine) 5,000 unit 05/18/17 14:00 05/21/17 14:06 Heparin - SQ 5,000 unit TID DOMINIK Administration Insulin Aspart 1 vial 05/09/17 22:00 05/21/17 12:11 Novolog Vial Sliding Scale - SQ 6 units ACHS DOMINIK Administration Protocol Lisinopril 5 mg 05/20/17 10:00 05/21/17 09:36 Prinivil PO 5 mg DAILY DOMINIK Administration Metoprolol Succinate 100 mg 05/18/17 10:00 05/21/17 09:36 Toprol Xl - PO 100 mg DAILY DOMINIK Administration Triamcinolone Acetonide 1 applic 05/10/17 10:00 Aristocort 0.1% Lotion - TP BID PRN FOR ITCHING/RASH chart and notes reviewed Impression 1. Hypernatremia 2. david resolved 3. HTN 4. respiratory failure requiring bipap 5. hypoxia 6. CHF 7. DM 8. hyperlipidemia 9. acute aphasia 10. cellulitis Plan - reviewed chart and reviewed labs - pt responded to diuretics - cont with lasix as needed - encourage free water intake by mouth, called and discussed with nursing staff - pt has a free water deficit of about 4.21 liters - would avoid giving IV fluids as he is still congested - repeat labs in am - repeat cxr in am - cont with oxygen and monitor pulse ox - discussed with medical attending - will follow Dr Kat
--- NOTE | 2017-05-21 16:40 | PN ---
Progress Note, Physician History of Present Illness: stable speech improving continues to have rt side weakness patient no issues - Current Medication List Current Medications: Active Medications Amino Acids (Prosource No Carb Liquid Pkt) 30 ml PO BID@0800,1730 [facility] Last Admin: 05/21/17 08:13 Dose: 30 ml Aspirin (Ecotrin -) 81 mg PO DAILY [facility] Last Admin: 05/21/17 09:36 Dose: 81 mg Atorvastatin Calcium (Lipitor -) 20 mg PO HS [facility] Last Admin: 05/20/17 22:38 Dose: 20 mg Docusate Sodium (Colace -) 100 mg PO DAILY [facility] Last Admin: 05/21/17 09:36 Dose: 100 mg Heparin Sodium (Porcine) (Heparin -) 5,000 unit SQ TID [facility] Last Admin: 05/21/17 14:06 Dose: 5,000 unit Insulin Aspart (Novolog Vial Sliding Scale -) 1 vial SQ ACHS [facility] PRN Reason: Protocol Last Admin: 05/21/17 12:11 Dose: 6 units Lisinopril (Prinivil) 5 mg PO DAILY [facility] Last Admin: 05/21/17 09:36 Dose: 5 mg Metoprolol Succinate (Toprol Xl -) 100 mg PO DAILY [facility] Last Admin: 05/21/17 09:36 Dose: 100 mg Triamcinolone Acetonide (Aristocort 0.1% Lotion -) 1 applic TP BID PRN PRN Reason: FOR ITCHING/RASH - Objective Vital Signs: Vital Signs Temperature 99.4 F 05/21/17 15:44 Pulse Rate 96 H 05/21/17 15:44 Respiratory Rate 32 H 05/21/17 15:44 Blood Pressure 132/59 05/21/17 15:44 O2 Sat by Pulse Oximetry (%) 95 05/21/17 10:30 Constitutional: Yes: No Distress, Calm Cardiovascular: Yes: Other Respiratory: Yes: Regular, On Venti-Mask, Poor Air Entry Gastrointestinal: Yes: Normal Bowel Sounds, Soft Musculoskeletal: Yes: WNL Extremities: Yes: Other Neurological: Yes: Alert, Oriented Psychiatric: Yes: Alert, Oriented Labs: CBC, BMP 05/20/17 05:05 05/21/17 08:15 INR, PTT INR 1.42 (0.82-1.09) H 05/10/17 05:10 Assessment/Plan Cor pulmonale, pulmonary hypertension . CAD p . HTN NIDDM Hyperlipidemia Lower extremity cellulitis cva aphasia plan continue current mgmt rest as per primary team wound care
--- NOTE | 2017-05-21 17:29 | PN ---
Teaching Attending Note Name of Resident: Deandre Smith ATTENDING PHYSICIAN STATEMENT I saw and evaluated the patient. I reviewed the resident's note and discussed the case with the resident. I agree with the resident's findings and plan as documented. SUBJECTIVE: Patient is feeling better now, on VM vs Bipap, still having difficulty with speech, and with his right arm. OBJECTIVE: Vital Signs Temperature 99.4 F 05/21/17 15:44 Pulse Rate 92 H 05/21/17 17:26 Respiratory Rate 32 H 05/21/17 15:44 Blood Pressure 132/59 05/21/17 15:44 O2 Sat by Pulse Oximetry (%) 97 05/21/17 17:26 CBCD WBC 8.2 K/mm3 (4.0-10.0) 05/20/17 05:05 RBC 3.88 M/mm3 (4.00-5.60) L 05/20/17 05:05 Hgb 11.8 GM/dL (11.7-16.9) 05/20/17 05:05 Hct 36.1 % (35.4-49) 05/20/17 05:05 MCV 93.0 fl (80-96) 05/20/17 05:05 MCHC 32.6 g/dl (32.0-35.9) 05/20/17 05:05 RDW 13.7 % (11.9-15.9) 05/20/17 05:05 Plt Count 302 K/MM3 (134-434) 05/20/17 05:05 MPV 9.2 fl (7.5-11.1) 05/20/17 05:05 CMP Sodium 151 mmol/L (136-145) H 05/21/17 08:15 Potassium 3.8 mmol/L (3.5-5.1) 05/21/17 08:15 Chloride 112 mmol/L (98-107) H 05/21/17 08:15 Carbon Dioxide 33 mmol/L (21-32) H 05/21/17 08:15 Anion Gap 6 (8-16) L 05/21/17 08:15 BUN 26 mg/dL (7-18) H 05/21/17 08:15 Creatinine 1.0 mg/dL (0.7-1.3) 05/21/17 08:15 Creat Clearance w eGFR > 60 (>60) 05/20/17 05:05 Random Glucose 165 mg/dL (74-106) H 05/21/17 08:15 Calcium 8.5 mg/dL (8.5-10.1) 05/21/17 08:15 Total Bilirubin 0.8 mg/dL (0.2-1.0) D 05/20/17 05:05 AST 11 U/L (15-37) L D 05/20/17 05:05 ALT 22 U/L (12-78) D 05/20/17 05:05 Alkaline Phosphatase 160 U/L (45-117) H 05/20/17 05:05 Total Protein 5.3 g/dl (6.4-8.2) L 05/20/17 05:05 Albumin 2.1 g/dl (3.4-5.0) L 05/20/17 05:05 CARDIAC ENZYMES Creatine Kinase 69 IU/L (39-308) 05/09/17 16:45 Troponin I < 0.02 ng/ml (0.00-0.05) 05/10/17 05:10 Current Medications Generic Name Dose Route Start Last Admin Trade Name Freq PRN Reason Stop Dose Admin Amino Acids 30 ml 05/16/17 17:30 05/21/17 08:13 Prosource No Carb Liquid Pkt PO 30 ml BID@0800,1730 DOMINIK Administration Aspirin 81 mg 05/10/17 10:00 05/21/17 09:36 Ecotrin - PO 81 mg DAILY DOMINIK Administration Atorvastatin Calcium 20 mg 05/10/17 22:00 05/20/17 22:38 Lipitor - PO 20 mg HS DOMINIK Administration Docusate Sodium 100 mg 05/11/17 10:00 05/21/17 09:36 Colace - PO 100 mg DAILY DOMINIK Administration Heparin Sodium (Porcine) 5,000 unit 05/18/17 14:00 05/21/17 14:06 Heparin - SQ 5,000 unit TID DOMINIK Administration Insulin Aspart 1 vial 05/09/17 22:00 05/21/17 12:11 Novolog Vial Sliding Scale - SQ 6 units ACHS DOMINIK Administration Protocol Lisinopril 5 mg 05/20/17 10:00 05/21/17 09:36 Prinivil PO 5 mg DAILY DOMINIK Administration Metoprolol Succinate 100 mg 05/18/17 10:00 05/21/17 09:36 Toprol Xl - PO 100 mg DAILY DOMINIK Administration Triamcinolone Acetonide 1 applic 05/10/17 10:00 Aristocort 0.1% Lotion - TP BID PRN FOR ITCHING/RASH Home Medications Medication Instructions Recorded Furosemide [Lasix -] 40 mg PO BID 05/09/17 Glipizide [Glipizide ER] 5 mg PO BID 05/09/17 Ibuprofen 800 mg PO PRN 05/09/17 Metoprolol Succinate [Toprol Xl -] 50 mg PO DAILY 05/09/17 Simvastatin [Zocor -] 40 mg PO DAILY 05/09/17 Sitagliptin Phos/Metformin HCl 1 each PO BID 05/09/17 [Janumet 50-500 mg Tablet] Triamcinolone 0.1% Lotion [Kenalog 60 ml TP PRN 05/09/17 0.1% Top Lotion] Docusate Sodium [Colace] 100 mg PO DAILY 05/10/17 PE: as per resident's note on VM today , decreased BS BL ASSESSMENT AND PLAN: Patient is a 81 y/o man with h/o HTN, CAD, DM , diastolic Dysfunction , cor pulmonale , who presented with LE edema and erythema and was found to have cellulitis , hospital course was complicated by aphasia and R sided weakness. 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 #Acute hypoxic respiratory failure : likely due to interstitial lung edema as third spacing. s/p IV lasix and Albumin x 2 , patient is improving. # R superficial vein thrombosis in greater saphenous vein. As per , no need to anticoagute the patient. # DAVID: improved # Cellulitis improved finished a course of Zosyn. ID on The case. DVT PX , heparin sq
[2017-05-21] MEDS: ATORVASTATIN CA 20 MG TABLET (FP) PO SCH (21:27)
[2017-05-22] MEDS ORDERED: ACETAMINOPHEN 1000 MG/100 ML VIAL (NON FORMULARY) IVPB ONE (02:45)
[2017-05-22] MEDS: HEPARIN NA (PORCINE) 5,000 UNITS/ML 1ML VIAL SQ SCH ×3 (05:39→22:38)
[2017-05-22] MEDS: INSULIN SLIDING SCALE (NOVOLOG) 1 VIAL SQ SCH ×4 (06:08→22:38)
[2017-05-22 06:47] LABS: ANION GAP 8 (8-16); BLOOD UREA NITROGEN 27 mg/dL (7-18); CALCIUM 8.9 mg/dL (8.5-10.1); CHLORIDE 109 mmol/L (98-107); CO2 32 mmol/L (21-32); GLUCOSE,RANDOM 201 mg/dL (74-106); MAGNESIUM 1.8 mg/dL (1.8-2.4); PHOSPHOROUS 3.1 mg/dL (2.5-4.9); POTASSIUM 4.4 mmol/L (3.5-5.1); SGOT/AST 10 U/L (15-37); SGPT/ALT 18 U/L (12-78); SODIUM 149 mmol/L (136-145)
[2017-05-22 06:48] LABS: ALK PHOS 155 U/L (45-117); BILIRUBIN,TOTAL 0.6 mg/dL (0.2-1.0); TOT PROT 5.5 g/dl (6.4-8.2)
[2017-05-22] MEDS: AMINO ACIDS/PROTEIN HYDROLYS 30 ML LIQUID.PKT PO SCH ×2 (09:20→18:19)
[2017-05-22] MEDS: METOPROLOL SUCCINATE 100 MG TAB.SR.24H (FP) PO SCH (09:20)
[2017-05-22] MEDS: ASPIRIN COATED 81 MG TABLET.EC PO SCH (09:20)
[2017-05-22] MEDS: LISINOPRIL 5 MG TABLET (FP) PO SCH (09:20)
[2017-05-22] MEDS: DOCUSATE SODIUM 100 MG CAPSULE (FP) PO SCH (09:20)
--- NOTE | 2017-05-22 10:39 | PN ---
Progress Note (short form) - Note Progress Note: NIPPV overnight. Currently on 50% VM in NAD. Still with expressive aphasia. Intake & Output 05/19/17 05/20/17 05/21/17 05/22/17 23:59 23:59 23:59 23:59 Intake Total 517 646 4478 Output Total 5900 2000 1000 1000 Balance -5790 -1720 66 -1000 Weight 252 lb 3 oz 237 lb 236 lb 14.4 oz 239 lb 6.4 oz Last Vital Signs Temp Pulse Resp BP Pulse Ox 100.9 F H 101 H 22 151/79 96 05/22/17 02:00 05/22/17 02:00 05/22/17 02:00 05/22/17 02:00 05/22/17 09:20 Active Medications Amino Acids (Prosource No Carb Liquid Pkt) 30 ml PO BID@0800,1730 [facility] Last Admin: 05/22/17 09:20 Dose: 30 ml Aspirin (Ecotrin -) 81 mg PO DAILY [facility] Last Admin: 05/22/17 09:20 Dose: 81 mg Atorvastatin Calcium (Lipitor -) 20 mg PO HS [facility] Last Admin: 05/21/17 21:27 Dose: 20 mg Docusate Sodium (Colace -) 100 mg PO DAILY [facility] Last Admin: 05/22/17 09:20 Dose: 100 mg Heparin Sodium (Porcine) (Heparin -) 5,000 unit SQ TID [facility] Last Admin: 05/22/17 05:39 Dose: 5,000 unit Insulin Aspart (Novolog Vial Sliding Scale -) 1 vial SQ ACHS [facility] PRN Reason: Protocol Last Admin: 05/22/17 06:08 Dose: 4 units Lisinopril (Prinivil) 5 mg PO DAILY [facility] Last Admin: 05/22/17 09:20 Dose: 5 mg Metoprolol Succinate (Toprol Xl -) 100 mg PO DAILY [facility] Last Admin: 05/22/17 09:20 Dose: 100 mg Triamcinolone Acetonide (Aristocort 0.1% Lotion -) 1 applic TP BID PRN PRN Reason: FOR ITCHING/RASH Gen: Mildly tachypneic on 50% VM O2 Heart: RRR Lung: bilateral rhonchi Abd: soft, nontender Ext: (+) edema improving Laboratory Results - last 24 hr 05/22/17 05:43 Sodium 149 H Potassium 4.4 Chloride 109 H Carbon Dioxide 32 Anion Gap 8 BUN 27 H Creatinine 1.0 Creat Clearance w eGFR > 60 Random Glucose 201 H D Calcium 8.9 Phosphorus 3.1 Magnesium 1.8 Total Bilirubin 0.6 D AST 10 L ALT 18 Alkaline Phosphatase 155 H Total Protein 5.5 L Albumin 2.0 L Problem List - Problems (1) Acute respiratory failure with hypoxia Code(s): J96.01 - ACUTE RESPIRATORY FAILURE WITH HYPOXIA (2) Cellulitis Code(s): L03.90 - CELLULITIS, UNSPECIFIED Qualifiers: Site of cellulitis of extremity: lower extremity (3) Cor pulmonale (chronic) Code(s): I27.81 - COR PULMONALE (CHRONIC) (4) Coronary artery disease Code(s): I25.10 - ATHSCL HEART DISEASE OF [place] CORONARY ARTERY W/O ANG PCTRS Qualifiers: Coronary Disease-Associated Artery/Lesion type: [place] artery [place] vs. transplanted heart: [place] heart Associated angina: without angina Qualified Code(s): I25.10 - Atherosclerotic heart disease of [place] coronary artery without angina pectoris (5) Diastolic dysfunction with chronic heart failure Code(s): I50.32 - CHRONIC DIASTOLIC (CONGESTIVE) HEART FAILURE (6) S/P CABG (coronary artery bypass graft) Code(s): Z95.1 - PRESENCE OF AORTOCORONARY BYPASS GRAFT (7) Pulmonary hypertension Code(s): I27.20 - PULMONARY HYPERTENSION, UNSPECIFIED (8) Atelectasis Code(s): J98.11 - ATELECTASIS A/P Acute Hypoxic Respiratory Failure LV Diastolic Dysfunction Pulmonary HTN Acute on Chronic Renal Failure improving Atelectasis CAD s/p CABG HTN DM - Daily assessment for the need for Lasix : Hold today. - Check CXR in the AM - Monitor urine output, creatinine - O2 to keep SpO2 >90% - NIPPV as needed - PO as tolerated - DVT prophylaxis Dr Mariee
--- NOTE | 2017-05-22 15:24 | PN ---
Progress Note, Physician History of Present Illness: Pt seen and examined. Events noted. Pt is alert, afebrile. Verbally responsive but still with aphasia, is frustrated. No specific complaints. On Ventimask. - Current Medication List Current Medications: Active Medications Amino Acids (Prosource No Carb Liquid Pkt) 30 ml PO BID@0800,1730 [facility] Last Admin: 05/22/17 09:20 Dose: 30 ml Aspirin (Ecotrin -) 81 mg PO DAILY [facility] Last Admin: 05/22/17 09:20 Dose: 81 mg Atorvastatin Calcium (Lipitor -) 20 mg PO HS [facility] Last Admin: 05/21/17 21:27 Dose: 20 mg Docusate Sodium (Colace -) 100 mg PO DAILY [facility] Last Admin: 05/22/17 09:20 Dose: 100 mg Heparin Sodium (Porcine) (Heparin -) 5,000 unit SQ TID [facility] Last Admin: 05/22/17 13:50 Dose: 5,000 unit Insulin Aspart (Novolog Vial Sliding Scale -) 1 vial SQ ACHS [facility] PRN Reason: Protocol Last Admin: 05/22/17 12:53 Dose: 6 units Lisinopril (Prinivil) 5 mg PO DAILY [facility] Last Admin: 05/22/17 09:20 Dose: 5 mg Metoprolol Succinate (Toprol Xl -) 100 mg PO DAILY [facility] Last Admin: 05/22/17 09:20 Dose: 100 mg Triamcinolone Acetonide (Aristocort 0.1% Lotion -) 1 applic TP BID PRN PRN Reason: FOR ITCHING/RASH - Objective Vital Signs: Vital Signs Temperature 98.4 F 05/22/17 10:00 Pulse Rate 91 H 05/22/17 10:00 Respiratory Rate 24 05/22/17 10:00 Blood Pressure 147/69 05/22/17 10:00 O2 Sat by Pulse Oximetry (%) 93 L 05/22/17 10:00 Constitutional: Yes: No Distress Cardiovascular: Yes: Regular Rate and Rhythm Respiratory: Yes: Regular Gastrointestinal: Yes: Normal Bowel Sounds, Soft Extremities: Yes: Other (B/L LE chronic stasis changes, erythema, minimal warmth. No open draining lesions.) Neurological: Yes: Alert, Aphasia Labs: CBC, BMP 05/20/17 05:05 05/22/17 05:43 INR, PTT INR 1.42 (0.82-1.09) H 05/10/17 05:10 Problem List - Problems (1) Cellulitis Code(s): L03.90 - CELLULITIS, UNSPECIFIED Qualifiers: Site of cellulitis of extremity: lower extremity (2) Cerebrovascular disease Code(s): I67.9 - CEREBROVASCULAR DISEASE, UNSPECIFIED (3) Cor pulmonale (chronic) Code(s): I27.81 - COR PULMONALE (CHRONIC) (4) Coronary artery disease Code(s): I25.10 - ATHSCL HEART DISEASE OF [place] CORONARY ARTERY W/O ANG PCTRS Qualifiers: Coronary Disease-Associated Artery/Lesion type: [place] artery [place] vs. transplanted heart: [place] heart Associated angina: without angina Qualified Code(s): I25.10 - Atherosclerotic heart disease of [place] coronary artery without angina pectoris (5) Hyperlipidemia associated with type 2 diabetes mellitus Code(s): E11.69 - TYPE 2 DIABETES MELLITUS WITH OTHER SPECIFIED COMPLICATION; E78.5 - HYPERLIPIDEMIA, UNSPECIFIED Assessment/Plan LE cellulitis - improved CVA - now off antibiotics, stable - continue monitor
--- NOTE | 2017-05-22 16:28 | PN ---
Physical Exam: SUBJECTIVE: Patient seen and examined Patient is feeling better , on VM, improving , able to communicate. OBJECTIVE: Vital Signs Temperature 98.7 F 05/22/17 15:24 Pulse Rate 88 05/22/17 15:24 Respiratory Rate 26 H 05/22/17 15:24 Blood Pressure 142/70 05/22/17 15:24 O2 Sat by Pulse Oximetry (%) 93 L 05/22/17 10:00 GENERAL: The patient is awake, with some expressive aphasia . HEAD: Normal with no signs of trauma. EYES: PERRL, extraocular movements intact, sclera anicteric, conjunctiva clear. ENT: Ears normal, oropharynx clear without exudates, moist mucous membranes. NECK: Trachea midline, full range of motion, supple. LUNGS: decreased Breath sounds BL, mild crackles at the basis. HEART: Regular rate and rhythm, S1, S2 without murmur, rub or gallop. ABDOMEN: Soft, nontender, no guarding, no rebound, no hepatosplenomegaly, no masses appreciated EXTREMITIES: 2+ pulses, warm, well-perfused, 2 plus edema BL with open wound. NEUROLOGICAL: Cranial nerves II through XII grossly intact. Normal speech, gait not observed. PSYCH: Normal mood, normal affect. SKIN: Warm, dry. Current Medications Generic Name Dose Route Start Last Admin Trade Name Freq PRN Reason Stop Dose Admin Amino Acids 30 ml 05/16/17 17:30 05/22/17 09:20 Prosource No Carb Liquid Pkt PO 30 ml BID@0800,1730 DOMINIK Administration Aspirin 81 mg 05/10/17 10:00 05/22/17 09:20 Ecotrin - PO 81 mg DAILY DOMINIK Administration Atorvastatin Calcium 20 mg 05/10/17 22:00 05/21/17 21:27 Lipitor - PO 20 mg HS DOMINIK Administration Docusate Sodium 100 mg 05/11/17 10:00 05/22/17 09:20 Colace - PO 100 mg DAILY DOMINIK Administration Heparin Sodium (Porcine) 5,000 unit 05/18/17 14:00 05/22/17 13:50 Heparin - SQ 5,000 unit TID DOMINIK Administration Insulin Aspart 1 vial 05/09/17 22:00 05/22/17 12:53 Novolog Vial Sliding Scale - SQ 6 units ACHS DOMINIK Administration Protocol Lisinopril 5 mg 05/20/17 10:00 05/22/17 09:20 Prinivil PO 5 mg DAILY DOMINIK Administration Metoprolol Succinate 100 mg 05/18/17 10:00 05/22/17 09:20 Toprol Xl - PO 100 mg DAILY DOMINIK Administration Triamcinolone Acetonide 1 applic 05/10/17 10:00 Aristocort 0.1% Lotion - TP BID PRN FOR ITCHING/RASH Home Medications Medication Instructions Recorded Furosemide [Lasix -] 40 mg PO BID 05/09/17 Glipizide [Glipizide ER] 5 mg PO BID 05/09/17 Ibuprofen 800 mg PO PRN 05/09/17 Metoprolol Succinate [Toprol Xl -] 50 mg PO DAILY 05/09/17 Simvastatin [Zocor -] 40 mg PO DAILY 05/09/17 Sitagliptin Phos/Metformin HCl 1 each PO BID 05/09/17 [Janumet 50-500 mg Tablet] Triamcinolone 0.1% Lotion [Kenalog 60 ml TP PRN 05/09/17 0.1% Top Lotion] Docusate Sodium [Colace] 100 mg PO DAILY 05/10/17 ASSESSMENT AND PLAN: Patient is a 81 y/o man with h/o HTN, CAD, DM , diastolic Dysfunction , cor pulmonale , who presented with LE edema and erythema and was found to have cellulitis , hospital course was complicated by aphasia and R sided weakness. # Acute aphasia with Right sided weakness; acute over chronic, old CVA : with hx of an old stroke reported on the CT scan . Mri ordered if patient gets stable to have it done. On aspirin and Lipitor continue # Acute Hypernatremia continue with free water intake, since patient can go into flesh pulmonary edema. nephro on the case. #Acute hypoxic respiratory failure : likely due to interstitial lung edema as third spacing. s/p IV lasix and Albumin x 2 , patient is improving. # R superficial vein thrombosis in greater saphenous vein. As per , no need to anticoagute the patient. # DAVID: improved # Cellulitis improved finished a course of Zosyn. ID on The case. DVT PX , heparin sq Visit type - Emergency Visit Emergency Visit: Yes ED Registration Date: 05/09/17 Care time: The patient presented to the Emergency Department on the above date and was hospitalized for further evaluation of their emergent condition. - New Patient This patient is new to me today: No - Critical Care Critical Care patient: No - Discharge Referral Referred to [facility] No
--- NOTE | 2017-05-22 18:12 | PN ---
Progress Note, Physician History of Present Illness: Weaned off bipap, comfortable on 40% VM. Aphasic. - Current Medication List Current Medications: Active Medications Amino Acids (Prosource No Carb Liquid Pkt) 30 ml PO BID@0800,1730 [facility] Last Admin: 05/22/17 09:20 Dose: 30 ml Aspirin (Ecotrin -) 81 mg PO DAILY [facility] Last Admin: 05/22/17 09:20 Dose: 81 mg Atorvastatin Calcium (Lipitor -) 20 mg PO HS [facility] Last Admin: 05/21/17 21:27 Dose: 20 mg Docusate Sodium (Colace -) 100 mg PO DAILY [facility] Last Admin: 05/22/17 09:20 Dose: 100 mg Heparin Sodium (Porcine) (Heparin -) 5,000 unit SQ TID [facility] Last Admin: 05/22/17 13:50 Dose: 5,000 unit Insulin Aspart (Novolog Vial Sliding Scale -) 1 vial SQ ACHS [facility] PRN Reason: Protocol Last Admin: 05/22/17 18:04 Dose: 2 units Lisinopril (Prinivil) 5 mg PO DAILY [facility] Last Admin: 05/22/17 09:20 Dose: 5 mg Metoprolol Succinate (Toprol Xl -) 100 mg PO DAILY [facility] Last Admin: 05/22/17 09:20 Dose: 100 mg Triamcinolone Acetonide (Aristocort 0.1% Lotion -) 1 applic TP BID PRN PRN Reason: FOR ITCHING/RASH - Objective Vital Signs: Vital Signs Temperature 98.7 F 05/22/17 15:24 Pulse Rate 88 05/22/17 15:24 Respiratory Rate 26 H 05/22/17 15:24 Blood Pressure 142/70 05/22/17 15:24 O2 Sat by Pulse Oximetry (%) 93 L 05/22/17 10:00 Constitutional: Yes: No Distress, Calm Neck: Yes: Supple Cardiovascular: Yes: Regular Rate and Rhythm Respiratory: Yes: Regular, Diminished, On Venti-Mask Gastrointestinal: Yes: Normal Bowel Sounds, Soft Edema: Yes Edema: LLE: Trace, RLE: Trace Integumentary: Yes: Venous Stasis Changes Labs: CBC, BMP 05/20/17 05:05 05/22/17 05:43 INR, PTT INR 1.42 (0.82-1.09) H 01/08/18 05:10 - ....Imaging EKG: Report Reviewed (Tele: MUMTAZ NAGY) Problem List - Problems (1) Cor pulmonale (chronic) Code(s): I27.81 - COR PULMONALE (CHRONIC) (2) S/P CABG (coronary artery bypass graft) Code(s): Z95.1 - PRESENCE OF AORTOCORONARY BYPASS GRAFT (3) Coronary artery disease Code(s): I25.10 - ATHSCL HEART DISEASE OF [place] CORONARY ARTERY W/O ANG PCTRS Qualifiers: Coronary Disease-Associated Artery/Lesion type: [place] artery [place] vs. transplanted heart: [place] heart Associated angina: without angina Qualified Code(s): I25.10 - Atherosclerotic heart disease of [place] coronary artery without angina pectoris (4) Hyperlipidemia associated with type 2 diabetes mellitus Code(s): E11.69 - TYPE 2 DIABETES MELLITUS WITH OTHER SPECIFIED COMPLICATION; E78.5 - HYPERLIPIDEMIA, UNSPECIFIED (5) Diastolic dysfunction with chronic heart failure Code(s): I50.32 - CHRONIC DIASTOLIC (CONGESTIVE) HEART FAILURE (6) Cellulitis Code(s): L03.90 - CELLULITIS, UNSPECIFIED Qualifiers: Site of cellulitis of extremity: lower extremity (7) Type 2 diabetes mellitus Code(s): E11.9 - TYPE 2 DIABETES MELLITUS WITHOUT COMPLICATIONS Qualifiers: Diabetes mellitus complication status: without complication Diabetes mellitus intermodal customer service insulin use: without intermodal customer service use Qualified Code(s): E11.9 - Type 2 diabetes mellitus without complications (8) Hypertensive cardiomegaly with heart failure Code(s): I11.0 - HYPERTENSIVE HEART DISEASE WITH HEART FAILURE (9) [id number] kidney injury Code(s): N17.9 - ACUTE KIDNEY FAILURE, UNSPECIFIED; N18.9 - CHRONIC KIDNEY DISEASE, UNSPECIFIED Qualifiers: Chronic kidney disease stage: stage 2 (mild) (10) Cerebrovascular disease Code(s): I67.9 - CEREBROVASCULAR DISEASE, UNSPECIFIED (11) Hypernatremia Code(s): E87.0 - HYPEROSMOLALITY AND HYPERNATREMIA Assessment/Plan 1. Acute Hypoxic Respiratory Failure 2. Acute on chronic diastolic failure, pulm hypertension with pleural effusion 3. Cor pulmonale 4. CAD post CABG, angina pectoris 5. 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 HTN/HCVD 6. NIDDM 7. Hyperlipidemia 8. Acute on CKD improving 9. Lower extremity cellulitis post abx course 10. Right wrist scaphoid fracture and triquetrum fracture 11. Hypernatremia PLAN: 1. Free water repletion to correct Na, monitor fluid status and give diuretics as needed 2. Continue Lisinopril 5 qd and closely monitor renal function 3. Continue Toprol XL 100 qd and titrate dosage as tolerated 4. Continue ASA 81 qd 5. Continue Lipitor 20 qhs 6. Bronchodilator, O2 to keep SpO2 >90%, BiPAP as needed and continue DVT prophylaxis 7. Completed antibiotic course as per the primary team 8. MRI of the brain with neurology follow up pending 9. As outlined in prior notes outpatient evaluation of pulmonary hypertension including outpt PFTs, sleep study and possible RHC
--- NOTE | 2017-05-22 19:33 | PN ---
Progress Note (short form) - Note Progress Note: covering Dr Kat whitney hypernatremia Current Medications Amino Acids (Prosource No Carb Liquid Pkt) 30 ml PO BID@0800,1730 [facility] Last Admin: 05/22/17 18:19 Dose: 30 ml Aspirin (Ecotrin -) 81 mg PO DAILY [facility] Last Admin: 05/22/17 09:20 Dose: 81 mg Atorvastatin Calcium (Lipitor -) 20 mg PO HS [facility] Last Admin: 05/21/17 21:27 Dose: 20 mg Docusate Sodium (Colace -) 100 mg PO DAILY [facility] Last Admin: 05/22/17 09:20 Dose: 100 mg Heparin Sodium (Porcine) (Heparin -) 5,000 unit SQ TID [facility] Last Admin: 05/22/17 13:50 Dose: 5,000 unit Insulin Aspart (Novolog Vial Sliding Scale -) 1 vial SQ ACHS [facility] PRN Reason: Protocol Last Admin: 05/22/17 18:04 Dose: 2 units Lisinopril (Prinivil) 5 mg PO DAILY [facility] Last Admin: 05/22/17 09:20 Dose: 5 mg Metoprolol Succinate (Toprol Xl -) 100 mg PO DAILY [facility] Last Admin: 05/22/17 09:20 Dose: 100 mg Triamcinolone Acetonide (Aristocort 0.1% Lotion -) 1 applic TP BID PRN PRN Reason: FOR ITCHING/RASH in nad Last Vital Signs Temp Pulse Resp BP Pulse Ox 98.7 F 88 26 H 142/70 93 L 05/22/17 15:24 05/22/17 15:24 05/22/17 15:24 05/22/17 15:24 05/22/17 10:00 Lungs clear Heart reg Abd soft Ext no edema CBC, BMP 05/20/17 05:05 05/22/17 05:43 IMP-ac Resp failure on Bipap Hypernatremia improving with current mgmt s/p whitney continue current mgmt
[2017-05-22] MEDS ORDERED: INSULIN (NOVOLOG) ASPART 100 UNITS/ML 10ML VIAL ONE (22:12)
[2017-05-22] MEDS: ATORVASTATIN CA 20 MG TABLET (FP) PO SCH (22:38)
[2017-05-23] MEDS: HEPARIN NA (PORCINE) 5,000 UNITS/ML 1ML VIAL SQ SCH ×3 (06:45→21:03)
[2017-05-23] MEDS: INSULIN SLIDING SCALE (NOVOLOG) 1 VIAL SQ SCH ×4 (06:46→21:01)
[2017-05-23 07:13] LABS: HEMATOCRIT 42.6 % (35.4-49); HEMOGLOBIN 13.2 GM/dL (11.7-16.9); MCH 29.5 pg (25.7-33.7); MCHC 31.1 g/dl (32.0-35.9); MEAN CELL VOLUME 94.8 fl (80-96); MEAN PLT VOLUME 9.9 fl (7.5-11.1); PLATELET COUNT 351 K/MM3 (134-434); RBC 4.49 M/mm3 (4.00-5.60); RDW 14.1 % (11.9-15.9)
--- NOTE | 2017-05-23 07:16 | PN ---
Physical Exam: SUBJECTIVE: Patient seen and examined at bedside. breathing is better today, denies cough, chest pain , no fever, chills , N/V/D/C. legs cellulites looks better today. OBJECTIVE: Vital Signs Period Temp Pulse Resp BP Sys/Eckert Pulse Ox Last 24 Hr 98.4 F-99.4 F 88-102 22-26 142-151/69-81 91-96 GENERAL: The patient is awake, alert, and fully oriented,aphasic,in no acute distress HEAD: Normal with no signs of trauma. with BIPAP mask EYES: sclera anicteric, conjunctiva clear. ENT: moist mucous membranes. NECK:supple. LUNGS:mild tachypnech on BIPAP, CTA B/L .with no accessory muscle use. HEART: Regular rate and rhythm, S1, S2 without murmur, rub or gallop. ABDOMEN: Soft, nontender, nondistended, normoactive bowel sounds, no guarding, no rebound, EXTREMITIES: 2+ pulses, warm, well-perfused, +1 edema. B/L LE cellulitis improving , right hand swelling with erythema NEUROLOGICAL: not done due to respiratory distress, right side weakness with aphasic,gait not observed. PSYCH: Normal mood, normal affect. SKIN: Warm, dry, no rashes or lesions noted Laboratory Results - last 24 hr 05/22/17 05/22/17 05/22/17 05:43 12:22 17:45 Sodium 149 H Potassium 4.4 Chloride 109 H Carbon Dioxide 32 Anion Gap 8 BUN 27 H Creatinine 1.0 Creat Clearance w eGFR > 60 POC Glucometer 290 192 Random Glucose 201 H D Calcium 8.9 Phosphorus 3.1 Magnesium 1.8 Total Bilirubin 0.6 D AST 10 L ALT 18 Alkaline Phosphatase 155 H Total Protein 5.5 L Albumin 2.0 L 05/23/17 06:42 Sodium Potassium Chloride Carbon Dioxide Anion Gap BUN Creatinine Creat Clearance w eGFR POC Glucometer 202 Random Glucose Calcium Phosphorus Magnesium Total Bilirubin AST ALT Alkaline Phosphatase Total Protein Albumin Active Medications Generic Name Dose Route Start Last Admin Trade Name Freq PRN Reason Stop Dose Admin Amino Acids 30 ml 05/16/17 17:30 05/22/17 18:19 Prosource No Carb Liquid Pkt PO 30 ml BID@0800,1730 DOMINIK Administration Aspirin 81 mg 05/10/17 10:00 05/22/17 09:20 Ecotrin - PO 81 mg DAILY DOMINIK Administration Atorvastatin Calcium 20 mg 05/10/17 22:00 05/22/17 22:38 Lipitor - PO 20 mg HS DOMINIK Administration Docusate Sodium 100 mg 05/11/17 10:00 05/22/17 09:20 Colace - PO 100 mg DAILY DOMINIK Administration Heparin Sodium (Porcine) 5,000 unit 05/18/17 14:00 05/23/17 06:45 Heparin - SQ 5,000 unit TID DOMINIK Administration Insulin Aspart 1 vial 05/09/17 22:00 05/23/17 06:46 Novolog Vial Sliding Scale - SQ 4 units ACHS DOMINIK Administration Protocol Lisinopril 5 mg 05/20/17 10:00 05/22/17 09:20 Prinivil PO 5 mg DAILY DOMINIK Administration Metoprolol Succinate 100 mg 05/18/17 10:00 05/22/17 09:20 Toprol Xl - PO 100 mg DAILY DOMINIK Administration Triamcinolone Acetonide 1 applic 05/10/17 10:00 Aristocort 0.1% Lotion - TP BID PRN FOR ITCHING/RASH CBC, BMP 05/23/17 06:15 05/23/17 06:15 ASSESSMENT/PLAN: 81 yo M admitted initially for cellulites and later found to have acute aphasia likely 2/2 CVA and acute respiratory failure. #Acute Leucocytosis * WBC 19.0 today * [place] CX * ESR, CRP , LA * Repeat CXR Acute hypoxic respiratory failure likely due to pulmonary edema can not R/O PE, improved today - Ventimask trials - continue BiPAP PRN - Maintain O2 > 90% - CXR on shows worsening congestion ,looks better today , monitor - outpt f/u with pulmonary for PFT and sleep study - give albumin and lasix IV 40 mg x2 , hold lasix today to allow equilibration as bicarb rising -will evaluate daily and diurese, -dc IVF . -monitor urine output, creatinine - Maintain king -encourage free water intake Hypernatremia * Na still in 149 improve to 146 * Monitor BMP * encourage free water intake by mouth, * pt has a free water deficit of about 4.21 liters Acute Aphasia with right side weakness - Likely CVA - Cont. asa, lipitor - PT and MRI when stable Cellulitis, B/L lower leg - Improving - d/c zosyn Acute on chronic diastolic heart failure - pulm hypertension with pleural effusion - Class 0-I, stable - ASA 81 mg daily - I&O - daily weight CAD S/P bypass graft , Angina pectoris - Continue ASA R superficial vein thrombosis in GSV - no need for for AC per vascular - started on Hep 5000 SQ TID prophylaxis DAVID on CKD, improved - Returned to baseline Cr 1.5 , 0.9... 0.8 - Cont. to hold aldactone, -Continue Lisinopril 5 mg QD per cardiology, monitor kidney function - Avoid nephrotoxic agents -monitor urine output, creatinine - maintain king - Monitor BUN/Cr - lasix 40 today proceeded with albumin 25% given X 2 , will held today due in increased Bicarbonate NIDDM - BGM and SSI Core pulmonale with pulmonary HTN * will follow up as out patient sleep study and possible RHC HTN - Controlled - Continue toprol xl 100 po daily and Lisinopril 5 mg HLD - continue Lipitor 20 mg po HS Right wrist scaphoid fracture and triquetrum fracture * continue to monitor * avoid IV and work on the right hand FEN -Dc fluids - Monitor Na+ - DM diet, thick liquid due to aspiration precaution(May consider downgrading diet to chopped and nectar thick liquid. Ensure Compact./Magic cup) per Photogrammetric Tech Prophylaxis - DVT: Heparin 5000 IU sq TID Dispo: * Cont. to observe respiratory status while pending MRI * Monitor NA, BUN/Cr , respiratory distress, volume status Visit type - Emergency Visit Emergency Visit: Yes ED Registration Date: 05/09/17 Care time: The patient presented to the Emergency Department on the above date and was hospitalized for further evaluation of their emergent condition. - New Patient This patient is new to me today: No - Critical Care Critical Care patient: No
[2017-05-23 07:30] LABS: ALBUMIN 2.3 g/dl (3.4-5.0); ANION GAP 8 (8-16); BLOOD UREA NITROGEN 24 mg/dL (7-18); CALCIUM 9.3 mg/dL (8.5-10.1); CHLORIDE 108 mmol/L (98-107); CO2 30 mmol/L (21-32); GLUCOSE,RANDOM 177 mg/dL (74-106); POTASSIUM 4.5 mmol/L (3.5-5.1); SGOT/AST 12 U/L (15-37); SGPT/ALT 20 U/L (12-78); SODIUM 146 mmol/L (136-145)
[2017-05-23 07:32] LABS: ALK PHOS 187 U/L (45-117); BILIRUBIN,TOTAL 0.6 mg/dL (0.2-1.0); CREATININE 0.8 mg/dL (0.7-1.3); TOT PROT 6.4 g/dl (6.4-8.2)
[2017-05-23] MEDS: AMINO ACIDS/PROTEIN HYDROLYS 30 ML LIQUID.PKT PO SCH ×2 (10:03→17:56)
[2017-05-23] MEDS: ASPIRIN COATED 81 MG TABLET.EC PO SCH (10:03)
[2017-05-23] MEDS: DOCUSATE SODIUM 100 MG CAPSULE (FP) PO SCH (10:03)
[2017-05-23] MEDS: LISINOPRIL 5 MG TABLET (FP) PO SCH (10:03)
[2017-05-23] MEDS: METOPROLOL SUCCINATE 100 MG TAB.SR.24H (FP) PO SCH (10:03)
--- NOTE | 2017-05-23 11:44 | PN ---
Progress Note, Physician History of Present Illness: Resting on bipap. Aphasic. - Current Medication List Current Medications: Active Medications Amino Acids (Prosource No Carb Liquid Pkt) 30 ml PO BID@0800,1730 [facility] Last Admin: 05/23/17 10:03 Dose: 30 ml Aspirin (Ecotrin -) 81 mg PO DAILY [facility] Last Admin: 05/23/17 10:03 Dose: 81 mg Atorvastatin Calcium (Lipitor -) 20 mg PO HS [facility] Last Admin: 05/22/17 22:38 Dose: 20 mg Docusate Sodium (Colace -) 100 mg PO DAILY [facility] Last Admin: 05/23/17 10:03 Dose: 100 mg Heparin Sodium (Porcine) (Heparin -) 5,000 unit SQ TID [facility] Last Admin: 05/23/17 06:45 Dose: 5,000 unit Insulin Aspart (Novolog Vial Sliding Scale -) 1 vial SQ ACHS [facility] PRN Reason: Protocol Last Admin: 05/23/17 06:46 Dose: 4 units Lisinopril (Prinivil) 5 mg PO DAILY [facility] Last Admin: 05/23/17 10:03 Dose: 5 mg Metoprolol Succinate (Toprol Xl -) 100 mg PO DAILY [facility] Last Admin: 05/23/17 10:03 Dose: 100 mg Triamcinolone Acetonide (Aristocort 0.1% Lotion -) 1 applic TP BID PRN PRN Reason: FOR ITCHING/RASH - Objective Vital Signs: Vital Signs Temperature 99.2 F 05/23/17 10:00 Pulse Rate 108 H 05/23/17 10:00 Respiratory Rate 24 05/23/17 10:00 Blood Pressure 148/76 05/23/17 10:00 O2 Sat by Pulse Oximetry (%) 99 05/23/17 11:32 Constitutional: Yes: No Distress, Calm Neck: Yes: Supple Cardiovascular: Yes: Regular Rate and Rhythm Respiratory: Yes: Regular, Diminished, On BiPap Gastrointestinal: Yes: Normal Bowel Sounds, Soft Edema: Yes Edema: LLE: Trace, RLE: Trace Labs: CBC, BMP 05/23/17 06:15 05/23/17 06:15 INR, PTT INR 1.42 (0.82-1.09) H 05/10/17 05:10 - ....Imaging Chest X-ray: Report Reviewed (Improved) EKG: Report Reviewed (Tele: SR [facility]) Problem List - Problems (1) Cor pulmonale (chronic) Code(s): I27.81 - COR PULMONALE (CHRONIC) (2) S/P CABG (coronary artery bypass graft) Code(s): Z95.1 - PRESENCE OF AORTOCORONARY BYPASS GRAFT (3) Coronary artery disease Code(s): I25.10 - ATHSCL HEART DISEASE OF [place] CORONARY ARTERY W/O ANG PCTRS Qualifiers: Coronary Disease-Associated Artery/Lesion type: [place] artery [place] vs. transplanted heart: [place] heart Associated angina: without angina Qualified Code(s): I25.10 - Atherosclerotic heart disease of [place] coronary artery without angina pectoris (4) Hyperlipidemia associated with type 2 diabetes mellitus Code(s): E11.69 - TYPE 2 DIABETES MELLITUS WITH OTHER SPECIFIED COMPLICATION; E78.5 - HYPERLIPIDEMIA, UNSPECIFIED (5) Diastolic dysfunction with chronic heart failure Code(s): I50.32 - CHRONIC DIASTOLIC (CONGESTIVE) HEART FAILURE (6) Cellulitis Code(s): L03.90 - CELLULITIS, UNSPECIFIED Qualifiers: Site of cellulitis of extremity: lower extremity (7) Type 2 diabetes mellitus Code(s): E11.9 - TYPE 2 DIABETES MELLITUS WITHOUT COMPLICATIONS Qualifiers: Diabetes mellitus complication status: without complication Diabetes mellitus ad terminal makeup operator insulin use: without ad terminal makeup operator use Qualified Code(s): E11.9 - Type 2 diabetes mellitus without complications (8) Hypertensive cardiomegaly with heart failure Code(s): I11.0 - HYPERTENSIVE HEART DISEASE WITH HEART FAILURE (9) [id number] kidney injury Code(s): N17.9 - ACUTE KIDNEY FAILURE, UNSPECIFIED; N18.9 - CHRONIC KIDNEY DISEASE, UNSPECIFIED Qualifiers: Chronic kidney disease stage: stage 2 (mild) (10) Cerebrovascular disease Code(s): I67.9 - CEREBROVASCULAR DISEASE, UNSPECIFIED (11) Hypernatremia Code(s): E87.0 - HYPEROSMOLALITY AND HYPERNATREMIA Assessment/Plan 1. Acute Hypoxic Respiratory Failure 2. Acute on chronic diastolic failure, pulm hypertension with pleural effusion 3. Cor pulmonale 4. CAD post CABG, angina pectoris 5. 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 HTN/HCVD 7. NIDDM 8. Hyperlipidemia 9. Acute on CKD improving 10. Lower extremity cellulitis post abx course 11. Right wrist scaphoid fracture and triquetrum fracture 12. Hypernatremia improving PLAN: 1. Free water repletion to correct Na, monitor fluid status and give diuretics as needed 2. Continue Lisinopril 5 qd and closely monitor renal function 3. Continue Toprol XL 100 qd and titrate dosage as tolerated 4. Continue ASA 81 qd 5. Continue Lipitor 20 qhs 6. Bronchodilator, O2 to keep SpO2 >90%, BiPAP as needed and continue DVT prophylaxis 7. Completed antibiotic course as per the primary team 8. MRI of the brain with neurology follow up pending 9. As outlined in prior notes outpatient evaluation of pulmonary hypertension including outpt PFTs, sleep study and possible RHC
--- NOTE | 2017-05-23 13:24 | PN ---
Progress Note, Physician History of Present Illness: Events noted. Pt noted to have elevated wbc of 19K today and Tmax 100.9F. Currently alert and responsive, without acute distress, on BIPAP. Denies any cough, chest pain, chills. Denies abd pain/n/v/d, dysuria or any new complaints. No pain in LEs. - Current Medication List Current Medications: Active Medications Amino Acids (Prosource No Carb Liquid Pkt) 30 ml PO BID@0800,1730 [facility] Last Admin: 05/23/17 10:03 Dose: 30 ml Aspirin (Ecotrin -) 81 mg PO DAILY [facility] Last Admin: 05/23/17 10:03 Dose: 81 mg Atorvastatin Calcium (Lipitor -) 20 mg PO HS [facility] Last Admin: 05/22/17 22:38 Dose: 20 mg Docusate Sodium (Colace -) 100 mg PO DAILY [facility] Last Admin: 05/23/17 10:03 Dose: 100 mg Heparin Sodium (Porcine) (Heparin -) 5,000 unit SQ TID [facility] Last Admin: 05/23/17 06:45 Dose: 5,000 unit Insulin Aspart (Novolog Vial Sliding Scale -) 1 vial SQ ACHS [facility] PRN Reason: Protocol Last Admin: 05/23/17 12:31 Dose: 6 units Lisinopril (Prinivil) 5 mg PO DAILY [facility] Last Admin: 05/23/17 10:03 Dose: 5 mg Metoprolol Succinate (Toprol Xl -) 100 mg PO DAILY [facility] Last Admin: 05/23/17 10:03 Dose: 100 mg Triamcinolone Acetonide (Aristocort 0.1% Lotion -) 1 applic TP BID PRN PRN Reason: FOR ITCHING/RASH - Objective Vital Signs: Vital Signs Temperature 99.2 F 05/23/17 10:00 Pulse Rate 108 H 05/23/17 10:00 Respiratory Rate 24 05/23/17 10:00 Blood Pressure 148/76 05/23/17 10:00 O2 Sat by Pulse Oximetry (%) 99 05/23/17 11:32 Constitutional: Yes: No Distress Neck: Yes: Supple Cardiovascular: Yes: Tachycardia Respiratory: Yes: Diminished (slightly on Rt base) Gastrointestinal: Yes: Normal Bowel Sounds, Soft Genitourinary: Yes: Mercado Present (draining clear, yellow urine) Extremities: Yes: Erythema (b/l LE erythema appears chronic, no significant warmth, +chronic skin changes, no oozing wounds, no tenderness) Neurological: Yes: Alert, Aphasia Labs: CBC, BMP 05/23/17 06:15 05/23/17 06:15 INR, PTT INR 1.42 (0.82-1.09) H 05/10/17 05:10 Blood cultures - results pending Lactic acid - 1.2 ESR - 77 - ....Imaging Chest X-ray: Report Reviewed (small LT base infiltrate/effusion/atelectasis - mildly improved) Problem List - Problems (1) Cellulitis Code(s): L03.90 - CELLULITIS, UNSPECIFIED Qualifiers: Site of cellulitis of extremity: lower extremity (2) Cerebrovascular disease Code(s): I67.9 - CEREBROVASCULAR DISEASE, UNSPECIFIED (3) Cor pulmonale (chronic) Code(s): I27.81 - COR PULMONALE (CHRONIC) (4) Coronary artery disease Code(s): I25.10 - ATHSCL HEART DISEASE OF [place] CORONARY ARTERY W/O ANG PCTRS Qualifiers: Coronary Disease-Associated Artery/Lesion type: [place] artery [place] vs. transplanted heart: [place] heart Associated angina: without angina Qualified Code(s): I25.10 - Atherosclerotic heart disease of [place] coronary artery without angina pectoris (5) Hyperlipidemia associated with type 2 diabetes mellitus Code(s): E11.69 - TYPE 2 DIABETES MELLITUS WITH OTHER SPECIFIED COMPLICATION; E78.5 - HYPERLIPIDEMIA, UNSPECIFIED Assessment/Plan B/L LE cellulitis - appears to have improved Fever Leukocytosis Possible PNA Normal Lactic acid -- will restart antibiotics -- f/u blood cultures -- continue wound care to LEs -- monitor vitals closely, repeat labs in a.m.
[2017-05-23] MEDS ORDERED: PIPERACILLIN/TAZOB 4.5 GM/100 ML PRE-DOCKED IVPB SCH (13:30)
--- NOTE | 2017-05-23 14:23 | PN ---
Progress Note (short form) - Note Progress Note: Patient seen and examined on the Telemetry unit. Awake and responsive on NIPPV support. Still with expressive aphasia. CXR: Improving Intake & Output 05/20/17 05/21/17 05/22/17 05/23/17 23:59 23:59 23:59 23:59 Intake Total 280 1066 550 Output Total 2000 1000 1500 Balance -1720 66 -950 Weight 237 lb 236 lb 14.4 oz 239 lb 6.4 oz Last Vital Signs Temp Pulse Resp BP Pulse Ox 99.2 F 108 H 24 148/76 99 05/23/17 10:00 05/23/17 10:00 05/23/17 10:00 05/23/17 10:00 05/23/17 11:32 Active Medications Amino Acids (Prosource No Carb Liquid Pkt) 30 ml PO BID@0800,1730 [facility] Last Admin: 05/23/17 10:03 Dose: 30 ml Aspirin (Ecotrin -) 81 mg PO DAILY [facility] Last Admin: 05/23/17 10:03 Dose: 81 mg Atorvastatin Calcium (Lipitor -) 20 mg PO HS [facility] Last Admin: 05/22/17 22:38 Dose: 20 mg Docusate Sodium (Colace -) 100 mg PO DAILY [facility] Last Admin: 05/23/17 10:03 Dose: 100 mg Heparin Sodium (Porcine) (Heparin -) 5,000 unit SQ TID [facility] Last Admin: 05/23/17 06:45 Dose: 5,000 unit Insulin Aspart (Novolog Vial Sliding Scale -) 1 vial SQ ACHS [facility] PRN Reason: Protocol Last Admin: 05/23/17 12:31 Dose: 6 units Lisinopril (Prinivil) 5 mg PO DAILY [facility] Last Admin: 05/23/17 10:03 Dose: 5 mg Metoprolol Succinate (Toprol Xl -) 100 mg PO DAILY [facility] Last Admin: 05/23/17 10:03 Dose: 100 mg Piperacillin Sod/Tazobactam Sod (Zosyn 4.5gm Ivpb (Pre-Docked)) 4.5 gm IVPB Q8H -IV [facility] Triamcinolone Acetonide (Aristocort 0.1% Lotion -) 1 applic TP BID PRN PRN Reason: FOR ITCHING/RASH Gen: NAD on NIPPV Heart: RRR Lung: bilateral rhonchi Abd: soft, nontender Ext: (+) edema improving Laboratory Results - last 24 hr 05/22/17 05/23/17 05/23/17 17:45 06:15 06:15 WBC 19.0 H D RBC 4.49 Hgb 13.2 D Hct 42.6 D MCV 94.8 MCH 29.5 MCHC 31.1 L RDW 14.1 Plt Count 351 MPV 9.9 ESR Sodium 146 H Potassium 4.5 Chloride 108 H Carbon Dioxide 30 Anion Gap 8 BUN 24 H Creatinine 0.8 Creat Clearance w eGFR > 60 POC Glucometer 192 Random Glucose 177 H Lactic Acid Calcium 9.3 Total Bilirubin 0.6 AST 12 L ALT 20 Alkaline Phosphatase 187 H D C-Reactive Protein 19.0 H Total Protein 6.4 Albumin 2.3 L 05/23/17 05/23/17 05/23/17 06:42 08:35 08:35 WBC RBC Hgb Hct MCV MCH MCHC RDW Plt Count MPV ESR 77 H Sodium Potassium Chloride Carbon Dioxide Anion Gap BUN Creatinine Creat Clearance w eGFR POC Glucometer 202 Random Glucose Lactic Acid Calcium Total Bilirubin AST ALT Alkaline Phosphatase C-Reactive Protein Cancelled Total Protein Albumin 05/23/17 05/23/17 09:34 11:33 WBC RBC Hgb Hct MCV MCH MCHC RDW Plt Count MPV ESR Sodium Potassium Chloride Carbon Dioxide Anion Gap BUN Creatinine Creat Clearance w eGFR POC Glucometer 252 Random Glucose Lactic Acid 1.2 Calcium Total Bilirubin AST ALT Alkaline Phosphatase C-Reactive Protein Total Protein Albumin Problem List - Problems (1) Acute respiratory failure with hypoxia Code(s): J96.01 - ACUTE RESPIRATORY FAILURE WITH HYPOXIA (2) Cellulitis Code(s): L03.90 - CELLULITIS, UNSPECIFIED Qualifiers: Site of cellulitis of extremity: lower extremity (3) Cor pulmonale (chronic) Code(s): I27.81 - COR PULMONALE (CHRONIC) (4) Coronary artery disease Code(s): I25.10 - ATHSCL HEART DISEASE OF [place] CORONARY ARTERY W/O ANG PCTRS Qualifiers: Coronary Disease-Associated Artery/Lesion type: [place] artery [place] vs. transplanted heart: [place] heart Associated angina: without angina Qualified Code(s): I25.10 - Atherosclerotic heart disease of [place] coronary artery without angina pectoris (5) Diastolic dysfunction with chronic heart failure Code(s): I50.32 - CHRONIC DIASTOLIC (CONGESTIVE) HEART FAILURE (6) S/P CABG (coronary artery bypass graft) Code(s): Z95.1 - PRESENCE OF AORTOCORONARY BYPASS GRAFT (7) Pulmonary hypertension Code(s): I27.20 - PULMONARY HYPERTENSION, UNSPECIFIED (8) Atelectasis Code(s): J98.11 - ATELECTASIS A/P Acute Hypoxic Respiratory Failure LV Diastolic Dysfunction Pulmonary HTN Acute on Chronic Renal Failure improving Atelectasis CAD s/p CABG HTN DM - NIPPV Support - Monitor urine output, creatinine - O2 to keep SpO2 >90% - PO as tolerated - DVT prophylaxis Dr Mariee
[2017-05-23] MEDS: PIPERACILLIN/TAZOB 4.5 GM 4.5 GM in DEXTROSE 5%-WATER - 100 ML IVPB SCH (17:56)
--- NOTE | 2017-05-23 18:54 | PN ---
Progress Note (short form) - Note Progress Note: covering Dr Kat whitney hypernatremia Current Medications Amino Acids (Prosource No Carb Liquid Pkt) 30 ml PO BID@0800,1730 [facility] Last Admin: 05/23/17 17:56 Dose: 30 ml Aspirin (Ecotrin -) 81 mg PO DAILY [facility] Last Admin: 05/23/17 10:03 Dose: 81 mg Atorvastatin Calcium (Lipitor -) 20 mg PO HS [facility] Last Admin: 05/22/17 22:38 Dose: 20 mg Docusate Sodium (Colace -) 100 mg PO DAILY [facility] Last Admin: 05/23/17 10:03 Dose: 100 mg Heparin Sodium (Porcine) (Heparin -) 5,000 unit SQ TID [facility] Last Admin: 05/23/17 14:46 Dose: 5,000 unit Piperacillin Sod/Tazobactam (Sod 4.5 gm/ Dextrose) 100 mls @ 200 mls/hr IVPB Q8H-IV [facility] Last Admin: 05/23/17 17:56 Dose: 200 mls/hr Insulin Aspart (Novolog Vial Sliding Scale -) 1 vial SQ ACHS [facility] PRN Reason: Protocol Last Admin: 05/23/17 17:56 Dose: 4 units Lisinopril (Prinivil) 5 mg PO DAILY [facility] Last Admin: 05/23/17 10:03 Dose: 5 mg Metoprolol Succinate (Toprol Xl -) 100 mg PO DAILY [facility] Last Admin: 05/23/17 10:03 Dose: 100 mg Triamcinolone Acetonide (Aristocort 0.1% Lotion -) 1 applic TP BID PRN PRN Reason: FOR ITCHING/RASH in nad Last Vital Signs Temp Pulse Resp BP Pulse Ox 97.7 F 108 H 20 123/63 94 L 05/23/17 17:00 05/23/17 17:00 05/23/17 17:00 05/23/17 17:00 05/23/17 14:39 Lungs clear Heart reg Abd soft Ext no edema CBC, BMP 05/23/17 06:15 05/23/17 06:15 CBC, BMP 05/20/17 05:05 05/22/17 05:43 IMP-ac Resp failure on Bipap Hypernatremia improving with current mgmt s/p whitney continue current mgmt
[2017-05-23] MEDS ORDERED: ACETAMINOPHEN 500 MG TABLET (FP) PO ONE (19:38)
--- NOTE | 2017-05-23 20:58 | PN ---
Teaching Attending Note Name of Resident: Deandre Smith ATTENDING PHYSICIAN STATEMENT I saw and evaluated the patient. I reviewed the resident's note and discussed the case with the resident. I agree with the resident's findings and plan as documented. SUBJECTIVE: Patient looks lethargic but arousable. OBJECTIVE: Vital Signs Temperature 101.1 F H 05/23/17 20:08 Pulse Rate 114 H 05/23/17 20:08 Respiratory Rate 24 05/23/17 20:08 Blood Pressure 137/64 05/23/17 20:08 O2 Sat by Pulse Oximetry (%) 94 L 05/23/17 20:08 CBCD WBC 19.0 K/mm3 (4.0-10.0) H D 05/23/17 06:15 RBC 4.49 M/mm3 (4.00-5.60) 05/23/17 06:15 Hgb 13.2 GM/dL (11.7-16.9) D 05/23/17 06:15 Hct 42.6 % (35.4-49) D 05/23/17 06:15 MCV 94.8 fl (80-96) 05/23/17 06:15 MCHC 31.1 g/dl (32.0-35.9) L 05/23/17 06:15 RDW 14.1 % (11.9-15.9) 05/23/17 06:15 Plt Count 351 K/MM3 (134-434) 05/23/17 06:15 MPV 9.9 fl (7.5-11.1) 05/23/17 06:15 CMP Sodium 146 mmol/L (136-145) H 05/23/17 06:15 Potassium 4.5 mmol/L (3.5-5.1) 05/23/17 06:15 Chloride 108 mmol/L (98-107) H 05/23/17 06:15 Carbon Dioxide 30 mmol/L (21-32) 05/23/17 06:15 Anion Gap 8 (8-16) 05/23/17 06:15 BUN 24 mg/dL (7-18) H 05/23/17 06:15 Creatinine 0.8 mg/dL (0.7-1.3) 05/23/17 06:15 Creat Clearance w eGFR > 60 (>60) 05/23/17 06:15 Random Glucose 177 mg/dL (74-106) H 05/23/17 06:15 Calcium 9.3 mg/dL (8.5-10.1) 05/23/17 06:15 Total Bilirubin 0.6 mg/dL (0.2-1.0) 05/23/17 06:15 AST 12 U/L (15-37) L 05/23/17 06:15 ALT 20 U/L (12-78) 05/23/17 06:15 Alkaline Phosphatase 187 U/L (45-117) H D 05/23/17 06:15 Total Protein 6.4 g/dl (6.4-8.2) 05/23/17 06:15 Albumin 2.3 g/dl (3.4-5.0) L 05/23/17 06:15 CARDIAC ENZYMES Creatine Kinase 69 IU/L (39-308) 05/09/17 16:45 Troponin I < 0.02 ng/ml (0.00-0.05) 05/10/17 05:10 Current Medications Generic Name Dose Route Start Last Admin Trade Name Qasimq PRN Reason Stop Dose Admin Amino Acids 30 ml 05/16/17 17:30 05/23/17 17:56 Prosource No Carb Liquid Pkt PO 30 ml BID@0800,1730 DOMINIK Administration Aspirin 81 mg 05/10/17 10:00 05/23/17 10:03 Ecotrin - PO 81 mg DAILY DOMINIK Administration Atorvastatin Calcium 20 mg 05/10/17 22:00 05/22/17 22:38 Lipitor - PO 20 mg HS DOMINIK Administration Docusate Sodium 100 mg 05/11/17 10:00 05/23/17 10:03 Colace - PO 100 mg DAILY DOMINIK Administration Heparin Sodium (Porcine) 5,000 unit 05/18/17 14:00 05/23/17 14:46 Heparin - SQ 5,000 unit TID DOMINIK Administration Piperacillin Sod/Tazobactam 100 mls @ 200 mls/hr 05/23/17 18:00 05/23/17 17: 56 Sod 4.5 gm/ Dextrose IVPB 200 mls/hr Q8H-IV DOMINIK Administration Insulin Aspart 1 vial 05/09/17 22:00 05/23/17 17:56 Novolog Vial Sliding Scale - SQ 4 units ACHS DOMINIK Administration Protocol Lisinopril 5 mg 05/20/17 10:00 05/23/17 10:03 Prinivil PO 5 mg DAILY DOMINIK Administration Metoprolol Succinate 100 mg 05/18/17 10:00 05/23/17 10:03 Toprol Xl - PO 100 mg DAILY DOMINIK Administration Triamcinolone Acetonide 1 applic 05/10/17 10:00 Aristocort 0.1% Lotion - TP BID PRN FOR ITCHING/RASH Home Medications Medication Instructions Recorded Furosemide [Lasix -] 40 mg PO BID 05/09/17 Glipizide [Glipizide ER] 5 mg PO BID 05/09/17 Ibuprofen 800 mg PO PRN 05/09/17 Metoprolol Succinate [Toprol Xl -] 50 mg PO DAILY 05/09/17 Simvastatin [Zocor -] 40 mg PO DAILY 05/09/17 Sitagliptin Phos/Metformin HCl 1 each PO BID 05/09/17 [Janumet 50-500 mg Tablet] Triamcinolone 0.1% Lotion [Kenalog 60 ml TP PRN 05/09/17 0.1% Top Lotion] Docusate Sodium [Colace] 100 mg PO DAILY 05/10/17 PE: chest: Decreased BS BL , tachypneic Heart: S1S2 positive abdomen: soft, NT, positive for BS Ext: pulses are positive neuro: arousable on stimualtion ASSESSMENT AND PLAN: Patient is a 81 y/o man with h/o HTN, CAD, DM , diastolic Dysfunction , cor pulmonale , who presented with LE edema and erythema and was found to have cellulitis , hospital course was complicated by aphasia and R sided weakness. # #Acute Hypercapeniec respiratory failure : ordered stat ABG , Bipap ordered to continue # Acute aphasia (expressive aphasia ) with mild Right sided weakness ( possible due to his Fx of his hand) ; acute over chronic CVA : with hx of an old stroke reported on CT scan that was done a week ago : positive for an old CVA. # Acute Hypernatremia improvind continue free water intake, since can't give IVF due to congestive changes on CXR ,nephro on the case.. # Right superficial vein thrombosis in greater saphenous vein. As per , no need to anticoagute the patient. # DAVID: improved # Acute Leukocytosis 8.2-->19, ID restarted him back to Zosyn IV will monitor # Acute cellulitis improved on IV abx will continue as per ID management DVT PX , heparin sq
[2017-05-23] MEDS: ATORVASTATIN CA 20 MG TABLET (FP) PO SCH (21:02)
[2017-05-24] MEDS: PIPERACILLIN/TAZOB 4.5 GM 4.5 GM in DEXTROSE 5%-WATER - 100 ML IVPB SCH ×3 (01:57→17:49)
[2017-05-24] MEDS: HEPARIN NA (PORCINE) 5,000 UNITS/ML 1ML VIAL SQ SCH ×3 (05:24→23:26)
[2017-05-24] MEDS: INSULIN SLIDING SCALE (NOVOLOG) 1 VIAL SQ SCH ×4 (06:36→22:08)
--- NOTE | 2017-05-24 07:35 | PN ---
Physical Exam: SUBJECTIVE: Patient seen and examined at bedside. breathing is better , still on BiPAP, leg cellulites is better. OBJECTIVE: Vital Signs Period Temp Pulse Resp BP Sys/Eckert Pulse Ox Last 24 Hr 97.7 F-101.1 F 95-121 20-24 123-148/60-76 94-99 GENERAL: The patient is awake, alert, and fully oriented,aphasic,in no acute distress HEAD: Normal with no signs of trauma. with BIPAP mask EYES: sclera anicteric, conjunctiva clear. ENT: moist mucous membranes. NECK:supple. LUNGS:mild tachypnech on BIPAP, CTA B/L .with no accessory muscle use. HEART: Regular rate and rhythm, S1, S2 without murmur, rub or gallop. ABDOMEN: Soft, nontender, nondistended, normoactive bowel sounds, no guarding, no rebound, EXTREMITIES: 2+ pulses, warm, well-perfused, +1 edema. B/L LE cellulitis improving , right hand swelling with erythema NEUROLOGICAL: not done due to respiratory distress, right side weakness with aphasic,gait not observed. PSYCH: Normal mood, normal affect. SKIN: Warm, dry, no rashes or lesions noted Laboratory Results - last 24 hr 05/20/17 05/20/17 05/20/17 05:54 11:07 21:57 ESR Sodium Potassium Chloride Carbon Dioxide Anion Gap BUN Creatinine Creat Clearance w eGFR POC Glucometer [phone] [phone] Random Glucose Lactic Acid Calcium Total Bilirubin AST ALT Alkaline Phosphatase C-Reactive Protein Total Protein Albumin 05/21/17 05/21/17 05/21/17 05:32 12:06 17:39 ESR Sodium Potassium Chloride Carbon Dioxide Anion Gap BUN Creatinine Creat Clearance w eGFR POC Glucometer 186.85939 285.46744 [phone] Random Glucose Lactic Acid Calcium Total Bilirubin AST ALT Alkaline Phosphatase C-Reactive Protein Total Protein Albumin 05/21/17 05/22/17 05/22/17 20:40 05:27 22:21 ESR Sodium Potassium Chloride Carbon Dioxide Anion Gap BUN Creatinine Creat Clearance w eGFR POC Glucometer 222.49628 231.93808 [phone] Random Glucose Lactic Acid Calcium Total Bilirubin AST ALT Alkaline Phosphatase C-Reactive Protein Total Protein Albumin 05/23/17 05/23/17 05/23/17 06:15 08:35 08:35 ESR 77 H Sodium 146 H Potassium 4.5 Chloride 108 H Carbon Dioxide 30 Anion Gap 8 BUN 24 H Creatinine 0.8 Creat Clearance w eGFR > 60 POC Glucometer Random Glucose 177 H Lactic Acid Calcium 9.3 Total Bilirubin 0.6 AST 12 L ALT 20 Alkaline Phosphatase 187 H D C-Reactive Protein 19.0 H Cancelled Total Protein 6.4 Albumin 2.3 L 05/23/17 05/23/17 05/23/17 09:34 11:33 17:42 ESR Sodium Potassium Chloride Carbon Dioxide Anion Gap BUN Creatinine Creat Clearance w eGFR POC Glucometer 252 235 Random Glucose Lactic Acid 1.2 Calcium Total Bilirubin AST ALT Alkaline Phosphatase C-Reactive Protein Total Protein Albumin 05/23/17 05/24/17 21:00 06:08 ESR Sodium Potassium Chloride Carbon Dioxide Anion Gap BUN Creatinine Creat Clearance w eGFR POC Glucometer 221 203 Random Glucose Lactic Acid Calcium Total Bilirubin AST ALT Alkaline Phosphatase C-Reactive Protein Total Protein Albumin Active Medications Generic Name Dose Route Start Last Admin Trade Name Freq PRN Reason Stop Dose Admin Amino Acids 30 ml 05/16/17 17:30 05/23/17 17:56 Prosource No Carb Liquid Pkt PO 30 ml BID@0800,1730 DOMINIK Administration Aspirin 81 mg 05/10/17 10:00 05/23/17 10:03 Ecotrin - PO 81 mg DAILY DOMINIK Administration Atorvastatin Calcium 20 mg 05/10/17 22:00 05/23/17 21:02 Lipitor - PO 20 mg HS DOMINIK Administration Docusate Sodium 100 mg 05/11/17 10:00 05/23/17 10:03 Colace - PO 100 mg DAILY DOMINIK Administration Heparin Sodium (Porcine) 5,000 unit 05/18/17 14:00 05/24/17 05:24 Heparin - SQ 5,000 unit TID DOMINIK Administration Piperacillin Sod/Tazobactam 100 mls @ 200 mls/hr 05/23/17 18:00 05/24/17 01: 57 Sod 4.5 gm/ Dextrose IVPB 200 mls/hr Q8H-IV DOMINIK Administration Insulin Aspart 1 vial 05/09/17 22:00 05/24/17 06:36 Novolog Vial Sliding Scale - SQ 4 units ACHS DOMINIK Administration Protocol Lisinopril 5 mg 05/20/17 10:00 05/23/17 10:03 Prinivil PO 5 mg DAILY DOMINIK Administration Metoprolol Succinate 100 mg 05/18/17 10:00 05/23/17 10:03 Toprol Xl - PO 100 mg DAILY DOMINIK Administration Triamcinolone Acetonide 1 applic 05/10/17 10:00 Aristocort 0.1% Lotion - TP BID PRN FOR ITCHING/RASH CBC, BMP 05/23/17 06:15 05/23/17 06:15 ASSESSMENT/PLAN: 81 yo M admitted initially for cellulites and later found to have acute aphasia likely 2/2 CVA and acute respiratory failure. #Acute Leucocytosis * WBC 19.0 today * [place] CX * ESR, CRP , LA * Repeat CXR Acute hypoxic respiratory failure likely due to pulmonary edema can not R/O PE, improved today - Ventimask trials - continue BiPAP PRN - Maintain O2 > 90% - CXR on shows worsening congestion ,looks better today , monitor - outpt f/u with pulmonary for PFT and sleep study - give albumin and lasix IV 40 mg x2 , hold lasix today to allow equilibration as bicarb rising -will evaluate daily and diurese, -dc IVF . -monitor urine output, creatinine - Maintain king -encourage free water intake Hypernatremia * Na still in 149 improve to 146 * Monitor BMP * encourage free water intake by mouth, * pt has a free water deficit of about 4.21 liters Acute Aphasia with right side weakness - Likely CVA - Cont. asa, lipitor - PT and MRI when stable Cellulitis, B/L lower leg - Improving - d/c zosyn Acute on chronic diastolic heart failure - pulm hypertension with pleural effusion - Class 0-I, stable - ASA 81 mg daily - I&O - daily weight CAD S/P bypass graft , Angina pectoris - Continue ASA R superficial vein thrombosis in GSV - no need for for AC per vascular - started on Hep 5000 SQ TID prophylaxis DAVID on CKD, improved - Returned to baseline Cr 1.5 , 0.9... 0.8 - Cont. to hold aldactone, -Continue Lisinopril 5 mg QD per cardiology, monitor kidney function - Avoid nephrotoxic agents -monitor urine output, creatinine - maintain king - Monitor BUN/Cr - lasix 40 today proceeded with albumin 25% given X 2 , will held today due in increased Bicarbonate NIDDM - BGM and SSI Core pulmonale with pulmonary HTN * will follow up as out patient sleep study and possible RHC HTN - Controlled - Continue toprol xl 100 po daily and Lisinopril 5 mg HLD - continue Lipitor 20 mg po HS Right wrist scaphoid fracture and triquetrum fracture * continue to monitor * avoid IV and work on the right hand FEN -Dc fluids - Monitor Na+ - DM diet, thick liquid due to aspiration precaution(May consider downgrading diet to chopped and nectar thick liquid. Ensure Compact./Magic cup) per [place]cel[place] Turner Prophylaxis - DVT: Heparin 5000 IU sq TID Dispo: * Cont. to observe respiratory status while pending MRI * Monitor NA, BUN/Cr , respiratory distress, volume status Visit type - Emergency Visit Emergency Visit: Yes ED Registration Date: 05/09/17 Care time: The patient presented to the Emergency Department on the above date and was hospitalized for further evaluation of their emergent condition. - New Patient This patient is new to me today: No - Critical Care Critical Care patient: No - Discharge Referral Referred to [facility] Med P.C.: No
[2017-05-24 09:29] LABS: BASO % 0.6 % (0-2.0); EOS % 1.2 % (0-4.5); HEMATOCRIT 37.8 % (35.4-49); HEMOGLOBIN 11.8 GM/dL (11.7-16.9); LYMPH % 5.6 % (8-40); MCH 29.4 pg (25.7-33.7); MCHC 31.3 g/dl (32.0-35.9); MEAN PLT VOLUME 9.6 fl (7.5-11.1); MONO % 8.1 % (3.8-10.2); NEUT % 84.5 % (42.8-82.8); PLATELET COUNT 312 K/MM3 (134-434); RBC 4.02 M/mm3 (4.00-5.60); RDW 14.3 % (11.9-15.9); WHITE BLOOD COUNT 16.7 K/mm3 (4.0-10.0)
[2017-05-24 09:32] LABS: ALBUMIN 1.9 g/dl (3.4-5.0); ALK PHOS 157 U/L (45-117); ANION GAP 3 (8-16); BILIRUBIN,TOTAL 0.5 mg/dL (0.2-1.0); BLOOD UREA NITROGEN 39 mg/dL (7-18); CALCIUM 8.6 mg/dL (8.5-10.1); CHLORIDE 111 mmol/L (98-107); CO2 34 mmol/L (21-32); CREATININE 1.2 mg/dL (0.7-1.3); GLUCOSE,RANDOM 176 mg/dL (74-106); POTASSIUM 4.5 mmol/L (3.5-5.1); SGOT/AST 10 U/L (15-37); SGPT/ALT 16 U/L (12-78); SODIUM 148 mmol/L (136-145); TOT PROT 5.6 g/dl (6.4-8.2)
[2017-05-24] MEDS: AMINO ACIDS/PROTEIN HYDROLYS 30 ML LIQUID.PKT PO SCH ×2 (10:14→17:49)
[2017-05-24] MEDS: METOPROLOL SUCCINATE 100 MG TAB.SR.24H (FP) PO SCH (10:15)
[2017-05-24] MEDS: ASPIRIN COATED 81 MG TABLET.EC PO SCH (10:15)
[2017-05-24] MEDS: LISINOPRIL 5 MG TABLET (FP) PO SCH (10:15)
[2017-05-24] MEDS: DOCUSATE SODIUM 100 MG CAPSULE (FP) PO SCH (10:15)
--- NOTE | 2017-05-24 11:18 | PN ---
Progress Note, Physician History of Present Illness: PULMONARY AWAKE,ON VM ,+EXPRESSIVE APHASIA - Current Medication List Current Medications: Active Medications Amino Acids (Prosource No Carb Liquid Pkt) 30 ml PO BID@0800,1730 [facility] Last Admin: 05/24/17 10:14 Dose: 30 ml Aspirin (Ecotrin -) 81 mg PO DAILY [facility] Last Admin: 05/24/17 10:15 Dose: 81 mg Atorvastatin Calcium (Lipitor -) 20 mg PO HS [facility] Last Admin: 05/23/17 21:02 Dose: 20 mg Docusate Sodium (Colace -) 100 mg PO DAILY [facility] Last Admin: 05/24/17 10:15 Dose: 100 mg Heparin Sodium (Porcine) (Heparin -) 5,000 unit SQ TID [facility] Last Admin: 05/24/17 05:24 Dose: 5,000 unit Piperacillin Sod/Tazobactam (Sod 4.5 gm/ Dextrose) 100 mls @ 200 mls/hr IVPB Q8H-IV [facility] Last Admin: 05/24/17 10:15 Dose: 200 mls/hr Insulin Aspart (Novolog Vial Sliding Scale -) 1 vial SQ ACHS [facility] PRN Reason: Protocol Last Admin: 05/24/17 06:36 Dose: 4 units Lisinopril (Prinivil) 5 mg PO DAILY [facility] Last Admin: 05/24/17 10:15 Dose: 5 mg Metoprolol Succinate (Toprol Xl -) 100 mg PO DAILY [facility] Last Admin: 05/24/17 10:15 Dose: 100 mg Triamcinolone Acetonide (Aristocort 0.1% Lotion -) 1 applic TP BID PRN PRN Reason: FOR ITCHING/RASH - Objective Vital Signs: Vital Signs Temperature 98.2 F 05/24/17 05:24 Pulse Rate 95 H 05/24/17 05:24 Respiratory Rate 22 05/24/17 05:24 Blood Pressure 125/60 05/24/17 05:24 O2 Sat by Pulse Oximetry (%) 94 L 05/23/17 20:08 Constitutional: Yes: Well Nourished, Calm Eyes: Yes: WNL HENT: Yes: WNL Neck: Yes: WNL Cardiovascular: Yes: Tachycardia, S1, S2 Respiratory: Yes: Rhonchi (SCATTERED RHONCHI) Gastrointestinal: Yes: Normal Bowel Sounds, Soft Extremities: Yes: WNL, Erythema Edema: Yes Labs: CBC, BMP 05/24/17 08:55 05/24/17 08:55 INR, PTT INR 1.42 (0.82-1.09) H 05/10/17 05:10 - ....Imaging Chest X-ray: Report Reviewed, Image Reviewed Assessment/Plan - Problems (1) Acute respiratory failure with hypoxia Code(s): J96.01 - ACUTE RESPIRATORY FAILURE WITH HYPOXIA (2) Cellulitis Code(s): L03.90 - CELLULITIS, UNSPECIFIED Qualifiers: Site of cellulitis of extremity: lower extremity (3) Cor pulmonale (chronic) Code(s): I27.81 - COR PULMONALE (CHRONIC) (4) Coronary artery disease Code(s): I25.10 - ATHSCL HEART DISEASE OF [place] CORONARY ARTERY W/O ANG PCTRS Qualifiers: Coronary Disease-Associated Artery/Lesion type: [place] artery [place] vs. transplanted heart: [place] heart Associated angina: without angina Qualified Code(s): I25.10 - Atherosclerotic heart disease of [place] coronary artery without angina pectoris (5) Diastolic dysfunction with chronic heart failure Code(s): I50.32 - CHRONIC DIASTOLIC (CONGESTIVE) HEART FAILURE (6) S/P CABG (coronary artery bypass graft) Code(s): Z95.1 - PRESENCE OF AORTOCORONARY BYPASS GRAFT (7) Pulmonary hypertension Code(s): I27.20 - PULMONARY HYPERTENSION, UNSPECIFIED (8) Atelectasis Code(s): J98.11 - ATELECTASIS A/P Acute Hypoxic Respiratory Failure improving LV Diastolic Dysfunction Pulmonary HTN Acute on Chronic Renal Failure improving Atelectasis CAD s/p CABG HTN DM - NIPPV Support as needed - Monitor urine output, creatinine - O2 to keep SpO2 >90% - PO as tolerated - DVT prophylaxis - abx - inhaled bronchodilators DR HOBSON
--- NOTE | 2017-05-24 11:42 | PN ---
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 Good rehab potential. 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 REC: Give him time to elicit words to communicate. Use yes/no questions and pointing to communication board to supplement. PT Rehab placement when medically stable.
--- NOTE | 2017-05-24 14:43 | PN ---
Progress Note, Physician History of Present Illness: Pt seen and examined at bedside. He is awake and appears comfortable. - Current Medication List Current Medications: Active Medications Albuterol/Ipratropium (Duoneb -) 1 amp NEB Q4H PRN PRN Reason: SHORTNESS OF BREATH Amino Acids (Prosource No Carb Liquid Pkt) 30 ml PO BID@0800,1730 [facility] Last Admin: 05/24/17 10:14 Dose: 30 ml Aspirin (Ecotrin -) 81 mg PO DAILY [facility] Last Admin: 05/24/17 10:15 Dose: 81 mg Atorvastatin Calcium (Lipitor -) 20 mg PO HS [facility] Last Admin: 05/23/17 21:02 Dose: 20 mg Docusate Sodium (Colace -) 100 mg PO DAILY [facility] Last Admin: 05/24/17 10:15 Dose: 100 mg Heparin Sodium (Porcine) (Heparin -) 5,000 unit SQ TID [facility] Last Admin: 05/24/17 05:24 Dose: 5,000 unit Piperacillin Sod/Tazobactam (Sod 4.5 gm/ Dextrose) 100 mls @ 200 mls/hr IVPB Q8H-IV [facility] Last Admin: 05/24/17 10:15 Dose: 200 mls/hr Insulin Aspart (Novolog Vial Sliding Scale -) 1 vial SQ ACHS [facility] PRN Reason: Protocol Last Admin: 05/24/17 12:36 Dose: 6 units Lisinopril (Prinivil) 5 mg PO DAILY [facility] Last Admin: 05/24/17 10:15 Dose: 5 mg Metoprolol Succinate (Toprol Xl -) 100 mg PO DAILY [facility] Last Admin: 05/24/17 10:15 Dose: 100 mg Triamcinolone Acetonide (Aristocort 0.1% Lotion -) 1 applic TP BID PRN PRN Reason: FOR ITCHING/RASH - Objective Vital Signs: Vital Signs Temperature 98.2 F 05/24/17 05:24 Pulse Rate 95 H 05/24/17 05:24 Respiratory Rate 05/24/17 05:24 Blood Pressure 125/60 05/24/17 05:24 O2 Sat by Pulse Oximetry (%) 94 L 05/23/17 20:08 Constitutional: Yes: Calm Eyes: Yes: Conjunctiva Clear HENT: Yes: Atraumatic Cardiovascular: Yes: S1, S2 Respiratory: Yes: On Venti-Mask Gastrointestinal: Yes: Soft, Abdomen, Obese Genitourinary: Yes: Mercado Present Musculoskeletal: Yes: Muscle Weakness Edema: Yes Edema: LLE: 1+, RLE: 1+ Integumentary: Yes: Venous Stasis Changes Wound/Incision: Yes: Open to air Neurological: Yes: Oriented Labs: CBC, BMP 05/24/17 08:55 05/24/17 08:55 INR, PTT INR 1.42 (0.82-1.09) H 05/10/17 05:10 - ....Imaging Chest X-ray: Report Reviewed Problem List - Problems (1) Hypernatremia Code(s): E87.0 - HYPEROSMOLALITY AND HYPERNATREMIA (2) Acute respiratory failure with hypoxia Code(s): J96.01 - ACUTE RESPIRATORY FAILURE WITH HYPOXIA (3) [id number] kidney injury Code(s): N17.9 - ACUTE KIDNEY FAILURE, UNSPECIFIED; N18.9 - CHRONIC KIDNEY DISEASE, UNSPECIFIED Qualifiers: Chronic kidney disease stage: stage 2 (mild) (4) Atelectasis Code(s): J98.11 - ATELECTASIS (5) Chronic kidney disease Code(s): N18.9 - CHRONIC KIDNEY DISEASE, UNSPECIFIED Qualifiers: Chronic kidney disease stage: stage 2 (mild) Qualified Code(s): N18.2 - Chronic kidney disease, stage 2 (mild) Assessment/Plan Current Medications Generic Name Dose Route Start Last Admin Trade Name Freq PRN Reason Stop Dose Admin Amino Acids 30 ml 05/16/17 17:30 05/21/17 08:13 Prosource No Carb Liquid Pkt PO 30 ml BID@0800,1730 DOMINIK Administration Aspirin 81 mg 05/10/17 10:00 05/21/17 09:36 Ecotrin - PO 81 mg DAILY DOMINIK Administration Atorvastatin Calcium 20 mg 05/10/17 22:00 05/20/17 22:38 Lipitor - PO 20 mg HS DOMINIK Administration Docusate Sodium 100 mg 05/11/17 10:00 05/21/17 09:36 Colace - PO 100 mg DAILY DOMINIK Administration Heparin Sodium (Porcine) 5,000 unit 05/18/17 14:00 05/21/17 14:06 Heparin - SQ 5,000 unit TID DOMINIK Administration Insulin Aspart 1 vial 05/09/17 22:00 05/21/17 12:11 Novolog Vial Sliding Scale - SQ 6 units ACHS DOMINIK Administration Protocol Lisinopril 5 mg 05/20/17 10:00 05/21/17 09:36 Prinivil PO 5 mg DAILY DOMINIK Administration Metoprolol Succinate 100 mg 05/18/17 10:00 05/21/17 09:36 Toprol Xl - PO 100 mg DAILY DOMINIK Administration Triamcinolone Acetonide 1 applic 05/10/17 10:00 Aristocort 0.1% Lotion - TP BID PRN FOR ITCHING/RASH chart and notes reviewed Impression 1. Hypernatremia 2. whitney resolved 3. HTN 4. respiratory failure requiring bipap 5. hypoxia 6. CHF 7. DM 8. hyperlipidemia 9. acute aphasia 10. cellulitis Plan - encourage free water intake - will hold off lasix today - repeat labs in am - cxr reviewed from yesterday - consider repeat cxr in am - would not give fluids at this time - cont with oxygen and monitor pulse ox - will follow Dr Kat
--- NOTE | 2017-05-24 14:50 | PN ---
Progress Note, Physician History of Present Illness: stable no issues slight movement of the rt sided fingers improving speech - Current Medication List Current Medications: Active Medications Albuterol/Ipratropium (Duoneb -) 1 amp NEB Q4H PRN PRN Reason: SHORTNESS OF BREATH Amino Acids (Prosource No Carb Liquid Pkt) 30 ml PO BID@0800,1730 [facility] Last Admin: 05/24/17 10:14 Dose: 30 ml Aspirin (Ecotrin -) 81 mg PO DAILY [facility] Last Admin: 05/24/17 10:15 Dose: 81 mg Atorvastatin Calcium (Lipitor -) 20 mg PO HS [facility] Last Admin: 05/23/17 21:02 Dose: 20 mg Docusate Sodium (Colace -) 100 mg PO DAILY [facility] Last Admin: 05/24/17 10:15 Dose: 100 mg Heparin Sodium (Porcine) (Heparin -) 5,000 unit SQ TID [facility] Last Admin: 05/24/17 05:24 Dose: 5,000 unit Piperacillin Sod/Tazobactam (Sod 4.5 gm/ Dextrose) 100 mls @ 200 mls/hr IVPB Q8H-IV [facility] Last Admin: 05/24/17 10:15 Dose: 200 mls/hr Insulin Aspart (Novolog Vial Sliding Scale -) 1 vial SQ ACHS [facility] PRN Reason: Protocol Last Admin: 05/24/17 12:36 Dose: 6 units Lisinopril (Prinivil) 5 mg PO DAILY [facility] Last Admin: 05/24/17 10:15 Dose: 5 mg Metoprolol Succinate (Toprol Xl -) 100 mg PO DAILY [facility] Last Admin: 05/24/17 10:15 Dose: 100 mg Triamcinolone Acetonide (Aristocort 0.1% Lotion -) 1 applic TP BID PRN PRN Reason: FOR ITCHING/RASH - Objective Vital Signs: Vital Signs Temperature 98.2 F 05/24/17 05:24 Pulse Rate 95 H 05/24/17 05:24 Respiratory Rate 22 05/24/17 05:24 Blood Pressure 125/60 05/24/17 05:24 O2 Sat by Pulse Oximetry (%) 94 L 05/23/17 20:08 Constitutional: Yes: No Distress, Calm Cardiovascular: Yes: Regular Rate and Rhythm Respiratory: Yes: On Venti-Mask, Poor Air Entry, Other Gastrointestinal: Yes: Normal Bowel Sounds, Soft Musculoskeletal: Yes: Other Extremities: Yes: Other Neurological: Yes: Alert, Oriented Psychiatric: Yes: Alert, Oriented Labs: CBC, BMP 05/24/17 08:55 05/24/17 08:55 INR, PTT INR 1.42 (0.82-1.09) H 05/10/17 05:10 Assessment/Plan Cor pulmonale, pulmonary hypertension . CAD p . HTN NIDDM Hyperlipidemia Lower extremity cellulitis cva aphasia plan continue to monitor apahasia rt sided weakness rest as per primary team monitor wounds closely continue abx for now
--- NOTE | 2017-05-24 17:45 | PN ---
Progress Note, Physician Chief Complaint: Events noted Awake and able to respond with simple sentences and words History of Present Illness: Patient was seen and examined. Awake. Chart was reviewed Does not appear to be having any chest pain or palpitations. Right sided weakness, but able to slowly move right upper extremity - Current Medication List Current Medications: Active Medications Albuterol/Ipratropium (Duoneb -) 1 amp NEB Q4H PRN PRN Reason: SHORTNESS OF BREATH Amino Acids (Prosource No Carb Liquid Pkt) 30 ml PO BID@0800,1730 [facility] Last Admin: 05/24/17 10:14 Dose: 30 ml Aspirin (Ecotrin -) 81 mg PO DAILY [facility] Last Admin: 05/24/17 10:15 Dose: 81 mg Atorvastatin Calcium (Lipitor -) 20 mg PO HS [facility] Last Admin: 05/23/17 21:02 Dose: 20 mg Docusate Sodium (Colace -) 100 mg PO DAILY [facility] Last Admin: 05/24/17 10:15 Dose: 100 mg Heparin Sodium (Porcine) (Heparin -) 5,000 unit SQ TID [facility] Last Admin: 05/24/17 05:24 Dose: 5,000 unit Piperacillin Sod/Tazobactam (Sod 4.5 gm/ Dextrose) 100 mls @ 200 mls/hr IVPB Q8H-IV [facility] Last Admin: 05/24/17 10:15 Dose: 200 mls/hr Insulin Aspart (Novolog Vial Sliding Scale -) 1 vial SQ ACHS [facility] PRN Reason: Protocol Last Admin: 05/24/17 12:36 Dose: 6 units Lisinopril (Prinivil) 5 mg PO DAILY [facility] Last Admin: 05/24/17 10:15 Dose: 5 mg Metoprolol Succinate (Toprol Xl -) 100 mg PO DAILY [facility] Last Admin: 05/24/17 10:15 Dose: 100 mg Triamcinolone Acetonide (Aristocort 0.1% Lotion -) 1 applic TP BID PRN PRN Reason: FOR ITCHING/RASH - Objective Vital Signs: Vital Signs Temperature 99.9 F H 05/24/17 15:00 Pulse Rate 107 H 05/24/17 15:00 Respiratory Rate 22 05/24/17 15:00 Blood Pressure 132/56 05/24/17 15:00 O2 Sat by Pulse Oximetry (%) 95 05/24/17 09:00 Neck: Yes: Supple Cardiovascular: Yes: Regular Rate and Rhythm, Tachycardia, S1, S2 Respiratory: Yes: CTA Bilaterally Gastrointestinal: Yes: Normal Bowel Sounds, Soft. No: Tenderness Edema: No Additional Findings/Remarks: - Review of Systems Constitutional: denies: Chills, Fever Cardiovascular: denies: Shortness of Breath denies: Chest Pain, Palpitations Respiratory: Denies: SOB. denies: Orthopnea, PND Gastrointestinal: denies: Abdominal Pain, Constipation, Diarrhea, Melena, Nausea , Rectal Bleeding, Vomiting Neurological: denies: Weakness. denies: Dizziness, Headache, Seizure, Syncope Labs: CBC, BMP 05/24/17 08:55 05/24/17 08:55 Problem List - Problems (1) Hypercholesterolemia Code(s): E78.00 - PURE HYPERCHOLESTEROLEMIA, UNSPECIFIED (2) Acute respiratory failure with hypoxia Code(s): J96.01 - ACUTE RESPIRATORY FAILURE WITH HYPOXIA (3) Kwohj-ic-ohohnbd kidney injury Code(s): N17.9 - ACUTE KIDNEY FAILURE, UNSPECIFIED; N18.9 - CHRONIC KIDNEY DISEASE, UNSPECIFIED Qualifiers: Chronic kidney disease stage: stage 2 (mild) (4) Cellulitis Code(s): L03.90 - CELLULITIS, UNSPECIFIED Qualifiers: Site of cellulitis of extremity: lower extremity (5) Cerebrovascular disease Code(s): I67.9 - CEREBROVASCULAR DISEASE, UNSPECIFIED (6) Cor pulmonale (chronic) Code(s): I27.81 - COR PULMONALE (CHRONIC) (7) Coronary artery disease Code(s): I25.10 - ATHSCL HEART DISEASE OF [place] CORONARY ARTERY W/O ANG PCTRS Qualifiers: Coronary Disease-Associated Artery/Lesion type: [place] artery [place] vs. transplanted heart: [place] heart Associated angina: without angina Qualified Code(s): I25.10 - Atherosclerotic heart disease of [place] coronary artery without angina pectoris (8) Diastolic dysfunction with chronic heart failure Code(s): I50.32 - CHRONIC DIASTOLIC (CONGESTIVE) HEART FAILURE (9) Pulmonary hypertension Code(s): I27.20 - PULMONARY HYPERTENSION, UNSPECIFIED (10) S/P CABG (coronary artery bypass graft) Code(s): Z95.1 - PRESENCE OF AORTOCORONARY BYPASS GRAFT (11) Type 2 diabetes mellitus Code(s): E11.9 - TYPE 2 DIABETES MELLITUS WITHOUT COMPLICATIONS Qualifiers: Diabetes mellitus complication status: without complication Diabetes mellitus intermediate insulin use: without superintendent [employer] use Qualified Code(s): E11.9 - Type 2 diabetes mellitus without complications Assessment/Plan 1. Acute Hypoxic Respiratory Failure 2. Acute on chronic diastolic failure, pulm hypertension with pleural effusion 3. Cor pulmonale 4. CAD post CABG, angina pectoris 5. 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 HTN/HCVD 6. NIDDM 7. Hyperlipidemia 8. Acute on CKD improving 9. Lower extremity cellulitis 10. Right wrist scaphoid fracture and triquetrum fracture 11. Hypernatremia PLAN: 1. Free water repletion to correct Na, monitor fluid status and give diuretics as needed 2. Continue Lisinopril and closely monitor renal function 3. Continue Toprol XL and titrate dosage as tolerated 4. Continue ASA 5. Continue Lipitor 6. Bronchodilator and O2 7. Antibiotics coverage 8. MRI of the brain pending once he is able to go down for study 9. As outlined in prior notes outpatient evaluation of pulmonary hypertension - including RHC eventually 10. Neurology follow up Further plans are to follow Oswaldo Sunshine MD
[2017-05-24] MEDS ORDERED: PT OWN MED DRAWER 7, Y5N ONE (17:48)
[2017-05-24 19:17] LABS: ARTERIAL BLD GAS O2 SATURATION 96.7 % (90-98.9); ARTERIAL BLOOD GAS BASE EXCESS 3.6 meq/l (-2-2); ARTERIAL BLOOD GAS PCO2 64.7 mmHg (35-45); ARTERIAL BLOOD GAS PO2 91.8 mmHg (70-100)
[2017-05-24 19:18] LABS: ALLENS TEST POSITIVE
[2017-05-24] MEDS: ATORVASTATIN CA 20 MG TABLET (FP) PO SCH (21:39)
[2017-05-24] MEDS ORDERED: FUROSEMIDE 40 MG/4 ML INJECTABLE VIAL IVPUSH ONE (21:45)
--- NOTE | 2017-05-24 21:52 | HOSP ---
Subjective - Review of Symptoms Subjective: Pt. Seen at bedside for Acute Hypercapnic Respiratory Failure - Pt. Awake at bedside and able to follow commands Physical: VS: Vital Signs Period Temp Pulse Resp BP Sys/Eckert Pulse Ox Last 24 Hr 98.2 F-99.9 F 95-109 20-22 125-146/55-61 95 GEN: Resting in bed, on BIPAP CARD: RRR S1, S1 RESP: Decreased at bases ABD: BSx4 EXT: +2 Pitting edema, bilateral and equal ABG Results ABG pH 7.30 (7.35-7.45) L 05/24/17 19:05 ABG pCO2 at Pt Temp 64.7 mmHg (35-45) H* 05/24/17 19:05 ABG pO2 at Pt Temp 91.8 mmHg (70-100) D 05/24/17 19:05 ABG HCO3 30.9 meq/L (22-26) H 05/24/17 19:05 ABG O2 Sat (Measured) 96.7 % (90-98.9) 05/24/17 19:05 ABG O2 Content 14.9 % vol (15-22) L 05/24/17 19:05 ABG Base Excess 3.6 meq/l (-2-2) H 05/24/17 19:05 1.) Acute Hypercapnic Respiratory Failure - BIPAP settings adjusted - Repeat ABG in 1 HR - CXR, Lasix, EKG, Trop, BMP - ICU contacted if INC. RR and more hypercapnic will consider tranfer to ICU and low threshold for intubation CC Time: 20 Minutes Physical Examination Vital Signs: Vital Signs Temperature 98.8 F 05/24/17 18:00 Pulse Rate 109 H 05/24/17 18:00 Respiratory Rate 22 05/24/17 18:00 Blood Pressure 125/55 05/24/17 18:00 O2 Sat by Pulse Oximetry (%) 95 05/24/17 09:00 Labs: CBC, BMP 05/24/17 08:55 05/24/17 08:55
[2017-05-24 23:02] LABS: ARTERIAL BLD GAS O2 SATURATION 93.7 % (90-98.9); ARTERIAL BLOOD GAS BASE EXCESS 5.4 meq/l (-2-2); ARTERIAL BLOOD GAS PCO2 49.9 mmHg (35-45); ARTERIAL BLOOD GAS PO2 65.6 mmHg (70-100); ARTERIAL BLOOD GAS pH 7.41 (7.35-7.45)
[2017-05-24 23:04] LABS: ALLENS TEST POSITIVE
--- NOTE | 2017-05-24 23:50 | HOSP ---
Subjective - Review of Symptoms Events since last encounter: Was called to see pt because of abnormal ABG. Per nurse, pt was seen by day team earlier, and they felt pt was somewhat lethargic, and so ordered an ABG and placed pt on NIPPV. On exam, pt was sleeping but easily rousable. He was able to respond to commands. He was, however, tachypnic and in mild respiratory distress with RR ~ 20-25. ABG revealed respiratory acidosis with pH 7.30, PCO2 64.7, HCO3 30.9. Stat CXR was ordered, which revealed congestion and likely pleural effusions. RT was called and adjusted NIPPV settings increasing RR 14-> 20, IPAP 14->16, EPAP 8 - > 6. Current NIPPV settings: IPAP 16, EPAP 6, FIO2 45, Rate 20 Follow up ABG after <1hr: pH 7.41, pCO2 49, HCO3 30.7. Stat Trop .22 baseline <0.02. [place] to be likely 2/2 demand. Will monitor. Repeat EKG continues to show TWI. Spoke with Cardiology (Dr. Ames) who felt that TWI are not surprising in the setting of CHF with respiratory failure. He felt there would not be any need for intervention at this time and agreed with diuresis and monitoring. Physical Examination Vital Signs: Vital Signs Temperature 98.8 F 05/24/17 18:00 Pulse Rate 109 H 05/24/17 18:00 Respiratory Rate 22 05/24/17 18:00 Blood Pressure 125/55 05/24/17 18:00 O2 Sat by Pulse Oximetry (%) 95 05/24/17 09:00 Labs: CBC, BMP 05/24/17 08:55 05/24/17 08:55 Visit type - Emergency Visit Emergency Visit: No - New Patient This patient is new to me today: Yes Date on this admission: 05/25/17 - Critical Care Critical Care patient: No
[2017-05-25] MEDS: PIPERACILLIN/TAZOB 4.5 GM 4.5 GM in DEXTROSE 5%-WATER - 100 ML IVPB SCH ×3 (03:00→17:02)
[2017-05-25] MEDS ORDERED: PT OWN MED DRAWER 7, Y5N ONE ×2 (03:01→16:56)
[2017-05-25] MEDS: ALBUTEROL SO4 2.5/IPRATROPIUM 0.5 INH SOL 3 ML VIAL.NEB. NEB PRN (06:15)
[2017-05-25] MEDS: HEPARIN NA (PORCINE) 5,000 UNITS/ML 1ML VIAL SQ SCH (06:39)
[2017-05-25] MEDS: INSULIN SLIDING SCALE (NOVOLOG) 1 VIAL SQ SCH ×4 (06:40→21:47)
--- NOTE | 2017-05-25 08:04 | PN ---
Physical Exam: SUBJECTIVE: Patient seen and examined at bedside, has difficulty breathing yesterday around 7 pm with Pco2 retension 64 , lasix 40 iv push given , BIPAP was adjusted . today breathing is better and more awake and responding. OBJECTIVE: Vital Signs Period Temp Pulse Resp BP Sys/Eckert Pulse Ox Last 24 Hr 97.8 F-99.9 F 80-109 16-22 105-132/48-63 95-98 GENERAL: The patient is awake, alert, and fully oriented,aphasic,in no acute distress HEAD: Normal with no signs of trauma. with BIPAP mask EYES: sclera anicteric, conjunctiva clear. ENT: moist mucous membranes. NECK:supple. LUNGS:mild tachypnech on BIPAP, CTA B/L .with no accessory muscle use. mid sternal scar HEART: Regular rate and rhythm, S1, S2 without murmur, rub or gallop. ABDOMEN: Obese, Soft, nontender, nondistended, normoactive bowel sounds, no guarding, no rebound, EXTREMITIES: 2+ pulses, warm, well-perfused, +1 edema. B/L LE cellulitis improving , right hand swelling with echymosis NEUROLOGICAL: not done due to respiratory distress, right side weakness with aphasic,gait not observed. PSYCH: Normal mood, normal affect. SKIN: Warm, dry, Laboratory Results - last 24 hr 05/24/17 05/24/17 05/24/17 08:55 08:55 11:41 WBC 16.7 H RBC 4.02 Hgb 11.8 D Hct 37.8 MCV 94.0 MCH 29.4 MCHC 31.3 L RDW 14.3 Plt Count 312 MPV 9.6 Neutrophils % 84.5 H Lymphocytes % 5.6 L D Monocytes % 8.1 Eosinophils % 1.2 Basophils % 0.6 Puncture Site ABG pH ABG pCO2 at Pt Temp ABG pO2 at Pt Temp ABG HCO3 ABG O2 Sat (Measured) ABG O2 Content ABG Base Excess Dax Test O2 Delivery Device Oxygen Flow Rate Vent Mode Vent Rate Mechanical Rate Pressure Support Vent Sodium 148 H Potassium 4.5 Chloride 111 H Carbon Dioxide 34 H Anion Gap 3 L BUN 39 H D Creatinine 1.2 D Creat Clearance w eGFR 58.40 POC Glucometer 277 Random Glucose 176 H Calcium 8.6 Total Bilirubin 0.5 AST 10 L ALT 16 Alkaline Phosphatase 157 H Troponin I Total Protein 5.6 L Albumin 1.9 L 05/24/17 05/24/17 05/24/17 17:37 19:05 21:35 WBC RBC Hgb Hct MCV MCH MCHC RDW Plt Count MPV Neutrophils % Lymphocytes % Monocytes % Eosinophils % Basophils % Puncture Site Right radial ABG pH 7.30 L ABG pCO2 at Pt Temp 64.7 H* ABG pO2 at Pt Temp 91.8 D ABG HCO3 30.9 H ABG O2 Sat (Measured) 96.7 ABG O2 Content 14.9 L ABG Base Excess 3.6 H Dax Test Positive O2 Delivery Device Bipap Oxygen Flow Rate 50% Vent Mode S/t Vent Rate 14 Mechanical Rate Bipab Pressure Support Vent 14/8 Sodium Potassium Chloride Carbon Dioxide Anion Gap BUN Creatinine Creat Clearance w eGFR POC Glucometer 234 Random Glucose Calcium Total Bilirubin AST ALT Alkaline Phosphatase Troponin I 0.22 H D Total Protein Albumin 05/24/17 05/24/17 05/25/17 22:08 22:52 06:21 WBC RBC Hgb Hct MCV MCH MCHC RDW Plt Count MPV Neutrophils % Lymphocytes % Monocytes % Eosinophils % Basophils % Puncture Site Right radial ABG pH 7.41 ABG pCO2 at Pt Temp 49.9 H D ABG pO2 at Pt Temp 65.6 L D ABG HCO3 30.7 H ABG O2 Sat (Measured) 93.7 ABG O2 Content 14.8 L ABG Base Excess 5.4 H Dax Test Positive O2 Delivery Device Bipab Oxygen Flow Rate 40% Vent Mode S/t Vent Rate 20 Mechanical Rate Pressure Support Vent 16/6 Sodium Potassium Chloride Carbon Dioxide Anion Gap BUN Creatinine Creat Clearance w eGFR POC Glucometer 232 181 Random Glucose Calcium Total Bilirubin AST ALT Alkaline Phosphatase Troponin I Total Protein Albumin Active Medications Generic Name Dose Route Start Last Admin Trade Name Freq PRN Reason Stop Dose Admin Albuterol/Ipratropium 1 amp 05/24/17 11:19 05/25/17 06:15 Duoneb - NEB 1 amp Q4H PRN Administration SHORTNESS OF BREATH Amino Acids 30 ml 05/16/17 17:30 05/24/17 17:49 Prosource No Carb Liquid Pkt PO Not Given BID@0800,1730 [facility] Aspirin 81 mg 05/10/17 10:00 05/24/17 10:15 Ecotrin - PO 81 mg DAILY [facility] Administration Atorvastatin Calcium 20 mg 05/10/17 22:00 05/24/17 21:39 Lipitor - PO Not Given HS [facility] Docusate Sodium 100 mg 05/11/17 10:00 05/24/17 10:15 Colace - PO 100 mg DAILY [facility] Administration Heparin Sodium (Porcine) 5,000 unit 05/18/17 14:00 05/25/17 06:39 Heparin - SQ 5,000 unit TID [facility] Administration Piperacillin Sod/Tazobactam 100 mls @ 200 mls/hr 05/23/17 18:00 05/25/17 03: 00 Sod 4.5 gm/ Dextrose IVPB 200 mls/hr Q8H-IV [facility] Administration Insulin Aspart 1 vial 05/09/17 22:00 05/25/17 06:40 Novolog Vial Sliding Scale - SQ 2 units ACHS [facility] Administration Protocol Lisinopril 5 mg 05/20/17 10:00 05/24/17 10:15 Prinivil PO 5 mg DAILY [facility] Administration Metoprolol Succinate 100 mg 05/18/17 10:00 05/24/17 10:15 Toprol Xl - PO 100 mg DAILY [facility] Administration Triamcinolone Acetonide 1 applic 05/10/17 10:00 Aristocort 0.1% Lotion - TP BID PRN FOR ITCHING/RASH CBC, BMP 05/24/17 08:55 05/24/17 08:55 Intake & Output 05/22/17 05/23/17 05/24/17 05/25/17 23:59 23:59 23:59 23:59 Intake Total 550 490 350 100 Output Total 1500 200 950 400 Balance -950 290 -600 -300 Weight 108.59 kg 109.679 kg 108.771 kg ABG Results ABG pH 7.41 (7.35-7.45) 05/24/17 22:52 ABG pCO2 at Pt Temp 49.9 mmHg (35-45) H D 05/24/17 22:52 ABG pO2 at Pt Temp 65.6 mmHg (70-100) L D 05/24/17 22:52 ABG HCO3 30.7 meq/L (22-26) H 05/24/17 22:52 ABG O2 Sat (Measured) 93.7 % (90-98.9) 05/24/17 22:52 ABG O2 Content 14.8 % vol (15-22) L 05/24/17 22:52 ABG Base Excess 5.4 meq/l (-2-2) H 05/24/17 22:52 ASSESSMENT/PLAN: 81 yo M admitted initially for cellulites and later found to have acute aphasia likely 2/2 CVA and acute respiratory failure. #Acute Leucocytosis * WBC 19.0 today * [place] CX no growth * LA WNL 1.2 * Repeat CXR shows mild congestion * continue Zosyn 4.5 gm day 3 #Acute hypoxic respiratory failure likely due to pulmonary edema can not R/O PE , improved today - Ventimask trials - continue BiPAP PRN, adjusted last night - Maintain O2 > 90% - CXR on shows worsening congestion , monitor - outpt f/u with pulmonary for PFT and sleep study - give albumin and lasix IV 40 mg x2 , hold lasix today to allow equilibration as bicarb rising -will evaluate daily and diurese, -dc IVF . -monitor urine output, creatinine - Maintain king -encourage free water intake Hypernatremia * Na still in 149 improve to 146 ...148 * Monitor BMP * encourage free water intake by mouth, * pt has a free water deficit of about 4.21 liters Acute Aphasia with right side weakness - Likely CVA - Cont. asa, lipitor - PT and MRI when stable Cellulitis, B/L lower leg - Improving - d/c zosyn Acute on chronic diastolic heart failure - pulm hypertension with pleural effusion - Class 0-I, stable - ASA 81 mg daily - I&O - daily weight CAD S/P bypass graft , Angina pectoris - Continue ASA R superficial vein thrombosis in GSV - no need for for AC per vascular - started on Hep 5000 SQ TID prophylaxis DAVID on CKD, improved - Returned to baseline Cr 1.5 , 0.9... 0.8 ...1.2 - Cont. to hold aldactone, -Continue Lisinopril 5 mg QD per cardiology, monitor kidney function - Avoid nephrotoxic agents -monitor urine output, creatinine - maintain king - Monitor BUN/Cr - lasix 40 today proceeded with albumin 25% given X 3 , NIDDM - BGM and SSI Core pulmonale with pulmonary HTN * will follow up as out patient sleep study and possible RHC HTN - Controlled - Continue toprol xl 100 po daily and Lisinopril 5 mg - Monitor renal function HLD - continue Lipitor 20 mg po HS Right wrist scaphoid fracture and triquetrum fracture * continue to monitor * avoid IV and work on the right hand FEN -Dc fluids - Monitor Na+ - DM diet, thick liquid due to aspiration precaution(May consider downgrading diet to chopped and nectar thick liquid. Ensure Compact./Magic cup) per Phlebotomist Prophylaxis - DVT: Heparin 5000 IU sq TID Dispo: * Cont. to observe respiratory status while pending MRI * Monitor NA, BUN/Cr , respiratory distress, volume status Visit type - Emergency Visit Emergency Visit: Yes ED Registration Date: 05/09/17 Care time: The patient presented to the Emergency Department on the above date and was hospitalized for further evaluation of their emergent condition. - New Patient This patient is new to me today: No - Critical Care Critical Care patient: No - Discharge Referral Referred to [facility] No
[2017-05-25 10:04] LABS: BASO % 0.9 % (0-2.0); EOS % 1.1 % (0-4.5); HEMATOCRIT 36.7 % (35.4-49); HEMOGLOBIN 11.4 GM/dL (11.7-16.9); LYMPH % 5.8 % (8-40); MCH 29.3 pg (25.7-33.7); MEAN CELL VOLUME 94.2 fl (80-96); MEAN PLT VOLUME 9.5 fl (7.5-11.1); MONO % 8.2 % (3.8-10.2); PLATELET COUNT 279 K/MM3 (134-434); RBC 3.89 M/mm3 (4.00-5.60); RDW 14.1 % (11.9-15.9); WHITE BLOOD COUNT 14.1 K/mm3 (4.0-10.0)
--- NOTE | 2017-05-25 10:42 | PN ---
Progress Note, [employer] - Note Progress Note: Pt with difficulty breathing again last night with desaturatiion, requiring BIPAP. Now on 40%. Bedside swallow evaluation is fine. Silent aspiration can not be r/o at bedside. MBS? Hesitant verbal expression, starting to express himself occasionally with fluent sentences. Good rehab potential. Producing some spontaneous phrases now. Selected Entries 05/23/17 05/23/17 05/23/17 02:59 10:00 17:00 Breakfast Lunch Supper Temperature 99.4 F 99.2 F 97.7 F 05/23/17 05/23/17 05/24/17 20:08 21:05 02:00 Breakfast Lunch Supper Temperature 101.1 F H 100.3 F H 98.9 F 05/24/17 05/24/17 05/24/17 05:24 15:00 18:00 Breakfast 50% Lunch 25% Supper Temperature 98.2 F 99.9 F H 98.8 F 05/24/17 05/24/17 05/25/17 19:05 20:00 02:00 Breakfast Lunch Supper NPO Temperature 98.7 F 98.7 F 05/25/17 05/25/17 05:20 10:00 Breakfast Lunch Supper Temperature 97.8 F 98 F Laboratory Tests 05/23/17 05/24/17 05/25/17 06:15 08:55 09:25 WBC 19.0 H D 16.7 H 14.1 H IMP: 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 He said "I havent had any ___" and then gestured to eat/drink. He also gestured so-so when asked how is was doing. Bedside swallow evaluation is fine. Silent aspiration can not be r/o at bedside. MBS? REC: Give him time to elicit words to communicate. Use yes/no questions and pointing to communication board to supplement. Evaluated by
[2017-05-25 10:44] LABS: CHLORIDE 109 mmol/L (98-107); POTASSIUM 4.3 mmol/L (3.5-5.1); SODIUM 149 mmol/L (136-145)
[2017-05-25 10:50] LABS: ALBUMIN 1.9 g/dl (3.4-5.0); ALK PHOS 153 U/L (45-117); ANION GAP 7 (8-16); BILIRUBIN,TOTAL 0.5 mg/dL (0.2-1.0); BLOOD UREA NITROGEN 55 mg/dL (7-18); CALCIUM 8.9 mg/dL (8.5-10.1); CO2 33 mmol/L (21-32); CREATININE 1.8 mg/dL (0.7-1.3); GLUCOSE,RANDOM 167 mg/dL (74-106); SGOT/AST 27 U/L (15-37); SGPT/ALT 21 U/L (12-78); TOT PROT 5.7 g/dl (6.4-8.2)
--- NOTE | 2017-05-25 11:02 | PN ---
Progress Note (short form) - Note Progress Note: Chief Complaint: Events noted, notes reviewed, resting comfortably complaining of thirst, dyspnea persists but continues to improve, denies any chest pain History of Present Illness: Seen and examined on telemetry. Events noted, notes reviewed, resting comfortably complaining of thirst, dyspnea persists but continues to improve, denies any chest pain Echocardiography revealed normal LV size, hyperdynamic LV, AV sclerosis, RV dilated and hypokinetic, bi-atrial dilatation, trace MR and TR with no RVSP measurement Medications: Current Medications Albuterol/Ipratropium (Duoneb -) 1 amp NEB Q4H PRN PRN Reason: SHORTNESS OF BREATH Last Admin: 05/25/17 06:15 Dose: 1 amp Amino Acids (Prosource No Carb Liquid Pkt) 30 ml PO BID@0800,1730 [facility] Last Admin: 05/24/17 17:49 Dose: Not Given Aspirin (Ecotrin -) 81 mg PO DAILY [facility] Last Admin: 05/24/17 10:15 Dose: 81 mg Atorvastatin Calcium (Lipitor -) 20 mg PO HS [facility] Last Admin: 05/24/17 21:39 Dose: Not Given Docusate Sodium (Colace -) 100 mg PO DAILY [facility] Last Admin: 05/24/17 10:15 Dose: 100 mg Heparin Sodium (Porcine) (Heparin -) 5,000 unit SQ TID [facility] Last Admin: 05/25/17 06:39 Dose: 5,000 unit Piperacillin Sod/Tazobactam (Sod 4.5 gm/ Dextrose) 100 mls @ 200 mls/hr IVPB Q8H-IV [facility] Last Admin: 05/25/17 09:42 Dose: 200 mls/hr Insulin Aspart (Novolog Vial Sliding Scale -) 1 vial SQ ACHS [facility] PRN Reason: Protocol Last Admin: 05/25/17 06:40 Dose: 2 units Lisinopril (Prinivil) 5 mg PO DAILY [facility] Last Admin: 05/24/17 10:15 Dose: 5 mg Metoprolol Succinate (Toprol Xl -) 100 mg PO DAILY [facility] Last Admin: 05/24/17 10:15 Dose: 100 mg Triamcinolone Acetonide (Aristocort 0.1% Lotion -) 1 applic TP BID PRN PRN Reason: FOR ITCHING/RASH Review of Systems Constitutional: Denies: Chills or Fever Cardiovascular: As noted above Respiratory: denies: Cough or Sputum Production Gastrointestinal: Denies: Nausea, Vomiting, Diarrhea, Constipation or Abdominal Pain Genitourinary: No symptoms reported Neurology: No seizures or syncope Vital Signs: Last Vital Signs Temp Pulse Resp BP Pulse Ox 98 F 90 20 136/58 98 05/25/17 10:00 05/25/17 10:00 05/25/17 10:00 05/25/17 10:00 05/24/17 21:00 Intake & Output 05/22/17 05/23/17 05/24/17 05/25/17 23:59 23:59 23:59 23:59 Intake Total 550 490 350 100 Output Total 1500 200 950 400 Balance -950 290 -600 -300 Weight 239 lb 6.4 oz 241 lb 12.8 oz 239 lb 12.8 oz Constitutional: No Distress, Calm Neck: Supple Negative JVD Respiratory: Diminished Breath Sounds at the Bases Cardiovascular: S1 S2 Regular Rate and Rhythm Gastrointestinal: Soft Benign Normal Bowel Sounds Ext: Trace Bilateral Edema with Venous Stasis Changes and Ulcers Labs: CBC, BMP 05/25/17 09:25 05/25/17 09:25 Assessment/Plan ASSESSMENT: 1. Diastolic LV dysfunction with chronic class 0-I NYHA classification LV failure, probably euvolemic with Hypernatremia (resolving Hyponatremia) 2. Cor pulmonale, pulmonary hypertension (No RVSP measurement on the above noted echocardiography) 3. CAD post CABG, angina pectoris 4. 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 HTN/HCVD 6. NIDDM 7. Hyperlipidemia 8. Acute on CKD 9. Lower extremity cellulitis, resolving 10. Right wrist scaphoid fracture and triquetrum fracture 11. Hypernatremia, resolving 12. Anemia PLAN: 1. Continue to hold Lasix and Aldactone pending renal function recovery and Hypernatremia correction, encourage free water intake 2. Continue Lisinopril with close monitoring of renal function 3. Continue Toprol XL 4. Continue ASA 5. Continue Lipitor 6. BiPAP as tolerated and as needed 7. Antibiotics as per the primary team 8. MRI as planned by primary team, respiratory status permitting 9. As outlined in prior notes outpatient evaluation of pulmonary hypertension Venus Soares MD
--- NOTE | 2017-05-25 11:08 | PN ---
Progress Note, Physician History of Present Illness: PULMONARY ALERT,NAD,+EXPRESSIVE APHASIA - Current Medication List Current Medications: Active Medications Albuterol/Ipratropium (Duoneb -) 1 amp NEB Q4H PRN PRN Reason: SHORTNESS OF BREATH Last Admin: 05/25/17 06:15 Dose: 1 amp Amino Acids (Prosource No Carb Liquid Pkt) 30 ml PO BID@0800,1730 [facility] Last Admin: 05/24/17 17:49 Dose: Not Given Aspirin (Ecotrin -) 81 mg PO DAILY [facility] Last Admin: 05/24/17 10:15 Dose: 81 mg Atorvastatin Calcium (Lipitor -) 20 mg PO HS [facility] Last Admin: 05/24/17 21:39 Dose: Not Given Docusate Sodium (Colace -) 100 mg PO DAILY [facility] Last Admin: 05/24/17 10:15 Dose: 100 mg Heparin Sodium (Porcine) (Heparin -) 5,000 unit SQ TID [facility] Last Admin: 05/25/17 06:39 Dose: 5,000 unit Piperacillin Sod/Tazobactam (Sod 4.5 gm/ Dextrose) 100 mls @ 200 mls/hr IVPB Q8H-IV [facility] Last Admin: 05/25/17 09:42 Dose: 200 mls/hr Insulin Aspart (Novolog Vial Sliding Scale -) 1 vial SQ ACHS [facility] PRN Reason: Protocol Last Admin: 05/25/17 06:40 Dose: 2 units Lisinopril (Prinivil) 5 mg PO DAILY [facility] Last Admin: 05/24/17 10:15 Dose: 5 mg Metoprolol Succinate (Toprol Xl -) 100 mg PO DAILY [facility] Last Admin: 05/24/17 10:15 Dose: 100 mg Triamcinolone Acetonide (Aristocort 0.1% Lotion -) 1 applic TP BID PRN PRN Reason: FOR ITCHING/RASH - Objective Vital Signs: Vital Signs Temperature 98 F 05/25/17 10:00 Pulse Rate 90 05/25/17 10:00 Respiratory Rate 20 05/25/17 10:00 Blood Pressure 136/58 05/25/17 10:00 O2 Sat by Pulse Oximetry (%) 98 05/24/17 21:00 Constitutional: Yes: Well Nourished, Calm Eyes: Yes: WNL HENT: Yes: WNL Neck: Yes: WNL Cardiovascular: Yes: Regular Rate and Rhythm, S1, S2 Respiratory: Yes: Diminished Gastrointestinal: Yes: Normal Bowel Sounds, Soft Extremities: Yes: WNL, Erythema Edema: Yes Labs: CBC, BMP 05/25/17 09:25 05/25/17 09:25 INR, PTT INR 1.42 (0.82-1.09) H 05/10/17 05:10 Assessment/Plan - Problems (1) Acute respiratory failure with hypoxia Code(s): J96.01 - ACUTE RESPIRATORY FAILURE WITH HYPOXIA IMPROVING (2) Cellulitis Code(s): L03.90 - CELLULITIS, UNSPECIFIED Qualifiers: Site of cellulitis of extremity: lower extremity (3) Cor pulmonale (chronic) Code(s): I27.81 - COR PULMONALE (CHRONIC) (4) Coronary artery disease Code(s): I25.10 - ATHSCL HEART DISEASE OF [place] CORONARY ARTERY W/O ANG PCTRS Qualifiers: Coronary Disease-Associated Artery/Lesion type: [place] artery [place] vs. transplanted heart: [place] heart Associated angina: without angina Qualified Code(s): I25.10 - Atherosclerotic heart disease of [place] coronary artery without angina pectoris (5) Diastolic dysfunction with chronic heart failure Code(s): I50.32 - CHRONIC DIASTOLIC (CONGESTIVE) HEART FAILURE (6) S/P CABG (coronary artery bypass graft) Code(s): Z95.1 - PRESENCE OF AORTOCORONARY BYPASS GRAFT (7) Pulmonary hypertension Code(s): I27.20 - PULMONARY HYPERTENSION, UNSPECIFIED (8) Atelectasis Code(s): J98.11 - ATELECTASIS A/P Acute Hypoxic Respiratory Failure improving LV Diastolic Dysfunction Pulmonary HTN Acute on Chronic Renal Failure improving Atelectasis CAD s/p CABG HTN DM - NIPPV Support as needed - Monitor urine output, creatinine - O2 to keep SpO2 >90% - PO as tolerated - DVT prophylaxis - abx - inhaled bronchodilators DR HOBSON
[2017-05-25] MEDS ORDERED: FUROSEMIDE 40 MG/4 ML INJECTABLE VIAL IVPUSH ONE (14:07)
--- NOTE | 2017-05-25 14:21 | PN ---
Progress Note, Physician History of Present Illness: clinically patient stable renal function have suddenly worsened wbc decreasing - Current Medication List Current Medications: Active Medications Albuterol/Ipratropium (Duoneb -) 1 amp NEB Q4H PRN PRN Reason: SHORTNESS OF BREATH Last Admin: 05/25/17 06:15 Dose: 1 amp Amino Acids (Prosource No Carb Liquid Pkt) 30 ml PO BID@0800,1730 [facility] Last Admin: 05/24/17 17:49 Dose: Not Given Aspirin (Ecotrin -) 81 mg PO DAILY [facility] Last Admin: 05/24/17 10:15 Dose: 81 mg Atorvastatin Calcium (Lipitor -) 20 mg PO HS [facility] Last Admin: 05/24/17 21:39 Dose: Not Given Docusate Sodium (Colace -) 100 mg PO DAILY [facility] Last Admin: 05/24/17 10:15 Dose: 100 mg Piperacillin Sod/Tazobactam (Sod 4.5 gm/ Dextrose) 100 mls @ 200 mls/hr IVPB Q8H-IV [facility] Last Admin: 05/25/17 09:42 Dose: 200 mls/hr Insulin Aspart (Novolog Vial Sliding Scale -) 1 vial SQ ACHS [facility] PRN Reason: Protocol Last Admin: 05/25/17 12:54 Dose: Not Given Lisinopril (Prinivil) 5 mg PO DAILY [facility] Last Admin: 05/24/17 10:15 Dose: 5 mg Metoprolol Succinate (Toprol Xl -) 100 mg PO DAILY [facility] Last Admin: 05/24/17 10:15 Dose: 100 mg Triamcinolone Acetonide (Aristocort 0.1% Lotion -) 1 applic TP BID PRN PRN Reason: FOR ITCHING/RASH - Objective Vital Signs: Vital Signs Temperature 98 F 05/25/17 10:00 Pulse Rate 90 05/25/17 10:00 Respiratory Rate 20 05/25/17 10:00 Blood Pressure 136/58 05/25/17 10:00 O2 Sat by Pulse Oximetry (%) 98 05/24/17 21:00 Constitutional: Yes: No Distress, Calm Cardiovascular: Yes: Regular Rate and Rhythm Respiratory: Yes: Poor Air Entry, Other (on mask) Gastrointestinal: Yes: Normal Bowel Sounds, Soft Musculoskeletal: Yes: WNL Extremities: Yes: Other Neurological: Yes: Alert Labs: CBC, BMP 05/25/17 09:25 05/25/17 09:25 INR, PTT INR 1.42 (0.82-1.09) H 05/10/17 05:10 Assessment/Plan Cor pulmonale, pulmonary hypertension . CAD p . HTN NIDDM Hyperlipidemia Lower extremity cellulitis cva aphasia leukocytosis wbc trending down cr has increased plan continue abx will adjust the dose rest as per primary team monitor closely rest as per renal and primary team
[2017-05-25] MEDS: METOPROLOL SUCCINATE 100 MG TAB.SR.24H (FP) PO SCH (14:32)
[2017-05-25] MEDS: DOCUSATE SODIUM 100 MG CAPSULE (FP) PO SCH (14:33)
[2017-05-25] MEDS: ASPIRIN COATED 81 MG TABLET.EC PO SCH (14:33)
[2017-05-25] MEDS: AMINO ACIDS/PROTEIN HYDROLYS 30 ML LIQUID.PKT PO SCH ×2 (14:33→16:56)
[2017-05-25] MEDS: LISINOPRIL 5 MG TABLET (FP) PO SCH (14:33)
--- NOTE | 2017-05-25 15:09 | PN ---
Progress Note, Physician History of Present Illness: Patient seen and examined at bedside feels well has no complaints - Current Medication List Current Medications: Active Medications Albuterol/Ipratropium (Duoneb -) 1 amp NEB Q4H PRN PRN Reason: SHORTNESS OF BREATH Last Admin: 05/25/17 06:15 Dose: 1 amp Amino Acids (Prosource No Carb Liquid Pkt) 30 ml PO BID@0800,1730 [facility] Last Admin: 05/25/17 14:33 Dose: Not Given Aspirin (Ecotrin -) 81 mg PO DAILY [facility] Last Admin: 05/25/17 14:33 Dose: 81 mg Atorvastatin Calcium (Lipitor -) 20 mg PO HS [facility] Last Admin: 05/24/17 21:39 Dose: Not Given Docusate Sodium (Colace -) 100 mg PO DAILY [facility] Last Admin: 05/25/17 14:33 Dose: 100 mg Piperacillin Sod/Tazobactam (Sod 4.5 gm/ Dextrose) 100 mls @ 200 mls/hr IVPB Q8H-IV [facility] Last Admin: 05/25/17 09:42 Dose: 200 mls/hr Insulin Aspart (Novolog Vial Sliding Scale -) 1 vial SQ ACHS [facility] PRN Reason: Protocol Last Admin: 05/25/17 12:54 Dose: Not Given Lisinopril (Prinivil) 5 mg PO DAILY [facility] Last Admin: 05/25/17 14:33 Dose: Not Given Metoprolol Succinate (Toprol Xl -) 100 mg PO DAILY [facility] Last Admin: 05/25/17 14:32 Dose: 100 mg Triamcinolone Acetonide (Aristocort 0.1% Lotion -) 1 applic TP BID PRN PRN Reason: FOR ITCHING/RASH - Objective Vital Signs: Vital Signs Temperature 98 F 05/25/17 10:00 Pulse Rate 90 05/25/17 10:00 Respiratory Rate 20 05/25/17 10:00 Blood Pressure 136/58 05/25/17 10:00 O2 Sat by Pulse Oximetry (%) 94 L 05/25/17 12:33 Constitutional: Yes: Well Nourished Cardiovascular: Yes: Regular Rate and Rhythm Respiratory: Yes: CTA Bilaterally Gastrointestinal: Yes: Soft Edema: Yes Edema: LLE: 1+ (improved from yesterday ), RLE: 1+ (improved from yesterday ) Wound/Incision: Yes: Other (chronic venous changes in lower extremities) Labs: CBC, BMP 05/25/17 09:25 05/25/17 09:25 INR, PTT INR 1.42 (0.82-1.09) H 05/10/17 05:10 - ....Imaging Chest X-ray: Report Reviewed, Image Reviewed Assessment/Plan 81M with multiple medical problems with DAVID Problem list: Hypernatremia DAVID worsened today HTN acute hypoxic respiratory failure hypoxia CHF DM hyperlipidemia cellulitis Plan: continue to encourage free water intake Creatinine worsened today continue to monitor sodium Will not give a dose of lasix today-Lower extremities improved consider repeat CXR in the morning hold off fluids Keep BiPAp at bedside-patient is currently saturating well on 2L Nasal cannula trend BMP Will follow Case discussed with attending Dr. Kat
--- NOTE | 2017-05-25 15:19 | PN ---
Teaching Attending Note Name of Resident: Hans Barker (Nephrology) ATTENDING PHYSICIAN STATEMENT I saw and evaluated the patient. I reviewed the resident's note and discussed the case with the resident. I agree with the resident's findings and plan as documented. Renal follow Up Pt seen and examined at bedside. His oxygen requirements are improved. Current Medications Generic Name Dose Route Start Last Admin Trade Name Freq PRN Reason Stop Dose Admin Albuterol/Ipratropium 1 amp 05/24/17 11:19 05/25/17 06:15 Duoneb - NEB 1 amp Q4H PRN Administration SHORTNESS OF BREATH Amino Acids 30 ml 05/16/17 17:30 05/25/17 14:33 Prosource No Carb Liquid Pkt PO Not Given BID@0800,1730 [facility] Aspirin 81 mg 05/10/17 10:00 05/25/17 14:33 Ecotrin - PO 81 mg DAILY [facility] Administration Atorvastatin Calcium 20 mg 05/10/17 22:00 05/24/17 21:39 Lipitor - PO Not Given HS [facility] Docusate Sodium 100 mg 05/11/17 10:00 05/25/17 14:33 Colace - PO 100 mg DAILY [facility] Administration Piperacillin Sod/Tazobactam 100 mls @ 200 mls/hr 05/23/17 18:00 05/25/17 09: 42 Sod 4.5 gm/ Dextrose IVPB 200 mls/hr Q8H-IV [facility] Administration Insulin Aspart 1 vial 05/09/17 22:00 05/25/17 12:54 Novolog Vial Sliding Scale - SQ Not Given ACHS [facility] Protocol Lisinopril 5 mg 05/20/17 10:00 05/25/17 14:33 Prinivil PO Not Given DAILY [facility] Metoprolol Succinate 100 mg 05/18/17 10:00 05/25/17 14:32 Toprol Xl - PO 100 mg DAILY [facility] Administration Triamcinolone Acetonide 1 applic 05/10/17 10:00 Aristocort 0.1% Lotion - TP BID PRN FOR ITCHING/RASH Laboratory Tests 05/25/17 09:25 Sodium 149 H Creatinine 1.8 H D Impression 1. Hypernatremia 2. whitney resolved 3. HTN 4. respiratory failure requiring bipap 5. hypoxia 6. CHF 7. DM 8. hyperlipidemia 9. acute aphasia 10. cellulitis Plan - renal function is worse today - will hold dose of lisinopril - repeat labs in am - hold lasix for now - get cxr - cont with oxygen and monitor pulse ox - will follow Problem List - Problems (1) Hypernatremia Code(s): E87.0 - HYPEROSMOLALITY AND HYPERNATREMIA (2) Acute respiratory failure with hypoxia Code(s): J96.01 - ACUTE RESPIRATORY FAILURE WITH HYPOXIA (3) [id number] kidney injury Code(s): N17.9 - ACUTE KIDNEY FAILURE, UNSPECIFIED; N18.9 - CHRONIC KIDNEY DISEASE, UNSPECIFIED Qualifiers: Chronic kidney disease stage: stage 2 (mild) (4) Atelectasis Code(s): J98.11 - ATELECTASIS (5) Chronic kidney disease Code(s): N18.9 - CHRONIC KIDNEY DISEASE, UNSPECIFIED Qualifiers: Chronic kidney disease stage: stage 2 (mild) Qualified Code(s): N18.2 - Chronic kidney disease, stage 2 (mild)
--- NOTE | 2017-05-25 17:09 | PN ---
Teaching Attending Note Name of Resident: Deandre Smith ATTENDING PHYSICIAN STATEMENT I saw and evaluated the patient. I reviewed the resident's note and discussed the case with the resident. I agree with the resident's findings and plan as documented. SUBJECTIVE: Patient is doing better, more awake , off Bipap now, wants to eat and drink food. OBJECTIVE: Vital Signs Temperature 98.2 F 05/25/17 15:12 Pulse Rate 88 05/25/17 15:12 Respiratory Rate 22 05/25/17 15:12 Blood Pressure 128/61 05/25/17 15:12 O2 Sat by Pulse Oximetry (%) 94 L 05/25/17 12:33 CBCD WBC 14.1 K/mm3 (4.0-10.0) H 05/25/17 09:25 RBC 3.89 M/mm3 (4.00-5.60) L 05/25/17 09:25 Hgb 11.4 GM/dL (11.7-16.9) L 05/25/17 09:25 Hct 36.7 % (35.4-49) 05/25/17 09:25 MCV 94.2 fl (80-96) 05/25/17 09:25 MCHC 31.0 g/dl (32.0-35.9) L 05/25/17 09:25 RDW 14.1 % (11.9-15.9) 05/25/17 09:25 Plt Count 279 K/MM3 (134-434) 05/25/17 09:25 MPV 9.5 fl (7.5-11.1) 05/25/17 09:25 CMP Sodium 149 mmol/L (136-145) H 05/25/17 09:25 Potassium 4.3 mmol/L (3.5-5.1) 05/25/17 09:25 Chloride 109 mmol/L (98-107) H 05/25/17 09:25 Carbon Dioxide 33 mmol/L (21-32) H 05/25/17 09:25 Anion Gap 7 (8-16) L 05/25/17 09:25 BUN 55 mg/dL (7-18) H D 05/25/17 09:25 Creatinine 1.8 mg/dL (0.7-1.3) H D 05/25/17 09:25 Creat Clearance w eGFR 36.58 (>60) 05/25/17 09:25 Random Glucose 167 mg/dL (74-106) H 05/25/17 09:25 Calcium 8.9 mg/dL (8.5-10.1) 05/25/17 09:25 Total Bilirubin 0.5 mg/dL (0.2-1.0) 05/25/17 09:25 AST 27 U/L (15-37) D 05/25/17 09:25 ALT 21 U/L (12-78) D 05/25/17 09:25 Alkaline Phosphatase 153 U/L (45-117) H 05/25/17 09:25 Total Protein 5.7 g/dl (6.4-8.2) L 05/25/17 09:25 Albumin 1.9 g/dl (3.4-5.0) L 05/25/17 09:25 CARDIAC ENZYMES Creatine Kinase 69 IU/L (39-308) 05/09/17 16:45 Troponin I 0.22 ng/ml (0.00-0.05) H D 05/24/17 21:35 Current Medications Generic Name Dose Route Start Last Admin Trade Name Freq PRN Reason Stop Dose Admin Albuterol/Ipratropium 1 amp 05/24/17 11:19 05/25/17 06:15 Duoneb - NEB 1 amp Q4H PRN Administration SHORTNESS OF BREATH Amino Acids 30 ml 05/16/17 17:30 05/25/17 16:56 Prosource No Carb Liquid Pkt PO 30 ml BID@0800,1730 [facility] Administration Aspirin 81 mg 05/10/17 10:00 05/25/17 14:33 Ecotrin - PO 81 mg DAILY [facility] Administration Atorvastatin Calcium 20 mg 05/10/17 22:00 05/24/17 21:39 Lipitor - PO Not Given HS [facility] Docusate Sodium 100 mg 05/11/17 10:00 05/25/17 14:33 Colace - PO 100 mg DAILY [facility] Administration Piperacillin Sod/Tazobactam 100 mls @ 200 mls/hr 05/23/17 18:00 05/25/17 17: 02 Sod 4.5 gm/ Dextrose IVPB 200 mls/hr Q8H-IV [facility] Administration Insulin Aspart 1 vial 05/09/17 22:00 05/25/17 16:52 Novolog Vial Sliding Scale - SQ 4 units ACHS [facility] Administration Protocol Lisinopril 5 mg 05/20/17 10:00 05/25/17 14:33 Prinivil PO Not Given DAILY [facility] Metoprolol Succinate 100 mg 05/18/17 10:00 05/25/17 14:32 Toprol Xl - PO 100 mg DAILY [facility] Administration Triamcinolone Acetonide 1 applic 05/10/17 10:00 Aristocort 0.1% Lotion - TP BID PRN FOR ITCHING/RASH Home Medications Medication Instructions Recorded Furosemide [Lasix -] 40 mg PO BID 05/09/17 Glipizide [Glipizide ER] 5 mg PO BID 05/09/17 Ibuprofen 800 mg PO PRN 05/09/17 Metoprolol Succinate [Toprol Xl -] 50 mg PO DAILY 05/09/17 Simvastatin [Zocor -] 40 mg PO DAILY 05/09/17 Sitagliptin Phos/Metformin HCl 1 each PO BID 05/09/17 [Janumet 50-500 mg Tablet] Triamcinolone 0.1% Lotion [Kenalog 60 ml TP PRN 05/09/17 0.1% Top Lotion] Docusate Sodium [Colace] 100 mg PO DAILY 05/10/17 GENERAL: The patient is lying in bed with no acute distress , on NC now off Bipap , awake, alert, oriented, aphasic, in no acute distress EYES: sclera anicteric, conjunctiva clear. NECK:supple. LUNGS:decreased BS BL , no accessory muscle use. No wheezing no rales HEART: RRR, S1, S2 without murmur, rub or gallop. ABDOMEN: Soft, nontender, nondistended, normoactive bowel sounds, no guarding, no rebound. EXTREMITIES: 2+ pulses, warm, well-perfused, +1 edema LE BL NEUROLOGICAL: expressive aphasia but improving otherwise Cn2-12 grossly intact PSYCH: Normal mood, normal affect. SKIN: Warm, dry, ABG Results ABG pH 7.41 (7.35-7.45) 05/24/17 22:52 ABG pCO2 at Pt Temp 49.9 mmHg (35-45) H D 05/24/17 22:52 ABG pO2 at Pt Temp 65.6 mmHg (70-100) L D 05/24/17 22:52 ABG HCO3 30.7 meq/L (22-26) H 05/24/17 22:52 ABG O2 Sat (Measured) 93.7 % (90-98.9) 05/24/17 22:52 ABG O2 Content 14.8 % vol (15-22) L 05/24/17 22:52 ABG Base Excess 5.4 meq/l (-2-2) H 05/24/17 22:52 A/P: Patient is a 81 y/o man with h/o HTN, CAD, DM , diastolic Dysfunction , cor pulmonale , who presented with LE edema and erythema and was found to have cellulitis , hospital course was complicated by expressive aphasia and R sided weakness( patient has a Fx of his hand). # #Acute Hypercapniec respiratory failure : s/p ABG with elevated Pco2 s/p Bipap and ordered prn. # Acute aphasia (expressive aphasia ) with mild Right sided weakness ( possible due Right wrist scaphoid fracture and triquetrum fracture ) ; acute over chronic CVA : with hx of an old stroke reported on CT scan. Continue aspirin and Lipitor # Right wrist scaphoid fracture and triquetrum fracture # Acute Hypernatremia is climbing up again, encourage free water intake, since can't give IVF due to congestive changes on CXR ,nephro on the case.. # Right superficial vein thrombosis in greater saphenous vein. As per , no need to anticoagute the patient. # DAVID: improved # Acute Leukocytosis 8.2-->19-->14.1, ID restarted him back to Zosyn IV will monitor # Acute cellulitis improved continue IV abx as per ID DVT PX , heparin sq MBS was ordered but patient is not able to get off Bipap/VM will wait till patient is more stable diet was started today
[2017-05-25] MEDS: ATORVASTATIN CA 20 MG TABLET (FP) PO SCH (21:47)
[2017-05-26] MEDS ORDERED: PT OWN MED DRAWER 7, Y5N ONE (03:38)
[2017-05-26] MEDS: PIPERACILLIN/TAZOB 4.5 GM 4.5 GM in DEXTROSE 5%-WATER - 100 ML IVPB SCH ×3 (03:45→17:34)
--- NOTE | 2017-05-26 06:00 | PN ---
Physical Exam: SUBJECTIVE: Patient seen and examined at bedside. no acute events over night , on BIPAP over night , on vent 50 % in the morning with sat 94 % . denies any fever, chills, N/V/D/C. legs cellulitis improving , edema is still there but improved. OBJECTIVE: Vital Signs Period Temp Pulse Resp BP Sys/Eckert Pulse Ox Last 24 Hr 97.7 F-98.9 F 86-98 18-22 125-157/58-72 94-94 GENERAL: The patient is awake, alert, and fully oriented, in no acute distress. HEAD: Normal with no signs of trauma. EYES: PERRL, extraocular movements intact, sclera anicteric, conjunctiva clear. No ptosis. ENT: Ears normal, nares patent, oropharynx clear without exudates, moist mucous membranes. NECK: Trachea midline, full range of motion, supple. LUNGS: diminshed breath sound at angelo bases with some crackles. , , no crackles, no accessory muscle use. HEART: Regular rate and rhythm, S1, S2 without murmur, rub or gallop. ABDOMEN: Soft, nontender, nondistended, normoactive bowel sounds, no guarding, no rebound, no hepatosplenomegaly, no masses. EXTREMITIES: 2+ pulses, warm, well-perfused, no edema. NEUROLOGICAL: Cranial nerves II through XII grossly intact. Normal speech, gait not observed. PSYCH: Normal mood, normal affect. SKIN: Warm, dry, normal turgor, no rashes or lesions noted Laboratory Results - last 24 hr 05/25/17 05/25/17 05/25/17 06:21 09:25 09:25 WBC 14.1 H RBC 3.89 L Hgb 11.4 L Hct 36.7 MCV 94.2 MCH 29.3 MCHC 31.0 L RDW 14.1 Plt Count 279 MPV 9.5 Neutrophils % 84.0 H Lymphocytes % 5.8 L Monocytes % 8.2 Eosinophils % 1.1 Basophils % 0.9 Sodium 149 H Potassium 4.3 Chloride 109 H Carbon Dioxide 33 H Anion Gap 7 L BUN 55 H D Creatinine 1.8 H D Creat Clearance w eGFR 36.58 POC Glucometer 181 Random Glucose 167 H Calcium 8.9 Total Bilirubin 0.5 AST 27 D ALT 21 D Alkaline Phosphatase 153 H Total Protein 5.7 L Albumin 1.9 L 05/25/17 05/25/17 16:51 21:35 WBC RBC Hgb Hct MCV MCH MCHC RDW Plt Count MPV Neutrophils % Lymphocytes % Monocytes % Eosinophils % Basophils % Sodium Potassium Chloride Carbon Dioxide Anion Gap BUN Creatinine Creat Clearance w eGFR POC Glucometer 248 243 Random Glucose Calcium Total Bilirubin AST ALT Alkaline Phosphatase Total Protein Albumin Active Medications Generic Name Dose Route Start Last Admin Trade Name Freq PRN Reason Stop Dose Admin Albuterol/Ipratropium 1 amp 05/24/17 11:19 05/25/17 06:15 Duoneb - NEB 1 amp Q4H PRN Administration SHORTNESS OF BREATH Amino Acids 30 ml 05/16/17 17:30 05/25/17 16:56 Prosource No Carb Liquid Pkt PO 30 ml BID@0800,1730 [facility] Administration Aspirin 81 mg 05/10/17 10:00 05/25/17 14:33 Ecotrin - PO 81 mg DAILY [facility] Administration Atorvastatin Calcium 20 mg 05/10/17 22:00 05/25/17 21:47 Lipitor - PO 20 mg HS [facility] Administration Docusate Sodium 100 mg 05/11/17 10:00 05/25/17 14:33 Colace - PO 100 mg DAILY [facility] Administration Piperacillin Sod/Tazobactam 100 mls @ 200 mls/hr 05/23/17 18:00 05/26/17 03: 45 Sod 4.5 gm/ Dextrose IVPB 200 mls/hr Q8H-IV [facility] Administration Insulin Aspart 1 vial 05/09/17 22:00 05/25/17 21:47 Novolog Vial Sliding Scale - SQ 4 units ACHS [facility] Administration Protocol Lisinopril 5 mg 05/20/17 10:00 05/25/17 14:33 Prinivil PO Not Given DAILY [facility] Metoprolol Succinate 100 mg 05/18/17 10:00 05/25/17 14:32 Toprol Xl - PO 100 mg DAILY [facility] Administration Triamcinolone Acetonide 1 applic 05/10/17 10:00 Aristocort 0.1% Lotion - TP BID PRN FOR ITCHING/RASH CBC, BMP 05/26/17 09:50 05/26/17 09:50 CXR: worsening congestion compare to previous one ASSESSMENT/PLAN: 81 yo M admitted initially for cellulites and later found to have acute aphasia likely 2/2 CVA and acute respiratory failure. #Acute Leucocytosis * WBC 19.0 trending down to 13.4 * [place] CX no growth * LA WNL 1.2 * Repeat CXR shows mild congestion * continue Zosyn 4.5 gm day 4 #Acute hypoxic respiratory failure likely due to pulmonary edema can not R/O PE , improved today - Ventimask trials - continue BiPAP PRN, adjusted last night - Maintain O2 > 90% - CXR on shows worsening congestion , monitor - outpt f/u with pulmonary for PFT and sleep study - give albumin and lasix IV 40 mg x2 , hold lasix today to allow equilibration as bicarb rising -will evaluate daily and diurese, -dc IVF . -monitor urine output, creatinine - Maintain king -encourage free water intake # Hypernatremia * Na still in 149 improve to 146 ...148...152 * Monitor BMP * encourage free water intake by mouth, * pt has a free water deficit of about 4.21 liters ##DAVID on CKD, improved - Returned to baseline Cr 1.5 , 0.9... 0.8 ...1.2 - Cont. to hold aldactone, -Continue Lisinopril 5 mg QD per cardiology, monitor kidney function - Avoid nephrotoxic agents -monitor urine output, creatinine - maintain king - Monitor BUN/Cr - lasix 40 today proceeded with albumin 25% given X 3 , #Acute Aphasia with right side weakness - Likely CVA - Cont. asa, lipitor - PT and MRI when stable #Cellulitis, B/L lower leg - Improving - continue zosyn # Acute on chronic diastolic heart failure - pulm hypertension with pleural effusion - Class 0-I, stable - ASA 81 mg daily - I&O - daily weight #CAD S/P bypass graft , Angina pectoris - Continue ASA #NIDDM - BGM and SSI #Core pulmonale with pulmonary HTN * will follow up as out patient sleep study and possible RHC #HTN - Controlled - Continue toprol xl 100 po daily , hold Lisinopril 5 mg, - Monitor renal function #HLD - continue Lipitor 20 mg po HS #Right wrist scaphoid fracture and triquetrum fracture * continue to monitor * avoid IV and work on the right hand #FEN -Dc fluids - Monitor Na+ - DM diet, thick liquid due to aspiration precaution(May consider downgrading diet to chopped and nectar thick liquid. Ensure Compact./Magic cup) per Yield Loss Inspector #Prophylaxis - DVT: Heparin 5000 IU sq TID #Dispo: * transferred to tele * Cont. to observe respiratory status while pending MRI * Monitor NA, BUN/Cr , respiratory distress, volume status Visit type - Emergency Visit Emergency Visit: Yes ED Registration Date: 05/09/17 Care time: The patient presented to the Emergency Department on the above date and was hospitalized for further evaluation of their emergent condition. - New Patient This patient is new to me today: No - Critical Care Critical Care patient: No - Discharge Referral Referred to [facility] Med [facility] No
[2017-05-26] MEDS: INSULIN SLIDING SCALE (NOVOLOG) 1 VIAL SQ SCH ×4 (06:54→21:51)
--- NOTE | 2017-05-26 08:07 | EKG ---
Test Reason : Blood Pressure : / mmHG Vent. Rate : 082 BPM Atrial Rate : 082 BPM P-R Int : 170 ms QRS Dur : 134 ms QT Int : 426 ms P-R-T Axes : 033 005 -26 degrees QTc Int : 497 ms NORMAL SINUS RHYTHM POSSIBLE LEFT ATRIAL ENLARGEMENT RIGHT BUNDLE BRANCH BLOCK INFERIOR INFARCT (CITED ON OR BEFORE 14-MAY-2017) T WAVE ABNORMALITY, CONSIDER LATERAL ISCHEMIA ABNORMAL ECG Confirmed by MD MYKE, YOLY ([id number]) on 05/29/2017 12:22:31 PM Referred By: Confirmed By:YOLY STRINGER MD
[2017-05-26 09:58] LABS: BASO % 0.9 % (0-2.0); EOS % 1.3 % (0-4.5); HEMATOCRIT 37.8 % (35.4-49); HEMOGLOBIN 11.8 GM/dL (11.7-16.9); LYMPH % 4.8 % (8-40); MCH 29.5 pg (25.7-33.7); MCHC 31.2 g/dl (32.0-35.9); MEAN CELL VOLUME 94.7 fl (80-96); MEAN PLT VOLUME 9.2 fl (7.5-11.1); MONO % 7.3 % (3.8-10.2); NEUT % 85.7 % (42.8-82.8); PLATELET COUNT 286 K/MM3 (134-434); RBC 3.99 M/mm3 (4.00-5.60); RDW 14.4 % (11.9-15.9); WHITE BLOOD COUNT 13.4 K/mm3 (4.0-10.0)
[2017-05-26] MEDS: METOPROLOL SUCCINATE 100 MG TAB.SR.24H (FP) PO SCH (10:19)
[2017-05-26] MEDS: ASPIRIN COATED 81 MG TABLET.EC PO SCH (10:19)
[2017-05-26] MEDS: DOCUSATE SODIUM 100 MG CAPSULE (FP) PO SCH (10:19)
[2017-05-26] MEDS: AMINO ACIDS/PROTEIN HYDROLYS 30 ML LIQUID.PKT PO SCH ×2 (10:19→17:34)
[2017-05-26 10:30] LABS: CHLORIDE 112 mmol/L (98-107); POTASSIUM 4.6 mmol/L (3.5-5.1); SODIUM 152 mmol/L (136-145)
--- NOTE | 2017-05-26 11:21 | PN ---
Progress Note, Physician History of Present Illness: Resting on bipap. More interactive. - Current Medication List Current Medications: Active Medications Albuterol/Ipratropium (Duoneb -) 1 amp NEB Q4H PRN PRN Reason: SHORTNESS OF BREATH Last Admin: 05/25/17 06:15 Dose: 1 amp Amino Acids (Prosource No Carb Liquid Pkt) 30 ml PO BID@0800,1730 [facility] Last Admin: 05/26/17 10:19 Dose: 30 ml Aspirin (Ecotrin -) 81 mg PO DAILY [facility] Last Admin: 05/26/17 10:19 Dose: 81 mg Atorvastatin Calcium (Lipitor -) 20 mg PO HS [facility] Last Admin: 05/25/17 21:47 Dose: 20 mg Docusate Sodium (Colace -) 100 mg PO DAILY [facility] Last Admin: 05/26/17 10:19 Dose: 100 mg Piperacillin Sod/Tazobactam (Sod 4.5 gm/ Dextrose) 100 mls @ 200 mls/hr IVPB Q8H-IV [facility] Last Admin: 05/26/17 10:19 Dose: 200 mls/hr Insulin Aspart (Novolog Vial Sliding Scale -) 1 vial SQ ACHS [facility] PRN Reason: Protocol Last Admin: 05/26/17 06:54 Dose: 2 units Lisinopril (Prinivil) 5 mg PO DAILY [facility] Last Admin: 05/25/17 14:33 Dose: Not Given Metoprolol Succinate (Toprol Xl -) 100 mg PO DAILY [facility] Last Admin: 05/26/17 10:19 Dose: 100 mg Triamcinolone Acetonide (Aristocort 0.1% Lotion -) 1 applic TP BID PRN PRN Reason: FOR ITCHING/RASH - Objective Vital Signs: Vital Signs Temperature 98.7 F 05/26/17 05:48 Pulse Rate 92 H 05/26/17 05:48 Respiratory Rate 20 05/26/17 05:48 Blood Pressure 151/72 05/26/17 05:48 O2 Sat by Pulse Oximetry (%) 94 L 05/25/17 21:00 Constitutional: Yes: No Distress, Calm Neck: Yes: Supple Cardiovascular: Yes: Regular Rate and Rhythm Respiratory: Yes: Regular, Diminished, On BiPap Gastrointestinal: Yes: Normal Bowel Sounds, Soft Edema: Yes Edema: LLE: Trace, RLE: Trace Integumentary: Yes: Venous Stasis Changes Labs: CBC, BMP 05/26/17 09:50 05/26/17 09:50 INR, PTT INR 1.42 (0.82-1.09) H 05/10/17 05:10 - ....Imaging Chest X-ray: Report Reviewed (Increased congestion and effusion) EKG: Report Reviewed (Tele: SR occ PVC) Problem List - Problems (1) Cor pulmonale (chronic) Code(s): I27.81 - COR PULMONALE (CHRONIC) (2) S/P CABG (coronary artery bypass graft) Code(s): Z95.1 - PRESENCE OF AORTOCORONARY BYPASS GRAFT (3) Coronary artery disease Code(s): I25.10 - ATHSCL HEART DISEASE OF [place] CORONARY ARTERY W/O ANG PCTRS Qualifiers: Coronary Disease-Associated Artery/Lesion type: [place] artery [place] vs. transplanted heart: [place] heart Associated angina: without angina Qualified Code(s): I25.10 - Atherosclerotic heart disease of [place] coronary artery without angina pectoris (4) Hyperlipidemia associated with type 2 diabetes mellitus Code(s): E11.69 - TYPE 2 DIABETES MELLITUS WITH OTHER SPECIFIED COMPLICATION; E78.5 - HYPERLIPIDEMIA, UNSPECIFIED (5) Diastolic dysfunction with chronic heart failure Code(s): I50.32 - CHRONIC DIASTOLIC (CONGESTIVE) HEART FAILURE (6) Cellulitis Code(s): L03.90 - CELLULITIS, UNSPECIFIED Qualifiers: Site of cellulitis of extremity: lower extremity (7) Type 2 diabetes mellitus Code(s): E11.9 - TYPE 2 DIABETES MELLITUS WITHOUT COMPLICATIONS Qualifiers: Diabetes mellitus complication status: without complication Diabetes mellitus long term care social worker insulin use: without senior care use Qualified Code(s): E11.9 - Type 2 diabetes mellitus without complications (8) Hypertensive cardiomegaly with heart failure Code(s): I11.0 - HYPERTENSIVE HEART DISEASE WITH HEART FAILURE (9) [id number]-hpvvvbk kidney injury Code(s): N17.9 - ACUTE KIDNEY FAILURE, UNSPECIFIED; N18.9 - CHRONIC KIDNEY DISEASE, UNSPECIFIED Qualifiers: Chronic kidney disease stage: stage 2 (mild) (10) Cerebrovascular disease Code(s): I67.9 - CEREBROVASCULAR DISEASE, UNSPECIFIED (11) Hypernatremia Code(s): E87.0 - HYPEROSMOLALITY AND HYPERNATREMIA Assessment/Plan 1. Diastolic LV dysfunction with chronic class 0-I NYHA classification LV failure, probably euvolemic with Hypernatremia 2. Cor pulmonale, pulmonary hypertension (No RVSP measurement on the above noted echocardiography) 3. CAD post CABG, angina pectoris 4. 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 HTN/HCVD 6. NIDDM 7. Hyperlipidemia 8. Acute on CKD 9. Lower extremity cellulitis, resolving 10. Right wrist scaphoid fracture and triquetrum fracture 11. Hypernatremia 12. Anemia PLAN: 1. IV Lasix as needed and hold Aldactone pending renal function recovery and hypernatremia correction, encourage free water intake 2. Hold Lisinopril pending renal recovery 3. Continue Toprol XL 100 qd 4. Continue ASA 81 qd 5. Continue Lipitor 20 qhs 6. BiPAP as tolerated, BD as needed 7. Complete antibiotic course as per the primary team 8. MRI as planned by primary team, respiratory status permitting 9. As outlined in prior notes outpatient evaluation of pulmonary hypertension
[2017-05-26] MEDS ORDERED: FUROSEMIDE 40 MG/4 ML INJECTABLE VIAL IVPUSH ONE (11:27)
[2017-05-26 11:52] LABS: ALK PHOS 171 U/L (45-117); ANION GAP 8 (8-16); BILIRUBIN,TOTAL 0.7 mg/dL (0.2-1.0); BLOOD UREA NITROGEN 47 mg/dL (7-18); CALCIUM 9.4 mg/dL (8.5-10.1); CO2 32 mmol/L (21-32); CREATININE 1.4 mg/dL (0.7-1.3); GLUCOSE,RANDOM 267 mg/dL (74-106); SGOT/AST 19 U/L (15-37)
--- NOTE | 2017-05-26 12:26 | PN ---
Progress Note, [employer] - Note Progress Note: Selected Entries 05/25/17 05/25/17 05/25/17 02:00 05:20 10:00 Breakfast Supper Temperature 98.7 F 97.8 F 98 F 05/25/17 05/25/17 05/25/17 15:12 17:00 19:41 Breakfast Supper 50% Temperature 98.2 F 98.8 F 05/25/17 05/26/17 05/26/17 22:00 02:00 05:48 Breakfast Supper Temperature 98.9 F 97.7 F 98.7 F 05/26/17 12:10 Breakfast 50% Supper Temperature Laboratory Tests 05/26/17 09:50 WBC 13.4 H MBS ordered yesterday, but cancelled as o2 saturation was not stable. On BIPAP.
[2017-05-26 13:01] LABS: SGPT/ALT 21 U/L (12-78)
--- NOTE | 2017-05-26 14:09 | PN ---
Progress Note, Physician Chief Complaint: APPEARS STABLE FROM A RESP STANDPOINT LYING SUPINE IN BED History of Present Illness: OFFERS NO COMPLAINTS - Current Medication List Current Medications: Active Medications Albuterol/Ipratropium (Duoneb -) 1 amp NEB Q4H PRN PRN Reason: SHORTNESS OF BREATH Last Admin: 05/25/17 06:15 Dose: 1 amp Amino Acids (Prosource No Carb Liquid Pkt) 30 ml PO BID@0800,1730 [facility] Last Admin: 05/26/17 10:19 Dose: 30 ml Aspirin (Ecotrin -) 81 mg PO DAILY [facility] Last Admin: 05/26/17 10:19 Dose: 81 mg Atorvastatin Calcium (Lipitor -) 20 mg PO HS [facility] Last Admin: 05/25/17 21:47 Dose: 20 mg Docusate Sodium (Colace -) 100 mg PO DAILY [facility] Last Admin: 05/26/17 10:19 Dose: 100 mg Piperacillin Sod/Tazobactam (Sod 4.5 gm/ Dextrose) 100 mls @ 200 mls/hr IVPB Q8H-IV [facility] Last Admin: 05/26/17 10:19 Dose: 200 mls/hr Insulin Aspart (Novolog Vial Sliding Scale -) 1 vial SQ ACHS [facility] PRN Reason: Protocol Last Admin: 05/26/17 12:57 Dose: 6 units Metoprolol Succinate (Toprol Xl -) 100 mg PO DAILY [facility] Last Admin: 05/26/17 10:19 Dose: 100 mg Triamcinolone Acetonide (Aristocort 0.1% Lotion -) 1 applic TP BID PRN PRN Reason: FOR ITCHING/RASH - Objective Vital Signs: Vital Signs Temperature 98.7 F 05/26/17 05:48 Pulse Rate 92 H 05/26/17 05:48 Respiratory Rate 20 05/26/17 05:48 Blood Pressure 151/72 05/26/17 05:48 O2 Sat by Pulse Oximetry (%) 94 L 05/25/17 21:00 Constitutional: Yes: Calm Eyes: Yes: EOM Intact HENT: Yes: Normocephalic Neck: Yes: Trachea Midline Cardiovascular: Yes: Regular Rate and Rhythm, S1, S2 Respiratory: Yes: Dullness (AT BASES) Gastrointestinal: Yes: Soft ...Rectal Exam: Yes: Deferred Edema: LLE: Trace, RLE: Trace Neurological: Yes: Alert Labs: CBC, BMP 05/26/17 09:50 05/26/17 09:50 INR, PTT INR 1.42 (0.82-1.09) H 05/10/17 05:10 - ....Imaging Chest X-ray: Report Reviewed, Image Reviewed EKG: Report Reviewed, Image Reviewed Problem List - Problems (1) Acute respiratory failure with hypoxia Code(s): J96.01 - ACUTE RESPIRATORY FAILURE WITH HYPOXIA (2) Atelectasis Code(s): J98.11 - ATELECTASIS (3) Cerebrovascular disease Code(s): I67.9 - CEREBROVASCULAR DISEASE, UNSPECIFIED (4) Cor pulmonale (chronic) Code(s): I27.81 - COR PULMONALE (CHRONIC) (5) Coronary artery disease Code(s): I25.10 - ATHSCL HEART DISEASE OF [place] CORONARY ARTERY W/O ANG PCTRS Qualifiers: Coronary Disease-Associated Artery/Lesion type: [place] artery [place] vs. transplanted heart: [place] heart Associated angina: without angina Qualified Code(s): I25.10 - Atherosclerotic heart disease of [place] coronary artery without angina pectoris Assessment/Plan A/P Acute Hypoxic Respiratory Failure improving LV Diastolic Dysfunction Pulmonary HTN Acute on Chronic Renal Failure improving Atelectasis CAD s/p CABG HTN DM - NIPPV Support as needed - Monitor urine output, creatinine - O2 to keep SpO2 >90% - PO as tolerated - DVT prophylaxis - abx - inhaled bronchodilators Jody GILL MD
--- NOTE | 2017-05-26 15:20 | PN ---
Progress Note, Physician History of Present Illness: stable improving wbc trending down still needing resp support - Current Medication List Current Medications: Active Medications Albuterol/Ipratropium (Duoneb -) 1 amp NEB Q4H PRN PRN Reason: SHORTNESS OF BREATH Last Admin: 05/25/17 06:15 Dose: 1 amp Amino Acids (Prosource No Carb Liquid Pkt) 30 ml PO BID@0800,1730 [facility] Last Admin: 05/26/17 10:19 Dose: 30 ml Aspirin (Ecotrin -) 81 mg PO DAILY [facility] Last Admin: 05/26/17 10:19 Dose: 81 mg Atorvastatin Calcium (Lipitor -) 20 mg PO HS [facility] Last Admin: 05/25/17 21:47 Dose: 20 mg Docusate Sodium (Colace -) 100 mg PO DAILY [facility] Last Admin: 05/26/17 10:19 Dose: 100 mg Piperacillin Sod/Tazobactam (Sod 4.5 gm/ Dextrose) 100 mls @ 200 mls/hr IVPB Q8H-IV [facility] Last Admin: 05/26/17 10:19 Dose: 200 mls/hr Insulin Aspart (Novolog Vial Sliding Scale -) 1 vial SQ ACHS [facility] PRN Reason: Protocol Last Admin: 05/26/17 12:57 Dose: 6 units Metoprolol Succinate (Toprol Xl -) 100 mg PO DAILY [facility] Last Admin: 05/26/17 10:19 Dose: 100 mg Triamcinolone Acetonide (Aristocort 0.1% Lotion -) 1 applic TP BID PRN PRN Reason: FOR ITCHING/RASH - Objective Vital Signs: Vital Signs Temperature 98.1 F 05/26/17 14:10 Pulse Rate 94 H 05/26/17 14:10 Respiratory Rate 20 05/26/17 14:10 Blood Pressure 151/57 05/26/17 14:10 O2 Sat by Pulse Oximetry (%) 96 05/26/17 09:00 Constitutional: Yes: No Distress, Calm Neck: Yes: Supple Cardiovascular: Yes: S1, S2 Respiratory: Yes: Poor Air Entry Gastrointestinal: Yes: Normal Bowel Sounds, Soft Musculoskeletal: Yes: Other Extremities: Yes: Other Neurological: Yes: Other (rt sided weaknes--slight movemnt of the arms speech better) Labs: CBC, BMP 05/26/17 09:50 05/26/17 09:50 INR, PTT INR 1.42 (0.82-1.09) H 05/10/17 05:10 - ....Imaging Chest X-ray: Report Reviewed, Image Reviewed Assessment/Plan Cor pulmonale, pulmonary hypertension . CAD p . HTN NIDDM Hyperlipidemia Lower extremity cellulitis cva aphasia leukocytosis wbc trending down cr decreasing plan continue abx rest as per primary team monitor closely rest as per renal and primary team
--- NOTE | 2017-05-26 16:47 | PN ---
Progress Note, Physician History of Present Illness: Pt seen and examined at bedside. He complains of shortness of breath. - Current Medication List Current Medications: Active Medications Albuterol/Ipratropium (Duoneb -) 1 amp NEB Q4H PRN PRN Reason: SHORTNESS OF BREATH Last Admin: 05/25/17 06:15 Dose: 1 amp Amino Acids (Prosource No Carb Liquid Pkt) 30 ml PO BID@0800,1730 [facility] Last Admin: 05/26/17 10:19 Dose: 30 ml Aspirin (Ecotrin -) 81 mg PO DAILY [facility] Last Admin: 05/26/17 10:19 Dose: 81 mg Atorvastatin Calcium (Lipitor -) 20 mg PO HS [facility] Last Admin: 05/25/17 21:47 Dose: 20 mg Docusate Sodium (Colace -) 100 mg PO DAILY [facility] Last Admin: 05/26/17 10:19 Dose: 100 mg Piperacillin Sod/Tazobactam (Sod 4.5 gm/ Dextrose) 100 mls @ 200 mls/hr IVPB Q8H-IV [facility] Last Admin: 05/26/17 10:19 Dose: 200 mls/hr Insulin Aspart (Novolog Vial Sliding Scale -) 1 vial SQ ACHS [facility] PRN Reason: Protocol Last Admin: 05/26/17 12:57 Dose: 6 units Metoprolol Succinate (Toprol Xl -) 100 mg PO DAILY [facility] Last Admin: 05/26/17 10:19 Dose: 100 mg Triamcinolone Acetonide (Aristocort 0.1% Lotion -) 1 applic TP BID PRN PRN Reason: FOR ITCHING/RASH - Objective Vital Signs: Vital Signs Temperature 98.1 F 05/26/17 14:10 Pulse Rate 96 H 05/26/17 15:56 Respiratory Rate 20 05/26/17 14:10 Blood Pressure 151/57 05/26/17 14:10 O2 Sat by Pulse Oximetry (%) 97 05/26/17 15:56 Constitutional: Yes: Calm Eyes: Yes: Conjunctiva Clear HENT: Yes: Atraumatic Cardiovascular: Yes: S1, S2 Respiratory: Yes: On Venti-Mask Gastrointestinal: Yes: Soft, Abdomen, Obese Genitourinary: Yes: Mercado Present Musculoskeletal: Yes: Muscle Weakness Edema: Yes Edema: LLE: 1+, RLE: 1+ Integumentary: Yes: Venous Stasis Changes Neurological: Yes: Oriented Labs: CBC, BMP 05/26/17 09:50 05/26/17 09:50 INR, PTT INR 1.42 (0.82-1.09) H 05/10/17 05:10 Problem List - Problems (1) Hypernatremia Code(s): E87.0 - HYPEROSMOLALITY AND HYPERNATREMIA (2) Acute respiratory failure with hypoxia Code(s): J96.01 - ACUTE RESPIRATORY FAILURE WITH HYPOXIA (3) [id number] kidney injury Code(s): N17.9 - ACUTE KIDNEY FAILURE, UNSPECIFIED; N18.9 - CHRONIC KIDNEY DISEASE, UNSPECIFIED Qualifiers: Chronic kidney disease stage: stage 2 (mild) (4) Atelectasis Code(s): J98.11 - ATELECTASIS (5) Chronic kidney disease Code(s): N18.9 - CHRONIC KIDNEY DISEASE, UNSPECIFIED Qualifiers: Chronic kidney disease stage: stage 2 (mild) Qualified Code(s): N18.2 - Chronic kidney disease, stage 2 (mild) Assessment/Plan Current Medications Generic Name Dose Route Start Last Admin Trade Name Freq PRN Reason Stop Dose Admin Albuterol/Ipratropium 1 amp 05/24/17 11:19 05/25/17 06:15 Duoneb - NEB 1 amp Q4H PRN Administration SHORTNESS OF BREATH Amino Acids 30 ml 05/16/17 17:30 05/26/17 10:19 Prosource No Carb Liquid Pkt PO 30 ml BID@0800,1730 [facility] Administration Aspirin 81 mg 05/10/17 10:00 05/26/17 10:19 Ecotrin - PO 81 mg DAILY [facility] Administration Atorvastatin Calcium 20 mg 05/10/17 22:00 05/25/17 21:47 Lipitor - PO 20 mg HS [facility] Administration Docusate Sodium 100 mg 05/11/17 10:00 05/26/17 10:19 Colace - PO 100 mg DAILY [facility] Administration Piperacillin Sod/Tazobactam 100 mls @ 200 mls/hr 05/23/17 18:00 05/26/17 10: 19 Sod 4.5 gm/ Dextrose IVPB 200 mls/hr Q8H-IV [facility] Administration Insulin Aspart 1 vial 05/09/17 22:00 05/26/17 12:57 Novolog Vial Sliding Scale - SQ 6 units ACHS [facility] Administration Protocol Metoprolol Succinate 100 mg 05/18/17 10:00 05/26/17 10:19 Toprol Xl - PO 100 mg DAILY [facility] Administration Triamcinolone Acetonide 1 applic 05/10/17 10:00 Aristocort 0.1% Lotion - TP BID PRN FOR ITCHING/RASH Impression 1. Hypernatremia 2. whitney resolved 3. HTN 4. respiratory failure requiring bipap 5. hypoxia 6. CHF 7. DM 8. hyperlipidemia 9. acute aphasia 10. cellulitis Plan - lasix today - discussed with cardio - encourage free water intake - restrict salt - consider repeat cxr in am - cont with oxygen and monitor pulse ox - will follow Dr Kat
--- NOTE | 2017-05-26 20:49 | PN ---
Teaching Attending Note Name of Resident: Deandre Smith ATTENDING PHYSICIAN STATEMENT I saw and evaluated the patient. I reviewed the resident's note and discussed the case with the resident. I agree with the resident's findings and plan as documented. SUBJECTIVE: no fever or chills , no pain . did not tolerate NC OBJECTIVE: NAD, Awake, in mod distress . aphasic CV: RRR, NO JVD Lungs: clears on sides and anteriorly Ext: LE edema, erythema , and no discharge today. Neuro: no facial droop, aphasic . EOMI. decreased sensation to light touch oer R sided body, nl over face strength limited exam, 3/5 R shoulder abduciton, 4/5 biceps and triecps on R . b /l hip flexion 2/5 . 1+ knee jerk and biceps reflexes ASSESSMENT AND PLAN: 81 y/o man with h/o HTN, CAD, DM , diastolic Dysfunction , core pulmonale , and other medical problems who presented with LE edema and erythema and was found to have cellulitis , hospital course was complicated by aphasia and R sided weakness 1- Acute aphasia, and R sided weakness: possible acute CVA - MRI cont asa and statin unable to perform MRI 2-Acute hypoxic resp failure : due to CHF - received lasix today - monitor Na - BIPAP HS and PRN 3- R superficial vein thrombosis : not able to AC due to acute stroke. vascular recs against AC 4- DAVID: hold ACEI and aldactone 5- cellulitis of LE . cont zosyn. WBC improved 6- DVT Px dispo to LTAC in 1-2 days
[2017-05-26] MEDS: ALBUTEROL SO4 2.5/IPRATROPIUM 0.5 INH SOL 3 ML VIAL.NEB. NEB PRN (20:59)
[2017-05-26] MEDS ORDERED: INSULIN (NOVOLOG) ASPART 100 UNITS/ML 10ML VIAL ONE (21:35)
[2017-05-26] MEDS: ATORVASTATIN CA 20 MG TABLET (FP) PO SCH (21:43)
[2017-05-27] MEDS ORDERED: PT OWN MED DRAWER 7, Y5N ONE ×3 (02:16→17:29)
[2017-05-27] MEDS: PIPERACILLIN/TAZOB 4.5 GM 4.5 GM in DEXTROSE 5%-WATER - 100 ML IVPB SCH ×3 (02:30→18:00)
[2017-05-27] MEDS: INSULIN SLIDING SCALE (NOVOLOG) 1 VIAL SQ SCH ×4 (06:14→22:06)
[2017-05-27 07:44] LABS: HEMOGLOBIN 11.1 GM/dL (11.7-16.9); MCH 29.7 pg (25.7-33.7); MCHC 31.6 g/dl (32.0-35.9); MEAN PLT VOLUME 9.6 fl (7.5-11.1); PLATELET COUNT 257 K/MM3 (134-434); RBC 3.73 M/mm3 (4.00-5.60); WHITE BLOOD COUNT 12.4 K/mm3 (4.0-10.0)
[2017-05-27] MEDS: ALBUTEROL SO4 2.5/IPRATROPIUM 0.5 INH SOL 3 ML VIAL.NEB. NEB PRN (08:04)
[2017-05-27 08:14] LABS: CHLORIDE 112 mmol/L (98-107); POTASSIUM 4.1 mmol/L (3.5-5.1); SODIUM 154 mmol/L (136-145)
[2017-05-27 08:19] LABS: ANION GAP 7 (8-16); BLOOD UREA NITROGEN 44 mg/dL (7-18); CALCIUM 8.3 mg/dL (8.5-10.1); CO2 35 mmol/L (21-32); CREATININE 1.3 mg/dL (0.7-1.3); GLUCOSE,RANDOM 206 mg/dL (74-106)
--- NOTE | 2017-05-27 09:37 | PN ---
Physical Exam: SUBJECTIVE: Patient seen and examined at bedside, No acute events over night , breathing is better , cellulites is better . OBJECTIVE: Vital Signs Period Temp Pulse Resp BP Sys/Eckert Pulse Ox Last 24 Hr 98.1 F-99.4 F 86-96 18-20 113-160/48-76 90-99 GENERAL: The patient is awake, alert, and fully oriented, aphasic HEAD: Normal with no signs of trauma. EYES: sclera anicteric, conjunctiva clear. ENT: dry mucous membranes. NECK: supple. LUNGS: diminshed breath sound at angelo bases with some crackles. , , no crackles, no accessory muscle use. HEART: Regular rate and rhythm, S1, S2 without murmur, rub or gallop. ABDOMEN: Soft, nontender, nondistended, normoactive bowel sounds, no guarding, no rebound, EXTREMITIES: 2+ pulses, warm, well-perfused, +1 edema. B/L Cellulites NEUROLOGICAL: Not able to performed . Normal speech, gait not observed. PSYCH: Normal mood, normal affect. SKIN: Warm, dry, Laboratory Results - last 24 hr 05/26/17 05/26/17 05/26/17 09:50 09:50 11:23 WBC 13.4 H RBC 3.99 L Hgb 11.8 Hct 37.8 MCV 94.7 MCH 29.5 MCHC 31.2 L RDW 14.4 Plt Count 286 MPV 9.2 Neutrophils % 85.7 H Lymphocytes % 4.8 L Monocytes % 7.3 Eosinophils % 1.3 Basophils % 0.9 Sodium 152 H Potassium 4.6 Chloride 112 H Carbon Dioxide 32 Anion Gap 8 BUN 47 H Creatinine 1.4 H D Creat Clearance w eGFR 48.89 POC Glucometer 294 Random Glucose 267 H D Calcium 9.4 Magnesium Total Bilirubin 0.7 D AST 19 D ALT 21 Alkaline Phosphatase 171 H Total Protein 6.0 L Albumin 2.0 L 05/26/17 05/26/17 05/27/17 17:24 21:48 06:09 WBC 12.4 H RBC 3.73 L Hgb 11.1 L Hct 35.0 L MCV 94.0 MCH 29.7 MCHC 31.6 L RDW 14.0 Plt Count 257 MPV 9.6 Neutrophils % Lymphocytes % Monocytes % Eosinophils % Basophils % Sodium Potassium Chloride Carbon Dioxide Anion Gap BUN Creatinine Creat Clearance w eGFR POC Glucometer 288 319 Random Glucose Calcium Magnesium Total Bilirubin AST ALT Alkaline Phosphatase Total Protein Albumin 05/27/17 05/27/17 05/27/17 06:09 06:09 06:11 WBC RBC Hgb Hct MCV MCH MCHC RDW Plt Count MPV Neutrophils % Lymphocytes % Monocytes % Eosinophils % Basophils % Sodium 154 H Potassium 4.1 Chloride 112 H Carbon Dioxide 35 H Anion Gap 7 L BUN 44 H Creatinine 1.3 Creat Clearance w eGFR POC Glucometer 198 Random Glucose 206 H D Calcium 8.3 L Magnesium 2.0 Cancelled Total Bilirubin AST ALT Alkaline Phosphatase Total Protein Albumin Active Medications Generic Name Dose Route Start Last Admin Trade Name Freq PRN Reason Stop Dose Admin Albuterol/Ipratropium 1 amp 05/24/17 11:19 05/27/17 08:04 Duoneb - NEB 1 amp Q4H PRN Administration SHORTNESS OF BREATH Amino Acids 30 ml 05/16/17 17:30 05/26/17 17:34 Prosource No Carb Liquid Pkt PO 30 ml BID@0800,1730 [facility] Administration Aspirin 81 mg 05/10/17 10:00 05/26/17 10:19 Ecotrin - PO 81 mg DAILY [facility] Administration Atorvastatin Calcium 20 mg 05/10/17 22:00 05/26/17 21:43 Lipitor - PO 20 mg HS [facility] Administration Docusate Sodium 100 mg 05/11/17 10:00 05/26/17 10:19 Colace - PO 100 mg DAILY [facility] Administration Piperacillin Sod/Tazobactam 100 mls @ 200 mls/hr 05/23/17 18:00 05/27/17 02: 30 Sod 4.5 gm/ Dextrose IVPB 200 mls/hr Q8H-IV [facility] Administration Insulin Aspart 1 vial 05/09/17 22:00 05/27/17 06:14 Novolog Vial Sliding Scale - SQ 2 units ACHS [facility] Administration Protocol Metoprolol Succinate 100 mg 05/18/17 10:00 05/26/17 10:19 Toprol Xl - PO 100 mg DAILY [facility] Administration Triamcinolone Acetonide 1 applic 05/10/17 10:00 Aristocort 0.1% Lotion - TP BID PRN FOR ITCHING/RASH CBC, BMP 05/27/17 06:09 05/27/17 06:09 Microbiology 05/23/17 09:56 Blood Culture - Preliminary Blood - Peripheral Venous NO GROWTH OBTAINED AFTER 96 HOURS, INCUBATION TO CONTINUE FOR 1 DAYS. 05/23/17 09:34 Blood Culture - Preliminary Blood - Peripheral Venous NO GROWTH OBTAINED AFTER 96 HOURS, INCUBATION TO CONTINUE FOR 1 DAYS. ASSESSMENT/PLAN: 81 yo M admitted initially for cellulites and later found to have acute aphasia likely 2/2 CVA and acute respiratory failure. #Acute Leucocytosis , improving * WBC 19.0 trending down to 13.4 .... 12.4 * [place] CX no growth * LA WNL 1.2 * Repeat CXR shows mild congestion * continue Zosyn 4.5 gm day 5 , switch to po tomorrow DC with 4 days of Augmentin #Acute hypoxic respiratory failure likely due to pulmonary edema can not R/O PE , improved today - Ventimask trials - continue BiPAP PRN, adjusted last night - Maintain O2 > 90% - CXR on shows worsening congestion , monitor - outpt f/u with pulmonary for PFT and sleep study - give albumin and lasix IV 40 mg x2 , hold lasix today to allow equilibration as bicarb rising * will evaluate daily and diurese, * dc IVF . * monitor urine output, creatinine * Maintain king * encourage free water intake # Hypernatremia * Na still in 149 improve to 146 ...148...152 * Monitor BMP * encourage free water intake by mouth, * pt has a free water deficit of about 4.21 liters ##DAVID on CKD, improved - Returned to baseline Cr 1.5 , 0.9... 0.8 ...1.2 - Cont. to hold aldactone, -Continue Lisinopril 5 mg QD per cardiology, monitor kidney function - Avoid nephrotoxic agents -monitor urine output, creatinine - maintain king - Monitor BUN/Cr - lasix 40 today proceeded with albumin 25% given X 3 , #Acute Aphasia with right side weakness - Likely CVA - Cont. asa, lipitor - PT and MRI when stable #Cellulitis, B/L lower leg - Improving - continue zosyn # Acute on chronic diastolic heart failure - pulm hypertension with pleural effusion - Class 0-I, stable - ASA 81 mg daily - I&O - daily weight #CAD S/P bypass graft , Angina pectoris - Continue ASA #NIDDM - BGM and SSI #Core pulmonale with pulmonary HTN * will follow up as out patient sleep study and possible RHC #HTN - Controlled - Continue toprol xl 100 po daily , hold Lisinopril 5 mg, - Monitor renal function #HLD * continue Lipitor 20 mg po HS # R superficial vein thrombosis : * not able to AC due to acute stroke. * vascular recs against AC #Right wrist scaphoid fracture and triquetrum fracture * continue to monitor * avoid IV and work on the right hand #FEN -Dc fluids - Monitor Na+ - DM diet, thick liquid due to aspiration precaution(May consider downgrading diet to chopped and nectar thick liquid. Ensure Compact./Magic cup) per Pet Counselor #Prophylaxis - DVT: Heparin 5000 IU sq TID #Dispo: * transferred to tele * Cont. to observe respiratory status while pending MRI * Monitor NA, BUN/Cr , respiratory distress, volume status * Possible DC to LTAC tomorrow . Visit type - Emergency Visit Emergency Visit: Yes ED Registration Date: 05/09/17 Care time: The patient presented to the Emergency Department on the above date and was hospitalized for further evaluation of their emergent condition. - New Patient This patient is new to me today: No - Critical Care Critical Care patient: No - Discharge Referral Referred to [facility] Med [facility] No
[2017-05-27] MEDS: AMINO ACIDS/PROTEIN HYDROLYS 30 ML LIQUID.PKT PO SCH ×2 (09:55→17:58)
[2017-05-27] MEDS: METOPROLOL SUCCINATE 100 MG TAB.SR.24H (FP) PO SCH (09:55)
[2017-05-27] MEDS: DOCUSATE SODIUM 100 MG CAPSULE (FP) PO SCH (09:55)
[2017-05-27] MEDS: ASPIRIN COATED 81 MG TABLET.EC PO SCH (09:55)
--- NOTE | 2017-05-27 11:42 | PN ---
Progress Note, Physician History of Present Illness: Resting on NC. More interactive with less O2 requirement. - Current Medication List Current Medications: Active Medications Albuterol/Ipratropium (Duoneb -) 1 amp NEB Q4H PRN PRN Reason: SHORTNESS OF BREATH Last Admin: 05/27/17 08:04 Dose: 1 amp Amino Acids (Prosource No Carb Liquid Pkt) 30 ml PO BID@0800,1730 [facility] Last Admin: 05/27/17 09:55 Dose: 30 ml Aspirin (Ecotrin -) 81 mg PO DAILY [facility] Last Admin: 05/27/17 09:55 Dose: 81 mg Atorvastatin Calcium (Lipitor -) 20 mg PO HS [facility] Last Admin: 05/26/17 21:43 Dose: 20 mg Docusate Sodium (Colace -) 100 mg PO DAILY [facility] Last Admin: 05/27/17 09:55 Dose: 100 mg Piperacillin Sod/Tazobactam (Sod 4.5 gm/ Dextrose) 100 mls @ 200 mls/hr IVPB Q8H-IV [facility] Last Admin: 05/27/17 09:55 Dose: 200 mls/hr Insulin Aspart (Novolog Vial Sliding Scale -) 1 vial SQ ACHS DOMINIK PRN Reason: Protocol Last Admin: 05/27/17 11:21 Dose: 8 units Metoprolol Succinate (Toprol Xl -) 100 mg PO DAILY [facility] Last Admin: 05/27/17 09:55 Dose: 100 mg Triamcinolone Acetonide (Aristocort 0.1% Lotion -) 1 applic TP BID PRN PRN Reason: FOR ITCHING/RASH - Objective Vital Signs: Vital Signs Temperature 98.6 F 05/27/17 06:00 Pulse Rate 93 H 05/27/17 08:04 Respiratory Rate 20 05/27/17 06:00 Blood Pressure 160/76 05/27/17 06:00 O2 Sat by Pulse Oximetry (%) 95 05/27/17 08:04 Constitutional: Yes: No Distress, Calm Neck: Yes: Supple Cardiovascular: Yes: Regular Rate and Rhythm Respiratory: Yes: Regular, Diminished, On Nasal O2 Gastrointestinal: Yes: Normal Bowel Sounds, Soft, Abdomen, Obese Edema: Yes Edema: LLE: Trace, RLE: Trace Integumentary: Yes: Venous Stasis Changes Labs: CBC, BMP 05/27/17 06:09 05/27/17 06:09 INR, PTT INR 1.42 (0.82-1.09) H 05/10/17 05:10 - ....Imaging Chest X-ray: Report Reviewed (Improved congestion) EKG: Report Reviewed (Tele: SR) Problem List - Problems (1) Cor pulmonale (chronic) Code(s): I27.81 - COR PULMONALE (CHRONIC) (2) S/P CABG (coronary artery bypass graft) Code(s): Z95.1 - PRESENCE OF AORTOCORONARY BYPASS GRAFT (3) Coronary artery disease Code(s): I25.10 - ATHSCL HEART DISEASE OF [place] CORONARY ARTERY W/O ANG PCTRS Qualifiers: Coronary Disease-Associated Artery/Lesion type: [place] artery [place] vs. transplanted heart: [place] heart Associated angina: without angina Qualified Code(s): I25.10 - Atherosclerotic heart disease of [place] coronary artery without angina pectoris (4) Hyperlipidemia associated with type 2 diabetes mellitus Code(s): E11.69 - TYPE 2 DIABETES MELLITUS WITH OTHER SPECIFIED COMPLICATION; E78.5 - HYPERLIPIDEMIA, UNSPECIFIED (5) Diastolic dysfunction with chronic heart failure Code(s): I50.32 - CHRONIC DIASTOLIC (CONGESTIVE) HEART FAILURE (6) Cellulitis Code(s): L03.90 - CELLULITIS, UNSPECIFIED Qualifiers: Site of cellulitis of extremity: lower extremity (7) Type 2 diabetes mellitus Code(s): E11.9 - TYPE 2 DIABETES MELLITUS WITHOUT COMPLICATIONS Qualifiers: Diabetes mellitus complication status: without complication Diabetes mellitus alf insulin use: without alf use Qualified Code(s): E11.9 - Type 2 diabetes mellitus without complications (8) Hypertensive cardiomegaly with heart failure Code(s): I11.0 - HYPERTENSIVE HEART DISEASE WITH HEART FAILURE (9) [id number] kidney injury Code(s): N17.9 - ACUTE KIDNEY FAILURE, UNSPECIFIED; N18.9 - CHRONIC KIDNEY DISEASE, UNSPECIFIED Qualifiers: Chronic kidney disease stage: stage 2 (mild) (10) Cerebrovascular disease Code(s): I67.9 - CEREBROVASCULAR DISEASE, UNSPECIFIED (11) Hypernatremia Code(s): E87.0 - HYPEROSMOLALITY AND HYPERNATREMIA Assessment/Plan 1. Acute on chronic diastolic failure improving 2. Cor pulmonale, pulmonary hypertension 3. CAD post CABG, angina pectoris 4. 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 HTN/HCVD 6. NIDDM 7. Hyperlipidemia 8. Acute on CKD improving 9. Lower extremity cellulitis, resolving 10. Right wrist scaphoid fracture and triquetrum fracture 11. Hypernatremia 12. Anemia PLAN: 1. Oral Lasix as needed and hold Aldactone pending renal function recovery and hypernatremia correction, encourage free water intake 2. Hold Lisinopril pending renal recovery 3. Continue Toprol XL 100 qd 4. Continue ASA 81 qd 5. Continue Lipitor 20 qhs 6. BiPAP as tolerated, BD as needed 7. Complete antibiotic course as per the primary team 8. MRI as planned by primary team, respiratory status permitting 9. As outlined in prior notes outpatient evaluation of pulmonary hypertension
--- NOTE | 2017-05-27 11:51 | PN ---
Progress Note, Physician History of Present Illness: pulmonary alert,responding to simple questions appropriately,dyspnea improving - Current Medication List Current Medications: Active Medications Albuterol/Ipratropium (Duoneb -) 1 amp NEB Q4H PRN PRN Reason: SHORTNESS OF BREATH Last Admin: 05/27/17 08:04 Dose: 1 amp Amino Acids (Prosource No Carb Liquid Pkt) 30 ml PO BID@0800,1730 [facility] Last Admin: 05/27/17 09:55 Dose: 30 ml Aspirin (Ecotrin -) 81 mg PO DAILY [facility] Last Admin: 05/27/17 09:55 Dose: 81 mg Atorvastatin Calcium (Lipitor -) 20 mg PO HS [facility] Last Admin: 05/26/17 21:43 Dose: 20 mg Docusate Sodium (Colace -) 100 mg PO DAILY [facility] Last Admin: 05/27/17 09:55 Dose: 100 mg Piperacillin Sod/Tazobactam (Sod 4.5 gm/ Dextrose) 100 mls @ 200 mls/hr IVPB Q8H-IV [facility] Last Admin: 05/27/17 09:55 Dose: 200 mls/hr Insulin Aspart (Novolog Vial Sliding Scale -) 1 vial SQ ACHS DOMINIK PRN Reason: Protocol Last Admin: 05/27/17 11:21 Dose: 8 units Metoprolol Succinate (Toprol Xl -) 100 mg PO DAILY [facility] Last Admin: 05/27/17 09:55 Dose: 100 mg Triamcinolone Acetonide (Aristocort 0.1% Lotion -) 1 applic TP BID PRN PRN Reason: FOR ITCHING/RASH - Objective Vital Signs: Vital Signs Temperature 98.6 F 05/27/17 06:00 Pulse Rate 93 H 05/27/17 08:04 Respiratory Rate 20 05/27/17 06:00 Blood Pressure 160/76 05/27/17 06:00 O2 Sat by Pulse Oximetry (%) 95 05/27/17 08:04 Constitutional: Yes: Well Nourished, Calm Eyes: Yes: WNL HENT: Yes: WNL Neck: Yes: WNL Cardiovascular: Yes: Regular Rate and Rhythm, S1, S2 Respiratory: Yes: Rales (bibasilar rales) Gastrointestinal: Yes: Normal Bowel Sounds, Soft Extremities: Yes: WNL Edema: No Labs: CBC, BMP 05/27/17 06:09 05/27/17 06:09 INR, PTT INR 1.42 (0.82-1.09) H 05/10/17 05:10 - ....Imaging Chest X-ray: Report Reviewed, Image Reviewed (less congestion bilaterally) Assessment/Plan - Problems (1) Acute respiratory failure with hypoxia Code(s): J96.01 - ACUTE RESPIRATORY FAILURE WITH HYPOXIA IMPROVING (2) Cellulitis Code(s): L03.90 - CELLULITIS, UNSPECIFIED Qualifiers: Site of cellulitis of extremity: lower extremity (3) Cor pulmonale (chronic) Code(s): I27.81 - COR PULMONALE (CHRONIC) (4) Coronary artery disease Code(s): I25.10 - ATHSCL HEART DISEASE OF [place] CORONARY ARTERY W/O ANG PCTRS Qualifiers: Coronary Disease-Associated Artery/Lesion type: [place] artery [place] vs. transplanted heart: [place] heart Associated angina: without angina Qualified Code(s): I25.10 - Atherosclerotic heart disease of [place] coronary artery without angina pectoris (5) Diastolic dysfunction with chronic heart failure Code(s): I50.32 - CHRONIC DIASTOLIC (CONGESTIVE) HEART FAILURE (6) S/P CABG (coronary artery bypass graft) Code(s): Z95.1 - PRESENCE OF AORTOCORONARY BYPASS GRAFT (7) Pulmonary hypertension Code(s): I27.20 - PULMONARY HYPERTENSION, UNSPECIFIED (8) Atelectasis Code(s): J98.11 - ATELECTASIS A/P Acute Hypoxic Respiratory Failure improving LV Diastolic Dysfunction Pulmonary HTN Acute on Chronic Renal Failure improving Atelectasis CAD s/p CABG HTN DM - NIPPV Support as needed - Monitor urine output, creatinine - O2 to keep SpO2 >90% - PO as tolerated - DVT prophylaxis - abx - inhaled bronchodilators DR HOBSON
[2017-05-27] MEDS ORDERED: FUROSEMIDE 40 MG TABLET (FP) PO ONE ×2 (12:15→15:30)
--- NOTE | 2017-05-27 12:35 | PN ---
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 Communication is become more slightly functional. Pt is tolerated NC and looking better. MBS to r/o silent aspiration/upgrade diet?
--- NOTE | 2017-05-27 13:06 | PN ---
Teaching Attending Note Name of Resident: Deandre Smith ATTENDING PHYSICIAN STATEMENT I saw and evaluated the patient. I reviewed the resident's note and discussed the case with the resident. I agree with the resident's findings and plan as documented. SUBJECTIVE: No fever or chills. no abd pain. OBJECTIVE: NAD, Awake, ND. aphasic CV: RRR, NO JVD Lungs: dimished breath sounds at bases , L base crackles Ext: LE edema, erythema, Neuro: no facial droop, aphasic . EOMI. decreased sensation to light touch over R sided body, nl over face strength limited exam, 3/5 R shoulder abduction, 4/5 biceps and triecps on R .5/ 5bicpes nad triceps on L , 4/5 L shoulder abduction , b/l hip flexion 2/5 . 1+ knee jerk and biceps reflexes. ASSESSMENT AND PLAN: 81 y/o man with h/o HTN, CAD, DM , diastolic Dysfunction , core pulmonale , and other medical problems who presented with LE edema and erythema and was found to have cellulitis , hospital course was complicated by aphasia and R sided weakness 1- Acute aphasia, and R sided weakness: possible acute CVA - MRI cont asa and statin - unable to perform MRI as of now due to resp distress. - tele , with episode of Vtach and a narrow complex tachy suspicious for A flutter. will ask card to evaluate 2-Acute hypoxic resp failure: due to CHF - hold off lasix today - BIPAP HS and PRN 3- R superficial vein thrombosis : not able to AC due to acute stroke. vascular recs against AC 4- DAVID: cont to hold ACEI and aldactone 5- Cellulitis of LE . cont zosyn. hopefully tomorrow we can switch to po WBC improved will d/w ID 6- DVT Px dispo to LTAC hopefully tomorrow
--- NOTE | 2017-05-27 13:57 | PN ---
Progress Note, Physician History of Present Illness: Pt seen and examined at bedside. He is awake and appears more comfortable today. - Current Medication List Current Medications: Active Medications Albuterol/Ipratropium (Duoneb -) 1 amp NEB Q4H PRN PRN Reason: SHORTNESS OF BREATH Last Admin: 05/27/17 08:04 Dose: 1 amp Amino Acids (Prosource No Carb Liquid Pkt) 30 ml PO BID@0800,1730 [facility] Last Admin: 05/27/17 09:55 Dose: 30 ml Aspirin (Ecotrin -) 81 mg PO DAILY [facility] Last Admin: 05/27/17 09:55 Dose: 81 mg Atorvastatin Calcium (Lipitor -) 20 mg PO HS [facility] Last Admin: 05/26/17 21:43 Dose: 20 mg Docusate Sodium (Colace -) 100 mg PO DAILY [facility] Last Admin: 05/27/17 09:55 Dose: 100 mg Piperacillin Sod/Tazobactam (Sod 4.5 gm/ Dextrose) 100 mls @ 200 mls/hr IVPB Q8H-IV [facility] Last Admin: 05/27/17 09:55 Dose: 200 mls/hr Insulin Aspart (Novolog Vial Sliding Scale -) 1 vial SQ ACHS DOMINIK PRN Reason: Protocol Last Admin: 05/27/17 11:21 Dose: 8 units Metoprolol Succinate (Toprol Xl -) 100 mg PO DAILY [facility] Last Admin: 05/27/17 09:55 Dose: 100 mg Triamcinolone Acetonide (Aristocort 0.1% Lotion -) 1 applic TP BID PRN PRN Reason: FOR ITCHING/RASH - Objective Vital Signs: Vital Signs Temperature 98.6 F 05/27/17 06:00 Pulse Rate 93 H 05/27/17 08:04 Respiratory Rate 20 05/27/17 06:00 Blood Pressure 160/76 05/27/17 06:00 O2 Sat by Pulse Oximetry (%) 95 05/27/17 08:04 Constitutional: Yes: Calm Eyes: Yes: Conjunctiva Clear Cardiovascular: Yes: S1, S2 Respiratory: Yes: On Nasal O2, Rhonchi Gastrointestinal: Yes: Soft Musculoskeletal: Yes: Muscle Weakness Edema: Yes Edema: LLE: 1+, RLE: 1+ Neurological: Yes: Aphasia Labs: CBC, BMP 05/27/17 06:09 05/27/17 06:09 INR, PTT INR 1.42 (0.82-1.09) H 05/10/17 05:10 Problem List - Problems (1) Hypernatremia Code(s): E87.0 - HYPEROSMOLALITY AND HYPERNATREMIA (2) Acute respiratory failure with hypoxia Code(s): J96.01 - ACUTE RESPIRATORY FAILURE WITH HYPOXIA (3) [id number]-[id number] kidney injury Code(s): N17.9 - ACUTE KIDNEY FAILURE, UNSPECIFIED; N18.9 - CHRONIC KIDNEY DISEASE, UNSPECIFIED Qualifiers: Chronic kidney disease stage: stage 2 (mild) (4) Atelectasis Code(s): J98.11 - ATELECTASIS (5) Chronic kidney disease Code(s): N18.9 - CHRONIC KIDNEY DISEASE, UNSPECIFIED Qualifiers: Chronic kidney disease stage: stage 2 (mild) Qualified Code(s): N18.2 - Chronic kidney disease, stage 2 (mild) Assessment/Plan Current Medications Generic Name Dose Route Start Last Admin Trade Name Freq PRN Reason Stop Dose Admin Albuterol/Ipratropium 1 amp 05/24/17 11:19 05/27/17 08:04 Duoneb - NEB 1 amp Q4H PRN Administration SHORTNESS OF BREATH Amino Acids 30 ml 05/16/17 17:30 05/27/17 09:55 Prosource No Carb Liquid Pkt PO 30 ml BID@0800,1730 DOMINIK Administration Aspirin 81 mg 05/10/17 10:00 05/27/17 09:55 Ecotrin - PO 81 mg DAILY DOMINIK Administration Atorvastatin Calcium 20 mg 05/10/17 22:00 05/26/17 21:43 Lipitor - PO 20 mg HS DOMINIK Administration Docusate Sodium 100 mg 05/11/17 10:00 05/27/17 09:55 Colace - PO 100 mg DAILY DOMINIK Administration Piperacillin Sod/Tazobactam 100 mls @ 200 mls/hr 05/23/17 18:00 05/27/17 09: 55 Sod 4.5 gm/ Dextrose IVPB 200 mls/hr Q8H-IV DOMINIK Administration Insulin Aspart 1 vial 05/09/17 22:00 05/27/17 11:21 Novolog Vial Sliding Scale - SQ 8 units ACHS DOMINIK Administration Protocol Metoprolol Succinate 100 mg 05/18/17 10:00 05/27/17 09:55 Toprol Xl - PO 100 mg DAILY DOMINIK Administration Triamcinolone Acetonide 1 applic 05/10/17 10:00 Aristocort 0.1% Lotion - TP BID PRN FOR ITCHING/RASH Impression 1. Hypernatremia 2. [place] resolved 3. HTN 4. respiratory failure requiring bipap 5. hypoxia 6. CHF 7. DM 8. hyperlipidemia 9. acute aphasia 10. cellulitis Plan - hold off lasix today - encourage free water intake - will not start fluids - volume status has been difficult to control - restrict salt intake - cxr reviewed - cont with oxygen and monitor pulse ox - creatinine is improving - will follow Dr Kat
--- NOTE | 2017-05-27 16:05 | PN ---
Progress Note, Physician History of Present Illness: continues to improve comfortable - Current Medication List Current Medications: Active Medications Albuterol/Ipratropium (Duoneb -) 1 amp NEB Q4H PRN PRN Reason: SHORTNESS OF BREATH Last Admin: 05/27/17 08:04 Dose: 1 amp Amino Acids (Prosource No Carb Liquid Pkt) 30 ml PO BID@0800,1730 [facility] Last Admin: 05/27/17 09:55 Dose: 30 ml Aspirin (Ecotrin -) 81 mg PO DAILY [facility] Last Admin: 05/27/17 09:55 Dose: 81 mg Atorvastatin Calcium (Lipitor -) 20 mg PO HS [facility] Last Admin: 05/26/17 21:43 Dose: 20 mg Docusate Sodium (Colace -) 100 mg PO DAILY [facility] Last Admin: 05/27/17 09:55 Dose: 100 mg Piperacillin Sod/Tazobactam (Sod 4.5 gm/ Dextrose) 100 mls @ 200 mls/hr IVPB Q8H-IV [facility] Last Admin: 05/27/17 09:55 Dose: 200 mls/hr Insulin Aspart (Novolog Vial Sliding Scale -) 1 vial SQ ACHS [facility] PRN Reason: Protocol Last Admin: 05/27/17 11:21 Dose: 8 units Metoprolol Succinate (Toprol Xl -) 100 mg PO DAILY [facility] Last Admin: 05/27/17 09:55 Dose: 100 mg Triamcinolone Acetonide (Aristocort 0.1% Lotion -) 1 applic TP BID PRN PRN Reason: FOR ITCHING/RASH - Objective Vital Signs: Vital Signs Temperature 98.3 F 05/27/17 10:00 Pulse Rate 98 H 05/27/17 10:00 Respiratory Rate 18 05/27/17 10:00 Blood Pressure 126/70 05/27/17 10:00 O2 Sat by Pulse Oximetry (%) 93 L 05/27/17 09:00 Constitutional: Yes: No Distress, Calm Cardiovascular: Yes: S1, S2 Respiratory: Yes: Regular, Poor Air Entry Gastrointestinal: Yes: Normal Bowel Sounds, Soft Musculoskeletal: Yes: WNL Extremities: Yes: Other Neurological: Yes: Alert, Oriented Psychiatric: Yes: Alert, Oriented Labs: CBC, BMP 05/27/17 06:09 05/27/17 06:09 INR, PTT INR 1.42 (0.82-1.09) H 05/10/17 05:10 Assessment/Plan Cor pulmonale, pulmonary hypertension . CAD p . HTN NIDDM Hyperlipidemia Lower extremity cellulitis cva aphasia leukocytosis wbc trending down cr normal plan continue abx can switch him to oral augmentin tomorrow continue oral abx for another 4 days rest as per primary
[2017-05-27] MEDS ORDERED: INSULIN (NOVOLOG) ASPART 100 UNITS/ML 10ML VIAL ONE ×2 (17:46→21:49)
[2017-05-27] MEDS: ATORVASTATIN CA 20 MG TABLET (FP) PO SCH (22:05)
[2017-05-28] MEDS ORDERED: PT OWN MED DRAWER 7, Y5N ONE ×2 (01:29→06:00)
[2017-05-28] MEDS ORDERED: ACETAMINOPHEN 325 MG TABLET (FP) PO ONE (01:31)
[2017-05-28] MEDS: PIPERACILLIN/TAZOB 4.5 GM 4.5 GM in DEXTROSE 5%-WATER - 100 ML IVPB SCH ×3 (01:34→17:20)
--- NOTE | 2017-05-28 06:06 | PN ---
Physical Exam: SUBJECTIVE: Patient seen and examined at bedside. breathing is better , cellulites is better . on PIPAP over night with sat 99 % , denies any chest pain , abdominal pain or palpitation. OBJECTIVE: Vital Signs Period Temp Pulse Resp BP Sys/Eckert Pulse Ox Last 24 Hr 98.3 F-100.7 F 84-110 18-18 118-138/60-70 93-99 GENERAL: The patient is awake, alert, and fully oriented, aphasic HEAD: Normal with no signs of trauma. EYES: sclera anicteric, conjunctiva clear. ENT: dry mucous membranes. NECK: supple. LUNGS: diminshed breath sound at angelo bases with some crackles. , , no crackles, no accessory muscle use. HEART: Regular rate and rhythm, S1, S2 without murmur, rub or gallop. ABDOMEN: Soft, nontender, nondistended, normoactive bowel sounds, no guarding, no rebound, EXTREMITIES: 2+ pulses, warm, well-perfused, +1 edema. B/L Cellulites NEUROLOGICAL: Not able to performed . Normal speech, gait not observed. PSYCH: Normal mood, normal affect. SKIN: Warm, dry, Laboratory Results - last 24 hr 05/27/17 05/27/17 05/27/17 06:09 06:09 06:09 WBC 12.4 H RBC 3.73 L Hgb 11.1 L Hct 35.0 L MCV 94.0 MCH 29.7 MCHC 31.6 L RDW 14.0 Plt Count 257 MPV 9.6 Sodium 154 H Potassium 4.1 Chloride 112 H Carbon Dioxide 35 H Anion Gap 7 L BUN 44 H Creatinine 1.3 POC Glucometer Random Glucose 206 H D Calcium 8.3 L Magnesium 2.0 Cancelled 05/27/17 05/27/17 05/27/17 06:11 11:20 17:51 WBC RBC Hgb Hct MCV MCH MCHC RDW Plt Count MPV Sodium Potassium Chloride Carbon Dioxide Anion Gap BUN Creatinine POC Glucometer 198 339 283 Random Glucose Calcium Magnesium 05/27/17 05/28/17 21:04 05:40 WBC RBC Hgb Hct MCV MCH MCHC RDW Plt Count MPV Sodium Potassium Chloride Carbon Dioxide Anion Gap BUN Creatinine POC Glucometer 283 178 Random Glucose Calcium Magnesium Active Medications Generic Name Dose Route Start Last Admin Trade Name Freq PRN Reason Stop Dose Admin Albuterol/Ipratropium 1 amp 05/24/17 11:19 05/27/17 08:04 Duoneb - NEB 1 amp Q4H PRN Administration SHORTNESS OF BREATH Amino Acids 30 ml 05/16/17 17:30 05/27/17 17:58 Prosource No Carb Liquid Pkt PO 30 ml BID@0800,1730 DOMINIK Administration Aspirin 81 mg 05/10/17 10:00 05/27/17 09:55 Ecotrin - PO 81 mg DAILY DOMINIK Administration Atorvastatin Calcium 20 mg 05/10/17 22:00 05/27/17 22:05 Lipitor - PO 20 mg HS DOMINIK Administration Docusate Sodium 100 mg 05/11/17 10:00 05/27/17 09:55 Colace - PO 100 mg DAILY DOMINIK Administration Piperacillin Sod/Tazobactam 100 mls @ 200 mls/hr 05/23/17 18:00 05/28/17 01: 34 Sod 4.5 gm/ Dextrose IVPB 200 mls/hr Q8H-IV DOMINIK Administration Insulin Aspart 1 vial 05/09/17 22:00 05/27/17 22:06 Novolog Vial Sliding Scale - SQ 6 units ACHS DOMINIK Administration Protocol Metoprolol Succinate 100 mg 05/18/17 10:00 05/27/17 09:55 Toprol Xl - PO 100 mg DAILY DOMINIK Administration Triamcinolone Acetonide 1 applic 05/10/17 10:00 Aristocort 0.1% Lotion - TP BID PRN FOR ITCHING/RASH Assesment and plan : 81 yo M admitted initially for cellulites and later found to have acute aphasia likely 2/2 CVA and acute respiratory failure. #Acute Leucocytosis , improving * WBC 19.0 trending down to 13.4 .... 12.4 * [place] CX no growth * LA WNL 1.2 * Repeat CXR shows mild congestion * continue Zosyn 4.5 gm day 5 , switch to po tomorrow DC with 4 days of Augmentin #Acute hypoxic respiratory failure likely due to pulmonary edema can not R/O PE , improved today - Ventimask trials - continue BiPAP PRN, adjusted last night - Maintain O2 > 90% - CXR on shows worsening congestion , monitor - outpt f/u with pulmonary for PFT and sleep study - give albumin and lasix IV 40 mg x2 , hold lasix today to allow equilibration as bicarb rising * will evaluate daily and diurese, * dc IVF . * monitor urine output, creatinine * Maintain king * encourage free water intake # Hypernatremia * Na still in 149 improve to 146 ...148...152 * Monitor BMP * encourage free water intake by mouth, * pt has a free water deficit of about 4.21 liters ##DAVID on CKD, improved - Returned to baseline Cr 1.5 , 0.9... 0.8 ...1.2 - Cont. to hold aldactone, -Continue Lisinopril 5 mg QD per cardiology, monitor kidney function - Avoid nephrotoxic agents -monitor urine output, creatinine - maintain king - Monitor BUN/Cr - lasix 40 today proceeded with albumin 25% given X 3 , #Acute Aphasia with right side weakness - Likely CVA - Cont. asa, lipitor - PT and MRI when stable #Cellulitis, B/L lower leg - Improving - continue zosyn # Acute on chronic diastolic heart failure - pulm hypertension with pleural effusion - Class 0-I, stable - ASA 81 mg daily - I&O - daily weight #CAD S/P bypass graft , Angina pectoris - Continue ASA #NIDDM - BGM and SSI #Core pulmonale with pulmonary HTN * will follow up as out patient sleep study and possible RHC #HTN - Controlled - Continue toprol xl 100 po daily , hold Lisinopril 5 mg, - Monitor renal function #HLD * continue Lipitor 20 mg po HS # R superficial vein thrombosis : * not able to AC due to acute stroke. * vascular recs against AC #Right wrist scaphoid fracture and triquetrum fracture * continue to monitor * avoid IV and work on the right hand #FEN -Dc fluids - Monitor Na+ - DM diet, thick liquid due to aspiration precaution(May consider downgrading diet to chopped and nectar thick liquid. Ensure Compact./Magic cup) per Power Saw Operator #Prophylaxis - DVT: Heparin 5000 IU sq TID #Dispo: * transferred to tele * Cont. to observe respiratory status while pending MRI * Monitor NA, BUN/Cr , respiratory distress, volume status * Possible DC to LTAC tomorrow .
[2017-05-28] MEDS: INSULIN SLIDING SCALE (NOVOLOG) 1 VIAL SQ SCH ×3 (06:16→17:19)
[2017-05-28 07:30] LABS: ALBUMIN 1.7 g/dl (3.4-5.0); ALK PHOS 131 U/L (45-117); ANION GAP 7 (8-16); BILIRUBIN,TOTAL 0.4 mg/dL (0.2-1.0); BLOOD UREA NITROGEN 41 mg/dL (7-18); CALCIUM 7.9 mg/dL (8.5-10.1); CHLORIDE 114 mmol/L (98-107); CO2 35 mmol/L (21-32); CREATININE 1.5 mg/dL (0.7-1.3); GLUCOSE,RANDOM 180 mg/dL (74-106); PHOSPHOROUS 3.9 mg/dL (2.5-4.9); POTASSIUM 4.1 mmol/L (3.5-5.1); SGOT/AST 13 U/L (15-37); SGPT/ALT 18 U/L (12-78); SODIUM 156 mmol/L (136-145); TOT PROT 5.2 g/dl (6.4-8.2)
[2017-05-28 07:55] LABS: BASO % 0.7 % (0-2.0); EOS % 1.5 % (0-4.5); HEMATOCRIT 33.1 % (35.4-49); HEMOGLOBIN 10.2 GM/dL (11.7-16.9); LYMPH % 9.2 % (8-40); MCH 29.2 pg (25.7-33.7); MCHC 30.9 g/dl (32.0-35.9); MEAN CELL VOLUME 94.8 fl (80-96); MEAN PLT VOLUME 9.6 fl (7.5-11.1); MONO % 10.2 % (3.8-10.2); NEUT % 78.4 % (42.8-82.8); PLATELET COUNT 219 K/MM3 (134-434); RBC 3.49 M/mm3 (4.00-5.60); RDW 14.2 % (11.9-15.9); WHITE BLOOD COUNT 11.2 K/mm3 (4.0-10.0)
[2017-05-28] MEDS: AMINO ACIDS/PROTEIN HYDROLYS 30 ML LIQUID.PKT PO SCH ×2 (10:36→17:20)
[2017-05-28] MEDS: METOPROLOL SUCCINATE 100 MG TAB.SR.24H (FP) PO SCH (10:37)
[2017-05-28] MEDS: DOCUSATE SODIUM 100 MG CAPSULE (FP) PO SCH (10:37)
[2017-05-28] MEDS: ASPIRIN COATED 81 MG TABLET.EC PO SCH (10:37)
--- NOTE | 2017-05-28 11:24 | PN ---
Progress Note, Physician History of Present Illness: Resting on 40% VM. No complaints. Brief episode of NSVT yesterday. - Current Medication List Current Medications: Active Medications Albuterol/Ipratropium (Duoneb -) 1 amp NEB Q4H PRN PRN Reason: SHORTNESS OF BREATH Last Admin: 05/27/17 08:04 Dose: 1 amp Amino Acids (Prosource No Carb Liquid Pkt) 30 ml PO BID@0800,1730 [facility] Last Admin: 05/28/17 10:36 Dose: 30 ml Aspirin (Ecotrin -) 81 mg PO DAILY [facility] Last Admin: 05/28/17 10:37 Dose: 81 mg Atorvastatin Calcium (Lipitor -) 20 mg PO HS [facility] Last Admin: 05/27/17 22:05 Dose: 20 mg Docusate Sodium (Colace -) 100 mg PO DAILY [facility] Last Admin: 05/28/17 10:37 Dose: 100 mg Piperacillin Sod/Tazobactam (Sod 4.5 gm/ Dextrose) 100 mls @ 200 mls/hr IVPB Q8H-IV [facility] Last Admin: 05/28/17 10:37 Dose: 200 mls/hr Insulin Aspart (Novolog Vial Sliding Scale -) 1 vial SQ ACHS [facility] PRN Reason: Protocol Last Admin: 05/28/17 06:16 Dose: 2 units Metoprolol Succinate (Toprol Xl -) 100 mg PO DAILY [facility] Last Admin: 05/28/17 10:37 Dose: 100 mg Triamcinolone Acetonide (Aristocort 0.1% Lotion -) 1 applic TP BID PRN PRN Reason: FOR ITCHING/RASH - Objective Vital Signs: Vital Signs Temperature 98.8 F 05/28/17 06:00 Pulse Rate 78 05/28/17 08:17 Respiratory Rate 18 05/28/17 09:00 Blood Pressure 130/60 05/28/17 06:00 O2 Sat by Pulse Oximetry (%) 98 05/28/17 09:00 Constitutional: Yes: No Distress, Calm Neck: Yes: Supple Cardiovascular: Yes: Regular Rate and Rhythm Respiratory: Yes: Regular, Diminished, On Venti-Mask Gastrointestinal: Yes: Normal Bowel Sounds, Soft Edema: Yes Edema: LLE: Trace, RLE: Trace Integumentary: Yes: Venous Stasis Changes Labs: CBC, BMP 05/28/17 06:45 05/28/17 06:45 INR, PTT INR 1.42 (0.82-1.09) H 05/10/17 05:10 - ....Imaging EKG: Report Reviewed (Tele: NSVT) Problem List - Problems (1) Cor pulmonale (chronic) Code(s): I27.81 - COR PULMONALE (CHRONIC) (2) S/P CABG (coronary artery bypass graft) Code(s): Z95.1 - PRESENCE OF AORTOCORONARY BYPASS GRAFT (3) Coronary artery disease Code(s): I25.10 - ATHSCL HEART DISEASE OF [place] CORONARY ARTERY W/O ANG PCTRS Qualifiers: Coronary Disease-Associated Artery/Lesion type: [place] artery [place] vs. transplanted heart: [place] heart Associated angina: without angina Qualified Code(s): I25.10 - Atherosclerotic heart disease of [place] coronary artery without angina pectoris (4) Hyperlipidemia associated with type 2 diabetes mellitus Code(s): E11.69 - TYPE 2 DIABETES MELLITUS WITH OTHER SPECIFIED COMPLICATION; E78.5 - HYPERLIPIDEMIA, UNSPECIFIED (5) Diastolic dysfunction with chronic heart failure Code(s): I50.32 - CHRONIC DIASTOLIC (CONGESTIVE) HEART FAILURE (6) Cellulitis Code(s): L03.90 - CELLULITIS, UNSPECIFIED Qualifiers: Site of cellulitis of extremity: lower extremity (7) Type 2 diabetes mellitus Code(s): E11.9 - TYPE 2 DIABETES MELLITUS WITHOUT COMPLICATIONS Qualifiers: Diabetes mellitus complication status: without complication Diabetes mellitus 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 insulin use: without fdc use Qualified Code(s): E11.9 - Type 2 diabetes mellitus without complications (8) Hypertensive cardiomegaly with heart failure Code(s): I11.0 - HYPERTENSIVE HEART DISEASE WITH HEART FAILURE (9) Eepth-va-cxcagsl kidney injury Code(s): N17.9 - ACUTE KIDNEY FAILURE, UNSPECIFIED; N18.9 - CHRONIC KIDNEY DISEASE, UNSPECIFIED Qualifiers: Chronic kidney disease stage: stage 2 (mild) (10) Cerebrovascular disease Code(s): I67.9 - CEREBROVASCULAR DISEASE, UNSPECIFIED (11) Hypernatremia Code(s): E87.0 - HYPEROSMOLALITY AND HYPERNATREMIA (12) Ventricular tachycardia, nonsustained Code(s): I47.2 - VENTRICULAR TACHYCARDIA Assessment/Plan 1. Acute on chronic diastolic failure improving 2. Cor pulmonale, pulmonary hypertension 3. CAD post CABG, angina pectoris 4. 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 HTN/HCVD 6. NIDDM 7. Hyperlipidemia 8. Acute on CKD resolved 9. Lower extremity cellulitis, resolving 10. Right wrist scaphoid fracture and triquetrum fracture 11. Hypernatremia 12. Anemia 13. Non-sustained VT PLAN: 1. Oral Lasix as needed and hold Aldactone pending renal function recovery and hypernatremia correction, encourage free water intake 2. Hold Lisinopril pending renal recovery 3. Continue Toprol XL 100 qd 4. Continue ASA 81 qd 5. Continue Lipitor 20 qhs 6. BiPAP as tolerated, BD as needed 7. Complete oral antibiotic course per ID 8. MRI as planned by primary team, respiratory status permitting 9. As outlined in prior notes outpatient evaluation of pulmonary hypertension 10. F/u holter monitor to record ventricular tachyarrhythmia burden
--- NOTE | 2017-05-28 14:20 | HOL ---
Hook-up date: 2017-05-27 14:41:00 Duration: 22:45:00 Test Indications: DETECT ARRHYTHMIAS Medications: [id number] QRS complexes 2699 Ventricular ectopics which represent 1 % of total QRS comp. 1279 Supraventricular ectopics which represent <1 % of total QRS comp. * Paced QRS complexs which represent % of total QRS comp. * % of Time Classified as Noise VENTRICULAR ECTOPY 2653 Isolated 323 Bigeminal Cycles 23 Couplets 0 Runs 0 Beats in Runs * Beats LONGEST at * BPM at :: -- * Beats FASTEST at * BPM at :: -- SUPRAVENTRICULAR ECTOPY 1251 Isolated 14 Couplets 0 Runs 0 Beats in Runs * Beats LONGEST at * BPM at :: -- * Beats FASTEST at * BPM at :: -- HEART RATES 66 MIN at 07:03:30 2017-05-28 99 AVG 134 MAX at 11:39:36 2017-05-28 LONGEST RR 1.264 secs at 08:08:41 2017-05-28 The baseline rhythm was normal sinus with right bundle branch block ranging from 66bpm to 134 bpm (sinus tachycardia). The average heart rate was 99bpm; there were no significant pauses. Frequent atrial premature contractions with aberrant conduction. A moderate number of ventricular premature contractions, occasionally in a pattern of bigeminy. No diary entries. Confirmed by CYNDEE BERNSTEIN, JUDY ([id number]) on 05/28/2017 2:19:42 PM Referred By: LILA ESPINO DR Overread By: JUDY COTTER MD
--- NOTE | 2017-05-28 15:25 | PN ---
Progress Note, Physician History of Present Illness: patient stable on bipap - Current Medication List Current Medications: Active Medications Albuterol/Ipratropium (Duoneb -) 1 amp NEB Q4H PRN PRN Reason: SHORTNESS OF BREATH Last Admin: 05/27/17 08:04 Dose: 1 amp Amino Acids (Prosource No Carb Liquid Pkt) 30 ml PO BID@0800,1730 [facility] Last Admin: 05/28/17 10:36 Dose: 30 ml Aspirin (Ecotrin -) 81 mg PO DAILY [facility] Last Admin: 05/28/17 10:37 Dose: 81 mg Atorvastatin Calcium (Lipitor -) 20 mg PO HS [facility] Last Admin: 05/27/17 22:05 Dose: 20 mg Docusate Sodium (Colace -) 100 mg PO DAILY [facility] Last Admin: 05/28/17 10:37 Dose: 100 mg Piperacillin Sod/Tazobactam (Sod 4.5 gm/ Dextrose) 100 mls @ 200 mls/hr IVPB Q8H-IV [facility] Last Admin: 05/28/17 10:37 Dose: 200 mls/hr Insulin Aspart (Novolog Vial Sliding Scale -) 1 vial SQ ACHS [facility] PRN Reason: Protocol Last Admin: 05/28/17 12:13 Dose: 8 units Metoprolol Succinate (Toprol Xl -) 100 mg PO DAILY [facility] Last Admin: 05/28/17 10:37 Dose: 100 mg Triamcinolone Acetonide (Aristocort 0.1% Lotion -) 1 applic TP BID PRN PRN Reason: FOR ITCHING/RASH - Objective Vital Signs: Vital Signs Temperature 99.6 F 05/28/17 14:05 Pulse Rate 86 05/28/17 14:05 Respiratory Rate 28 H 05/28/17 14:05 Blood Pressure 135/63 05/28/17 14:05 O2 Sat by Pulse Oximetry (%) 97 05/28/17 13:35 Constitutional: Yes: No Distress, Calm Cardiovascular: Yes: Regular Rate and Rhythm, S1, S2 Respiratory: Yes: Regular, On BiPap Gastrointestinal: Yes: Normal Bowel Sounds, Soft Musculoskeletal: Yes: WNL Extremities: Yes: Other Neurological: Yes: Alert, Oriented, Other (aphasia improving rt side still with minimal movement) Psychiatric: Yes: Alert, Oriented Labs: CBC, BMP 05/28/17 06:45 05/28/17 06:45 INR, PTT INR 1.42 (0.82-1.09) H 05/10/17 05:10 Assessment/Plan Cor pulmonale, pulmonary hypertension . CAD p . HTN NIDDM Hyperlipidemia Lower extremity cellulitis cva aphasia leukocytosis wbc trending down cr normal plan augmentin for 4 more days physio resp support rest as per primary
--- NOTE | 2017-05-28 15:35 | PN ---
Teaching Attending Note Name of Resident: Deandre Smith ATTENDING PHYSICIAN STATEMENT I saw and evaluated the patient. I reviewed the resident's note and discussed the case with the resident. I agree with the resident's findings and plan as documented. SUBJECTIVE: No fever or chills . has no pain , denies SOB OBJECTIVE: NAD, Awake, ND. aphasic CV: RRR, NO JVD Lungs: dimished breath sounds at bases Ext: LE edema, erythema, improved from before Neuro: no facial droop, aphasic . EOMI. decreased sensation to light touch over R sided body, nl over face strength limited exam, 3/5 R shoulder abduction, 4/5 biceps and triecps on R .5/ 5bicpes and triceps on L , 4/5 L shoulder abduction , b/l hip flexion 2/5 . 1+ knee jerk and biceps reflexes. ASSESSMENT AND PLAN: 81 y/o man with h/o HTN, CAD, DM , diastolic Dysfunction , core pulmonale , and other medical problems who presented with LE edema and erythema and was found to have cellulitis , hospital course was complicated by aphasia and R sided weakness 1- Acute aphasia, and R sided weakness: possible acute CVA - cont asa and statin - unable to perform MRI as of now due to resp distress. - HOlter with PVCs and PACs 2-Acute hypoxic resp failure: due to CHF - hold off lasix today , as Na and cr aare rising - BIPAP HS and PRN 3- R superficial vein thrombosis : not able to AC due to acute stroke. vascular recs against AC 4- DAVID: cont to hold ACEI and aldactone 5- Cellulitis of LE . switch to AUgmentin x 4 days 6- DVT Px TX to ALTAC
--- NOTE | 2017-05-28 16:29 | DS ---
Physical Exam: SUBJECTIVE: Patient seen and examined at bedside. breathing is better , cellulitis is better. denies any fever, chills, N/V/D/C.denies any chest pain or palpitation. OBJECTIVE: Vital Signs Period Temp Pulse Resp BP Sys/Eckert Pulse Ox Last 24 Hr 98.8 F-100.7 F 78-118 18-28 118-138/47-64 94-99 PHYSICAL EXAM GENERAL: The patient is awake, alert, and fully oriented, aphasic HEAD: Normal with no signs of trauma. EYES: sclera anicteric, conjunctiva clear. ENT: dry mucous membranes. NECK: supple. LUNGS: diminshed breath sound at the bases with some crackles. no crackles, no accessory muscle use. HEART: Regular rate and rhythm, S1, S2 without murmur, rub or gallop. ABDOMEN: Soft, nontender, nondistended, normoactive bowel sounds, no guarding, no rebound, EXTREMITIES: 2+ pulses, warm, well-perfused, +1 edema. B/L Cellulites NEUROLOGICAL: Not able to performed . Normal speech, gait not observed. PSYCH: Normal mood, normal affect. SKIN: Warm, dry, LABS Laboratory Results - last 24 hr 05/27/17 05/27/17 05/28/17 17:51 21:04 05:40 WBC RBC Hgb Hct MCV MCH MCHC RDW Plt Count MPV Neutrophils % Lymphocytes % Monocytes % Eosinophils % Basophils % Sodium Potassium Chloride Carbon Dioxide Anion Gap BUN Creatinine Creat Clearance w eGFR POC Glucometer 283 283 178 Random Glucose Calcium Phosphorus Magnesium Total Bilirubin AST ALT Alkaline Phosphatase Total Protein Albumin 05/28/17 05/28/17 05/28/17 06:45 06:45 12:05 WBC 11.2 H RBC 3.49 L Hgb 10.2 L Hct 33.1 L MCV 94.8 MCH 29.2 MCHC 30.9 L RDW 14.2 Plt Count 219 MPV 9.6 Neutrophils % 78.4 Lymphocytes % 9.2 D Monocytes % 10.2 Eosinophils % 1.5 Basophils % 0.7 Sodium 156 H Potassium 4.1 Chloride 114 H Carbon Dioxide 35 H Anion Gap 7 L BUN 41 H Creatinine 1.5 H Creat Clearance w eGFR 45.14 POC Glucometer 300 Random Glucose 180 H Calcium 7.9 L Phosphorus 3.9 D Magnesium 2.0 Total Bilirubin 0.4 D AST 13 L D ALT 18 Alkaline Phosphatase 131 H D Total Protein 5.2 L Albumin 1.7 L CBC, BMP 05/28/17 06:45 05/28/17 06:45 HOSPITAL COURSE: Date of Admission:05/09/17 Date of Discharge: 05/28/17 Primary discharge diagnosis: sepsis secondary to cellulitis Secondary discharge diagnoses: -hypoxic, hypercapnic acute respiratory failure 2/2 acute on chronic diastolic heart failure -aspiration pneumonia -acute aphasia and right sided weakness concerning for CVA -acute on chronic kidney injury -hypernatremia from low solute intake -right superficial vein thrombosis is a 81 yo M with pmhx of IDDM, CAD s/p CABG, CHF, HTN, CKD who initially presented with lower extremity weakness and cellulitis. His hospital course involved ICU care due to SIRS/sepsis (likely from cellulitis; negative blood cx after abx therapy), acute aphasia w Rt sided weakness concerning for CVA (however negative CTH other than old infarction, but MRI not able to be obtained given Bipap requirement) and acute respiratory failure from likely pulmonary edema from acute on chronic diastolic heart failure +/- aspiration PNA requiring IV diuresis and positive pressure ventilation without intubation. He was on Zosyn while in ICU which was discontinued on transfer to floor, however he subsequently developed leukocytosis (peak 19k) for which Zosyn was restarted with downtrend in WBC to 11k at discharge. He was evaluated by speech pathology who recommended barium swallow for concern for aspiration, however he was not able to have this done given respiratory issues. Empiric dysphagia diet with nectar thick liquids were recommended due to aspiration risk. Other issues during hospitalization included hypernatremia (Na 149-156), acute on chronic renal insufficiency for which aldactone and lisinopril were held without restart at discharge. He also had a R superficial vein thrombosis and was evaluated by vascular surgery, however given concern for possible acute ischemic stroke full dose anticoagulation was avoided (was on prophylactic heparin). He was also evaluated by pulmonary given respiratory compromise who recommended diuresis for pulm edema with plan for outpatient PFTs and sleep study and possible right heart cath for pulmonary HTN evaluation. At discharge to IT, he was hemodynamically stable, on 3L NC with plan to continue abx therapy for 4 more days with Augmentin . Minutes to complete discharge: 40 Discharge Summary Reason For Visit: CELLULITIS Current Active Problems Nrrpa-hd-qrperue kidney injury (Acute) CHF (congestive heart failure) (Acute) Cellulitis (Acute) Atelectasis (Chronic) Chronic kidney disease (Chronic) Coronary artery disease (Chronic) Diastolic dysfunction with chronic heart failure (Chronic) Hyperlipidemia associated with type 2 diabetes mellitus (Chronic) Hypernatremia (Chronic) Pulmonary hypertension (Chronic) S/P CABG (coronary artery bypass graft) (Chronic) Type 2 diabetes mellitus (Chronic) Condition: Stable - Instructions Diet, Activity, Other Instructions: You were admitted to the hospital because of sepsis due to cellulitis. We treated you with fluids and antibiotics and the sepsis has resolved. You later developed acute decompensation of chronic heart failure which was treated as needed with diuretics. Unfortunately, we suspect you had a stroke while in the hospital and because your breathing status does not allow us to perform MRI scan of your head but you are on the appropriate medications for prevention of next stroke. Your kidneys sustained acute injury because of sepsis and dehydration. You still have shortness of breath and require BiPAP to breath at night. You are now in stable condition to be transfer to a nursing home care hospital to continue the current treatment. Instruction for continuing care: 1. Take augmentin twice a day for 4 more days. 2. Take oral Lasix orally as needed for weight increase and or resp compromise and continue to hold aldactone and lisinopril while pending renal function recovery and hypernatremia correction, encourage free free water intake 3. Cont the rest of patient's medications. 4. Use BiPAP at night each night and as needed 5. Complete oral antibiotic course per ID 6. MRI to assess the extent of stroke when respiratory status permitting. 7. Outpatient evaluation of pulmonary hypertension with pail tester and groundwater monitoring technician when stable. Need blood work CBC , BMP in 3 days Referrals: Micah Gambino MD [Staff Physician] - Oksana Kat MD [Staff Physician] - Camilo Campo MD [Primary Care Provider] - Sacha Wesley MD [Staff Physician] - Disposition: TRANSFER ACUTE CARE/OTHER HOSP - Home Medications Comprehensive Discharge Medication List: Ambulatory Orders Triamcinolone 0.1% Lotion [Aristocort 0.1% Lotion -] 60 ml TP PRN 05/09/17 Docusate Sodium [Colace] 100 mg PO DAILY 05/10/17 Albuterol 2.5/Ipratropium 0.5 [Duoneb -] 1 amp NEB Q4H PRN amp 05/28/17 Amino Acids/Protein Hydrolys [Prosource No Carb Liquid Pkt] 30 ml PO BID@0800, 1730 packet 05/28/17 Amox-Tr/K Cl [Augmentin - 875Mg Tablet] 1 tab PO BID #8 tablet 05/28/17 Aspirin Coated [Ecotrin -] 81 mg PO DAILY tablet.ec 05/28/17 Atorvastatin Ca [Lipitor] 20 mg PO HS #30 tablet 05/28/17 Insulin Sliding Scale [Novolog Vial Sliding Scale -] 1 vial SQ ACHS units 05/28 Metoprolol Succinate [Toprol XL -] 100 mg PO DAILY tab.sr.24h 05/28/17 This patient is new to me today: No Emergency Visit: Yes ED Registration Date: 05/09/17 Care time: The patient presented to the Emergency Department on the above date and was hospitalized for further evaluation of their emergent condition. Critical Care patient: No - Discharge Referral Referred to [facility] No
--- NOTE | 2017-05-28 17:08 | PN ---
Progress Note, Physician History of Present Illness: Pt seen and examined at bedside. He is drowsy today. - Current Medication List Current Medications: Active Medications Albuterol/Ipratropium (Duoneb -) 1 amp NEB Q4H PRN PRN Reason: SHORTNESS OF BREATH Last Admin: 05/27/17 08:04 Dose: 1 amp Amino Acids (Prosource No Carb Liquid Pkt) 30 ml PO BID@0800,1730 [facility] Last Admin: 05/28/17 10:36 Dose: 30 ml Aspirin (Ecotrin -) 81 mg PO DAILY [facility] Last Admin: 05/28/17 10:37 Dose: 81 mg Atorvastatin Calcium (Lipitor -) 20 mg PO HS [facility] Last Admin: 05/27/17 22:05 Dose: 20 mg Docusate Sodium (Colace -) 100 mg PO DAILY [facility] Last Admin: 05/28/17 10:37 Dose: 100 mg Piperacillin Sod/Tazobactam (Sod 4.5 gm/ Dextrose) 100 mls @ 200 mls/hr IVPB Q8H-IV [facility] Last Admin: 05/28/17 10:37 Dose: 200 mls/hr Insulin Aspart (Novolog Vial Sliding Scale -) 1 vial SQ ACHS [facility] PRN Reason: Protocol Last Admin: 05/28/17 12:13 Dose: 8 units Metoprolol Succinate (Toprol Xl -) 100 mg PO DAILY [facility] Last Admin: 05/28/17 10:37 Dose: 100 mg Triamcinolone Acetonide (Aristocort 0.1% Lotion -) 1 applic TP BID PRN PRN Reason: FOR ITCHING/RASH - Objective Vital Signs: Vital Signs Temperature 99.6 F 05/28/17 14:05 Pulse Rate 86 05/28/17 14:05 Respiratory Rate 28 H 05/28/17 14:05 Blood Pressure 135/63 05/28/17 14:05 O2 Sat by Pulse Oximetry (%) 97 05/28/17 13:35 Constitutional: Yes: Calm Eyes: Yes: Conjunctiva Clear HENT: Yes: Atraumatic Cardiovascular: Yes: S1, S2 Respiratory: Yes: On Nasal O2 Gastrointestinal: Yes: Soft Genitourinary: Yes: Mercado Present Musculoskeletal: Yes: Muscle Weakness Edema: Yes Integumentary: Yes: Venous Stasis Changes Wound/Incision: Yes: Open to air Neurological: Yes: Confusion Labs: CBC, BMP 05/28/17 06:45 05/28/17 06:45 INR, PTT INR 1.42 (0.82-1.09) H 05/10/17 05:10 Problem List - Problems (1) Hypernatremia Code(s): E87.0 - HYPEROSMOLALITY AND HYPERNATREMIA (2) Acute respiratory failure with hypoxia Code(s): J96.01 - ACUTE RESPIRATORY FAILURE WITH HYPOXIA (3) Serwg-em-emomnje kidney injury Code(s): N17.9 - ACUTE KIDNEY FAILURE, UNSPECIFIED; N18.9 - CHRONIC KIDNEY DISEASE, UNSPECIFIED Qualifiers: Chronic kidney disease stage: stage 2 (mild) (4) Atelectasis Code(s): J98.11 - ATELECTASIS (5) Chronic kidney disease Code(s): N18.9 - CHRONIC KIDNEY DISEASE, UNSPECIFIED Qualifiers: Chronic kidney disease stage: stage 2 (mild) Qualified Code(s): N18.2 - Chronic kidney disease, stage 2 (mild) Assessment/Plan Current Medications Generic Name Dose Route Start Last Admin Trade Name Freq PRN Reason Stop Dose Admin Albuterol/Ipratropium 1 amp 05/24/17 11:19 05/27/17 08:04 Duoneb - NEB 1 amp Q4H PRN Administration SHORTNESS OF BREATH Amino Acids 30 ml 05/16/17 17:30 05/28/17 10:36 Prosource No Carb Liquid Pkt PO 30 ml BID@0800,1730 [facility] Administration Aspirin 81 mg 05/10/17 10:00 05/28/17 10:37 Ecotrin - PO 81 mg DAILY [facility] Administration Atorvastatin Calcium 20 mg 05/10/17 22:00 05/27/17 22:05 Lipitor - PO 20 mg HS [facility] Administration Docusate Sodium 100 mg 05/11/17 10:00 05/28/17 10:37 Colace - PO 100 mg DAILY [facility] Administration Piperacillin Sod/Tazobactam 100 mls @ 200 mls/hr 05/23/17 18:00 05/28/17 10: 37 Sod 4.5 gm/ Dextrose IVPB 200 mls/hr Q8H-IV [facility] Administration Insulin Aspart 1 vial 05/09/17 22:00 05/28/17 12:13 Novolog Vial Sliding Scale - SQ 8 units ACHS [facility] Administration Protocol Metoprolol Succinate 100 mg 05/18/17 10:00 05/28/17 10:37 Toprol Xl - PO 100 mg DAILY [facility] Administration Triamcinolone Acetonide 1 applic 05/10/17 10:00 Aristocort 0.1% Lotion - TP BID PRN FOR ITCHING/RASH Impression 1. Hypernatremia 2. whit[place] resolved 3. HTN 4. respiratory failure requiring bipap 5. hypoxia 6. CHF 7. DM 8. hyperlipidemia 9. acute aphasia 10. cellulitis Plan - would continue to hold fiorella as renal function is worsening - discussed with primary team and pt is in process of being transferred to an LTAC - cont with lasix PRN - encourage free water intake as sodium is elevated - volume status has been difficult to control - would avoid fluids as his respiratory status is poor - restrict salt intake - cont with oxygen and monitor pulse ox - will follow Dr Kat
[2017-05-28 19:38] VITALS: TEMP 99
[2017-05-28 20:33] VITALS: BP 137/60; PULSE 91
== END 2017-05-28 21:16 | DRG 871 ==
LOC: JER 14:43 → JERBED 19:44 → J2W 05-10 01:18 → J4W 05-23 01:02
PROVIDERS: ADMIT Internal Medicine; ATTEND Internal Medicine
PROC: 5A09557 Assistance with Respiratory Ventilation, Greater than 96 Consecutive Hours, Continuous Positive Airway Pressure (ICD-10-PCS; principal; 2017-05-22)
DX: A41.9 Sepsis, unspecified organism (principal); I50.33 Acute on chronic diastolic (congestive) heart failure; I63.9 Cerebral infarction, unspecified; J96.01 Acute respiratory failure with hypoxia; J69.0 Pneumonitis due to inhalation of food and vomit; J96.02 Acute respiratory failure with hypercapnia; I13.0 Hypertensive heart and chronic kidney disease with heart failure and stage 1 through stage 4 chronic kidney disease, or unspecified chronic kidney disease; N17.9 Acute kidney failure, unspecified; L03.116 Cellulitis of left lower limb; L03.115 Cellulitis of right lower limb; R47.01 Aphasia; G81.91 Hemiplegia, unspecified affecting right dominant side; I82.811 Embolism and thrombosis of superficial veins of right lower extremity; J98.11 Atelectasis; E87.0 Hyperosmolality and hypernatremia; I47.2 Ventricular tachycardia; Z79.4 Long term (current) use of insulin; I25.10 Atherosclerotic heart disease of native coronary artery without angina pectoris; Z95.1 Presence of aortocoronary bypass graft; E78.5 Hyperlipidemia, unspecified; E87.6 Hypokalemia; E66.9 Obesity, unspecified; Z68.34 Body mass index [BMI] 34.0-34.9, adult; I27.20 Pulmonary hypertension, unspecified; I27.81 Cor pulmonale (chronic); R29.700 NIHSS score 0; I87.2 Venous insufficiency (chronic) (peripheral); M10.9 Gout, unspecified; R73.03 Prediabetes; S62.001A Unspecified fracture of navicular [scaphoid] bone of right wrist, initial encounter for closed fracture; N18.2 Chronic kidney disease, stage 2 (mild); D64.9 Anemia, unspecified; X58.XXXA Exposure to other specified factors, initial encounter; Y93.89 Activity, other specified; Y92.89 Other specified places as the place of occurrence of the external cause; Y99.8 Other external cause status
CPT/HCPCS: 36415; 36600; 70450-TC; 71045-TC; 73110-TC-RT; 73130-TC-RT; 76775-TC; 80048; 80053; 80061; 81003; 82550; 82570; 82803; 82962; 83036; 83605; 83721; 83735; 83880; 84100; 84484; 84540; 85025; 85027; 85610; 85651; 85730; 86140; 86850; 86900; 86901; 87040; 87086; 93005; 93010; 93225; 93226; 93306-TC; 93970-TC; 94640; 94660; 97161-GP; 99284-25; J1644; P9047